=== PATIENT | male | born 1940 | race Caucasian/White ===

== ENCOUNTER → 2017-10-05 | Outpatient (CLI) | payer OTHER ==
[~2017-10-05] MED LIST: IOHEXOL 350 MG/ML 100 ML (OMNIPAQUE 350) VIAL IV ONE; NS 100 ML (IVPB) BAG IV ONE
[2017-10-05 09:42] LABS: ALANINE AMINOTRANSFERASE 13 U/L (0-55); ANION GAP 8 MMOL/L (5-14); ASPARTATE AMINO TRANSFERASE 18 U/L (5-34); BILIRUBIN,TOTAL 0.7 MG/DL (0.1-1.0); BLOOD UREA NITROGEN 20 MG/DL (7-18); BUN/CREATININE RATIO 19; CALCIUM 9.4 MG/DL (8.5-10.1); CARBON DIOXIDE 26 MMOL/L (21-32); CHLORIDE 106 MMOL/L (98-107); CREATININE SERUM 1.03 MG/DL (0.60-1.30); GFR ESTIMATED > 60; GLUCOSE 94 MG/DL (70-105); SODIUM 140 MMOL/L (135-145); TOTAL PROTEIN 6.9 GM/DL (6.4-8.2)
--- NOTE | 2017-10-05 11:02 | Diagnostic Imaging Report ---
PROCEDURE: CT abdomen and pelvis with contrast. TECHNIQUE: Multiple contiguous axial images were obtained through the abdomen and pelvis after administration of intravenous contrast. INDICATION: Abdominal pain. 100 mL of Omnipaque 350 is administered intravenously. FINDINGS: The lung bases are clear. The liver, the pancreas, the spleen, the adrenal glands, and the gallbladder appear unremarkable. The kidneys have symmetric contrast enhancement and excretion. There is no hydronephrosis. The prostate is 5.2 cm in transverse dimension. There is extensive diverticulosis in the sigmoid colon. No diverticulitis. No bowel obstruction. The appendix is normal. The osseous structures demonstrate degenerative changes in the lumbar spine and mild to moderate degenerative changes in the hip joints. IMPRESSION: 1. Diverticulosis. No evidence of diverticulitis. 2. Enlarged prostate. Dictated by: Dictated on workstation # [id number]
== END ==
LOC: RAD 09:04
PROVIDERS: ATTEND Family Medicine
DX: K57.30 Diverticulosis of large intestine without perforation or abscess without bleeding (principal); N40.0 Benign prostatic hyperplasia without lower urinary tract symptoms
CPT/HCPCS: 36415; 74177; 80053

== ENCOUNTER → 2019-08-24 | Outpatient (CLI) | payer OTHER ==
--- NOTE | 2019-08-24 12:08 | Diagnostic Imaging Report ---
Left shoulder at 10:46 a.m. INDICATION: Shoulder pain Three views were obtained. COMPARISON: There are no prior studies available for comparison. FINDINGS: There is no fracture, dislocation or acute bony abnormality evident. There is only mild degenerative disease involving the glenohumeral and acromioclavicular joints. Degenerative disease is less than expected given the patient's age. The soft tissues are unremarkable. IMPRESSION: 1. There is no evidence for an acute bony abnormality. 2. If there is clinical concern regarding an injury to the rotator cuff or labrum, then MRI would be recommended for further study. Dictated by: Dictated on workstation # [id number]
== END ==
LOC: RAD 10:24
PROVIDERS: ATTEND Family Medicine
DX: M19.012 Primary osteoarthritis, left shoulder (principal)
CPT/HCPCS: 73030

== ENCOUNTER → 2019-10-03 | Outpatient (CLI) | payer MEDICARE, OTHER ==
--- NOTE | 2019-10-03 10:43 | Diagnostic Imaging Report ---
PROCEDURE: MRI left upper extremity without contrast. TECHNIQUE: Multiplanar, multisequence non contrast-enhanced MRI of the left upper extremity was accomplished. INDICATION: Chronic left shoulder pain. Recent golf injury. COMPARISON: Radiographs from 08/24/2019. FINDINGS: No acute fracture is seen in the left shoulder. There are marked degenerative changes in the acromioclavicular joint. There is a small left shoulder joint effusion. There is moderate fluid in the subacromial subdeltoid bursa. The supraspinatus tendon demonstrates mild tendinosis, with small low-grade partial-thickness tears at the footplate. There is fraying and low-grade partial tearing at the bursal surface as well. The infraspinatus tendon also demonstrates mild tendinosis. The teres minor tendon is intact. The subscapularis tendon demonstrates a high-grade partial-thickness tear at the articular surface measuring 2 cm in width. No definite full-thickness component is seen although there is fluid in the subcoracoid bursa. The long head of the biceps tendon is normal in course with no tear seen. The glenoid labrum is diminutive and irregular posteriorly and inferiorly, which is likely degenerative. No paralabral cyst is seen. The acromion has a curved undersurface without hooking. The coracoclavicular and coracoacromial ligaments are intact. The soft tissues about the left shoulder are otherwise unremarkable. IMPRESSION: 1. Moderate-sized high-grade partial-thickness tear of the subscapularis tendon. Fluid in the subcoracoid bursa may indicate a small full-thickness component versus bursitis. 2. Tendinosis in the supraspinatus and infraspinatus tendons. Fraying and low-grade partial-thickness tearing at the bursal surface of the supraspinatus. 3. Marked degenerative changes of the acromioclavicular joint, causing mass effect on the underlying supraspinatus. Recommend correlation for signs of impingement. 4. Subacromial subdeltoid bursitis. Dictated by: Dictated on workstation # [id number]
== END ==
LOC: RAD 09:11
PROVIDERS: ATTEND Family Medicine
DX: S43.422A Sprain of left rotator cuff capsule, initial encounter (principal); M19.012 Primary osteoarthritis, left shoulder; M75.52 Bursitis of left shoulder
CPT/HCPCS: 73221

== ENCOUNTER → 2021-04-07 | Outpatient (CLI) | payer MEDICARE ==
--- NOTE | 2021-04-07 17:24 | Diagnostic Imaging Report ---
PROCEDURE: US carotid duplex, bilateral. TECHNIQUE: Multiple real-time grayscale images were obtained over the carotid arteries in various projections, bilaterally. Additional spectral analysis and color Doppler duplex images were also obtained. INDICATION: Subclavian steal. No relevant comparison is available. FINDINGS: By grayscale imaging there are no findings of significant atherosclerotic plaquing at the carotid bifurcations. The morphology of the waveforms within the common and internal carotid arteries appear appropriate without evidence of abnormal elevation of the peak systolic velocities. The ICA/CCA ratios appear normal. There is antegrade flow within both of the vertebral arteries with normal waveforms. No notching or pre-steal phenomenon evident. No velocity elevations evident within the visualized portion of the subclavian arteries. IMPRESSION: 1. No sonographic evidence of a hemodynamically significant carotid artery stenosis. 2. Antegrade flow within the vertebral arteries with unremarkable waveforms. No velocity elevations evident within the visualized portion of the subclavian arteries. Parameters based on the consensus panel Villafuerte-Scale and Doppler ultrasound criteria published September 2003, Radiology, Volume 229. DOPPLER (peak systolic velocity M/S Right Left CCA .77 .96 ICA Proximal .60 .55 ICA Mid .59 .77 ICA Distal .68 .33 RATIO .77 .79 ECA 1.05 .74 VERT .57 .38 Dictated by: Dictated on workstation # [id number]
--- NOTE | 2021-04-07 19:23 | Diagnostic Imaging Report ---
INDICATION: Dizziness, subclavian steal Duplex ultrasound of the upper extremities was done with grayscale, spectral wave form and color Doppler flow analysis. Arterial Doppler bilateral upper extremities. The arterial systems of both upper extremities have normal arterial velocities and waveforms. There is no occlusion or hemodynamically significant stenosis seen. IMPRESSION: Normal arterial Doppler of the upper extremities. Dictated by: Dictated on workstation # [id number]
== END ==
LOC: RAD 13:51
PROVIDERS: ATTEND Family Medicine
DX: R42 Dizziness and giddiness (principal); G45.8 Other transient cerebral ischemic attacks and related syndromes
CPT/HCPCS: 93880; 93930

== ENCOUNTER 2022-03-19 13:23 | Outpatient (RCR) | payer MEDICARE | END 2022-03-21 | disposition home or self-care (01) | PROVIDERS: ATTEND Family Medicine | DX: I69.332 Monoplegia of upper limb following cerebral infarction affecting left dominant side (principal); I69.342 Monoplegia of lower limb following cerebral infarction affecting left dominant side; I10 Essential (primary) hypertension ==

== ENCOUNTER → 2022-04-21 | Outpatient (RCR) | payer MEDICARE | END | disposition home or self-care (01) | PROVIDERS: ATTEND Family Medicine | DX: I69.332 Monoplegia of upper limb following cerebral infarction affecting left dominant side (principal); I69.342 Monoplegia of lower limb following cerebral infarction affecting left dominant side; I10 Essential (primary) hypertension ==

== ENCOUNTER 2022-05-20 12:56 | Outpatient (RCR) | payer MEDICARE | END 2022-05-21 | disposition home or self-care (01) | PROVIDERS: ATTEND Family Medicine | DX: I69.332 Monoplegia of upper limb following cerebral infarction affecting left dominant side (principal); I69.342 Monoplegia of lower limb following cerebral infarction affecting left dominant side; I10 Essential (primary) hypertension ==

== ENCOUNTER 2022-06-17 12:59 | Outpatient (RCR) | payer MEDICARE | END 2022-06-21 | disposition home or self-care (01) | PROVIDERS: ATTEND Family Medicine | DX: I69.332 Monoplegia of upper limb following cerebral infarction affecting left dominant side (principal); I69.342 Monoplegia of lower limb following cerebral infarction affecting left dominant side; I10 Essential (primary) hypertension ==

== ENCOUNTER → 2022-06-18 | Outpatient (CLI) | payer MEDICARE ==
--- NOTE | 2022-06-18 16:09 | Diagnostic Imaging Report ---
PROCEDURE: MR imaging of the brain without contrast. TECHNIQUE: Multiplanar, multisequence MR imaging of the brain was performed without contrast. INDICATION: Left-sided weakness and numbness. History of stroke. COMPARISON: None. FINDINGS: Advanced generalized parenchymal volume loss. Advanced nonspecific T2 hyperintensities in the supratentorial and pontine white matter compatible with chronic small vessel ischemic change. Chronic infarcts in the arlene and left thalamus. There is also encephalomalacia in the right basal ganglia with hemosiderin deposition consistent with a prior hemorrhage. No evidence of acute infarction or hemorrhage. Normal morphology including the major midline structures, sella, posterior fossa and cerebellar pontine angle. Normal intracranial flow voids. No hydrocephalus or extra-axial fluid collections. The orbits are unremarkable. Paranasal sinuses and mastoids are clear. Normal bone marrow signal. IMPRESSION: 1. No acute intracranial MRI findings. No evidence of acute infarction or hemorrhage. 2. Sequelae of a chronic hemorrhage in the right basal ganglia. There are also chronic infarcts in the left thalamus and arlene. 3. Advanced generalized parenchymal volume loss and chronic small vessel ischemic change. Dictated by: Dictated on workstation # [id number]
== END ==
LOC: RAD 14:05
PROVIDERS: ATTEND Family Medicine
DX: G31.9 Degenerative disease of nervous system, unspecified (principal); I69.354 Hemiplegia and hemiparesis following cerebral infarction affecting left non-dominant side; I67.82 Cerebral ischemia
CPT/HCPCS: 70551

== ENCOUNTER 2022-07-16 12:52 | Outpatient (RCR) | payer MEDICARE | END 2022-07-22 | disposition home or self-care (01) | PROVIDERS: ATTEND Family Medicine | DX: I69.332 Monoplegia of upper limb following cerebral infarction affecting left dominant side (principal); I69.342 Monoplegia of lower limb following cerebral infarction affecting left dominant side; I10 Essential (primary) hypertension ==

== ENCOUNTER 2022-08-13 13:01 | Outpatient (RCR) | payer MEDICARE | END 2022-08-19 16:00 | disposition home or self-care (01) | PROVIDERS: ATTEND Family Medicine | DX: I69.332 Monoplegia of upper limb following cerebral infarction affecting left dominant side (principal); I69.342 Monoplegia of lower limb following cerebral infarction affecting left dominant side; I10 Essential (primary) hypertension ==

== ENCOUNTER 2023-02-03 00:58 | Inpatient (IN) | payer MEDICARE ==
[~2023-02-03] VITALS: Ht 177.8 cm; Wt 65.1 kg
[2023-02-03] VITALS (26 sets, daily range): BP systolic 70–140; BP diastolic 35–88
[2023-02-03] MEDS ORDERED: fentaNYL INJ 100 MCG/2 ML AMP IVP STA ×2 (01:16→03:23)
[2023-02-03 01:27] LABS: BASOPHILS % (AUTO) 0 % (0-10); EOSINOPHILS % (AUTO) 0 % (0-10); HEMATOCRIT 44 % (40-54); HEMOGLOBIN 14.5 g/dL (13.3-17.7); LYMPHOCYTES # (AUTO) 1.4 10^3/uL (1.0-4.0); LYMPHOCYTES % (AUTO) 12 % (12-44); MEAN CORPUSCULAR HEMOGLOBIN 29 pg (25-34); MEAN CORPUSCULAR HGB CONC 33 g/dL (32-36); MEAN CORPUSCULAR VOLUME 86 fL (80-99); MEAN PLATELET VOLUME 10.1 fL (9.0-12.2); MONOCYTES % (AUTO) 9 % (0-12); NEUTROPHILS # (AUTO) 8.8 10^3/uL (1.8-7.8); NEUTROPHILS % (AUTO) 78 % (42-75); PLATELET COUNT 147 10^3/uL (130-400); WHITE BLOOD COUNT 11.2 10^3/uL (4.3-11.0)
[2023-02-03 01:37] LABS: ALBUMIN 4.1 GM/DL (3.2-4.5)
[2023-02-03 01:38] LABS: POTASSIUM 3.8 MMOL/L (3.6-5.0)
[2023-02-03 01:40] LABS: TOTAL PROTEIN 6.8 GM/DL (6.4-8.2)
[2023-02-03 01:42] LABS: BILIRUBIN,TOTAL 0.9 MG/DL (0.1-1.0)
[2023-02-03 01:43] LABS: CREATININE SERUM 0.94 MG/DL (0.60-1.30)
[2023-02-03 01:48] LABS: PROTHROMBIN TIME PATIENT 13.8 SEC (12.2-14.7)
[2023-02-03] MEDS ORDERED: LACTATED RINGERS 1,000 ML IV ONE ×2 (02:00→14:03)
[2023-02-03 02:14] LABS: BILIRUBIN,URINE NEGATIVE (NEGATIVE); CLARITY,URINE CLEAR; COLOR,URINE YELLOW; GLUCOSE, URINE (UA) NEGATIVE (NEGATIVE); KETONES,URINE 2+ (NEGATIVE); LEUKOCYTE ESTERASE ,URINE NEGATIVE (NEGATIVE); NITRITE,URINE NEGATIVE (NEGATIVE); PROTEIN,URINE TRACE (NEGATIVE)
[2023-02-03 02:26] LABS: AMORPHOUS SEDIMENT,UR MOD AMOR PHOSPHATE /LPF; BACTERIA,URINE NEGATIVE /HPF
--- NOTE | 2023-02-03 04:13 | ED Fall/Injury ---
General Chief Complaint: Hip/Pelvic Problems Stated Complaint: FALL Nursing Triage Note: PATIENT FELL ON LEFT SIDE AT 1900, 02/03/2023. STATES L HIP PAIN TOLERATED SOME MOVEMENT WITH ASSISTANCE BUT PAIN HAS GOTTEN WORSE. DENIES LOC Source: patient History of Present Illness Date Seen by Provider: Feb 03, 2023 Time Seen by Provider: 01:07 Initial Comments PT ARRIVES VIA EMS FROM HOME, WHERE HE LIVES WITH HIS PT STATES THAT AROUND 1900 THIS EVENING, HE STOOD UP FROM WHEELCHAIR, AND WAS TAKING OFF HIS JACKET AND LOST HIS BALANCE AND FELL BACK WARDS, HITTING HIS LEFT UPPER BACK ON THE DOOR FRAME AND THEN LANDED ON THE FLOOR ON HIS LEFT HIP. 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 PT STATES HE IS ABLE TO AMBULATE WITH A CANE, BUT HAS NOT BEEN ABLE TO BEAR WEIGHT OR MOVE LEG WITH OUT PAIN, AND PAIN IS GETTING WORSE HE DID TAKE A HYDROCODONE AT 2345--NO RELIEF. PT TAKES 81 MG ASPIRIN, BUT IS NOT ON BLOOD THINNERS HIS ONLY OTHER MEDICATIONS ARE ATORVASTATIN AND LEVOTHYROXINE PCP: DR. TYLER CHENG Allergies and Home Medications Allergies Coded Allergies: No Allergy Information Available (Unverified , 10/05/17) Patient Home Medication List Home Medication List Reviewed: Yes Review of Systems Review of Systems Constitutional: no symptoms reported Eyes: No Symptoms Reported Ears, Nose, Mouth, Throat: no symptoms reported Respiratory: no symptoms reported; No short of breath Cardiovascular: no symptoms reported; No chest pain Gastrointestinal: no symptoms reported; No abdominal pain, No nausea, No vomiting Genitourinary: no symptoms reported Musculoskeletal: see HPI Skin: no symptoms reported Psychiatric/Neurological: Pre-Existing Deficit Past Hgiekil-Dhfesb-Ulkbdb Hx Patient Social History Tobacco Use?: Yes Tobacco type used: Cigarettes Smoking Status: Former Smoker Use of E-Cig and/or Vaping dev: No Substance use?: No Alcohol Use?: No Immunizations Up To Date Influenza Vaccine Up-to-Date: Yes; Up-to-Date First/Initial COVID19 Vaccinat: 2020 Past Medical History Surgeries: Yes Abdominal, Orthopedic, Thyroidectomy, Tonsillectomy Respiratory: No Cardiac: Yes High Cholesterol Neurological: Yes (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) Paralysis, Stroke Genitourinary: No Gastrointestinal: Yes (HERNIA REPAIR X 4) Abdominal Hernia Musculoskeletal: Yes (LEFT KNEE SCOPE X 1) Arthritis Endocrine: Yes (S/P THYROIDECTOMY) Hypothyroidsim HEENT: Yes Hearing Impairment: Hard of Hearing Cancer: Yes Skin Did You Recieve Any Treatments: Yes What Type of Treatment Did You: Surgical Intervention SKIN CANCERS 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 oz. kg; 19.00 BMI Method: General Appearance: WD/WN, no apparent distress, cachetic, other (VERY PLEASANT, DOES NOT APPEAR TO BE IN ANY DISTRESS AT THIS TIME) HEENT: PERRL/EOMI Neck: non-tender, full range of motion, supple, normal inspection Cardiovascular: normal peripheral pulses, no edema, no JVD, no murmur, tachycardia (110'S) Respiratory: chest non-tender, normal breath sounds, no respiratory distress, no accessory muscle use Peripheral Pulses: 2+ Dorsalis Pedis (R), 2+ Left Dors-Pedis (L) Gastrointestinal: normal bowel sounds, non tender, soft Back: other (DIFFUSE TENDERNESS TO LEFT SIDE OF BACK, WITH MINOR ABRASION TO LEFT SCAPULA AREA. ) Extremities: no pedal edema, normal capillary refill, other (TENDERNESS TO LEFT HIP. NO DEFORMITY, NO SHORTENING OR ROTATION) Neurologic/Psychiatric: alert, normal mood/affect, oriented x 3, other (SLIGHTLY THICK-TONGUED, LEFT FACIAL DROOP, LEFT SIDE WEAKNESS/PARTIAL PARALYSIS--ALL ARE CHRONIC FROM PRIOR CVA. SENSATION IS INTACT, AND PT IS ABLE TO MOVE TOES AND FOOT A LITTLE. ) Skin: normal color, warm/dry Progress/Results/Core Measures Results/Orders Lab Results Laboratory Tests Test 02/03/23 01:20 02/03/23 02:05 Range/Units White Blood Count 11.2 H 4.3-11.0 10^3/uL Red Blood Count 5.08 4.30-5.52 10^6/uL Hemoglobin 14.5 13.3-17.7 g/dL Hematocrit 44 40-54 % Mean Corpuscular Volume 86 80-99 fL Mean Corpuscular Hemoglobin 29 25-34 pg Mean Corpuscular Hemoglobin Concent 33 32-36 g/dL Red Cell Distribution Width 14.7 H 10.0-14.5 % Platelet Count 147 130-400 10^3/uL Mean Platelet Volume 10.1 9.0-12.2 fL Immature Granulocyte % (Auto) 0 % Neutrophils (%) (Auto) 78 H 42-75 % Lymphocytes (%) (Auto) 12 12-44 % Monocytes (%) (Auto) 9 0-12 % Eosinophils (%) (Auto) 0 0-10 % Basophils (%) (Auto) 0 0-10 % Neutrophils # (Auto) 8.8 H 1.8-7.8 10^3/uL Lymphocytes # (Auto) 1.4 1.0-4.0 10^3/uL Monocytes # (Auto) 1.0 0.0-1.0 10^3/uL Eosinophils # (Auto) 0.0 0.0-0.3 10^3/uL Basophils # (Auto) 0.0 0.0-0.1 10^3/uL Immature Granulocyte # (Auto) 0.0 0.0-0.1 10^3/uL Prothrombin Time 13.8 12.2-14.7 SEC INR Comment 1.0 0.8-1.4 Activated Partial Thromboplast Time 32 24-35 SEC Sodium Level 140 135-145 MMOL/L Potassium Level 3.8 3.6-5.0 MMOL/L Chloride Level 100 98-107 MMOL/L Carbon Dioxide Level 27 21-32 MMOL/L Anion Gap 13 5-14 MMOL/L Blood Urea Nitrogen 27 H 7-18 MG/DL Creatinine 0.94 0.60-1.30 MG/DL Estimat Glomerular Filtration Rate 80 BUN/Creatinine Ratio 29 Glucose Level 115 H 70-105 MG/DL Calcium Level 10.0 8.5-10.1 MG/DL Corrected Calcium 9.9 8.5-10.1 MG/DL Total Bilirubin 0.9 0.1-1.0 MG/DL Aspartate Amino Transf (AST/SGOT) 30 5-34 U/L Alanine Aminotransferase (ALT/SGPT) 36 0-55 U/L Alkaline Phosphatase 107 40-136 U/L Total Protein 6.8 6.4-8.2 GM/DL Albumin 4.1 3.2-4.5 GM/DL Urine Color YELLOW Urine Clarity CLEAR Urine pH 8.0 5-9 Urine Specific [place]son 1.015 L 1.016-1.022 Urine Protein TRACE H NEGATIVE Urine Glucose (UA) NEGATIVE NEGATIVE Urine Ketones 2+ H NEGATIVE Urine Nitrite NEGATIVE NEGATIVE Urine Bilirubin NEGATIVE NEGATIVE Urine Urobilinogen 0.2 < = 1.0 MG/DL Urine Leukocyte Esterase NEGATIVE NEGATIVE Urine RBC (Auto) NEGATIVE NEGATIVE Urine RBC NONE /HPF Urine WBC NONE /HPF Urine Crystals PRESENT H /LPF Urine Amorphous Sediment MOD OZZIE PHOSPHATE H /LPF Urine Bacteria NEGATIVE /HPF Urine Casts NONE /LPF Urine Mucus NEGATIVE /LPF Urine Culture Indicated NO My Orders Orders - GERALD UMANZOR DO Cbc With Automated Diff (02/03/23 01:10) Comprehensive Metabolic Panel (02/03/23 01:10) Protime With Inr (02/03/23 01:10) Partial Thromboplastin Time (02/03/23 01:10) Ua Culture If Indicated (02/03/23 01:10) Chest 1 View, Ap/Pa Only (02/03/23 01:10) Femur, Left, 2 Views (02/03/23 01:10) Pelvis With Left Hip 2-3 Views (02/03/23 01:10) Fentanyl Inj (Sublimaze Injection) (02/03/23 01:16) Ct Head/Cervical Spine Wo (02/03/23 01:16) Ct Chest/Abdomen/Pelvis Wo (02/03/23 ) Ed Iv/Invasive Line Start (02/03/23 02:00) Lactated Ringers (Lr 1000 Ml Iv Solution (02/03/23 02:00) Fentanyl Inj (Sublimaze Injection) (02/03/23 03:23) Medications Given in ED Current Medications Medications Dose Ordered Sig/Awilda Route Start Time Stop Time Status Last Admin Dose Admin Lactated Ringer's 1,000 ml @ 0 mls/hr Q0M ONCE IV 02/03/23 02:00 02/03/23 02:01 DC 02/03/23 02:13 0 MLS/HR Vital Signs/I&O 02/03/23 01:05 Temp 36.2 Pulse 121 Resp 20 B/P (MAP) 155/100 (118) Pulse Ox 97 O2 Delivery Room Air Blood Pressure Mean: 118 Progress Progress Note : Progress Note GIVEN: -IV FLUIDS -FENTANYL HR AND BP DOWN AT TIME OF ADMIT NO DETERIORATION IN PT'S CONDITION DURING ER STAY NO PRIOR VISITS HERE REVIEWED ALL TEST RESULTS WITH PT AND , AND AGREE WITH PLAN OF CARE Diagnostic Imaging Comments CXR--NO ACUTE PROCESS, PENDING RADIOLOGIST REVIEW PELVIS / LEFT HIP--LEFT FEMORAL NECK FRACTURE, PENDING RADIOLOGIST REVIEW LEFT FEMUR--LEFT FEMORAL NECK FRACTURE, PENDING RADIOLOGIST REVIEW CT HEAD/CERVICAL SPINE--PER [facility] VIA FAX AT [id number] -NO ACUTE INFARCT, BLEED OR ACUTE INTRACRANIAL ABNORMALITY. 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 -NO FRACTURE OR ACUTE BONY ABNORMALITY -MODERATE DEGENERATIVE CHANGES OF CERVICAL SPINE CT CHEST/ABDOMEN/PELVIS, WITH THORACIC/LUMBAR SPINE--PER [facility] VIA FAX AT 4507 -NO PNEUMOTHORAX OR ACUTE INTRA-THORACIC ABNORMALITY -NON-DISPLACED LEFT FEMORAL NECK FRACTURE -NO PARENCHYMAL INJURY OR HEMOPERITONEUM. Reviewed: Reviewed by Hi Departure Communication (Admissions) [id number]--SPOKE WITH DR. BRANDON, ORTHOPEDIC SURGEON WHIP [facility]. ACCEPTS PT FOR ADMIT. PLAN ON TAKING TO SURGERY LATER TODAY. Impression Primary Impression: S/P FALL FROM STANDING Additional Impressions: Closed left hip fracture HX OF CVA WITH LEFT SIDE WEAKNESS Disposition: ADMITTED INPATIENT Condition: Stable Admissions Decision to Admit Reason: Admit from ER (Trauma) Decision to Admit/Date: Feb 03, 2023 Time/Decision to Admit Time: 03:55 Departure-Patient Inst. Referrals: TYLER CHENG MD (PCP/Family) Primary Care Physician GERALD UMANZOR DO Feb 03, 2023 04:13
[2023-02-03] MEDS ORDERED: fentaNYL INJ 100 MCG/2 ML AMP IV PRN (05:15)
[2023-02-03] MEDS ORDERED: D5 1/2 NS W/KCL 20 MEQ/L 1,000 ML IV SCH (05:15)
[2023-02-03] MEDS ORDERED: ONDANSETRON 4 MG/2 ML (SDV) Z0FRAN IV PRN (05:15)
[2023-02-03] MEDS ORDERED: ACETAMINOPHEN 325 MG TABLET PO PRN ×2 (05:30→07:30)
[2023-02-03] MEDS ORDERED: MELATONIN 3 MG TABLET PO PRN (05:30)
[2023-02-03] MEDS ORDERED: MILK OF MAGNESIA 400 MG/5 ML 30 ML UDC PO PRN (05:30)
[2023-02-03] MEDS ORDERED: LACTULOSE SYRUP 10GM/15ML (ENULOSE) 30ML UDC PO PRN (05:30)
[2023-02-03] MEDS ORDERED: polyethylene glycoL POWDER 17 GM (MIRALAX) PACK PO PRN (05:30)
[2023-02-03] MEDS ORDERED: ANTACID SUSP 30 ML UDC (MYLANTA) PO PRN (05:30)
[2023-02-03] MEDS ORDERED: diphenhydrAMINE 25 MG TAB (BENADRYL) PO PRN (05:30)
[2023-02-03] MEDS ORDERED: HYDROmorphone 2 MG/ML VIAL (DILAUDID) IV PRN (05:30)
[2023-02-03] MEDS ORDERED: CALCIUM CARBONATE 500 MG (TUMS) TAB.CHEW PO PRN (05:30)
[2023-02-03] MEDS ORDERED: BISACODYL 10 MG SUPP (DULCOLAX) PR PRN (05:30)
[2023-02-03] MEDS ORDERED: ONDANSETRON 4 MG (ZOFRAN) ORAL DISSOLVE TAB PO PRN (05:30)
[2023-02-03] MEDS ORDERED: diphenhydrAMINE 50 MG/ML INJ (BENADRYL) IVP PRN ×2 (05:30→07:30)
--- NOTE | 2023-02-03 06:16 | Diagnostic Imaging Report ---
EXAMINATION: Chest 1 view HISTORY: Fall. Chest pain. COMPARISON: None available. FINDINGS: The lung volumes are normal. No focal consolidation is seen. No large pleural effusion or pneumothorax is seen. The cardiomediastinal silhouette is normal in size and contour. No acute osseous abnormality is seen. IMPRESSION: 1. No acute pleuroparenchymal process. Dictated by: Dictated on workstation # [id number]
--- NOTE | 2023-02-03 06:19 | Diagnostic Imaging Report ---
CLINICAL HISTORY: Fall. Left hip pain. COMPARISON: CT performed the same date. TECHNIQUE: 3 views of the pelvis and left hip. FINDINGS: Nondisplaced fracture seen involving the neck of the left femur. No fracture seen in the pelvis. The right hip is unremarkable. No focal osseous lesions. IMPRESSION: 1. Nondisplaced fracture involving the neck of the left femur. Dictated by: Dictated on workstation # [id number]
--- NOTE | 2023-02-03 06:19 | Diagnostic Imaging Report ---
CLINICAL HISTORY: Fall. Left-sided hip pain. COMPARISON: CT performed the same date. TECHNIQUE: 4 views of the left femur. FINDINGS: A nondisplaced fracture seen involving the neck of the proximal left femur. This is not well characterized on this exam. No significant malalignment. No focal osseous lesions. No fracture seen in the distal left femur. IMPRESSION: 1. Nondisplaced fracture involving the neck of the left femur. Please see the CT abdomen and pelvis performed the same date for additional findings. Dictated by: Dictated on workstation # [id number]
[2023-02-03] MEDS: NS IV 1000 ML 1,000 ML IV SCH ×2 (06:21→21:42)
--- NOTE | 2023-02-03 06:24 | Diagnostic Imaging Report ---
PROCEDURE: CT head and CT cervical spine without contrast. TECHNIQUE: Multiple contiguous axial images were obtained through the brain and cervical spine without the use of intravenous contrast. Sagittal and coronal reformations through the cervical spine were then performed. Auto Exposure Controls were utilized during the CT exam to meet ALARA standards for radiation dose reduction. INDICATION: Fall. Head and neck pain. COMPARISON: 06/18/2022. FINDINGS: CT head: No large acute territorial ischemia, mass, or hemorrhage. No midline shift or mass effect. Old lacunar infarct is seen in the left thalamus. Decreased attenuation is seen in the periventricular and subcortical white matter. The ventricles and cortical sulci are prominent. The basilar cisterns are patent and unremarkable. The calvarium is intact. The visualized paranasal sinuses are clear. CT cervical spine: No acute fracture or dislocation is seen in the cervical spine. No focal osseous lesions. Vertebral body heights are well-maintained. The craniocervical junction is well-maintained. Mild degenerative changes are seen in the cervical spine with disc osteophyte complexes and uncovertebral arthropathy. Soft tissues of the neck are unremarkable. The included lung apices are clear. IMPRESSION: 1. No hemorrhage or focal intra-axial mass. No CT evidence of large acute territorial ischemia. 2. No acute fracture or dislocation in the cervical spine. Agree with overnight report. Dictated by: Dictated on workstation # [id number]
--- NOTE | 2023-02-03 06:28 | Diagnostic Imaging Report ---
PROCEDURE: CT chest, abdomen, and pelvis without contrast. TECHNIQUE: Multiple contiguous axial images were obtained through the chest, abdomen, and pelvis without the use of intravenous contrast. Auto Exposure Controls were utilized during the CT exam to meet ALARA standards for radiation dose reduction. INDICATION: Fall. Chest and hip pain. COMPARISON: 10/05/2017. CT chest: The heart size is within normal limits. No pericardial effusion is present. There is calcified aortic and coronary atherosclerotic plaque without aneurysm. There is no mediastinal, hilar, or axillary lymphadenopathy. The lungs demonstrate no pulmonary nodules or masses. There are no focal areas of consolidation. No pneumothoraces are present. No central endobronchial obstructing lesions are identified. There are no pleural effusions. No acute osseous abnormalities. CT abdomen and pelvis: The liver, spleen, pancreas, adrenal glands, and kidneys have a normal appearance. The gallbladder is mildly distended. There is no pathologically enlarged mesenteric or retroperitoneal adenopathy. The bowel loops are nondilated. The appendix is visualized in the right lower quadrant and has a normal appearance. Diverticuli are seen in the sigmoid colon without evidence of acute diverticulitis. There is no free fluid or free air. Nondisplaced fracture seen involving the neck of the left femur. No other fractures are seen in the lumbar spine or pelvis. There is grade 1 anterolisthesis of L5 on S1. Scattered calcified aortic and iliac atherosclerotic plaque is seen without aneurysm. Ureters and bladder are normal. There is no free air, loculated collection, or adenopathy in the pelvis. IMPRESSION: 1. Nondisplaced fracture involving the neck of the left femur. 2. No evidence of solid organ injury in the abdomen and pelvis. No free fluid. 3. No acute injury in the chest. Agree with overnight report. Dictated by: Dictated on workstation # [id number]
[2023-02-03] MEDS ORDERED: RT-ALBUTEROL SULF 2.5 MG/3 ML PRE-MIX VIAL INH PRN (06:45)
--- NOTE | 2023-02-03 07:15 | Progress Note-Pre Operative ---
Pre-Operative Progress Note Date of Available H&P: Feb 03, 2023 Date H&P Reviewed: Feb 03, 2023 Time H&P Reviewed: 07:15 Changes from last HP none Pre-Operative Diagnosis: left neck of femur fracture DANI BRANDON MD Feb 03, 2023 07:15
--- NOTE | 2023-02-03 07:16 | Progress Note-Post Operative ---
Post-Operative Progess Note Surgeon (s)/Parakeet Raiser (s) Surgeon DANI BRANDON MD Parakeet Raiser: Mart Castañeda Pre-Operative Diagnosis left neck of femur fracture Post-Operative Diagnosis left neck of femur fracture Procedure & Operative Findings Date of Procedure 02/03/23 Procedure Performed/Findings left hip bipolar replacement Anesthesia Type GETA Estimated Blood Loss Estimated blood loss (mL): 2ooml Specimens/Packing Specimens Removed femoral head Packing: none DANI BRANDON MD Feb 03, 2023 07:16
[2023-02-03] MEDS ORDERED: morphine INJ 10 MG/ML 1ML (SYR OR VIAL) IVP PRN (07:30)
[2023-02-03] MEDS ORDERED: ceFAZolin INJECTION 2,000 MG in NS (IVPB) 50 ML IV ONE (07:30)
[2023-02-03] MEDS ORDERED: ONDANSETRON 4 MG/2 ML (SDV) Z0FRAN IVP PRN (07:30)
[2023-02-03] MEDS ORDERED: TEMAZEPAM 15 MG (RESTORIL) CAP PO PRN (07:30)
--- NOTE | 2023-02-03 08:40 | CONSULTATION REPORT ---
DATE OF SERVICE: 02/03/2023 INPATIENT CONSULTATION REASON FOR CONSULTATION: Left femoral neck fracture. HISTORY OF PRESENT ILLNESS: The patient is an 82-year-old gentleman status post hemorrhagic stroke with left-sided weakness, who fell at home. He presented to the Emergency Department where he was found to have a left femoral neck fracture. On CT scan, there appears to be extension up into the femoral head, though it is impacted. There is some collapse of the femoral head. The patient denies antecedent pain. He reports no head pain. He reports no recent systemic illnesses. PHYSICAL EXAMINATION: His left lower extremity is painful with internal and external rotation. Pulses are symmetric. He has intact dorsiflexion and plantarflexion of the toes. Sensation is intact to light touch throughout. IMPRESSION: Left femoral neck fracture. PLAN: I discussed options with the patient and his . Due to his hemorrhagic stroke, left-sided weakness and extension of the femoral head, we have elected to proceed with left hip bipolar replacement. I discussed risks, benefits, options, ramifications and recovery. They understand and wished to proceed. Job ID: [id number] DocumentID: [id number] Dictated Date: 02/03/2023 07:14:28 Cad Manager Date: 02/03/2023 08:37:00 Dictated By: DANI BRANDON MD
[2023-02-03] MEDS ORDERED: SENNOSIDES 8.6 MG (SENOKOT) TAB PO SCH (09:00)
[2023-02-03] MEDS ORDERED: BUPIVACAINE 0.5% 30 ML (SENSORCAINE) VIAL ONE ×2 (09:47→10:29)
[2023-02-03] MEDS: LACTATED RINGERS 1,000 ML IV PRN ×2 (09:50→11:52)
[2023-02-03] MEDS ORDERED: fentaNYL INJ 100 MCG/2 ML AMP ONE (10:23)
[2023-02-03] MEDS ORDERED: PROPOFOL INJECTION 50 ML IV ONE (10:29)
[2023-02-03] MEDS ORDERED: MIDAZOLAM 2 MG/2 ML (VERSED) VIAL ONE (10:29)
--- NOTE | 2023-02-03 10:53 | History & Physical ---
ALIE WINN 02/03/23 1053: History of Present Illness History of Present Illness Reason for visit/HPI This is an 82 y/o male who presented to the ED yesterday after a fall from standing. He reported that he was sitting in his wheelchair and gaby to stand to take his jacket off when he lost his balance and fell backwards hitting his left back and left hip. In the ED XR revealed a left femoral neck fracture. CT of the head/neck/abdomen/pelvis were negative for other acute findings. He reports no loss of consciousness and did not hit his head when he fell. He denies CP, SOB, palpitations, dizziness, fever, or chills. He has a history significant for hemorrhagic stroke and has residual left sided weakness/paralysis, and mild dysarthria. After the stroke he stayed at inpatient rehab for 30 days to recover. He currently takes ASA, atorvastatin, and levothyroxine. He lives at home with his and has otherwise had no recent illnesses or injuries/falls. He is a former smoker and quit over 50 years ago and denies alcohol or drug use. At the time of this encounter the patient says his pain is well-controlled and left hip is largely just sore. He is currently on 2L [place] and satting at 100%. His reports that when he first came to the ER he was short of breath from the fall/pain and was lower. He did not eat last night as he is NPO for surgery. He reports a BM yesterday and reports he is urinating without issue at this ti me. He is scheduled to go to the OR for surgical fixation this morning. Date of Admission Feb 03, 2023 at 03:55 Date Seen by a Provider: Feb 03, 2023 Time Seen by a Provider: 08:30 I consulted on this patient on 02/03/23 10:46 Attending Physician Kennedy March MD Admitting Physician Admitting Physician: Sera Booth DO Attending Physician: Sera Booth DO Consult Allergies and Home Medications Allergies Coded Allergies: Influenza Virus Vaccines (Verified Allergy, Severe, 02/03/23) Penicillins (Verified Allergy, Severe, 02/03/23) Patient Home Medication List Home Medication List Reviewed: Yes Aspirin (Aspirin EC) 81 Mg Tablet.dr, 81 MG PO 1200, (Reported) Entered as Reported by: MANDO GOINS on 02/03/231547 Last Action: Reviewed Atorvastatin Calcium (Atorvastatin Calcium) 40 Mg Tablet, 40 MG PO HS, (Reported) Entered as Reported by: MANDO GOINS on 02/03/231547 Last Action: Reviewed Levothyroxine Sodium (Levothyroxine Sodium) 125 Mcg Tablet, 125 MCG PO DAILY, (Reported) Entered as Reported by: MANDO GOINS on 02/03/231547 Last Action: Reviewed Multivits-Minerals/FA/Lycopene (One Daily For Men Tablet) 0.4 Mg-600 Mcg Tablet, 1 EACH PO DAILY, (Reported) Entered as Reported by: MANDO GOINS on 02/03/231547 Last Action: Reviewed Past Jbdiwhf-Pfmdwe-Igzxjq Hx Patient Social History Tobacco Use?: No Tobacco type used: Cigarettes Smoking Status: Never a Smoker Use of E-Cig and/or Vaping dev: No Substance use?: Yes Alcohol Use?: No Immunizations Up To Date First/Initial COVID19 Vaccinat: 2020 Tetanus Booster (TDap): Unknown Current Status Communicates: Verbally Primary Language: Cymraes Preferred Spoken Language: Cymraes Is interpretation needed?: No Sensory deficits: Hearing impairment Past Medical History Surgeries: Abdominal, Orthopedic, Thyroidectomy, Tonsillectomy High Cholesterol Paralysis, Stroke Abdominal Hernia Arthritis Hypothyroidsim Hearing Impairment: Hard of Hearing Skin Did You Recieve Any Treatments: Yes What Type of Treatment Did You: Surgical Intervention SKIN CANCERS REMOVED FROM NOSE AND HAND Blood Disorders: No Family Medical History SOCIAL HISTORY: -SMOKED IN PAST--QUIT OVER 50 YEARS AGO -DENIES ETOH USE -DENIES DRUG USE PAST SURGICAL HISTORY: -LEFT KNEE SCOPE X 1 -TONSILLECTOMY -HERNIA REPAIR X 4 -SKIN CANCERS REMOVED FROM NOSE AND HAND -THROIDECTOMY Review of Systems Constitutional: no symptoms reported, see HPI EENTM: no symptoms reported Respiratory: no symptoms reported, see HPI Cardiovascular: no symptoms reported Gastrointestinal: no symptoms reported Genitourinary: no symptoms reported Musculoskeletal: no symptoms reported Skin: no symptoms reported Psychiatric/Neurological: Pre-Existing Deficit (Left sided paralysis/weakness from previous stroke.) Physical Exam Vital Signs Vital Signs - First Documented 02/03/23 02/03/23 01:05 06:04 Temp 36.2 Pulse 121 Resp 20 B/P (MAP) 155/100 (118) Pulse Ox 97 O2 Delivery Room Air O2 Flow Rate 2.00 FiO2 94 Capillary Refill : Less Than 3 Seconds Height, Weight, BMI Height: '" Weight: lbs. oz. kg; 19.45 BMI Method: General Appearance: No Apparent Distress Eyes: Bilateral Eye PERRL, Bilateral Eye EOMI HEENT: PERRL/EOMI Neck: Normal Inspection, Non Tender, Supple Respiratory: Chest Non Tender, Lungs Clear, Normal Breath Sounds Cardiovascular: Regular Rate, Rhythm, No Edema, No Murmur Gastrointestinal: Normal Bowel Sounds, Non Tender, Soft Extremity: No Pedal Edema, Other (Left hip is tender to palpation.) Neurologic/Psychiatric: Alert, Oriented x3, Facial Droop (Slight residual left facial droop. ), Motor Weakness (Strength for left side extremities is 3/5 c/w deficits from previous stroke.) Skin: Normal Color, Warm/Dry Laboratory Tests 02/03/23 01:20 Radiology: NAME: NOEL [facility]ON [facility] REC#: [id number] PT STATUS: ADM IN : 1940 PHYSICIAN: GERALD UMANZOR DO ADMIT DATE: 02/03/23/ICU Signed Date of Exam:02/03/23 FEMUR, LEFT, 2 VIEWS CLINICAL HISTORY: Fall. Left-sided hip pain. COMPARISON: CT performed the same date. TECHNIQUE: 4 views of the left femur. FINDINGS: A nondisplaced fracture seen involving the neck of the proximal left femur. This is not well characterized on this exam. No significant malalignment. No focal osseous lesions. No fracture seen in the distal left femur. IMPRESSION: 1. Nondisplaced fracture involving the neck of the left femur. Please see the CT abdomen and pelvis performed the same date for additional findings. Dictated by: Dictated on workstation # [id number] Dict: 02/03/23614 Trans: 02/03/23621 [id number] Interpreted by: MARY GILES DO Electronically signed by: MARY GILES DO 02/03/23621 NAME: NOEL [facility]EXTON [facility] REC#: [id number] PT STATUS: ADM IN : 1940 PHYSICIAN: GERALD UMANZOR DO ADMIT DATE: 02/03/23/ICU Signed Date of Exam:02/03/23 CT CHEST/ABDOMEN/PELVIS WO PROCEDURE: CT chest, abdomen, and pelvis without contrast. TECHNIQUE: Multiple contiguous axial images were obtained through the chest, abdomen, and pelvis without the use of intravenous contrast. Auto Exposure Controls were utilized during the CT exam to meet ALARA standards for radiation dose reduction. INDICATION: Fall. Chest and hip pain. COMPARISON: 10/05/2017. CT chest: The heart size is within normal limits. No pericardial effusion is present. There is calcified aortic and coronary atherosclerotic plaque without aneurysm. There is no mediastinal, hilar, or axillary lymphadenopathy. The lungs demonstrate no pulmonary nodules or masses. There are no focal areas of consolidation. No pneumothoraces are present. No central endobronchial obstructing lesions are identified. There are no pleural effusions. No acute osseous abnormalities. CT abdomen and pelvis: The liver, spleen, pancreas, adrenal glands, and kidneys have a normal appearance. The gallbladder is mildly distended. There is no pathologically enlarged mesenteric or retroperitoneal adenopathy. The bowel loops are nondilated. The appendix is visualized in the right lower quadrant and has a normal appearance. Diverticuli are seen in the sigmoid colon without evidence of acute diverticulitis. There is no free fluid or free air. Nondisplaced fracture seen involving the neck of the left femur. No other fractures are seen in the lumbar spine or pelvis. There is grade 1 anterolisthesis of L5 on S1. Scattered calcified aortic and iliac atherosclerotic plaque is seen without aneurysm. Ureters and bladder are normal. There is no free air, loculated collection, or adenopathy in the pelvis. IMPRESSION: 1. Nondisplaced fracture involving the neck of the left femur. 2. No evidence of solid organ injury in the abdomen and pelvis. No free fluid. 3. No acute injury in the chest. Agree with overnight report. Dictated by: Dictated on workstation # [id number] Dict: 02/03/23623 Trans: 02/03/23629 ELIEZER [id number] Interpreted by: MARY GILSE DO Electronically signed by: MARY GILES DO 02/03/23629 NAME: NOEL [facility]EXTON [facility] REC#: [id number] PT STATUS: ADM IN : 1940 PHYSICIAN: GERALD UMANZOR DO ADMIT DATE: 02/03/23/ICU Signed Date of Exam:02/03/23 CT HEAD/CERVICAL SPINE WO PROCEDURE: CT head and CT cervical spine without contrast. TECHNIQUE: Multiple contiguous axial images were obtained through the brain and cervical spine without the use of intravenous contrast. Sagittal and coronal reformations through the cervical spine were then performed. Auto Exposure Controls were utilized during the CT exam to meet ALARA standards for radiation dose reduction. INDICATION: Fall. Head and neck pain. COMPARISON: 06/18/2022. FINDINGS: CT head: No large acute territorial ischemia, mass, or hemorrhage. No midline shift or mass effect. Old lacunar infarct is seen in the left thalamus. Decreased attenuation is seen in the periventricular and subcortical white matter. The ventricles and cortical sulci are prominent. The basilar cisterns are patent and unremarkable. The calvarium is intact. The visualized paranasal sinuses are clear. CT cervical spine: No acute fracture or dislocation is seen in the cervical spine. No focal osseous lesions. Vertebral body heights are well-maintained. The craniocervical junction is well-maintained. Mild degenerative changes are seen in the cervical spine with disc osteophyte complexes and uncovertebral arthropathy. Soft tissues of the neck are unremarkable. The included lung apices are clear. IMPRESSION: 1. No hemorrhage or focal intra-axial mass. No CT evidence of large acute territorial ischemia. 2. No acute fracture or dislocation in the cervical spine. Agree with overnight report. Dictated by: Dictated on workstation # [id number] Dict: 02/03/23621 Trans: 02/03/2330 [facility] [phone] Interpreted by: MARY GILES DO Electronically signed by: MARY GILES DO 02/03/23 0630 Assessment/Plan Assessment and Plan Assessment This is an 82 y/o male who presented for a fall with a left femoral neck fracture now HD#1, PD#0. Left femoral neck fracture -Ortho is managing; to OR today -Ortho plans for post-op lovenox starting PD#1. -Hgb pre-op is 14.5; Falls/debility Post-stroke residual deficits -Patient is fairly independent at home with help from -Will likely be candidate for inpatient rehab post-operatively - reports no other falls since before patient's stroke in 08/2021 -PT/OT inpatient prior to IRU placement HLD -On ASA and atorvastatin at home - will continue post-operatively Hypothyroidism -Patient is on levothyroxine - continue post-operatively FEN/GI -Fluids per anesthesia/ortho today -Replace electrolytes as needed -NPO this AM, regular diet post-operatively - advance as tolerated -Bowel regimen (senna, docusate, doculax, miralax, lactulose) PRN, Zofran PRN for nausea/vomiting, PPI, antacids PRN for ulcer prophylaxis Dispo: To OR this AM. Will monitor for blood loss, pain management, and PT/OT post-operatively. Clinical Quality Measures AMI/AHF: ASA po Prior to arrival: No DVT/VTE Risk/Contraindication: Contraindications-Pharm: Other *list below* Other: or SERA BOOTH DO 02/04/23 0454: Allergies and Home Medications Allergies Coded Allergies: Influenza Virus Vaccines (Verified Allergy, Severe, 02/03/23) Penicillins (Verified Allergy, Severe, 02/03/23) Patient Home Medication List Aspirin (Aspirin EC) 81 Mg Tablet.dr, 81 MG PO 1200, (Reported) Entered as Reported by: MANDO GOINS on 02/03/231547 Last Action: Reviewed Atorvastatin Calcium (Atorvastatin Calcium) 40 Mg Tablet, 40 MG PO HS, (Reported) Entered as Reported by: MANDO GOINS on 02/03/231547 Last Action: Reviewed Levothyroxine Sodium (Levothyroxine Sodium) 125 Mcg Tablet, 125 MCG PO DAILY, (Reported) Entered as Reported by: MANDO GOINS on 02/03/231547 Last Action: Reviewed Multivits-Minerals/FA/Lycopene (One Daily For Men Tablet) 0.4 Mg-600 Mcg Tablet, 1 EACH PO DAILY, (Reported) Entered as Reported by: MANDO GOINS on 02/03/231547 Last Action: Reviewed Past Mrpywwk-Qqeeso-Pglpth Hx Patient Social History Marrital Status: Employed/Student: retired Smoking Status: Unknown if Ever Smoked Past Medical History Surgeries: Orthopedic High Cholesterol Stroke (2020) Review of Systems Constitutional: see HPI Physical Exam General Appearance: Chronically ill, Thin Respiratory: Lungs Clear, Normal Breath Sounds Cardiovascular: Regular Rate, Rhythm Assessment/Plan Assessment and Plan Patient seen and examined in the morning prior to surgery. Rapid response was called after he arrived in 405 due to AMS and unable to communicate ICU transfer was ordered and remains stable. I did update Dr Hammer and Problems: (1) Closed left hip fracture Status: Acute Admission Diagnosis Admission Status: Inpatient Order (span 2 midnights) Reason for Inpatient Admission: hip fx Supervisory-Addendum Brief Verification & Attestation Participated in pt care: history, MDM, physical Personally performed: exam, history, MDM, supervision of care Care discussed with: Medical Student Procedures: n/a Results interpretation: Verified all documentation Verification and Attestation of Medical Student E/M Service A medical student performed and documented this service in my presence. I reviewed and verified all information documented by the medical student and made modifications to such information, when appropriate. I personally performed the physical exam and medical decision making. Sera Booth, Feb 04, 2023,04:54 ALIE WINN Feb 03, 2023 10:53 SERA BOOTH DO Feb 04, 2023 04:54
[2023-02-03] MEDS ORDERED: PHENYLEPHRINE 100 MCG/ML 10 ML (ANESTHESIA) SYR ONE (11:10)
[2023-02-03] MEDS ORDERED: PHENYLEPHRINE INJ 10 MG/ML (FOR PYXIS KITS ONLY) ONE (11:13)
[2023-02-03] MEDS ORDERED: BUPIVACAINE 0.5% 30 ML (SENSORCAINE) VIAL INJ ONE (11:52)
--- NOTE | 2023-02-03 13:32 | Physical Therapy Progress Note ---
Therapy Progress Note Patient just returned from surgery to room 431. Upon entering the room Nurse reports patient isn't breathing and a code was called. Will hold PT eval this date and attempt again tomorrow if patient is appropriate for treatment. CHRISSIE RYAN PT Feb 03, 2023 13:32
[2023-02-03] MEDS: ONDANSETRON 4 MG/2 ML (SDV) Z0FRAN ONE ×2 (14:00→19:55)
[2023-02-03] MEDS: ONDANSETRON 4 MG/2 ML (SDV) Z0FRAN IV PRN ×2 (14:00→16:04)
--- NOTE | 2023-02-03 14:04 | Diagnostic Imaging Report ---
CLINICAL INDICATION: Patient with Rapid response post surgery. EXAM: Portable chest x-ray upright view. COMPARISON: Chest x-ray dated 02/03/2023 at 0300 hours. FINDINGS: Lungs/pleura: Lungs are clear. There is no pneumothorax. There is no pleural effusion. Mediastinum: Unremarkable. Pulmonary vasculature: Unremarkable. Heart: Unremarkable. Bones/extrathoracic soft tissue: There are degenerative spurs involving the thoracic spine. IMPRESSION: There is no radiographic evidence of acute cardiopulmonary process. Dictated by: Dictated on workstation # [id number]
[2023-02-03] MEDS ORDERED: D5 LR IV SOLUTION 1,000 ML IV SCH ×2 (14:15→17:15)
--- NOTE | 2023-02-03 14:17 | Tele-ICU Consult ---
History of Present Illness History of Present Illness Date Seen by Provider: Feb 03, 2023 Time Seen by Provider: 14:16 Date of Admission History of Present Illness (Tele-ICU Physician , consultation as per request of PCP Service provided via interactive audio and video telecommunications E-CARE system to a patient admitted to ICU bed in [facility]. Available chart/ vitals / labs / Images reviewed H&P is from ER notes Patient's information available about PMH, Shx, Fhx allergy reviewed inEMR. ROS as per chart and RN report Now in ICU, hemodynamically stable Video assessment done using teleICU camera, rest of exam as per RN Discussed with RN. Hospital course: (3.15) Admitted a 82 y/o s/p mechanical fall with left femoral neck fracture. --> to OR --> medical floor , in 10 min unresponsive / hypotensive --> back to ICU A/P Hypotension , post op - CBC to r/o hemorrhage , check trop - IVF - 2 l LR Left femoral neck fracture -Ortho is managing; to OR today -Ortho plans for post-op lovenox starting PD#1. EBL in ER 500 ml - on ASA POLE INSPECTOR - Hgb pre-op is 14.5; - to follow Change in mental status post op - most likley due to low BP and resudual meds effect - back to baseline now , no localized deficit s/p CVA 2020 , ( hemorrhagic ) - residual deficits left side weakness S/p fall on admission - CT head. cervical spine and chest / abd / pelvis done Hypothyroidism - levothyroxine Lines : periph , (Central Line Necessity Reviewed) Cel[place]: 02/03 OG: Nutrition: Analgesia: Anxiety/ delirium VTE Prophylaxis: scd today Stress Ulcer Prophylaxis: na Plans in collaboration with bedside consultants and IM MDs. Discussed with RN to reach out if any questions or concerns A total of 33 minutes of critical care time was devoted to this patient today, required to treat and/or prevent further deterioration of critical care condition ( as above ) . I am remotely monitoring this patient from another state. I am unable to do the bedside exam, and history/physical and pertinent information is taken from other notes in the computer and bedside staff. . Allergies and Home Medications Allergies Coded Allergies: Influenza Virus Vaccines (Verified Allergy, Severe, 02/03/23) Penicillins (Verified Allergy, Severe, 02/03/23) Past Medical/Social/Family Hx Patient Social History Tobacco Use?: No Tobacco type used: Cigarettes Smoking Status: Never a Smoker Use of E-Cig and/or Vaping dev: No Substance use?: Yes Alcohol Use?: No Immunizations Up To Date Influenza Vaccine Up-to-Date: No; Not Current First/Initial COVID19 Vaccinat: 2020 Tetanus Booster (TDap): Unknown Current Status Communicates: Verbally Primary Language: Pashto Preferred Spoken Language: Pashto Is interpretation needed?: No Sensory deficits: Hearing impairment Family Medical History Family Hx: SOCIAL HISTORY: -SMOKED IN PAST--QUIT OVER 50 YEARS AGO -DENIES ETOH USE -DENIES DRUG USE PAST SURGICAL HISTORY: -LEFT KNEE SCOPE X 1 -TONSILLECTOMY -HERNIA REPAIR X 4 -SKIN CANCERS REMOVED FROM NOSE AND HAND -THROIDECTOMY Review of Systems Constitutional: see HPI Focused Exam Possible Source: Other Height, Weight, BMI Height: '" Weight: lbs. oz. kg; 19.45 BMI Method: Exam Exam Patient acknowledged, consented, and participated in this virtual visit which was conducted using real time audio/video Vital Signs Date Time Temp Pulse Resp B/P (MAP) Pulse Ox O2 Delivery O2 Flow Rate FiO2 02/03/23 13:50 132 02/03/23 13:05 Room Air 02/03/23 13:00 37.0 16 94/65 (75) 99 Room Air 02/03/23 12:50 16 77/50 (59) 97 OxyMask 2.00 02/03/23 12:45 OxyMask 2.00 02/03/23 12:40 16 81/56 (64) 98 OxyMask 2.00 02/03/23 12:30 17 86/57 (67) 98 OxyMask 2.00 02/03/23 12:30 OxyMask 2.00 02/03/23 12:22 14 92/58 (69) 99 OxyMask 2.00 02/03/23 12:15 37.1 16 85/63 (70) 98 OxyMask 4.00 02/03/23 12:15 OxyMask 4.00 02/03/23 09:00 Nasal Cannula 2.00 94 02/03/23 08:58 124 02/03/23 08:03 36.9 92 115/72 (86) High Flow N/C 2.00 02/03/23 07:03 91 02/03/23 06:28 36.2 117 90 02/03/23 06:04 Nasal Cannula 2.00 94 02/03/23 05:06 111 02/03/23 05:05 117 21 115/85 (95) 90 Room Air 02/03/23 04:45 105 21 123/81 96 Room Air 02/03/23 01:05 36.2 121 20 155/100 (118) 97 Room Air I & O 02/03/23 07:00 Intake Total 1000 ml Balance 1000 ml Height & Weight Height: '" Weight: lbs. oz. kg; 19.45 BMI Method: General Appearance: No Apparent Distress, Other HEENT: PERRL/EOMI Neck: Normal Inspection, Non Tender, Supple Respiratory: Chest Non Tender, Lungs Clear, Normal Breath Sounds Cardiovascular: Regular Rate, Rhythm, No Edema, No Murmur Capillary Refill: Less Than 3 Seconds Peripheral Pulses: 2+ Dorsalis Pedis (R), 2+ Left Dors-Pedis (L) Gastrointestinal: normal bowel sounds, non tender, soft Extremity: No Pedal Edema, Other (Left hip is tender to palpation.) Neurologic/Psychiatric: Alert, Oriented x3, Facial Droop (Slight residual left facial droop. ), Motor Weakness (Strength for left side extremities is 3/5 c/w deficits from previous stroke.) Skin: Normal Color, Warm/Dry Results Lab Laboratory Tests 02/03/23 01:20 Assessment/Plan Assessment/Plan 1 GURU CULLEN MD Feb 03, 2023 14:17
[2023-02-03 14:55] LABS: HEMOGLOBIN 10.1 g/dL (13.3-17.7); MEAN PLATELET VOLUME 10.8 fL (9.0-12.2); WHITE BLOOD COUNT 16.5 10^3/uL (4.3-11.0)
[2023-02-03 15:11] LABS: BUN/CREATININE RATIO 26; CALCIUM 8.5 MG/DL (8.5-10.1); CARBON DIOXIDE 24 MMOL/L (21-32); CHLORIDE 105 MMOL/L (98-107); CREATININE SERUM 0.89 MG/DL (0.60-1.30); GFR ESTIMATED 85; GLUCOSE 173 MG/DL (70-105); MAGNESIUM 1.5 MG/DL (1.6-2.4); SODIUM 137 MMOL/L (135-145)
--- NOTE | 2023-02-03 15:31 | Diagnostic Imaging Report ---
EXAMINATION: Left hip, single view. COMPARISON: Left hip radiographs February 03, 2023 at 0251 hours. HISTORY: 82-year-old male, placement of a left hip prosthesis. FINDINGS: There has been interval placement of a left hip prosthesis. Soft tissue gas likely reflects recent postoperative state of the patient. There is no identified interval fracture. IMPRESSION: 1. Interval placement of a left hip prosthesis without identified complication. Dictated by: Dictated on workstation # [id number]
[2023-02-03] MEDS: SENNOSIDES 8.6 MG (SENOKOT) TAB PO SCH ×2 (15:46→20:19)
[2023-02-03] MEDS: DOCUSATE SODIUM 100 MG (COLACE) CAP PO SCH ×2 (15:46→20:19)
[2023-02-03] MEDS ORDERED: ATOR40TA70 PO (15:48)
[2023-02-03] MEDS ORDERED: LEVO125T6 PO (15:48)
[2023-02-03] MEDS ORDERED: MULT-851 PO (15:48)
[2023-02-03] MEDS ORDERED: ASPI-1238 PO (15:48)
[2023-02-03] MEDS ORDERED: LACTATED RINGERS 1,000 ML IV SCH (16:00)
[2023-02-03] MEDS: CEFUROXIME INJECTION 750 MG in NS (IVPB) 50 ML IV SCH ×2 (16:03→22:58)
--- NOTE | 2023-02-03 16:38 | OPERATIVE REPORT ---
DATE OF SERVICE: 02/03/2023 PREOPERATIVE DIAGNOSIS: Left femoral neck fracture. POSTOPERATIVE DIAGNOSIS: Left femoral neck fracture. PROCEDURE: Left hip bipolar replacement. SURGEON: Dr. Brandon. WHEELCHAIR VAN OPERATOR FIRST RESPONDER: Mart Castañeda, who assisted throughout the procedure and closed the incision. ANESTHESIA: General endotracheal by Darlene Deleon CRNA. ESTIMATED BLOOD LOSS: 200 mL DRAINS: None. COMPLICATIONS: None. MATERIALS: Press-fit size 5 stem with 52 mm liner, neutral neck. DePuy/Synthes. DRAINS: None. COMPLICATIONS: None. POSTOPERATIVE PLAN: Routine protocol. The patient was transferred to recovery room awake and in stable condition. STATEMENT OF MEDICAL NECESSITY: The patient is an 82-year-old gentleman who fell at home last evening. He presented to the Emergency Department where he was found to have a femoral neck fracture. The patient has left sided hemiparesis and the fracture appeared to extend up into his femoral head on CT scan. Because of his debility, age and location of his fracture, recommended the patient undergo operative fixation. The patient and his elected to proceed with a bipolar replacement. DESCRIPTION OF PROCEDURE: After risks and benefits of the procedure were discussed and questions were answered and informed consent was signed and placed on the chart, the operative site was confirmed in the preoperative holding area, initialed by surgeon. The patient was then transferred to the operating room and after adequate levels of general endotracheal anesthetic were obtained, timeout was called, confirming the operative site. The patient was carefully placed in the right lateral decubitus position, [ ] careful to place an axillary roll and pad all bony prominences. The left hip and lower extremity were prepped and draped in the usual sterile fashion. A standard lateral approach was utilized. Hemostasis was obtained with cautery. The iliotibial band was incised in line with the incision. The abductor was released off of the greater trochanter, leaving a 2 cm cuff for later reattachment. Hip capsulotomy was performed. The femoral head was removed without difficulty and sized to a size 52. The 52 trial was placed and had excellent coverage in acetabulum. The acetabulum was irrigated with no loose bodies noted. The femur was then prepared with a box chisel followed by the handle rounder operator followed by sequential broaches up to size 5, 5 provided excellent fill. This was then trialled with a neutral neck and 52 liner. The head was reduced and found to be stable in all planes with no impingement noted. The hip was redislocated. The trials were removed. The joint was irrigated with pulse lavage. The prosthesis was placed in the femoral canal in 15 degrees of anteversion with excellent purchase obtained. The proximal aspect was then irrigated and dried and the head liner construct was placed. The hip was then inspected again for any loose bodies after irrigating the acetabulum. The hip was then reduced and was stable in all planes with no impingement. Full range of motion noted and no instability noted. The joint was further irrigated with pulse lavage. The hip capsulotomy and abductors were reapproximated using #5 Tevdek in [id number] interrupted fashion. The wound was further irrigated. The iliotibial band was closed in a running fashion with #1 Vicryl. Subcutaneous tissues were irrigated. The 0 Vicryl was used to deep subcutaneous layer, 2-0 Vicryl for the superficial subcutaneous layer, juan used on the skin. Incision was infiltrated with plain Marcaine. A soft dressing was applied and the patient was transferred to the recovery room awake and in stable condition. Job ID: [id number] DocumentID: [id number] Dictated Date: 02/03/2023 12:04:29 Flight Controls Engineer Date: 02/03/2023 16:36:00 Dictated By: DANI BRANDON MD
[2023-02-03] MEDS ORDERED: PHENYLEPHRINE DRIP 250 ML IV ONE (17:12)
[2023-02-03 17:29] LABS: ABG BASE EXCESS -1.8 MMOL/L (-2.5-2.5); ABG OXYGEN SATURATION 97 % (94-100); ABG PCO2 37 MMHG (35-45); ABG PO2 76 MMHG (79-93); ABG TCO2 23.5 MMOL/L (21.0-31.0); ALLENS TEST POSITIVE
[2023-02-03] MEDS ORDERED: ALBUMIN IV ONE (17:29)
[2023-02-03 17:30] LABS: PATIENT TEMP 36.8
[2023-02-03] MEDS ORDERED: NS IV 500 ML 500 ML IV SCH (17:30)
[2023-02-03] MEDS: PHENYLEPHRINE DRIP 250 ML IV SCH (17:31)
--- NOTE | 2023-02-03 17:39 | Tele-ICU Progress Note ---
Progress Note patient with hypotension despite 2 L LR AAO , but getting unresponsive shortly with low BP - with fasr recovery when stimulated labs reviewed earlier - Mg replaced Now RN reports more soaked dressing on Sx site UO only 30 ml in 3 h will cont fluid resuscitation , order 1 U pRBC given shock state ( despite hb still 10, there is 4 g drop recheck BMP, follow UO Diagnosis: hypotension , shock A total of _ 15 _ minutes of critical care time was devoted to this patient, including reviewing this patient's available data, including medical history, events of note and test results. This was required to treat and/or prevent further deterioration of critical care conditions ( as above ). Service provided to a patient admitted to ICU bed via interactive E-CARE system with real-time audio and video telecommunications from [facility] tele- ICU hub located in [place], [place] Focused Exam Height, Weight, BMI Height: '" Weight: lbs. oz. kg; 19.45 BMI Method: GURU CULLEN MD Feb 03, 2023 17:39
[2023-02-03] MEDS ORDERED: D5 LR IV SOLUTION 1,000 ML IV ONE (17:45)
[2023-02-03] MEDS ORDERED: MAGNESIUM 1 GM/100 ML IVPB 200 ML IV ONE (17:45)
[2023-02-03] MEDS ORDERED: ALBUMIN 25% 25 GM/100 ML 100 ML IV NR (18:00)
--- NOTE | 2023-02-03 18:55 | Diagnostic Imaging Report ---
Chest 1 view, AP/PA only Indication: Left-sided central line insertion. Comparison: Earlier the same day at 1:48 PM. Findings: No focal airspace disease in the visualized lungs. There is a left-sided pneumothorax with approximately 3 cm of apical pleural separation. Normal cardiomediastinal silhouette. Left subclavian Port-A-Cath has tip terminating in the region of the upper SVC. Impression: 1. Small pneumothorax after left subclavian central venous line placement. No mediastinal shift to suggest tension pneumothorax. 2. Finding of pneumothorax was called to patient's nurse Rubia by Dr. Villegas at 6:45 PM on 02/03/2023. Dictated by: Dictated on workstation # [id number]
[2023-02-03] MEDS: MAGNESIUM 1 GM/100 ML IVPB 100 ML IV SCH ×2 (19:05→19:06)
[2023-02-03 19:09] LABS: HEMOGLOBIN 7.9 g/dL (13.3-17.7); MEAN PLATELET VOLUME 10.6 fL (9.0-12.2); WHITE BLOOD COUNT 17.4 10^3/uL (4.3-11.0)
[2023-02-03 19:19] LABS: POTASSIUM 4.1 MMOL/L (3.6-5.0)
[2023-02-03 19:21] LABS: CALCIUM 7.6 MG/DL (8.5-10.1)
--- NOTE | 2023-02-03 19:23 | CONSULTATION REPORT ---
DATE OF SERVICE: 02/03/2023 ATTENDING PRIMARY CARE PHYSICIAN: Dr. Kennedy March. ADMITTING PHYSICIAN: Dr. Hunt. HISTORY OF PRESENT ILLNESS: The patient is an 82-year-old male who presented to the Emergency Department with a same-level fall. He was in his wheelchair and stood up to take off his jacket, lost his balance and fell back hitting his left hip. He is brought to the Emergency Department where x-rays revealed femoral neck fracture. CT scan of the head, neck, abdomen and pelvis did not show any abnormalities. He does not report any loss of consciousness, headaches or any visual changes. This patient did have an issue with hypertension and developed hemorrhagic stroke in 2020. After the stroke, he was in impatient rehabilitation for approximately 1 month. He underwent left hip bipolar replacement today and he tolerated the procedure well. After recovery, he was sent to the ICU. Shortly after, he had developed tachycardia as well as hypotension. He also had loss of consciousness a few times. He was started on Tommy-Synephrine through a peripheral line and is currently awake and alert with stable vital signs. It appears as though he has some level of hypovolemic shock. His daughter is here with him and states that he has constantly dehydrated and does not drink adequate amounts of water. The patient will require vasopressors as well as other IV medications and will require a central venous catheter. PAST MEDICAL HISTORY: History of right-sided hemorrhagic stroke at approximately the parenchyma around the basal ganglia. He does have left-sided weakness and also developed dysarthria. Hypertension, hypercholesterolemia, thyroid nodule. PAST SURGICAL HISTORY: Left hip bipolar repair, total thyroidectomy, which was benign, tonsillectomy, bilateral inguinal hernia repair x2. ALLERGIES: PENICILLIN. MEDICATIONS: Aspirin 81 mg daily, atorvastatin 40 mg daily, levothyroxine 125 mcg daily. SOCIAL HISTORY: Previous smoke in his 30s, 10 pack years, negative alcohol. FAMILY HISTORY: Sister with breast cancer. Father, bladder cancer. VITAL SIGNS: Temperature 37.0, blood pressure 127/65, pulse 125, respirations 24, pulse ox 97% on room air. REVIEW OF SYSTEMS: This is a well-nourished, slightly thin-appearing male, currently in no acute distress. He is not experiencing any shortness of breath or difficulty in breathing. No chest pain, palpitations, diaphoresis. No nausea or vomiting. No diarrhea or constipation. No fever, chills, no recent inadvertent weight loss. All other review of systems negative. PHYSICAL EXAMINATION: CHEST: Few scattered rales bilaterally. HEART: Regular. No murmurs. EXTREMITIES: No lower extremity edema. Negative Homans sign. HEENT: No scleral icterus. No cervical lymphadenopathy. ABDOMEN: Soft, nontender, nondistended. SKIN: Warm, dry. LABORATORY DATA: WBC 16.5, hemoglobin 10.1, hematocrit 31, platelets 124. BUN 23, creatinine 0.89. Liver function enzymes normal. ASSESSMENT AND PLAN: An 82-year-old male with hypotension, most likely secondary to hypovolemic shock. He will require a central venous catheter for IV fluids as well as IV pressors. He will also need close monitoring and possibly CVP pressures to guide fluid administration. Job ID: [id number] DocumentID: [id number] Dictated Date: 02/03/2023 18:40:35 Digital Marketing Lead Date: 02/03/2023 19:20:00 Dictated By: SAMMI WELLS MD MTDD
[2023-02-03 19:25] LABS: CREATININE SERUM 1.07 MG/DL (0.60-1.30)
--- NOTE | 2023-02-03 20:13 | OPERATIVE REPORT ---
DATE OF SERVICE: 02/03/2023 ATTENDING PRIMARY CARE PHYSICIAN: Dr. Kennedy March. ADMITTING PHYSICIAN: Dr. Hunt. PREOPERATIVE DIAGNOSIS: Hypovolemic shock. POSTOPERATIVE DIAGNOSIS: Hypovolemic shock. PROCEDURE: Placement of left subclavian central venous catheter. SURGEON: Sammi Wells MD ANESTHESIA: Local. ESTIMATED BLOOD LOSS: Minimal. FINDINGS: Catheter tip at superior vena cava -right atrial junction. DISPOSITION: The patient tolerated the procedure well. INDICATIONS: The patient is an 82-year-old male with a same level fall to the left hip causing a femoral neck fracture. He underwent bipolar repair of the femoral neck today. There was not much blood loss; however, the patient appears to be somewhat dehydrated. His daughter states that he frequently is dehydrated and forgets to drink water most of the time. After surgery, he did develop significant hypotension requiring Tommy-Synephrine through a peripheral line. He will require central venous catheter for IV hydration as well as possibly monitoring central venous pressures to guide fluid administration as well as monitoring the urine output. DESCRIPTION OF PROCEDURE: The chest and neck were prepped and draped in standard surgical fashion. 1% lidocaine was used to anesthetize the left subclavian region. The left subclavian was then cannulated with drawing of venous blood. A guidewire was inserted without any resistance. Cannulating needle removed and a skin incision made using 11 blade. A tract was then created using a venous dilator and through this opening, a triple lumen central venous catheter was placed guidewire using a Seldinger technique. Guidewire was then removed and all 3 ports neftali venous blood and saline pushed in without any resistance. The catheter was then sutured to the skin using a 3-0 silk interrupted sutures. Catheter was then cleaned and covered with Op-Site. The patient tolerated the procedure well. We will get post-procedure chest x-ray. Job ID: [id number] DocumentID: [id number] Dictated Date: 02/03/2023 18:44:13 Marketing Trainee Date: 02/03/2023 20:10:00 Dictated By: SAMMI WELLS MD
[2023-02-04 00:30] LABS: HEMOGLOBIN 7.8 g/dL (13.3-17.7)
[2023-02-04 04:10] LABS: BASOPHILS % (AUTO) 0 % (0-10); EOSINOPHILS % (AUTO) 0 % (0-10); HEMATOCRIT 23 % (40-54); HEMOGLOBIN 7.7 g/dL (13.3-17.7); LYMPHOCYTES # (AUTO) 1.2 10^3/uL (1.0-4.0); LYMPHOCYTES % (AUTO) 12 % (12-44); MEAN CORPUSCULAR HEMOGLOBIN 29 pg (25-34); MEAN CORPUSCULAR HGB CONC 34 g/dL (32-36); MEAN CORPUSCULAR VOLUME 86 fL (80-99); MEAN PLATELET VOLUME 10.8 fL (9.0-12.2); MONOCYTES # (AUTO) 1.3 10^3/uL (0.0-1.0); MONOCYTES % (AUTO) 13 % (0-12); NEUTROPHILS # (AUTO) 7.7 10^3/uL (1.8-7.8); NEUTROPHILS % (AUTO) 75 % (42-75); PLATELET COUNT 89 10^3/uL (130-400); WHITE BLOOD COUNT 10.4 10^3/uL (4.3-11.0)
[2023-02-04 04:42] LABS: ALBUMIN 2.7 GM/DL (3.2-4.5); BILIRUBIN,TOTAL 0.8 MG/DL (0.1-1.0); CALCIUM 8.2 MG/DL (8.5-10.1); CREATININE SERUM 1.03 MG/DL (0.60-1.30); PHOSPHORUS 2.7 MG/DL (2.3-4.7); POTASSIUM 4.7 MMOL/L (3.6-5.0); TOTAL PROTEIN 4.2 GM/DL (6.4-8.2)
[2023-02-04] MEDS ORDERED: NORMAL SALINE 250 ML ONE (06:15)
[2023-02-04 06:18] VITALS: BP 134/70
--- NOTE | 2023-02-04 06:26 | Progress Note ---
Subjective Date Seen by a Provider: Feb 04, 2023 Time Seen by a Provider: 11:00 Subjective/Events-last exam Much improved status Received 1 unit of blood yesterday after the rapid response and I ordered another which has already been transfused at bedside Appears much better On sanjay currently but weaning off ARU submitted to insurance Review of Systems General: Fatigue, Malaise Musculoskeletal: leg pain Objective Exam Last Set of Vital Signs Vital Signs Date Time Temp Pulse Resp B/P (MAP) Pulse Ox O2 Delivery O2 Flow Rate FiO2 02/04/23 06:18 37.1 105 22 134/70 Nasal Cannula 2.00 02/04/23 06:00 100 02/03/23 09:00 94 Capillary Refill : Less Than 3 Seconds I&O Intake and Output 02/04/23 00:00 Intake Total 5310 ml Output Total 525 ml Balance 4785 ml Intake Oral 0 ml IV Total 5310 ml Output Urine Total 525 ml Daily Weight Change Unsure General: Alert, Oriented X3, Cooperative, No Acute Distress Lungs: Clear to Auscultation, Normal Air Movement Heart: Regular Rate, Normal S1, Normal S2, No Murmurs Psych/Mental Status: Mental Status NL, Mood NL Results Lab Laboratory Tests 02/03/23 13:34: Glucometer 174H 02/03/23 14:30: White Blood Count 16.5H, Red Blood Count 3.48L, Hemoglobin 10.1#L, Hematocrit 31L, Mean Corpuscular Volume 89, Mean Corpuscular Hemoglobin 29, Mean Corpuscular Hemoglobin Concent 33, Red Cell Distribution Width 15.0H, Platelet Count 124L, Mean Platelet Volume 10.8, Percent Immature Platelet Fraction 3.8, Sodium Level 137, Potassium Level 4.0, Chloride Level 105, Carbon Dioxide Level 24, Anion Gap 8, Blood Urea Nitrogen 23H, Creatinine 0.89, Estimat Glomerular Filtration Rate 85, BUN/Creatinine Ratio 26, Glucose Level 173H, Calcium Level 8.5, Magnesium Level 1.5L, Troponin I < 0.028 02/03/23 17:07: Blood Gas Puncture Site L RAD, Blood Gas Patient Temperature 36.8, Arterial Blood pH 7.40, Arterial Blood Partial Pressure CO2 37, Arterial Blood Partial Pressure O2 76L, Arterial Blood HCO3 22L, Arterial Blood Total CO2 23.5, Arterial Blood Oxygen Saturation 97, Arterial Blood Base Excess -1.8, Austen Test POSITIVE, Blood Gas Ventilator Setting , Blood Gas Inspired Oxygen 02/03/23 18:55: White Blood Count 17.4H, Red Blood Count 2.72L, Hemoglobin 7.9#L, Hematocrit 24L , Mean Corpuscular Volume 89, Mean Corpuscular Hemoglobin 29, Mean Corpuscular Hemoglobin Concent 33, Red Cell Distribution Width 15.1H, Platelet Count 123L, Mean Platelet Volume 10.6, Percent Immature Platelet Fraction 4.1, Sodium Level 136, Potassium Level 4.1, Chloride Level 107, Carbon Dioxide Level 21, Anion Gap 8, Blood Urea Nitrogen 24H, Creatinine 1.07, Estimat Glomerular Filtration Rate 68, BUN/Creatinine Ratio 22, Glucose Level 249H, Calcium Level 7.6L, Procalcitonin 0.80H 02/04/23 00:20: Hemoglobin 7.8L, Hematocrit 23L 02/04/23 04:05: Hemoglobin 7.7L, Hematocrit 23L, White Blood Count 10.4, Red Blood Count 2.64L, Mean Corpuscular Volume 86, Mean Corpuscular Hemoglobin 29, Mean Corpuscular Hemoglobin Concent 34, Red Cell Distribution Width 14.8H, Platelet Count 89L, Mean Platelet Volume 10.8, Immature Granulocyte % (Auto) 0, Neutrophils (%) (Auto) 75, Lymphocytes (%) (Auto) 12, Monocytes (%) (Auto) 13H, Eosinophils (%) (Auto) 0, Basophils (%) (Auto) 0, Neutrophils # (Auto) 7.7, Lymphocytes # (Auto) 1.2, Monocytes # (Auto) 1.3H, Eosinophils # (Auto) 0.0, Basophils # (Auto) 0.0, Immature Granulocyte # (Auto) 0.0, Sodium Level 138, Potassium Level 4.7, Chloride Level 108H, Carbon Dioxide Level 23, Anion Gap 7, Blood Urea Nitrogen 28H, Creatinine 1.03, Estimat Glomerular Filtration Rate 72, BUN/Creatinine Ratio 27, Glucose Level 132H, Calcium Level 8.2L, Corrected Calcium 9.2, Phosphorus Level 2.7, Magnesium Level 2.0, Total Bilirubin 0.8, Aspartate Amino Transf (AST/SGOT) 18, Alanine Aminotransferase (ALT/SGPT) 8, Alkaline Phos phatase 36L, Total Protein 4.2L, Albumin 2.7L 02/04/23 06:10: Assessment/Plan Assessment/Plan Assess & Plan/Chief Complaint This is an 82 y/o male who presented for a fall with a left femoral neck fracture now HD#1, PD#0. Left femoral neck fracture -Ortho is managing; to OR today -Ortho plans for post-op lovenox starting PD#1. -Hgb pre-op is 14.5; Falls/debility Post-stroke residual deficits -Patient is fairly independent at home with help from -Will likely be candidate for inpatient rehab post-operatively - reports no other falls since before patient's stroke in 08/2021 -PT/OT inpatient prior to IRU placement HLD -On ASA and atorvastatin at home - will continue post-operatively Hypothyroidism -Patient is on levothyroxine - continue post-operatively FEN/GI -Fluids per anesthesia/ortho today -Replace electrolytes as needed -NPO this AM, regular diet post-operatively - advance as tolerated -Bowel regimen (senna, docusate, doculax, miralax, lactulose) PRN, Zofran PRN for nausea/vomiting, PPI, antacids PRN for ulcer prophylaxis Acute decompensation requiring rapid response after arrival from recovery room due to acute blood loss Monitor hgb s/p 2 units of blood Diagnosis/Problems Diagnosis/Problems (1) Closed left hip fracture Status: Acute Clinical Quality Measures Admission Status Admission Dx Patient seen and examined in the morning prior to surgery. Rapid response was called after he arrived in 405 due to AMS and unable to c ommunicate ICU transfer was ordered and remains stable. I did update Dr Hammer and AMI/AHF: ASA po Prior to arrival: No DVT/VTE Risk/Contraindication: Contraindications-Pharm: Other *list below* Other: or VIKI BOOTH DO Feb 04, 2023 06:26
[2023-02-04 06:30] VITALS: BP 114/68
[2023-02-04 06:45] VITALS: BP 131/85
[2023-02-04] MEDS: PHENYLEPHRINE DRIP 250 ML IV SCH ×2 (06:49→19:53)
--- NOTE | 2023-02-04 07:42 | Progress Note ---
Standard Progress Note Progress Notes/Assess & Plan Date Seen by a Provider: Feb 04, 2023 Time Seen by a Provider: 07:29 Progress/Assessment & Plan alert and oriented Laboratory Tests Test 02/03/23 13:34 02/03/23 14:30 02/03/23 17:07 02/03/23 18:55 Range/Units Glucometer 174 H 70-110 MG/DL White Blood Count 16.5 H 17.4 H 4.3-11.0 10^3/uL Red Blood Count 3.48 L 2.72 L 4.30-5.52 10^6/uL Hemoglobin 10.1 #L 7.9 #L 13.3-17.7 g/dL Hematocrit 31 L 24 L 40-54 % Mean Corpuscular Volume 89 89 80-99 fL Mean Corpuscular Hemoglobin 29 29 25-34 pg Mean Corpuscular Hemoglobin Concent 33 33 32-36 g/dL Red Cell Distribution Width 15.0 H 15.1 H 10.0-14.5 % Platelet Count 124 L 123 L 130-400 10^3/uL Mean Platelet Volume 10.8 10.6 9.0-12.2 fL Percent Immature Platelet Fraction 3.8 4.1 0.0-7.6 % Sodium Level 137 136 135-145 MMOL/L Potassium Level 4.0 4.1 3.6-5.0 MMOL/L Chloride Level 105 107 98-107 MMOL/L Carbon Dioxide Level 24 21 21-32 MMOL/L Anion Gap 8 8 5-14 MMOL/L Blood Urea Nitrogen 23 H 24 H 7-18 MG/DL Creatinine 0.89 1.07 0.60-1.30 MG/DL Estimat Glomerular Filtration Rate 85 68 BUN/Creatinine Ratio 26 22 Glucose Level 173 H 249 H 70-105 MG/DL Calcium Level 8.5 7.6 L 8.5-10.1 MG/DL Magnesium Level 1.5 L 1.6-2.4 MG/DL Troponin I < 0.028 <0.028 NG/ML Blood Gas Puncture Site L RAD Blood Gas Patient Temperature 36.8 Arterial Blood pH 7.40 7.37-7.43 Arterial Blood Partial Pressure CO2 37 35-45 MMHG Arterial Blood Partial Pressure O2 76 L 79-93 MMHG Arterial Blood HCO3 22 L 23-27 MMOL/L Arterial Blood Total CO2 23.5 21.0-31.0 MMOL/L Arterial Blood Oxygen Saturation 97 94-100 % Arterial Blood Base Excess -1.8 -2.5-2.5 MMOL/L Austen Test POSITIVE Blood Gas Ventilator Setting Blood Gas Inspired Oxygen Procalcitonin 0.80 H <0.10 NG/ML Test 02/04/23 00:20 02/04/23 04:05 02/04/23 06:10 Range/Units Hemoglobin 7.8 L 7.7 L 13.3-17.7 g/dL Hematocrit 23 L 23 L 40-54 % White Blood Count 10.4 4.3-11.0 10^3/uL Red Blood Count 2.64 L 4.30-5.52 10^6/uL Mean Corpuscular Volume 86 80-99 fL Mean Corpuscular Hemoglobin 29 25-34 pg Mean Corpuscular Hemoglobin Concent 34 32-36 g/dL Red Cell Distribution Width 14.8 H 10.0-14.5 % Platelet Count 89 L 130-400 10^3/uL Mean Platelet Volume 10.8 9.0-12.2 fL Immature Granulocyte % (Auto) 0 % Neutrophils (%) (Auto) 75 42-75 % Lymphocytes (%) (Auto) 12 12-44 % Monocytes (%) (Auto) 13 H 0-12 % Eosinophils (%) (Auto) 0 0-10 % Basophils (%) (Auto) 0 0-10 % Neutrophils # (Auto) 7.7 1.8-7.8 10^3/uL Lymphocytes # (Auto) 1.2 1.0-4.0 10^3/uL Monocytes # (Auto) 1.3 H 0.0-1.0 10^3/uL Eosinophils # (Auto) 0.0 0.0-0.3 10^3/uL Basophils # (Auto) 0.0 0.0-0.1 10^3/uL Immature Granulocyte # (Auto) 0.0 0.0-0.1 10^3/uL Sodium Level 138 135-145 MMOL/L Potassium Level 4.7 3.6-5.0 MMOL/L Chloride Level 108 H 98-107 MMOL/L Carbon Dioxide Level 23 21-32 MMOL/L Anion Gap 7 5-14 MMOL/L Blood Urea Nitrogen 28 H 7-18 MG/DL Creatinine 1.03 0.60-1.30 MG/DL Estimat Glomerular Filtration Rate 72 BUN/Creatinine Ratio 27 Glucose Level 132 H 70-105 MG/DL Calcium Level 8.2 L 8.5-10.1 MG/DL Corrected Calcium 9.2 8.5-10.1 MG/DL Phosphorus Level 2.7 2.3-4.7 MG/DL Magnesium Level 2.0 1.6-2.4 MG/DL Total Bilirubin 0.8 0.1-1.0 MG/DL Aspartate Amino Transf (AST/SGOT) 18 5-34 U/L Alanine Aminotransferase (ALT/SGPT) 8 0-55 U/L Alkaline Phosphatase 36 L 40-136 U/L Total Protein 4.2 L 6.4-8.2 GM/DL Albumin 2.7 L 3.2-4.5 GM/DL Vital Signs Date Time Temp Pulse Resp B/P (MAP) Pulse Ox O2 Delivery O2 Flow Rate FiO2 02/04/23 06:45 37.3 95 18 131/85 100 02/04/23 06:30 37.3 111 18 114/68 100 Nasal Cannula 2.00 02/04/23 06:18 37.1 105 22 134/70 Nasal Cannula 2.00 02/04/23 06:00 99 24 134/65 (88) 100 Nasal Cannula 2.00 02/04/23 05:00 87 23 134/62 (86) 100 Nasal Cannula 2.00 02/04/23 04:08 37.2 02/04/23 04:00 100 Nasal Cannula 2.00 02/04/23 04:00 96 15 129/63 (85) 100 Nasal Cannula 2.00 02/04/23 03:00 96 25 132/67 (88) 100 Nasal Cannula 2.00 02/04/23 02:00 98 26 125/64 (84) 100 Nasal Cannula 2.00 02/04/23 01:00 105 27 132/68 (89) 100 Nasal Cannula 2.00 02/04/23 01:00 105 02/04/23 00:00 105 26 117/67 (84) 100 Nasal Cannula 2.00 02/03/23 23:59 100 Nasal Cannula 2.00 02/03/23 23:07 37.2 02/03/23 23:00 108 28 116/60 (78) 100 Nasal Cannula 2.00 02/03/23 22:15 37.2 111 18 110/54 100 02/03/23 22:00 37.1 105 24 121/59 100 02/03/23 22:00 37.2 105 24 121/59 100 02/03/23 22:00 105 24 121/59 (79) 100 Nasal Cannula 2.00 02/03/23 21:45 37.4 105 26 127/61 100 02/03/23 21:30 37.4 101 25 140/64 100 02/03/23 21:15 37.2 102 25 131/62 100 02/03/23 21:00 37.4 101 25 128/62 100 02/03/23 21:00 101 26 128/62 (84) 100 Nasal Cannula 2.00 02/03/23 20:45 37.3 104 22 114/60 100 02/03/23 20:30 37.3 105 20 118/62 Nasal Cannula 2.00 02/03/23 20:16 Nasal Cannula 2.00 02/03/23 20:15 37.2 108 22 111/88 98 Nasal Cannula 2.00 02/03/23 20:00 37.0 111 115/59 Room Air 02/03/23 20:00 112 27 115/59 (77) 91 Nasal Cannula 1.00 02/03/23 20:00 100 Nasal Cannula 2.00 02/03/23 20:00 37.0 02/03/23 19:46 36.8 112 22 107/58 Room Air 02/03/23 19:45 36.8 112 22 107/58 Room Air 02/03/23 19:00 Nasal Cannula 1.00 02/03/23 19:00 120 02/03/23 19:00 118 26 109/60 (76) 98 Nasal Cannula 1.00 02/03/23 18:00 125 24 127/65 (85) 97 Room Air 02/03/23 17:31 123 94/51 02/03/23 17:15 123 19 94/51 (65) 98 Room Air 02/03/23 17:00 138 23 99/59 (72) 100 Room Air 02/03/23 16:45 118 19 80/50 (60) 98 Room Air 02/03/23 16:39 37.0 02/03/23 16:30 120 20 91/46 (61) 99 Room Air 02/03/23 16:15 121 27 84/65 (71) 100 Room Air 02/03/23 16:00 117 10 89/53 (65) 99 Room Air 02/03/23 16:00 98 Room Air 02/03/23 15:45 112 27 97/54 (68) 100 Room Air 02/03/23 15:30 110 24 108/59 (75) 98 Room Air 02/03/23 15:15 109 22 100/60 (73) 99 Room Air 02/03/23 15:00 105 19 94/58 (70) 98 Room Air 02/03/23 14:45 105 16 94/57 (69) 99 Room Air 02/03/23 14:30 121 10 81/52 (62) 100 OxyMask 5.00 02/03/23 14:15 109 18 95/59 (71) 100 OxyMask 5.00 02/03/23 14:03 36.4 110 6 96 02/03/23 14:00 115 14 100/57 (71) 100 OxyMask 10.00 02/03/23 13:50 132 02/03/23 13:45 118 14 77/47 (57) 100 OxyMask 10.00 02/03/23 13:35 122 28 77/51 (60) 99 OxyMask 10.00 02/03/23 13:32 117 80/51 (61) 100 OxyMask 10.00 02/03/23 13:29 119 73/40 (51) 96 OxyMask 10.00 02/03/23 13:10 36.2 110 18 70/35 (47) 97 Room Air 02/03/23 13:05 Room Air 02/03/23 13:00 37.0 16 94/65 (75) 99 Room Air 02/03/23 12:50 16 77/50 (59) 97 OxyMask 2.00 02/03/23 12:45 OxyMask 2.00 02/03/23 12:40 16 81/56 (64) 98 OxyMask 2.00 02/03/23 12:30 17 86/57 (67) 98 OxyMask 2.00 02/03/23 12:30 OxyMask 2.00 02/03/23 12:22 14 92/58 (69) 99 OxyMask 2.00 02/03/23 12:15 37.1 16 85/63 (70) 98 OxyMask 4.00 02/03/23 12:15 OxyMask 4.00 02/03/23 09:00 Nasal Cannula 2.00 94 02/03/23 08:58 124 02/03/23 08:03 36.9 92 115/72 (86) High Flow N/C 2.00 I & O 02/04/23 07:00 Intake Total 4310 ml Output Total 750 ml Balance 3560 ml radiograph--Left hip HW well positioned without fracture LLE--dressing has been reinforced but dry intact sensation to light touch distally equal pulses s/p L hip bipolar mobilize as able DANI BRANDON MD Feb 04, 2023 07:42
--- NOTE | 2023-02-04 08:37 | Tele-ICU Progress Note ---
Subjective Date Seen by a Provider: Feb 04, 2023 Time Seen by a Provider: 08:34 Subjective/Events-last exam (Tele-ICU Physician , Progress Note ) Service provided via interactive audio and video telecommunications E-CARE system to a patient admitted to ICU bed in [facility]. Patient is seen today due to persistent need of ICU care Available chart/ vitals / labs / Images reviewed Video assessment done using teleICU camera, rest of exam as per RN Discussed with RN Events overnight : Afebrile hemodynamically stable Respiratory - 2l o2 I/O = + 5 L Drips: ns 70 Pressors- no Hospital course: (3.15) Admitted a 82 y/o s/p mechanical fall with left femoral neck fracture. 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 cervical spine and chest / abd / pelvis done Hypothyroidism - levothyroxine Lines : L scl (Central Line Necessity Reviewed) Celaya: 02/03 OG: Nutrition: Analgesia: Anxiety/ delirium VTE Prophylaxis: scd today , resume lovenox if Plt and HB stable Stress Ulcer Prophylaxis: na Plans in collaboration with bedside consultants and IM MDs. Discussed with RN to reach out if any questions or concerns A total of 33 minutes of critical care time was devoted to this patient today, required to treat and/or prevent further deterioration of critical care condition ( as above ) . I am remotely monitoring this patient from another state. I am unable to do the bedside exam, and history/physical and pertinent information is taken from other notes in the computer and bedside staff. Sepsis Event Evaluation Height, Weight, BMI Height: '" Weight: lbs. oz. kg; 19.45 BMI Method: Exam Exam Patient acknowledged, consented, and participated in this virtual visit which was conducted using real time audio/video Vital Signs Date Time Temp Pulse Resp B/P (MAP) Pulse Ox O2 Delivery O2 Flow Rate FiO2 02/04/23 06:45 37.3 95 18 131/85 100 02/04/23 06:30 37.3 111 18 114/68 100 Nasal Cannula 2.00 02/04/23 06:18 37.1 105 22 134/70 Nasal Cannula 2.00 02/04/23 06:00 99 24 134/65 (88) 100 Nasal Cannula 2.00 02/04/23 05:00 87 23 134/62 (86) 100 Nasal Cannula 2.00 02/04/23 04:08 37.2 02/04/23 04:00 100 Nasal Cannula 2.00 02/04/23 04:00 96 15 129/63 (85) 100 Nasal Cannula 2.00 02/04/23 03:00 96 25 132/67 (88) 100 Nasal Cannula 2.00 02/04/23 02:00 98 26 125/64 (84) 100 Nasal Cannula 2.00 02/04/23 01:00 105 27 132/68 (89) 100 Nasal Cannula 2.00 02/04/23 01:00 105 02/04/23 00:00 105 26 117/67 (84) 100 Nasal Cannula 2.00 02/03/23 23:59 100 Nasal Cannula 2.00 02/03/23 23:07 37.2 02/03/23 23:00 108 28 116/60 (78) 100 Nasal Cannula 2.00 02/03/23 22:15 37.2 111 18 110/54 100 02/03/23 22:00 37.1 105 24 121/59 100 02/03/23 22:00 37.2 105 24 121/59 100 02/03/23 22:00 105 24 121/59 (79) 100 Nasal Cannula 2.00 02/03/23 21:45 37.4 105 26 127/61 100 02/03/23 21:30 37.4 101 25 140/64 100 02/03/23 21:15 37.2 102 25 131/62 100 02/03/23 21:00 37.4 101 25 128/62 100 02/03/23 21:00 101 26 128/62 (84) 100 Nasal Cannula 2.00 02/03/23 20:45 37.3 104 22 114/60 100 02/03/23 20:30 37.3 105 20 118/62 Nasal Cannula 2.00 02/03/23 20:16 Nasal Cannula 2.00 02/03/23 20:15 37.2 108 22 111/88 98 Nasal Cannula 2.00 02/03/23 20:00 37.0 111 115/59 Room Air 02/03/23 20:00 112 27 115/59 (77) 91 Nasal Cannula 1.00 02/03/23 20:00 100 Nasal Cannula 2.00 02/03/23 20:00 37.0 02/03/23 19:46 36.8 112 22 107/58 Room Air 02/03/23 19:45 36.8 112 22 107/58 Room Air 02/03/23 19:00 Nasal Cannula 1.00 02/03/23 19:00 120 02/03/23 19:00 118 26 109/60 (76) 98 Nasal Cannula 1.00 02/03/23 18:00 125 24 127/65 (85) 97 Room Air 02/03/23 17:31 123 94/51 02/03/23 17:15 123 19 94/51 (65) 98 Room Air 02/03/23 17:00 138 23 99/59 (72) 100 Room Air 02/03/23 16:45 118 19 80/50 (60) 98 Room Air 02/03/23 16:39 37.0 02/03/23 16:30 120 20 91/46 (61) 99 Room Air 02/03/23 16:15 121 27 84/65 (71) 100 Room Air 02/03/23 16:00 117 10 89/53 (65) 99 Room Air 02/03/23 16:00 98 Room Air 02/03/23 15:45 112 27 97/54 (68) 100 Room Air 02/03/23 15:30 110 24 108/59 (75) 98 Room Air 02/03/23 15:15 109 22 100/60 (73) 99 Room Air 02/03/23 15:00 105 19 94/58 (70) 98 Room Air 02/03/23 14:45 105 16 94/57 (69) 99 Room Air 02/03/23 14:30 121 10 81/52 (62) 100 OxyMask 5.00 02/03/23 14:15 109 18 95/59 (71) 100 OxyMask 5.00 02/03/23 14:03 36.4 110 6 96 02/03/23 14:00 115 14 100/57 (71) 100 OxyMask 10.00 02/03/23 13:50 132 02/03/23 13:45 118 14 77/47 (57) 100 OxyMask 10.00 02/03/23 13:35 122 28 77/51 (60) 99 OxyMask 10.00 02/03/23 13:32 117 80/51 (61) 100 OxyMask 10.00 02/03/23 13:29 119 73/40 (51) 96 OxyMask 10.00 02/03/23 13:10 36.2 110 18 70/35 (47) 97 Room Air 02/03/23 13:05 Room Air 02/03/23 13:00 37.0 16 94/65 (75) 99 Room Air 02/03/23 12:50 16 77/50 (59) 97 OxyMask 2.00 02/03/23 12:45 OxyMask 2.00 02/03/23 12:40 16 81/56 (64) 98 OxyMask 2.00 02/03/23 12:30 17 86/57 (67) 98 OxyMask 2.00 02/03/23 12:30 OxyMask 2.00 02/03/23 12:22 14 92/58 (69) 99 OxyMask 2.00 02/03/23 12:15 37.1 16 85/63 (70) 98 OxyMask 4.00 02/03/23 12:15 OxyMask 4.00 02/03/23 09:00 Nasal Cannula 2.00 94 02/03/23 08:58 124 I & O 02/04/23 07:00 Intake Total 4310 ml Output Total 750 ml Balance 3560 ml Height & Weight Height: '" Weight: lbs. oz. kg; 19.45 BMI Method: General Appearance: Chronically ill, Thin HEENT: PERRL/EOMI Neck: Normal Inspection, Non Tender, Supple Respiratory: Lungs Clear, Normal Breath Sounds Cardiovascular: Regular Rate, Rhythm Capillary Refill: Less Than 3 Seconds Peripheral Pulses: 2+ Dorsalis Pedis (R), 2+ Left Dors-Pedis (L) Gastrointestinal: normal bowel sounds, non tender, soft Extremity: No Pedal Edema, Other (Left hip is tender to palpation.) Neurologic/Psychiatric: Alert, Oriented x3, Facial Droop (Slight residual left facial droop. ), Motor Weakness (Strength for left side extremities is 3/5 c/w deficits from previous stroke.) Skin: Normal Color, Warm/Dry Results Lab Laboratory Tests 02/03/23 01:20 02/03/23 14:30 02/03/23 18:55 02/04/23 00:20 02/04/23 04:05 Assessment/Plan Assessment/Plan 1 GURU CULLEN MD Feb 04, 2023 08:37
[2023-02-04] MEDS: SENNOSIDES 8.6 MG (SENOKOT) TAB PO SCH ×2 (09:00→20:47)
[2023-02-04] MEDS: DOCUSATE SODIUM 100 MG (COLACE) CAP PO SCH ×2 (09:00→20:47)
--- NOTE | 2023-02-04 09:34 | Occupational Therapy Eval ---
OT Evaluation-General/PLF Medical Diagnosis Admission Date Feb 03, 2023 at 03:55 Medical Diagnosis: s/p L hip bipolar Onset Date: Feb 03, 2023 Therapy Diagnosis Therapy Diagnosis: weakness Precautions Precautions/Isolations: Fall Prevention, Standard Precautions Weight Bear Status Weight Bearing Restriction: Partial Weight Bearing Location Restriction: L LE (OT posiitoned LLE with pillow on reclienr leg rest to decrease IR and foot drop, wear AFO but not at hospital) Referral Referral Reason: Activity Tolerance, Self Care, Evaluation/Treatment, Strengthening/ROM Medical History Pertinent Medical History: CVA (Left affect) Current History S/P fall at home, resulting in femur fx. At hospital following s/p L hip bipolar patient became hypertensive and rapid response was initiated 02/03/23 patient returned to ICU and therapy is now initiated Social History Home: Multilevel (lives in walk out basement of home, garage entry, has full flight of 13 steps to navigate remainder of home w/ platform FWW) Current Living Status: Spouse Entry Into Home: Level Entry (at garage) Steps Inside Home: 13 use 4 point cane in home of basement, uses platform left walker ADL-Prior Level of Function SCALE: Activities may be completed with or without assistive devices. 8-Sqzbpknsog-ydmezot completes the activity by him/herself with no assistance from a helper. 5-Set-up or Clean-up Assistance-helper sets up or cleans up; patient completes activity. [place] assists only prior to or following the activity. 4-Supervision or Touching Assistance-helper provides verbal cues and/or touching/steadying and/or contact guard assistance as patient completes activity. Assistance may be provided throughout the activity or intermittently. 3-Partial/Moderate Assistance-helper does LESS THAN HALF the effort. [place] lifts, holds or supports trunk or limbs, but provides less than half the effort. 2-Substantial/Maximal Assistance-helper does MORE THAN HALF the effort. [place] lifts or holds trunk or limbs and provides more than half the effort. 4-Raxfvvzki-chxium does ALL the effort. Patient does none of the effort to compl ete the activity. Or, the assistance of 2 or more helpers is required for the patient to complete the activity. If activity was not attempted, code reason: 7-Patient Refused. 9-Not Applicable-not attempted and the patient did not perform the activity before the current illness, exacerbation or injury. 10-Not Attempted due to Environmental Limitations-(lack of equipment, weather restraints, etc.). 88-Not Attempted due to Medical Conditions or Safety Concerns. Self Care: Needed Some Help (spouse does 50% donning assistance) Functional Cognition: Independent DME/Equipment: Bath Chair (slide and swivel chair), Grab Bars, Shower, Shower Hose Mds Coordinator Drive Self: No OT Current Status Subjective Patient up in chair agreeable to OT, spouse is present, 02 levels during communication 86%-94% RN adjusts 02, spouse reports that patient requires the airflow over vocal cords to project voice since CV2020. 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 Patient and report LUE was a point of impact with fall. Approximately 30 degrees ROM in L elbow for flex/ext. No active supination/pronation or wrist/hand ROM Patient and spouse report relaxed tone at night and occasionally wear RHS Upper Extremity Strength RUE WFLs and age appropriate. OT assesses LUE and positions elbow on recliner arm rest to measure MMT in range. Patient reports pain through LUE and into shoulder with WB/pressure of elbow on arm rest. OT repositions EREN for subluxation support w/ pillows. Patient previously able to WB through LUE on platform walker and today is not able to comfortably WB in recliner. Patient and spouse report prior to fall patient was able to lift a 10# dowel su and 4 # hand weight within ROM range at home. Patient works out his HEP in afternoons w/ spouse. Patient is in good spirits and reports he is ready to work his butt off to get better, however his butt is not very big so he will work harder than His own butt. ADL-Treatment Eating (QC): 5 Oral Hygiene (QC): 4 Shower/Bathe Self (QC): 88 Upper Body Dressing (QC): 2 Lower Body Dressing (QC): 1 (LLE AFO at home, PWB, unable to WB through LUE to stand) On/Off Footwear (QC): 3 (RLE indepentently in recliner) Toileting Hygiene (QC): 1 Other Treatments LUE positioning, LLE positioning Education OT Patient Education: Correct positioning, Exercise program, Instructions to caregiver, Modified ADL techniques, Progress toward Goal/Update tx plan, Purpose of tx/functional activities, Reviewed precautions, Rehab process, Safety issues, Transfer techniques, Use of adapted equipment Teaching Recipient: Patient, Family Teaching Methods: Demonstration, Discussion Response to Teaching: Verbalize Understanding, Reinforcement Needed OT Kayaking Instructor Goals Kayaking Instructor Goals Eating (QC): 6 Oral Hygiene (QC): 5 Toileting Hygiene (QC): 2 Shower/Bathe Self (QC): 2 Upper Body Dressing (QC): 3 Lower Body Dressing (QC): 2 On/Off Footwear (QC): 4 1=Demonstrate adherence to instructed precautions during ADL tasks. 2=Patient will verbalize/demonstrate understanding of assistive devices/modifications for ADL. 3=Patient will improve strength/tolerance for activity to enable patient to perform ADL's. OT Education/Plan Problem List/Assessment Assessment: Decreased Activ Tolerance, Decreased UE Strength, Impaired Coordination, Impaired Funct Balance, Impaired Self-Care Skills, Restricted Func t UE ROM Discharge Recommendations Plan/Recommendations: Continue POC Therapy Discharge Recommendati: Post Acute OT Treatment Plan/Plan of Care Treatment,Training & Education: Yes Patient would benefit from OT for education, treatment and training to promote independence in ADL's, mobility, safety and/or upper extremity function for ADL's. Plan of Care: ADL Retraining, Caregiver Training, Concurrent Therapy, Functional Mobility, Group Exercise/Act as Ind, UE Funct Exercise/Act, UE Neuromus Re-Ed/Coord Treatment Duration: Feb 13, 2023 Frequency: 3 times per week (3-5 times per week) Estimated Hrs Per Day: .25 hour per day Agreement: Yes Rehab Potential: Guarded Time Start Time: 08:40 Stop Time: 09:28 DATE: Feb 04, 2023 Total Time Billed (hr/min): 48 Billed Treatment Time EV EX 2 ANA MARIA GREEN OT Feb 04, 2023 09:34
--- NOTE | 2023-02-04 09:39 | Physical Therapy Evaluation ---
PT Evaluation-General Medical Diagnosis Admission Date Feb 03, 2023 at 03:55 Medical Diagnosis: left hip fracutre Onset Date: Feb 03, 2023 Therapy Diagnosis Therapy Diagnosis: impaired mobility/weakness Precautions Precautions/Isolations: Fall Prevention, Standard Precautions Weight Bear Status Right Lower Extremity: Right Full Weight Bearing Left Lower Extremity: Left Partial Weight Bearing Referral Physician: Marilee Reason for Referral: Evaluation/Treatment Medical History Pertinent Medical History: CVA (left hemiparesis), Hypothroidism Current History EMS from home secondary to fall from stand Reviewed History: Yes Social History Home: Multilevel Current Living Status: Spouse Entry Into Home: Level Entry (from garage/walk in basement) PT Steps Inside Home: 13 Prior Prior Level of Function SCALE: Activities may be completed with or without assistive devices. 6-Dnwwrykmfk-kktzzsc completes the activity by him/herself with no assistance from a helper. 5-Set-up or Clean-up Assistance-helper sets up or cleans up; patient completes activity. [place] assists only prior to or following the activity. 4-Supervision or Touching Assistance-helper provides verbal cues and/or touching/steadying and/or contact guard assistance as patient completes activity. Assistance may be provided throughout the activity or intermittently. 3-Partial/Moderate Assistance-helper does LESS THAN HALF the effort. [place] lifts, holds or supports trunk or limbs, but provides less than half the effort. 2-Substantial/Maximal Assistance-helper does MORE THAN HALF the effort. [place] lifts or holds trunk or limbs and provides more than half the effort. 4-Esoyjlkdh-stypgu does ALL the effort. Patient does none of the effort to complete the activity. Or, the assistance of 2 or more helpers is required for the patient to complete the activity. If activity was not attempted, code reason: 7-Patient Refused. 9-Not Applicable-not attempted and the patient did not perform the activity before the current illness, exacerbation or injury. 10-Not Attempted due to Environmental Limitations-(lack of equipment, weather restraints, etc.). 88-Not Attempted due to Medical Conditions or Safety Concerns. Bed Mobility: 6 Transfers (B,C,W/C): 6 Gait: 5 Indoor Mobility (Ambulation): Independent Prior Devices Use: Walker (left platform FWW) PT Evaluation-Current Subjective Patient agrees to PT. Pain Numeric Pain Scale: 5-Moderate Pain Location: Left Location Body Site: Hip Pain Description: Acute Objective Patient Orientation: Normal For Age Attachments: Central Line, Oxygen, Celaya Catheter ROM/Strength ROM Lower Extremities left LE limited due to pain but functional/right LE WFL Strength Lower Extremities left LE 2-/5 grossly/right LE 3+/5 grossly Integumentary/Posture Integumentary refer to nursing notes Bladder Incontinence: Celaya Cath Posture slightly kyphotic Neuromuscular (Tone, Coordination, Reflexes) diminished coordination left LE due to CVA Sensory Vision: Functional Hearing: Impaired Transfers Lying to Sitting/Side of Bed(Q: 1 Sit to Stand (QC): 1 Chair/Bju-ui-Hvtfa Xfer(QC): 1 (difficulty with PWB left LE) Gait Does the Patient Walk?: No and Walking Goal IS indicated Walk 10 feet (QC): 88 Walk 50 ft with 2 Turns(QC): 88 Walk 150 ft (QC): 88 Gait Assistive Device: Walker Platform Comments/Gait Description Per OT, patient unable to safely weight bear left UE with platform FWW due to pain and weakness Balance Sitting Static: Fair Sitting Dynamic: Fair Standing Static: Poor Standing Dynamic: Poor Assessment/Needs Patient will benefit from skilled PT to improve current LOF. Patient is PWB left LE with left hemiparesis from old CVA. Patient currently as difficulty with maintaining PWB left LE due to weakness and impaired mobility. Rehab Potential: Guarded PT Short Term Goals Short Term Goals Time Frame: Feb 19, 2023 Roll Left & Right: 3 Sit to lyin Lying to sitting on side of be: 3 Sit to stand: 3 Chair/vqv-tj-naann transfer: 3 Toilet transfer: 3 PT Quality Process Engineer Goals Chcf Goals PT Chcf Goals Time Frame: Mar 06, 2023 Roll Left & Right (QC): 4 Sit to Lying (QC): 4 Lying-Sitting on Side/Bed(QC): 4 Sit to Stand (QC): 4 Chair/Hin-tt-Btaxx Xfer(QC): 4 Toilet Transfer (QC): 4 Walk 10 feet (QC): 4 Walk 50ft with 2 Turns (QC): 4 PT Plan Problem List Problem List: Activity Tolerance, Functional Strength, Safety, Balance, Gait, Transfer, Bed Mobility Treatment/Plan Treatment Plan: Continue Plan of Care Treatment Plan: Bed Mobility, Education, Functional Activity Josep, Functional Strength, Gait, Safety, Therapeutic Exercise, Transfers Treatment Duration: Mar 06, 2023 Frequency: 11 times per week Estimated Hrs Per Day: .5 hour per day Patient and/or Family Agrees t: Yes Time Time In: 755 Time Out: 814 DATE: Feb 04, 2023 Total Billed Treatment Time: 19 Total Billed Treatment 1 visit [facility] 19 min SHAHZAD HOLLOWAY PT Feb 04, 2023 09:39
[2023-02-04 09:40] LABS: HEMOGLOBIN 8.7 g/dL (13.3-17.7)
[2023-02-04 09:42] LABS: WHITE BLOOD COUNT 11.2 10^3/uL (4.3-11.0)
[2023-02-04] MEDS: ENOXAPARIN 40 MG/0.4 ML (LOVENOX) SYR SC SCH (10:56)
[2023-02-04] MEDS: NS IV 1000 ML 1,000 ML IV SCH (11:00)
--- NOTE | 2023-02-04 12:24 | Anesthesia-Regional Post-Op ---
Regional Patient Condition Mental Status: Alert, Oriented x3 Circulation: Same as Pre-Op Headache: Absent Sensation: Full Recovery Motor Block: Absent Post Op Complications Complications None Follow Up Care/Instructions Patient Instructions None needed. Anesthesia/Patient Condition Patient is doing well, no complaints, stable vital signs, no apparent adverse anesthesia problems. No complications reported per nursing. RIVER NEVES CRNA Feb 04, 2023 12:24
--- NOTE | 2023-02-04 14:32 | Physical Therapy Daily Note ---
PT Daily Note-Current Subjective Patient sitting in chair upon PT arrival, agreeable to treatment. Patient rates pain at 0/10 currently. Pain Section J - Health Conditions 1. Rarely or not at all 2. Occasionally 3. Frequently 4. Almost constantly 8. Unable to answer Pain Effect on Sleep: 1 Pain Interference with Therapy: 2 Pain Interference w/Day-to-Day: 2 Mental Status Patient Orientation: Person Attachments: Oxygen, Ventilator, IV Transfers SCALE: Activities may be completed with or without assistive devices. 2-Kxrbemjjvi-wvasvkp completes the activity by him/herself with no assistance from a helper. 5-Set-up or Clean-up Assistance-helper sets up or cleans up; patient completes activity. [place] assists only prior to or following the activity. 4-Supervision or Touching Assistance-helper provides verbal cues and/or touching/steadying and/or contact guard assistance as patient completes activity. Assistance may be provided throughout the activity or intermittently. 3-Partial/Moderate Assistance-helper does LESS THAN HALF the effort. [place] lifts, holds or supports trunk or limbs, but provides less than half the effort. 2-Substantial/Maximal Assistance-helper does MORE THAN HALF the effort. [place] lifts or holds trunk or limbs and provides more than half the effort. 7-Iolruraxg-fksurl does ALL the effort. Patient does none of the effort to complete the activity. Or, the assistance of 2 or more helpers is required for the patient to complete the activity. If activity was not attempted, code reason: 7-Patient Refused. 9-Not Applicable-not attempted and the patient did not perform the activity before the current illness, exacerbation or injury. 10-Not Attempted due to Environmental Limitations-(lack of equipment, weather restraints, etc.). 88-Not Attempted due to Medical Conditions or Safety Concerns. Roll Left & Right (QC): 1 Sit to Lying (QC): 1 Lying to Sitting/Side of Bed(Q: 1 Sit to Stand (QC): 2 Chair/Mqp-gj-Ebmlx Xfer(QC): 1 Weight Bearing Right Lower Extremity: Right Full Weight Bearing Left Lower Extremity: Left Partial Weight Bearing Gait Training Does the Patient Walk?: No and Walking Goal IS indicated Assessment Current Status: Fair Progress Patient tolerated treatment fair. He requires Max/total assistance for all observed bed mobility and transfers. Patient requires total A for SPT to the bed. Patient able to maintain PWB left LE, however is unable to do much else in assisting with the transfers. Patient in bed post treatment with all needs met, nursing notified, call light in hand, daughter in the room. PT Short Term Goals Short Term Goals Time Frame: Feb 19, 2023 Roll Left & Right: 3 Sit to lyin Lying to sitting on side of be: 3 Sit to stand: 3 Chair/nbo-vd-wpwtu transfer: 3 Toilet transfer: 3 PT Crew Director Goals Crew Director Goals PT Alf Goals Time Frame: Mar 06, 2023 Roll Left & Right (QC): 4 Sit to Lying (QC): 4 Lying-Sitting on Side/Bed(QC): 4 Sit to Stand (QC): 4 Chair/Sfp-fi-Cjfng Xfer(QC): 4 Toilet Transfer (QC): 4 Walk 10 feet (QC): 4 Walk 50ft with 2 Turns (QC): 4 PT Plan Treatment/Plan Treatment Plan: Continue Plan of Care Treatment Plan: Bed Mobility, Education, Functional Activity Josep, Functional Strength, Gait, Safety, Therapeutic Exercise, Transfers Treatment Duration: Mar 06, 2023 Frequency: 11 times per week Estimated Hrs Per Day: .5 hour per day Patient and/or Family Agrees t: Yes Safety Risks/Education Patient Education: Transfer Techniques Teaching Recipient: Patient, Family Teaching Methods: Demonstration, Discussion Response to Teaching: Reinforcement Needed Time Time In: 1352 Time Out: 1418 DATE: Feb 04, 2023 Total Billed Treatment Time: 26 Total Billed Treatment Visit, FA (2) CHRISSIE RYAN PT Feb 04, 2023 14:31
[2023-02-04] MEDS ORDERED: LIDOCAINE 1% INJ 20 ML VIAL ONE (16:14)
--- NOTE | 2023-02-04 16:47 | Diagnostic Imaging Report ---
EXAMINATION: Chest 1 view HISTORY: Pneumothorax COMPARISON: 02/03/2023 FINDINGS: The left pneumothorax has increased in size and now occupies the majority of the left hemithorax. No midline shift is seen. Right lung is clear. Heart size is normal. Left subclavian catheter is in the superior vena cava. IMPRESSION: 1. Large left pneumothorax increased from prior exam and now encompassing the majority of the left hemithorax. No midline shift to indicate tension. Called to [place] at 4:47 p.m. by cvb. Dictated by: Dictated on workstation # [id number]
--- NOTE | 2023-02-04 17:02 | Progress Note ---
Subjective Date Seen by a Provider: Feb 04, 2023 Time Seen by a Provider: 16:30 Subjective/Events-last exam more awake/alert. does not report any SOB however worse ptx on f/u cxr. Objective Exam Vital Signs Date Time Temp Pulse Resp B/P (MAP) Pulse Ox O2 Delivery O2 Flow Rate FiO2 02/04/23 15:00 111 26 139/75 (96) 93 Nasal Cannula 3.00 02/04/23 14:00 138 22 123/71 (88) 90 Nasal Cannula 3.00 02/04/23 13:00 115 16 124/79 (94) 88 Nasal Cannula 3.00 02/04/23 13:00 125 02/04/23 12:00 100 Nasal Cannula 2.00 02/04/23 12:00 112 26 120/68 (85) 90 Nasal Cannula 3.00 02/04/23 11:00 117 17 129/66 (87) 90 Nasal Cannula 3.00 02/04/23 10:00 115 13 127/61 (83) 92 Nasal Cannula 3.00 02/04/23 09:00 112 114/60 (78) 93 Nasal Cannula 3.00 02/04/23 08:35 37.6 109 24 117/73 (88) 100 Nasal Cannula 3.00 02/04/23 08:00 107 16 117/73 (88) 100 Nasal Cannula 2.00 02/04/23 08:00 100 Nasal Cannula 2.00 02/04/23 07:00 100 02/04/23 07:00 104 12 145/68 (93) 98 Nasal Cannula 2.00 02/04/23 06:45 37.3 95 18 131/85 100 02/04/23 06:30 37.3 111 18 114/68 100 Nasal Cannula 2.00 02/04/23 06:18 37.1 105 22 134/70 Nasal Cannula 2.00 02/04/23 06:00 99 24 134/65 (88) 100 Nasal Cannula 2.00 02/04/23 05:00 87 23 134/62 (86) 100 Nasal Cannula 2.00 02/04/23 04:08 37.2 02/04/23 04:00 100 Nasal Cannula 2.00 02/04/23 04:00 96 15 129/63 (85) 100 Nasal Cannula 2.00 02/04/23 03:00 96 25 132/67 (88) 100 Nasal Cannula 2.00 02/04/23 02:00 98 26 125/64 (84) 100 Nasal Cannula 2.00 02/04/23 01:00 105 27 132/68 (89) 100 Nasal Cannula 2.00 02/04/23 01:00 105 02/04/23 00:00 105 26 117/67 (84) 100 Nasal Cannula 2.00 02/03/23 23:59 100 Nasal Cannula 2.00 02/03/23 23:07 37.2 02/03/23 23:00 108 28 116/60 (78) 100 Nasal Cannula 2.00 02/03/23 22:15 37.2 111 18 110/54 100 02/03/23 22:00 37.1 105 24 121/59 100 02/03/23 22:00 37.2 105 24 121/59 100 02/03/23 22:00 105 24 121/59 (79) 100 Nasal Cannula 2.00 02/03/23 21:45 37.4 105 26 127/61 100 02/03/23 21:30 37.4 101 25 140/64 100 02/03/23 21:15 37.2 102 25 131/62 100 02/03/23 21:00 37.4 101 25 128/62 100 02/03/23 21:00 101 26 128/62 (84) 100 Nasal Cannula 2.00 02/03/23 20:45 37.3 104 22 114/60 100 02/03/23 20:30 37.3 105 20 118/62 Nasal Cannula 2.00 02/03/23 20:16 Nasal Cannula 2.00 02/03/23 20:15 37.2 108 22 111/88 98 Nasal Cannula 2.00 02/03/23 20:00 37.0 111 115/59 Room Air 02/03/23 20:00 112 27 115/59 (77) 91 Nasal Cannula 1.00 02/03/23 20:00 100 Nasal Cannula 2.00 02/03/23 20:00 37.0 02/03/23 19:46 36.8 112 22 107/58 Room Air 02/03/23 19:45 36.8 112 22 107/58 Room Air 02/03/23 19:00 Nasal Cannula 1.00 02/03/23 19:00 120 02/03/23 19:00 118 26 109/60 (76) 98 Nasal Cannula 1.00 02/03/23 18:00 125 24 127/65 (85) 97 Room Air 02/03/23 17:31 123 94/51 02/03/23 17:15 123 19 94/51 (65) 98 Room Air 02/03/23 17:00 138 23 99/59 (72) 100 Room Air I & O 02/04/23 07:00 Intake Total 4310 ml Output Total 750 ml Balance 3560 ml Capillary Refill : Less Than 3 Seconds General Appearance: No Apparent Distress HEENT: PERRL/EOMI Neck: Full Range of Motion Respiratory: Chest Non Tender Cardiovascular: Regular Rate, Rhythm Gastrointestinal: normal bowel sounds, non tender, soft Extremity: Normal Capillary Refill Neurologic/Psychiatric: Alert, Oriented x3 Skin: Normal Color Lymphatic: No Adenopathy Results Lab Laboratory Tests 02/03/23 17:07: Blood Gas Puncture Site L RAD, Blood Gas Patient Temperature 36.8, Arterial Blood pH 7.40, Arterial Blood Partial Pressure CO2 37, Arterial Blood Partial Pressure O2 76L, Arterial Blood HCO3 22L, Arterial Blood Total CO2 23.5, Arterial Blood Oxygen Saturation 97, Arterial Blood Base Excess -1.8, [place]en Test POSITIVE, Blood Gas Ventilator Setting , Blood Gas Inspired Oxygen 02/03/23 18:55: White Blood Count 17.4H, Red Blood Count 2.72L, Hemoglobin 7.9#L, Hematocrit 24L , Mean Corpuscular Volume 89, Mean Corpuscular Hemoglobin 29, Mean Corpuscular Hemoglobin Concent 33, Red Cell Distribution Width 15.1H, Platelet Count 123L, Mean Platelet Volume 10.6, Percent Immature Platelet Fraction 4.1, Sodium Level 136, Potassium Level 4.1, Chloride Level 107, Carbon Dioxide Level 21, Anion Gap 8, Blood Urea Nitrogen 24H, Creatinine 1.07, Estimat Glomerular Filtration Rate 68, BUN/Creatinine Ratio 22, Glucose Level 249H, Calcium Level 7.6L, Procalcitonin 0.80H 02/04/23 00:20: Hemoglobin 7.8L, Hematocrit 23L 02/04/23 04:05: White Blood Count 10.4, Red Blood Count 2.64L, Hemoglobin 7.7L, Hematocrit 23L, Mean Corpuscular Volume 86, Mean Corpuscular Hemoglobin 29, Mean Corpuscular Hemoglobin Concent 34, Red Cell Distribution Width 14.8H, Platelet Count 89L, Mean Platelet Volume 10.8, Sodium Level 138, Potassium Level 4.7, Chloride Level 108H, Carbon Dioxide Level 23, Anion Gap 7, Blood Urea Nitrogen 28H, Creatinine 1.03, Estimat Glomerular Filtration Rate 72, BUN/Creatinine Ratio 27, Glucose Level 132H, Calcium Level 8.2L, Immature Granulocyte % (Auto) 0, Neutrophils (%) (Auto) 75, Lymphocytes (%) (Auto) 12, Monocytes (%) (Auto) 13H, Eosinophils (%) (Auto) 0, Basophils (%) (Auto) 0, Neutrophils # (Auto) 7.7, Lymphocytes # (Auto) 1.2, Monocytes # (Auto) 1.3H, Eosinophils # (Auto) 0.0, Basophils # (Auto) 0.0, Immature Granulocyte # (Auto) 0.0, Corrected Calcium 9.2, Phosphorus Level 2.7, Magnesium Level 2.0, Total Bilirubin 0.8, Aspartate Amino Transf (AST/SGOT) 18, Alanine Aminotransferase (ALT/SGPT) 8, Alkaline Phosphatase 36L, Total Protein 4.2L, Albumin 2.7L 02/04/23 06:10: Iron Level 12L, Vitamin B12 Level 347 02/04/23 09:21: White Blood Count 11.2H, Red Blood Count 2.96L, Hemoglobin 8.7L, Hematocrit 26L, Mean Corpuscular Volume 87, Mean Corpuscular Hemoglobin 29, Mean Corpuscular Hemoglobin Concent 34, Red Cell Distribution Width 14.8H, Platelet Count 91L, Mean Platelet Volume 11.0, Percent Immature Platelet Fraction 4.0 02/04/23 12:16: Lab Scanned Report Transfusion Reaction Form Assessment/Plan Assessment/Plan Assess & Plan/Chief Complaint hypovolemic shock with fall and left femoral neck fx s/p bipolar repair requiring central venous cath and pressors. developed worsening left ptx, thorovent placed. will keep on suction tonight and then one way seal if tomorrow if lung fully inflated. cont PO/OT. diet as tolerated. Clinical Quality Measures AMI/AHF: ASA po Prior to arrival: No DVT/VTE Risk/Contraindication: Contraindications-Pharm: Other *list below* Other: or SAMMI WELLS MD Feb 04, 2023 17:02
--- NOTE | 2023-02-04 17:02 | Diagnostic Imaging Report ---
EXAM: CHEST 1 VIEW, AP/PA ONLY INDICATION: Post chest tube. COMPARISON: Chest radiograph 02/04/2023. FINDINGS: Normal heart size and central pulmonary vascularity. New left chest tube. Near-complete resolution of the left pneumothorax. There appears to be a residual 0.5 cm apical pneumothorax. Left subclavian CVC tip mid SVC. No pleural effusion. IMPRESSION: Interval placement of a left chest tube with near-complete resolution of the left pneumothorax. Dictated by: Dictated on workstation # [id number]
[2023-02-04] MEDS ORDERED: LIDOCAINE 1% INJ 10 ML VIAL INJ ONE (17:30)
--- NOTE | 2023-02-04 17:55 | OPERATIVE REPORT ---
DATE OF SERVICE: 02/04/2023 ATTENDING PRIMARY CARE PHYSICIAN: Dr. Kennedy March. ADMITTING PHYSICIAN: Dr. Hunt. PREOPERATIVE DIAGNOSIS: Left pneumothorax. POSTOPERATIVE DIAGNOSES: Left pneumothorax. PROCEDURE: Placement left Thora-Vent chest tube. SURGEON: Dipesh Wells MD ANESTHESIA: Local. ESTIMATED BLOOD LOSS: Minimal. DISPOSITION: The patient tolerated the procedure well. INDICATIONS: The patient is an 82-year-old male with a same level fall to the left hip causing a femoral neck fracture. He underwent a bipolar repair of the femoral neck on 02/03/2023. The patient developed hypotension and was admitted to the ICU. He seemed somewhat malnourished as well as dehydrated and his states that he is consistently dehydrated and forgets to drink water a lot of times. He was requiring Tommy-Synephrine through a peripheral line yesterday to maintain blood pressure. Thus left subclavian central venous catheter was placed for vasopressors. After the central line placement, there was a small pneumothorax and on followup chest x-ray today, the pneumothorax had increased in size. Due to this finding, we will proceed with placement of a Thora-Vent to evacuate the air within the pleural space. DESCRIPTION OF PROCEDURE: The left anterior chest were prepped and draped in standard surgical fashion. A 1% lidocaine was then used to anesthetize the anterolateral left chest at approximately the fifth intercostal space. The skin, subcutaneous tissue and muscle layers and pleural lining was then anesthetized with 1% lidocaine. A vertical skin incision was then made using a #11 blade. The Thora-Vent with trocar was then placed without any resistance and the trocar removed. The Thora-Vent was then placed to suction where the patient did have an immediate cough, likely representing reexpansion of the lung. The Thora-Vent was affixed to the skin with the attached tape. The patient tolerated the procedure well. We will get a post-procedure chest x-ray. Job ID: [id number] DocumentID: [id number] Dictated Date: 02/04/2023 17:11:41 Loss Control Manager Date: 02/04/2023 17:52:00 Dictated By: DIPESH WELLS MD
[2023-02-05] MEDS: NS IV 1000 ML 1,000 ML IV SCH ×2 (00:08→16:22)
[2023-02-05] MEDS ORDERED: NS IV 500 ML 500 ML IV PRN (00:15)
[2023-02-05 03:36] LABS: BASOPHILS % (AUTO) 0 % (0-10); LYMPHOCYTES # (AUTO) 1.4 10^3/uL (1.0-4.0)
[2023-02-05 03:37] LABS: EOSINOPHILS # (AUTO) 0.1 10^3/uL (0.0-0.3); EOSINOPHILS % (AUTO) 1 % (0-10); LYMPHOCYTES % (AUTO) 16 % (12-44); MEAN CORPUSCULAR HEMOGLOBIN 29 pg (25-34); MEAN CORPUSCULAR HGB CONC 34 g/dL (32-36); MEAN CORPUSCULAR VOLUME 87 fL (80-99); MEAN PLATELET VOLUME 11.1 fL (9.0-12.2); MONOCYTES # (AUTO) 1.2 10^3/uL (0.0-1.0); MONOCYTES % (AUTO) 14 % (0-12); NEUTROPHILS # (AUTO) 5.7 10^3/uL (1.8-7.8); NEUTROPHILS % (AUTO) 68 % (42-75); PLATELET COUNT 72 10^3/uL (130-400); WHITE BLOOD COUNT 8.3 10^3/uL (4.3-11.0)
[2023-02-05 03:54] LABS: HEMATOCRIT 19 % (40-54); HEMOGLOBIN 6.5 g/dL (13.3-17.7)
[2023-02-05 03:59] LABS: ALBUMIN 2.5 GM/DL (3.2-4.5); POTASSIUM 4.3 MMOL/L (3.6-5.0)
[2023-02-05 04:00] LABS: CALCIUM 7.9 MG/DL (8.5-10.1)
[2023-02-05] MEDS ORDERED: NS IV 500 ML 500 ML IV SCH (04:00)
[2023-02-05 04:01] LABS: TOTAL PROTEIN 4.1 GM/DL (6.4-8.2)
[2023-02-05 04:03] LABS: BILIRUBIN,TOTAL 0.6 MG/DL (0.1-1.0)
[2023-02-05 04:05] LABS: CREATININE SERUM 0.87 MG/DL (0.60-1.30)
[2023-02-05 04:08] LABS: MAGNESIUM 1.8 MG/DL (1.6-2.4)
[2023-02-05] MEDS ORDERED: MAGNESIUM 1 GM/100 ML IVPB 100 ML IV ONE (04:16)
[2023-02-05] MEDS: MAGNESIUM 1 GM/100 ML IVPB 100 ML IV SCH ×2 (04:20→05:08)
[2023-02-05 04:44] VITALS: BP 120/64
[2023-02-05 05:03] VITALS: BP 137/70
--- NOTE | 2023-02-05 05:51 | Progress Note ---
Subjective Date Seen by a Provider: Feb 05, 2023 Time Seen by a Provider: 10:00 Subjective/Events-last exam Improved status Received 3rd unit of blood and now hgb stable Awaiting rehab approval at bedside Iron and B12 given in supplements No pain reported Cath still in place No BM Minimal diet intake Review of Systems General: Fatigue, Malaise Musculoskeletal: leg pain Objective Exam Last Set of Vital Signs Vital Signs Date Time Temp Pulse Resp B/P (MAP) Pulse Ox O2 Delivery O2 Flow Rate FiO2 02/05/23 05:03 37.5 94 22 137/70 97 Nasal Cannula 2.00 02/03/23 09:00 94 Capillary Refill : Less Than 3 Seconds I&O Intake and Output 02/05/23 00:00 Intake Total 1070 ml Output Total 650 ml Balance 420 ml Intake Oral 800 ml Other 270 ml Output Urine Total 650 ml General: Alert, Oriented X3, Cooperative, No Acute Distress, Other (frail, pale) Lungs: Clear to Auscultation, Normal Air Movement Heart: Regular Rate, Normal S1, Normal S2, No Murmurs Psych/Mental Status: Mental Status NL, Mood NL Results Lab Laboratory Tests 02/04/23 06:10: Iron Level 12L, Vitamin B12 Level 347 02/04/23 09:21: White Blood Count 11.2H, Red Blood Count 2.96L, Hemoglobin 8.7L, Hematocrit 26L, Mean Corpuscular Volume 87, Mean Corpuscular Hemoglobin 29, Mean Corpuscular Hemoglobin Concent 34, Red Cell Distribution Width 14.8H, Platelet Count 91L, Mean Platelet Volume 11.0, Percent Immature Platelet Fraction 4.0 02/04/23 12:16: Lab Scanned Report Transfusion Reaction Form 02/05/23 03:27: White Blood Count 8.3, Red Blood Count 2.23L, Hemoglobin 6.5#*L, Hematocrit 19*L , Mean Corpuscular Volume 87, Mean Corpuscular Hemoglobin 29, Mean Corpuscular Hemoglobin Concent 34, Red Cell Distribution Width 14.7H, Platelet Count 72L, Mean Platelet Volume 11.1, Percent Immature Platelet Fraction 3.4, Immature Granulocyte % (Auto) 0, Neutrophils (%) (Auto) 68, Lymphocytes (%) (Auto) 16, Monocytes (%) (Auto) 14H, Eosinophils (%) (Auto) 1, Basophils (%) (Auto) 0, Neutrophils # (Auto) 5.7, Lymphocytes # (Auto) 1.4, Monocytes # (Auto) 1.2H, Eosinophils # (Auto) 0.1, Basophils # (Auto) 0.0, Immature Granulocyte # (Auto) 0.0, Sodium Level 137, Potassium Level 4.3, Chloride Level 108H, Carbon Dioxide Level 23, Anion Gap 6, Blood Urea Nitrogen 29H, Creatinine 0.87, Estimat Glomerular Filtration Rate 85, BUN/Creatinine Ratio 33, Glucose Level 109H, Calcium Level 7.9L, Corrected Calcium 9.1, Phosphorus Level 2.0L, Magnesium Level 1.8, Total Bilirubin 0.6, Aspartate Amino Transf (AST/SGOT) 19, Alanine Aminotransferase (ALT/SGPT) 14, Alkaline Phosphatase 41, Total Protein 4.1L, Albumin 2.5L Assessment/Plan Assessment/Plan Assess & Plan/Chief Complaint This is an 82 y/o male who presented for a fall with a left femoral neck fracture Left femoral neck fracture -Ortho is managing; to OR today -Ortho plans for post-op lovenox -Hgb pre-op is 14.5; s/p 3 units of blood hgb 8.0 Falls/debility Post-stroke residual deficits -Patient is fairly independent at home with help from -Will likely be candidate for inpatient rehab post-operatively - reports no other falls since before patient's stroke in 08/2021 -PT/OT inpatient prior to IRU placement HLD -On ASA and atorvastatin at home - will continue post-operatively Hypothyroidism -Patient is on levothyroxine - continue post-operatively FEN/GI -Fluids per anesthesia/ortho today -Replace electrolytes as needed -NPO this AM, regular diet post-operatively - advance as tolerated -Bowel regimen (senna, docusate, doculax, miralax, lactulose) PRN, Zofran PRN for nausea/vomiting, PPI, antacids PRN for ulcer prophylaxis Acute decompensation requiring rapid response after arrival from recovery room due to acute blood loss Monitor hgb s/p 3 units of blood Diagnosis/Problems Diagnosis/Problems (1) Closed left hip fracture Status: Acute Clinical Quality Measures Admission Status Admission Dx Patient seen and examined in the morning prior to surgery. Rapid response was called after he arrived in 405 due to AMS and unable to communicate ICU transfer was ordered and remains stable. I did update Dr Hammer and AMI/AHF: ASA po Prior to arrival: No DVT/VTE Risk/Contraindication: Contraindications-Pharm: Other *list below* Other: or VIKI BOOTH DO Feb 05, 2023 05:51
[2023-02-05] MEDS ORDERED: KCL 20 MEQ TAB (K-DUR) PO SCH (06:00)
[2023-02-05] MEDS ORDERED: MAGNESIUM 1 GM/100 ML IVPB 100 ML IV SCH (06:00)
[2023-02-05] MEDS ORDERED: POTASSIUM CL 10MEQ/50ML IVPB 50 ML IV SCH (06:00)
--- NOTE | 2023-02-05 06:57 | Progress Note ---
Standard Progress Note Progress Notes/Assess & Plan Date Seen by a Provider: Feb 05, 2023 Time Seen by a Provider: 06:55 Progress/Assessment & Plan alert and oriented Laboratory Tests Test 02/03/23 13:34 02/03/23 14:30 02/03/23 17:07 02/03/23 18:55 Range/Units Glucometer 174 H 70-110 MG/DL White Blood Count 16.5 H 17.4 H 4.3-11.0 10^3/uL Red Blood Count 3.48 L 2.72 L 4.30-5.52 10^6/uL Hemoglobin 10.1 #L 7.9 #L 13.3-17.7 g/dL Hematocrit 31 L 24 L 40-54 % Mean Corpuscular Volume 89 89 80-99 fL Mean Corpuscular Hemoglobin 29 29 25-34 pg Mean Corpuscular Hemoglobin Concent 33 33 32-36 g/dL Red Cell Distribution Width 15.0 H 15.1 H 10.0-14.5 % Platelet Count 124 L 123 L 130-400 10^3/uL Mean Platelet Volume 10.8 10.6 9.0-12.2 fL Percent Immature Platelet Fraction 3.8 4.1 0.0-7.6 % Sodium Level 137 136 135-145 MMOL/L Potassium Level 4.0 4.1 3.6-5.0 MMOL/L Chloride Level 105 107 98-107 MMOL/L Carbon Dioxide Level 24 21 21-32 MMOL/L Anion Gap 8 8 5-14 MMOL/L Blood Urea Nitrogen 23 H 24 H 7-18 MG/DL Creatinine 0.89 1.07 0.60-1.30 MG/DL Estimat Glomerular Filtration Rate 85 68 BUN/Creatinine Ratio 26 22 Glucose Level 173 H 249 H 70-105 MG/DL Calcium Level 8.5 7.6 L 8.5-10.1 MG/DL Magnesium Level 1.5 L 1.6-2.4 MG/DL Troponin I < 0.028 <0.028 NG/ML Blood Gas Puncture Site L RAD Blood Gas Patient Temperature 36.8 Arterial Blood pH 7.40 7.37-7.43 Arterial Blood Partial Pressure CO2 37 35-45 MMHG Arterial Blood Partial Pressure O2 76 L 79-93 MMHG Arterial Blood HCO3 22 L 23-27 MMOL/L Arterial Blood Total CO2 23.5 21.0-31.0 MMOL/L Arterial Blood Oxygen Saturation 97 94-100 % Arterial Blood Base Excess -1.8 -2.5-2.5 MMOL/L Austen Test POSITIVE Blood Gas Ventilator Setting Blood Gas Inspired Oxygen Procalcitonin 0.80 H <0.10 NG/ML Test 02/04/23 00:20 02/04/23 04:05 02/04/23 06:10 Range/Units Hemoglobin 7.8 L 7.7 L 13.3-17.7 g/dL Hematocrit 23 L 23 L 40-54 % White Blood Count 10.4 4.3-11.0 10^3/uL Red Blood Count 2.64 L 4.30-5.52 10^6/uL Mean Corpuscular Volume 86 80-99 fL Mean Corpuscular Hemoglobin 29 25-34 pg Mean Corpuscular Hemoglobin Concent 34 32-36 g/dL Red Cell Distribution Width 14.8 H 10.0-14.5 % Platelet Count 89 L 130-400 10^3/uL Mean Platelet Volume 10.8 9.0-12.2 fL Immature Granulocyte % (Auto) 0 % Neutrophils (%) (Auto) 75 42-75 % Lymphocytes (%) (Auto) 12 12-44 % Monocytes (%) (Auto) 13 H 0-12 % Eosinophils (%) (Auto) 0 0-10 % Basophils (%) (Auto) 0 0-10 % Neutrophils # (Auto) 7.7 1.8-7.8 10^3/uL Lymphocytes # (Auto) 1.2 1.0-4.0 10^3/uL Monocytes # (Auto) 1.3 H 0.0-1.0 10^3/uL Eosinophils # (Auto) 0.0 0.0-0.3 10^3/uL Basophils # (Auto) 0.0 0.0-0.1 10^3/uL Immature Granulocyte # (Auto) 0.0 0.0-0.1 10^3/uL Sodium Level 138 135-145 MMOL/L Potassium Level 4.7 3.6-5.0 MMOL/L Chloride Level 108 H 98-107 MMOL/L Carbon Dioxide Level 23 21-32 MMOL/L Anion Gap 7 5-14 MMOL/L Blood Urea Nitrogen 28 H 7-18 MG/DL Creatinine 1.03 0.60-1.30 MG/DL Estimat Glomerular Filtration Rate 72 BUN/Creatinine Ratio 27 Glucose Level 132 H 70-105 MG/DL Calcium Level 8.2 L 8.5-10.1 MG/DL Corrected Calcium 9.2 8.5-10.1 MG/DL Phosphorus Level 2.7 2.3-4.7 MG/DL Magnesium Level 2.0 1.6-2.4 MG/DL Total Bilirubin 0.8 0.1-1.0 MG/DL Aspartate Amino Transf (AST/SGOT) 18 5-34 U/L Alanine Aminotransferase (ALT/SGPT) 8 0-55 U/L Alkaline Phosphatase 36 L 40-136 U/L Total Protein 4.2 L 6.4-8.2 GM/DL Albumin 2.7 L 3.2-4.5 GM/DL Vital Signs Date Time Temp Pulse Resp B/P (MAP) Pulse Ox O2 Delivery O2 Flow Rate FiO2 02/04/23 06:45 37.3 95 18 131/85 100 02/04/23 06:30 37.3 111 18 114/68 100 Nasal Cannula 2.00 02/04/23 06:18 37.1 105 22 134/70 Nasal Cannula 2.00 02/04/23 06:00 99 24 134/65 (88) 100 Nasal Cannula 2.00 02/04/23 05:00 87 23 134/62 (86) 100 Nasal Cannula 2.00 02/04/23 04:08 37.2 02/04/23 04:00 100 Nasal Cannula 2.00 02/04/23 04:00 96 15 129/63 (85) 100 Nasal Cannula 2.00 02/04/23 03:00 96 25 132/67 (88) 100 Nasal Cannula 2.00 02/04/23 02:00 98 26 125/64 (84) 100 Nasal Cannula 2.00 02/04/23 01:00 105 27 132/68 (89) 100 Nasal Cannula 2.00 02/04/23 01:00 105 02/04/23 00:00 105 26 117/67 (84) 100 Nasal Cannula 2.00 02/03/23 23:59 100 Nasal Cannula 2.00 02/03/23 23:07 37.2 02/03/23 23:00 108 28 116/60 (78) 100 Nasal Cannula 2.00 02/03/23 22:15 37.2 111 18 110/54 100 02/03/23 22:00 37.1 105 24 121/59 100 02/03/23 22:00 37.2 105 24 121/59 100 02/03/23 22:00 105 24 121/59 (79) 100 Nasal Cannula 2.00 02/03/23 21:45 37.4 105 26 127/61 100 02/03/23 21:30 37.4 101 25 140/64 100 02/03/23 21:15 37.2 102 25 131/62 100 02/03/23 21:00 37.4 101 25 128/62 100 02/03/23 21:00 101 26 128/62 (84) 100 Nasal Cannula 2.00 02/03/23 20:45 37.3 104 22 114/60 100 02/03/23 20:30 37.3 105 20 118/62 Nasal Cannula 2.00 02/03/23 20:16 Nasal Cannula 2.00 02/03/23 20:15 37.2 108 22 111/88 98 Nasal Cannula 2.00 02/03/23 20:00 37.0 111 115/59 Room Air 02/03/23 20:00 112 27 115/59 (77) 91 Nasal Cannula 1.00 02/03/23 20:00 100 Nasal Cannula 2.00 02/03/23 20:00 37.0 02/03/23 19:46 36.8 112 22 107/58 Room Air 02/03/23 19:45 36.8 112 22 107/58 Room Air 02/03/23 19:00 Nasal Cannula 1.00 02/03/23 19:00 120 02/03/23 19:00 118 26 109/60 (76) 98 Nasal Cannula 1.00 02/03/23 18:00 125 24 127/65 (85) 97 Room Air 02/03/23 17:31 123 94/51 02/03/23 17:15 123 19 94/51 (65) 98 Room Air 02/03/23 17:00 138 23 99/59 (72) 100 Room Air 02/03/23 16:45 118 19 80/50 (60) 98 Room Air 02/03/23 16:39 37.0 02/03/23 16:30 120 20 91/46 (61) 99 Room Air 02/03/23 16:15 121 27 84/65 (71) 100 Room Air 02/03/23 16:00 117 10 89/53 (65) 99 Room Air 02/03/23 16:00 98 Room Air 02/03/23 15:45 112 27 97/54 (68) 100 Room Air 02/03/23 15:30 110 24 108/59 (75) 98 Room Air 02/03/23 15:15 109 22 100/60 (73) 99 Room Air 02/03/23 15:00 105 19 94/58 (70) 98 Room Air 02/03/23 14:45 105 16 94/57 (69) 99 Room Air 02/03/23 14:30 121 10 81/52 (62) 100 OxyMask 5.00 02/03/23 14:15 109 18 95/59 (71) 100 OxyMask 5.00 02/03/23 14:03 36.4 110 6 96 02/03/23 14:00 115 14 100/57 (71) 100 OxyMask 10.00 02/03/23 13:50 132 02/03/23 13:45 118 14 77/47 (57) 100 OxyMask 10.00 02/03/23 13:35 122 28 77/51 (60) 99 OxyMask 10.00 02/03/23 13:32 117 80/51 (61) 100 OxyMask 10.00 02/03/23 13:29 119 73/40 (51) 96 OxyMask 10.00 02/03/23 13:10 36.2 110 18 70/35 (47) 97 Room Air 02/03/23 13:05 Room Air 02/03/23 13:00 37.0 16 94/65 (75) 99 Room Air 02/03/23 12:50 16 77/50 (59) 97 OxyMask 2.00 02/03/23 12:45 OxyMask 2.00 02/03/23 12:40 16 81/56 (64) 98 OxyMask 2.00 02/03/23 12:30 17 86/57 (67) 98 OxyMask 2.00 02/03/23 12:30 OxyMask 2.00 02/03/23 12:22 14 92/58 (69) 99 OxyMask 2.00 02/03/23 12:15 37.1 16 85/63 (70) 98 OxyMask 4.00 02/03/23 12:15 OxyMask 4.00 02/03/23 09:00 Nasal Cannula 2.00 94 02/03/23 08:58 124 02/03/23 08:03 36.9 92 115/72 (86) High Flow N/C 2.00 I & O 02/04/23 07:00 Intake Total 4310 ml Output Total 750 ml Balance 3560 ml radiograph--Left hip HW well positioned without fracture LLE--dressing has been reinforced but dry intact sensation to light touch distally equal pulses s/p L hip bipolar mobilize as able Final Diagnosis no complaints Laboratory Tests Test 02/04/23 09:21 02/04/23 12:16 02/05/23 03:27 Range/Units White Blood Count 11.2 H 8.3 4.3-11.0 10^3/uL Red Blood Count 2.96 L 2.23 L 4.30-5.52 10^6/uL Hemoglobin 8.7 L 6.5 #*L 13.3-17.7 g/dL Hematocrit 26 L 19 *L 40-54 % Mean Corpuscular Volume 87 87 80-99 fL Mean Corpuscular Hemoglobin 29 29 25-34 pg Mean Corpuscular Hemoglobin Concent 34 34 32-36 g/dL Red Cell Distribution Width 14.8 H 14.7 H 10.0-14.5 % Platelet Count 91 L 72 L 130-400 10^3/uL Mean Platelet Volume 11.0 11.1 9.0-12.2 fL Percent Immature Platelet Fraction 4.0 3.4 0.0-7.6 % Lab Scanned Report Transfusion Reaction Form [id number] Immature Granulocyte % (Auto) 0 % Neutrophils (%) (Auto) 68 42-75 % Lymphocytes (%) (Auto) 16 12-44 % Monocytes (%) (Auto) 14 H 0-12 % Eosinophils (%) (Auto) 1 0-10 % Basophils (%) (Auto) 0 0-10 % Neutrophils # (Auto) 5.7 1.8-7.8 10^3/uL Lymphocytes # (Auto) 1.4 1.0-4.0 10^3/uL Monocytes # (Auto) 1.2 H 0.0-1.0 10^3/uL Eosinophils # (Auto) 0.1 0.0-0.3 10^3/uL Basophils # (Auto) 0.0 0.0-0.1 10^3/uL Immature Granulocyte # (Auto) 0.0 0.0-0.1 10^3/uL Sodium Level 137 135-145 MMOL/L Potassium Level 4.3 3.6-5.0 MMOL/L Chloride Level 108 H 98-107 MMOL/L Carbon Dioxide Level 23 21-32 MMOL/L Anion Gap 6 5-14 MMOL/L Blood Urea Nitrogen 29 H 7-18 MG/DL Creatinine 0.87 0.60-1.30 MG/DL Estimat Glomerular Filtration Rate 85 BUN/Creatinine Ratio 33 Glucose Level 109 H 70-105 MG/DL Calcium Level 7.9 L 8.5-10.1 MG/DL Corrected Calcium 9.1 8.5-10.1 MG/DL Phosphorus Level 2.0 L 2.3-4.7 MG/DL Magnesium Level 1.8 1.6-2.4 MG/DL Total Bilirubin 0.6 0.1-1.0 MG/DL Aspartate Amino Transf (AST/SGOT) 19 5-34 U/L Alanine Aminotransferase (ALT/SGPT) 14 0-55 U/L Alkaline Phosphatase 41 40-136 U/L Total Protein 4.1 L 6.4-8.2 GM/DL Albumin 2.5 L 3.2-4.5 GM/DL Vital Signs Date Time Temp Pulse Resp B/P (MAP) Pulse Ox O2 Delivery O2 Flow Rate FiO2 02/05/23 06:00 90 16 136/61 (86) 97 Nasal Cannula 2.00 02/05/23 05:03 37.5 94 22 137/70 97 Nasal Cannula 2.00 02/05/23 05:00 93 28 137/70 (92) 97 Nasal Cannula 2.00 02/05/23 04:44 37.5 96 20 120/64 96 Nasal Cannula 2.00 02/05/23 04:00 90 19 120/64 (82) 96 Nasal Cannula 2.00 02/05/23 03:27 37.5 Nasal Cannula 2.00 02/05/23 03:25 96 Nasal Cannula 2.00 02/05/23 03:00 96 27 128/59 (82) 96 Nasal Cannula 2.00 02/05/23 02:00 97 28 137/65 (89) 96 Nasal Cannula 2.00 02/05/23 01:00 109 02/05/23 01:00 101 22 125/54 (77) 95 Nasal Cannula 2.00 02/05/23 00:00 107 27 121/56 (77) 96 Nasal Cannula 2.00 02/04/23 23:31 Nasal Cannula 2.00 02/04/23 23:30 37.2 101 14 129/65 (86) 96 Nasal Cannula 3.00 02/04/23 23:30 96 Nasal Cannula 3.00 02/04/23 23:00 96 20 129/65 (86) 96 Nasal Cannula 3.00 02/04/23 22:00 101 26 128/59 (82) 96 Nasal Cannula 3.00 02/04/23 21:00 104 25 135/61 (85) 96 Nasal Cannula 3.00 02/04/23 20:00 109 27 151/75 (100) 94 Nasal Cannula 3.00 02/04/23 19:45 94 Nasal Cannula 3.00 02/04/23 19:30 37.5 125 138/62 (87) Nasal Cannula 3.00 02/04/23 19:00 111 02/04/23 18:00 115 16 124/79 (94) 88 Nasal Cannula 3.00 02/04/23 17:00 124 32 128/85 (99) 94 Nasal Cannula 3.00 02/04/23 16:00 100 Nasal Cannula 2.00 02/04/23 16:00 121 20 143/79 (100) 92 Nasal Cannula 3.00 02/04/23 15:00 111 26 139/75 (96) 93 Nasal Cannula 3.00 02/04/23 14:00 138 22 123/71 (88) 90 Nasal Cannula 3.00 02/04/23 13:00 115 16 124/79 (94) 88 Nasal Cannula 3.00 02/04/23 13:00 125 02/04/23 12:00 100 Nasal Cannula 2.00 02/04/23 12:00 112 26 120/68 (85) 90 Nasal Cannula 3.00 02/04/23 11:00 117 17 129/66 (87) 90 Nasal Cannula 3.00 02/04/23 10:00 115 13 127/61 (83) 92 Nasal Cannula 3.00 02/04/23 09:00 112 114/60 (78) 93 Nasal Cannula 3.00 02/04/23 08:35 37.6 109 24 117/73 (88) 100 Nasal Cannula 3.00 02/04/23 08:00 107 16 117/73 (88) 100 Nasal Cannula 2.00 02/04/23 08:00 100 Nasal Cannula 2.00 02/04/23 07:00 100 02/04/23 07:00 104 12 145/68 (93) 98 Nasal Cannula 2.00 I & O 02/05/23 07:00 Intake Total 2295 ml Output Total 895 ml Balance 1400 ml L hip incision clean and dry thigh soft no active bleeding no calf tenderness s/p L hip bipolar anemia likely secondary to surgical blood loss and volume correction no evidence of continued blood loss mobilize as able DANI BRANDON MD Feb 05, 2023 06:57
--- NOTE | 2023-02-05 08:20 | Physical Therapy Daily Note ---
PT Daily Note-Current Subjective Patient agrees to PT. Pain Section J - Health Conditions 1. Rarely or not at all 2. Occasionally 3. Frequently 4. Almost constantly 8. Unable to answer Pain Effect on Sleep: 1 Pain Interference with Therapy: 2 Pain Interference w/Day-to-Day: 2 Mental Status Patient Orientation: Normal For Age Attachments: Celaya Catheter, IV chest tube Transfers SCALE: Activities may be completed with or without assistive devices. 0-Vnjevfpqwm-msgclsd completes the activity by him/herself with no assistance from a helper. 5-Set-up or Clean-up Assistance-helper sets up or cleans up; patient completes activity. [place] assists only prior to or following the activity. 4-Supervision or Touching Assistance-helper provides verbal cues and/or touching/steadying and/or contact guard assistance as patient completes activity. Assistance may be provided throughout the activity or intermittently. 3-Partial/Moderate Assistance-helper does LESS THAN HALF the effort. [place] lifts, holds or supports trunk or limbs, but provides less than half the effort. 2-Substantial/Maximal Assistance-helper does MORE THAN HALF the effort. [place] lifts or holds trunk or limbs and provides more than half the effort. 4-Dkjfysuwn-fyxuih does ALL the effort. Patient does none of the effort to complete the activity. Or, the assistance of 2 or more helpers is required for the patient to complete the activity. If activity was not attempted, code reason: 7-Patient Refused. 9-Not Applicable-not attempted and the patient did not perform the activity before the current illness, exacerbation or injury. 10-Not Attempted due to Environmental Limitations-(lack of equipment, weather restraints, etc.). 88-Not Attempted due to Medical Conditions or Safety Concerns. Lying to Sitting/Side of Bed(Q: 1 Sit to Stand (QC): 1 Chair/Nax-co-Uookj Xfer(QC): 1 (SPT to right) Weight Bearing Right Lower Extremity: Right Full Weight Bearing Left Lower Extremity: Left Partial Weight Bearing Exercises Supine Ex: Ankle pumps, Quad Set, Heel Slides, Straight leg raise Supine Reps: 15 (AAROM left LE/AROM right LE) Seated Therapy Exercises: Ankle pumps, Long arc quads Seated Reps: 15 (AAROM left LE/AROM right LE) Assessment Patient is up in recliner with needs met. Patient does have a KAFO and family will bring it in when patient is able to participate with ambulation/gait training. Left platform FWW will also be utilized when left shoulder pain resolves. PT Short Term Goals Short Term Goals Time Frame: Feb 19, 2023 Roll Left & Right: 3 Sit to lyin Lying to sitting on side of be: 3 Sit to stand: 3 Chair/aqn-kc-clmyl transfer: 3 Toilet transfer: 3 PT Detention Goals Hand Bootmaker Goals PT Hand Bootmaker Goals Time Frame: Mar 06, 2023 Roll Left & Right (QC): 4 Sit to Lying (QC): 4 Lying-Sitting on Side/Bed(QC): 4 Sit to Stand (QC): 4 Chair/Poh-xy-Argho Xfer(QC): 4 Toilet Transfer (QC): 4 Walk 10 feet (QC): 4 Walk 50ft with 2 Turns (QC): 4 PT Plan Treatment/Plan Treatment Plan: Continue Plan of Care Treatment Plan: Bed Mobility, Education, Functional Activity Josep, Functional Strength, Gait, Safety, Therapeutic Exercise, Transfers Treatment Duration: Mar 06, 2023 Frequency: 11 times per week Estimated Hrs Per Day: .5 hour per day Patient and/or Family Agrees t: Yes Time Time In: 745 Time Out: 808 DATE: Feb 05, 2023 Total Billed Treatment Time: 23 Total Billed Treatment 1 visit EX 14 min FA 9 min SHAHZAD HOLLOWAY PT Feb 05, 2023 08:20
--- NOTE | 2023-02-05 08:40 | Tele-ICU Progress Note ---
Subjective Date Seen by a Provider: Feb 05, 2023 Time Seen by a Provider: 08:39 Subjective/Events-last exam (Tele-ICU Physician , Progress Note ) Service provided via interactive audio and video telecommunications E-[facility] system to a patient admitted to ICU bed in [facility]. Patient is seen today due to persistent need of ICU care Available chart/ vitals / labs / Images reviewed Video assessment done using teleICU camera, rest of exam as per RN Discussed with RN Events overnight : Afebrile hemodynamically stable Respiratory - I/O = pos Fell with femoral Fx on 02/03, had left hip prosthesis placed, became hypotensive, given IVF and one unit of PRBC Today Hb dropped to 6.5 from 8.7 Pt is s/p CVA in 2020, Hx of hypothyroidism Sepsis Event Evaluation Height, Weight, BMI Height: '" Weight: lbs. oz. kg; 22.33 BMI Method: Exam Exam Patient acknowledged, consented, and participated in this virtual visit which was conducted using real time audio/video Vital Signs Date Time Temp Pulse Resp B/P (MAP) Pulse Ox O2 Delivery O2 Flow Rate FiO2 02/05/23 08:00 104 26 135/67 (75) 98 Nasal Cannula 2.00 02/05/23 08:00 37.3 02/05/23 08:00 96 Nasal Cannula 2.00 02/05/23 07:19 37.6 89 16 139/71 (93) 98 Nasal Cannula 2.00 02/05/23 07:00 87 02/05/23 06:00 90 16 136/61 (86) 97 Nasal Cannula 2.00 02/05/23 05:03 37.5 94 22 137/70 97 Nasal Cannula 2.00 02/05/23 05:00 93 28 137/70 (92) 97 Nasal Cannula 2.00 02/05/23 04:44 37.5 96 20 120/64 96 Nasal Cannula 2.00 02/05/23 04:00 90 19 120/64 (82) 96 Nasal Cannula 2.00 02/05/23 03:27 37.5 Nasal Cannula 2.00 02/05/23 03:25 96 Nasal Cannula 2.00 02/05/23 03:00 96 27 128/59 (82) 96 Nasal Cannula 2.00 02/05/23 02:00 97 28 137/65 (89) 96 Nasal Cannula 2.00 02/05/23 01:00 109 02/05/23 01:00 101 22 125/54 (77) 95 Nasal Cannula 2.00 02/05/23 00:00 107 27 121/56 (77) 96 Nasal Cannula 2.00 02/04/23 23:31 Nasal Cannula 2.00 02/04/23 23:30 37.2 101 14 129/65 (86) 96 Nasal Cannula 3.00 02/04/23 23:30 96 Nasal Cannula 3.00 02/04/23 23:00 96 20 129/65 (86) 96 Nasal Cannula 3.00 02/04/23 22:00 101 26 128/59 (82) 96 Nasal Cannula 3.00 02/04/23 21:00 104 25 135/61 (85) 96 Nasal Cannula 3.00 02/04/23 20:00 109 27 151/75 (100) 94 Nasal Cannula 3.00 02/04/23 19:45 94 Nasal Cannula 3.00 02/04/23 19:30 37.5 125 138/62 (87) Nasal Cannula 3.00 02/04/23 19:00 111 02/04/23 18:00 115 16 124/79 (94) 88 Nasal Cannula 3.00 02/04/23 17:00 124 32 128/85 (99) 94 Nasal Cannula 3.00 02/04/23 16:00 100 Nasal Cannula 2.00 02/04/23 16:00 121 20 143/79 (100) 92 Nasal Cannula 3.00 02/04/23 15:00 111 26 139/75 (96) 93 Nasal Cannula 3.00 02/04/23 14:00 138 22 123/71 (88) 90 Nasal Cannula 3.00 02/04/23 13:00 115 16 124/79 (94) 88 Nasal Cannula 3.00 02/04/23 13:00 125 02/04/23 12:00 100 Nasal Cannula 2.00 02/04/23 12:00 112 26 120/68 (85) 90 Nasal Cannula 3.00 02/04/23 11:00 117 17 129/66 (87) 90 Nasal Cannula 3.00 02/04/23 10:00 115 13 127/61 (83) 92 Nasal Cannula 3.00 02/04/23 09:00 112 114/60 (78) 93 Nasal Cannula 3.00 I & O 02/05/23 07:00 Intake Total 2295 ml Output Total 895 ml Balance 1400 ml Height & Weight Height: '" Weight: lbs. oz. kg; 22.33 BMI Method: General Appearance: No Apparent Distress HEENT: PERRL/EOMI Neck: Full Range of Motion Respiratory: Chest Non Tender Cardiovascular: Regular Rate, Rhythm Capillary Refill: Less Than 3 Seconds Peripheral Pulses: 2+ Dorsalis Pedis (R), 2+ Left Dors-Pedis (L) Gastrointestinal: normal bowel sounds, non tender, soft Extremity: Normal Capillary Refill Neurologic/Psychiatric: Alert, Oriented x3 Skin: Normal Color Lymphatic: No Adenopathy Results Lab Laboratory Tests 02/03/23 14:30 02/03/23 18:55 02/04/23 00:20 02/04/23 04:05 02/04/23 09:21 02/05/23 03:27 Assessment/Plan Assessment/Plan Dropping Hb will need additional PRBC BP is ok Critical Care: Critically Ill Patient Time spent with patient (mins): 25 ERIBERTO BRASWELL MD Feb 05, 2023 08:40
[2023-02-05 09:03] LABS: HEMATOCRIT 24 % (40-54); NEUTROPHILS % (AUTO) 73 % (42-75); PLATELET COUNT 80 10^3/uL (130-400)
[2023-02-05 09:05] LABS: BASOPHILS % (AUTO) 0 % (0-10); EOSINOPHILS # (AUTO) 0.3 10^3/uL (0.0-0.3); EOSINOPHILS % (AUTO) 3 % (0-10); LYMPHOCYTES # (AUTO) 1.2 10^3/uL (1.0-4.0); LYMPHOCYTES % (AUTO) 13 % (12-44); MEAN CORPUSCULAR HEMOGLOBIN 30 pg (25-34); MEAN CORPUSCULAR HGB CONC 34 g/dL (32-36); MEAN CORPUSCULAR VOLUME 87 fL (80-99); MEAN PLATELET VOLUME 11.3 fL (9.0-12.2); MONOCYTES # (AUTO) 1.1 10^3/uL (0.0-1.0); MONOCYTES % (AUTO) 11 % (0-12); NEUTROPHILS # (AUTO) 6.8 10^3/uL (1.8-7.8); WHITE BLOOD COUNT 9.4 10^3/uL (4.3-11.0)
[2023-02-05] MEDS: SENNOSIDES 8.6 MG (SENOKOT) TAB PO SCH ×2 (09:18→20:39)
[2023-02-05] MEDS: DOCUSATE SODIUM 100 MG (COLACE) CAP PO SCH ×2 (09:18→20:39)
[2023-02-05 09:30] LABS: EOSINOPHILS % (MANUAL) 2 %; LYMPHOCYTES % (MANUAL) 7 %; MONOCYTES % (MANUAL) 7 %; NEUTROPHILS % (MANUAL) 84 %
[2023-02-05 09:31] LABS: ACANTHOCYTES SLIGHT
[2023-02-05] MEDS ORDERED: CYANOCOBALAMIN INJ 1000 MCG/ML IM ONE (10:15)
[2023-02-05] MEDS: ENOXAPARIN 40 MG/0.4 ML (LOVENOX) SYR SC SCH (10:22)
[2023-02-05] MEDS: IRON SUCROSE 200 MG/10 ML (VENOFER) VIAL IV SCH (10:39)
[2023-02-05] MEDS ORDERED: LEVOTHYROXINE 125 MCG (LEVOTHROID) TABLET PO ONE (11:00)
--- NOTE | 2023-02-05 11:43 | Diagnostic Imaging Report ---
INDICATION: Left-sided pneumothorax. FINDINGS: A left chest drain is present. A left chest tube is present. No detectable pneumothorax. Left subclavian at the upper SVC. Right lung is clear. IMPRESSION: No detectable pneumothorax on the left at follow-up. No adverse change. Dictated by: Dictated on workstation # [id number]
--- NOTE | 2023-02-05 12:27 | Progress Note ---
Subjective Date Seen by a Provider: Feb 05, 2023 Time Seen by a Provider: 11:00 Subjective/Events-last exam doing better. more awake/alert. no SOB. no ptx on cxr. Objective Exam Vital Signs Date Time Temp Pulse Resp B/P (MAP) Pulse Ox O2 Delivery O2 Flow Rate FiO2 02/05/23 12:00 89 20 131/64 (94) 99 Nasal Cannula 2.00 02/05/23 09:00 88 21 130/71 (80) 96 Nasal Cannula 2.00 02/05/23 08:00 104 26 135/67 (75) 98 Nasal Cannula 2.00 02/05/23 08:00 37.3 02/05/23 08:00 96 Nasal Cannula 2.00 02/05/23 07:19 37.6 89 16 139/71 (93) 98 Nasal Cannula 2.00 02/05/23 07:00 87 02/05/23 06:00 90 16 136/61 (86) 97 Nasal Cannula 2.00 02/05/23 05:03 37.5 94 22 137/70 97 Nasal Cannula 2.00 02/05/23 05:00 93 28 137/70 (92) 97 Nasal Cannula 2.00 02/05/23 04:44 37.5 96 20 120/64 96 Nasal Cannula 2.00 02/05/23 04:00 90 19 120/64 (82) 96 Nasal Cannula 2.00 02/05/23 03:27 37.5 Nasal Cannula 2.00 02/05/23 03:25 96 Nasal Cannula 2.00 02/05/23 03:00 96 27 128/59 (82) 96 Nasal Cannula 2.00 02/05/23 02:00 97 28 137/65 (89) 96 Nasal Cannula 2.00 02/05/23 01:00 109 02/05/23 01:00 101 22 125/54 (77) 95 Nasal Cannula 2.00 02/05/23 00:00 107 27 121/56 (77) 96 Nasal Cannula 2.00 02/04/23 23:31 Nasal Cannula 2.00 02/04/23 23:30 37.2 101 14 129/65 (86) 96 Nasal Cannula 3.00 02/04/23 23:30 96 Nasal Cannula 3.00 02/04/23 23:00 96 20 129/65 (86) 96 Nasal Cannula 3.00 02/04/23 22:00 101 26 128/59 (82) 96 Nasal Cannula 3.00 02/04/23 21:00 104 25 135/61 (85) 96 Nasal Cannula 3.00 02/04/23 20:00 109 27 151/75 (100) 94 Nasal Cannula 3.00 02/04/23 19:45 94 Nasal Cannula 3.00 02/04/23 19:30 37.5 125 138/62 (87) Nasal Cannula 3.00 02/04/23 19:00 111 02/04/23 18:00 115 16 124/79 (94) 88 Nasal Cannula 3.00 02/04/23 17:00 124 32 128/85 (99) 94 Nasal Cannula 3.00 02/04/23 16:00 100 Nasal Cannula 2.00 02/04/23 16:00 121 20 143/79 (100) 92 Nasal Cannula 3.00 02/04/23 15:00 111 26 139/75 (96) 93 Nasal Cannula 3.00 02/04/23 14:00 138 22 123/71 (88) 90 Nasal Cannula 3.00 02/04/23 13:00 115 16 124/79 (94) 88 Nasal Cannula 3.00 02/04/23 13:00 125 I & O 02/05/23 07:00 Intake Total 2295 ml Output Total 895 ml Balance 1400 ml Capillary Refill : Less Than 3 Seconds General Appearance: No Apparent Distress HEENT: PERRL/EOMI Neck: Full Range of Motion Respiratory: Chest Non Tender, Lungs Clear, Normal Breath Sounds Cardiovascular: Regular Rate, Rhythm Gastrointestinal: normal bowel sounds, non tender, soft Extremity: Normal Capillary Refill Neurologic/Psychiatric: Alert, Oriented x3 Skin: Normal Color Lymphatic: No Adenopathy Results Lab Laboratory Tests 02/05/23 03:27: White Blood Count 8.3, Red Blood Count 2.23L, Hemoglobin 6.5#*L, Hematocrit 19*L , Mean Corpuscular Volume 87, Mean Corpuscular Hemoglobin 29, Mean Corpuscular Hemoglobin Concent 34, Red Cell Distribution Width 14.7H, Platelet Count 72L, Mean Platelet Volume 11.1, Immature Granulocyte % (Auto) 0, Neutrophils (%) (Auto) 68, Lymphocytes (%) (Auto) 16, Monocytes (%) (Auto) 14H, Eosinophils (%) (Auto) 1, Basophils (%) (Auto) 0, Neutrophils # (Auto) 5.7, Lymphocytes # (Auto) 1.4, Monocytes # (Auto) 1.2H, Eosinophils # (Auto) 0.1, Basophils # (Auto) 0.0, Immature Granulocyte # (Auto) 0.0, Percent Immature Platelet Fraction 3.4, Sodium Level 137, Potassium Level 4.3, Chloride Level 108H, Carbon Dioxide Level 23, Anion Gap 6, Blood Urea Nitrogen 29H, Creatinine 0.87, Estimat Glomerular Filtration Rate 85, BUN/Creatinine Ratio 33, Glucose Level 109H, Calcium Level 7.9L, Corrected Calcium 9.1, Phosphorus Level 2.0L, Magnesium Level 1.8, Total Bilirubin 0.6, Aspartate Amino Transf (AST/SGOT) 19, Alanine Aminotransferase (ALT/SGPT) 14, Alkaline Phosphatase 41, Total Protein 4.1L, Albumin 2.5L 02/05/23 08:59: White Blood Count 9.4, Red Blood Count 2.71L, Hemoglobin 8.0#L, Hematocrit 24L, Mean Corpuscular Volume 87, Mean Corpuscular Hemoglobin 30, Mean Corpuscular Hemoglobin Concent 34, Red Cell Distribution Width 14.6H, Platelet Count 80L, Mean Platelet Volume 11.3, Immature Granulocyte % (Auto) 1, Neutrophils (%) (Auto) 73, Lymphocytes (%) (Auto) 13, Monocytes (%) (Auto) 11, Eosinophils (%) (Auto) 3, Basophils (%) (Auto) 0, Neutrophils # (Auto) 6.8, Lymphocytes # (Auto) 1.2, Monocytes # (Auto) 1.1H, Eosinophils # (Auto) 0.3, Basophils # (Auto) 0.0, Immature Granulocyte # (Auto) 0.1, Percent Immature Platelet Fraction 3.7, Neutrophils % (Manual) 84, Lymphocytes % (Manual) 7, Monocytes % (Manual) 7, Eosinophils % (Manual) 2, Acanthocytes SLIGHT Assessment/Plan Assessment/Plan Assess & Plan/Chief Complaint hypovolemic shock with fall and left femoral neck fx s/p bipolar repair requiring central venous cath and pressors. developed worsening left ptx s/p thorovent placement. no ptx on todays cxr. will place to water seal. if no ptx tomorrow will remove. cont PO/OT. diet as tolerated. Clinical Quality Measures AMI/AHF: ASA po Prior to arrival: No DVT/VTE Risk/Contraindication: Contraindications-Pharm: Other *list below* Other: or SAMMI WELLS MD Feb 05, 2023 12:27
--- NOTE | 2023-02-05 14:48 | Physical Therapy Daily Note ---
PT Daily Note-Current Subjective Patient agrees to PT. Pain Section J - Health Conditions 1. Rarely or not at all 2. Occasionally 3. Frequently 4. Almost constantly 8. Unable to answer Pain Effect on Sleep: 1 Pain Interference with Therapy: 2 Pain Interference w/Day-to-Day: 2 Mental Status Patient Orientation: Normal For Age Attachments: Chest Tube, Oxygen, Celaya Catheter, IV Transfers SCALE: Activities may be completed with or without assistive devices. 1-Scuxkegxba-dvxablk completes the activity by him/herself with no assistance from a helper. 5-Set-up or Clean-up Assistance-helper sets up or cleans up; patient completes activity. [place] assists only prior to or following the activity. 4-Supervision or Touching Assistance-helper provides verbal cues and/or touching/steadying and/or contact guard assistance as patient completes activity. Assistance may be provided throughout the activity or intermittently. 3-Partial/Moderate Assistance-helper does LESS THAN HALF the effort. [place] lifts, holds or supports trunk or limbs, but provides less than half the effort. 2-Substantial/Maximal Assistance-helper does MORE THAN HALF the effort. [place] lifts or holds trunk or limbs and provides more than half the effort. 7-Dgzjpluzo-yujfdh does ALL the effort. Patient does none of the effort to complete the activity. Or, the assistance of 2 or more helpers is required for the patient to complete the activity. If activity was not attempted, code reason: 7-Patient Refused. 9-Not Applicable-not attempted and the patient did not perform the activity befo re the current illness, exacerbation or injury. 10-Not Attempted due to Environmental Limitations-(lack of equipment, weather re straints, etc.). 88-Not Attempted due to Medical Conditions or Safety Concerns. Sit to Stand (QC): 1 (x 2 with leaning to right with use of 2 therapist with patient standing to left platform FWW) Chair/Tqq-se-Nxwzh Xfer(QC): 1 (SPT) Patient stood to walker while RN changed left hip dressing Weight Bearing Right Lower Extremity: Right Full Weight Bearing Left Lower Extremity: Left Partial Weight Bearing Gait Training Does the Patient Walk?: No and Walking Goal IS indicated Exercises Seated Therapy Exercises: Long arc quads Seated Reps: 15 (AAROM) Assessment Family to bring left KAFO and platform FWW for use in hospital. 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 PT Short Term Goals Short Term Goals Time Frame: Feb 19, 2023 Roll Left & Right: 3 Sit to lyin Lying to sitting on side of be: 3 Sit to stand: 3 Chair/vpt-hx-anxdy transfer: 3 Toilet transfer: 3 PT Halfway Goals Halfway Goals PT Copper Tapper Goals Time Frame: Mar 06, 2023 Roll Left & Right (QC): 4 Sit to Lying (QC): 4 Lying-Sitting on Side/Bed(QC): 4 Sit to Stand (QC): 4 Chair/Fou-br-Hoiek Xfer(QC): 4 Toilet Transfer (QC): 4 Walk 10 feet (QC): 4 Walk 50ft with 2 Turns (QC): 4 PT Plan Treatment/Plan Treatment Plan: Continue Plan of Care Treatment Plan: Bed Mobility, Education, Functional Activity Josep, Functional Strength, Gait, Safety, Therapeutic Exercise, Transfers Treatment Duration: Mar 06, 2023 Frequency: 11 times per week Estimated Hrs Per Day: .5 hour per day Patient and/or Family Agrees t: Yes Time Time In: 1417 Time Out: 1440 DATE: Feb 05, 2023 Total Billed Treatment Time: 23 Total Billed Treatment 1 visit FA x 2 23 min SHAHZAD HOLLOWAY PT Feb 05, 2023 14:48
--- NOTE | 2023-02-05 15:50 | Occupational Ther Daily Note ---
OT Current Status-Daily Note Subjective Continues to be in good spirits, makes jokes and laughs w/ therapy Mental Status/Objective Patient Orientation: Situation Attachments: Celaya Catheter, IV, Telemetry ADL-Treatment Therapy Code Descriptions/Definitions Functional [place] Measure: 0=Not Assessed/NA 4=Minimal Assistance 1=Total Assistance 5=Supervision or Setup 2=Maximal Assistance 6=Modified [place] 3=Moderate Assistance 7=Complete IndependenceSCALE: Activities may be completed with or without assistive devices. 9-Bsjcyvnitd-sebdzbq completes the activity by him/herself with no assistance from a helper. 5-Set-up or Clean-up Assistance-helper sets up or cleans up; patient completes activity. [place] assists only prior to or following the activity. 4-Supervision or Touching Assistance-helper provides verbal cues and/or touching/steadying and/or contact guard assistance as patient completes activity. Assistance may be provided throughout the activity or intermittently. 3-Partial/Moderate Assistance-helper does LESS THAN HALF the effort. [place] lifts, holds or supports trunk or limbs, but provides less than half the effort. 2-Substantial/Maximal Assistance-helper does MORE THAN HALF the effort. [place] lifts or holds trunk or limbs and provides more than half the effort. 5-Zirstpeux-hugabu does ALL the effort. Patient does none of the effort to complete the activity. Or, the assistance of 2 or more helpers is required for the patient to complete the activity. If activity was not attempted, code reason: 7-Patient Refused. 9-Not Applicable-not attempted and the patient did not perform the activity before the current illness, exacerbation or injury. 10-Not Attempted due to Environmental Limitations-(lack of equipment, weather restraints, etc.). 88-Not Attempted due to Medical Conditions or Safety Concerns. Lower Body Dressing (QC): 1 On/Off Footwear: 3 (completes RLE OT performs LLEs) Toileting Hygiene (QC): 1 Toilet Transfer (QC): 1 Patiern used LUE platform walker and 2 person assist for transfers, stands ~ 3 minutes. Pt reports KAMRAN hernandez w/ WB of LUE and weight distribution. Education for PWB prior to transfer an din standing. Patient understands. Isotoner glove on L hand, requires max assistance to place LUE on platform and min assistance to remove Other Treatment ADLs not focus this date, standing duration and UE WB tolerance for offloading LLE primary focus Education OT Patient Education: Correct positioning, Instructions to caregiver, Reviewed precautions, Safety issues, Transfer techniques, Use of adapted equipment Teaching Recipient: Patient, Family Teaching Methods: Demonstration, Discussion Response to Teaching: Verbalize Understanding, Reinforcement Needed OT Slab Inspector Goals Slab Inspector Goals Eating (QC): 6 Oral Hygiene (QC): 5 Toileting Hygiene (QC): 2 Shower/Bathe Self (QC): 2 Upper Body Dressing (QC): 3 Lower Body Dressing (QC): 2 On/Off Footwear (QC): 4 1=Demonstrate adherence to instructed precautions during ADL tasks. 2=Patient will verbalize/demonstrate understanding of assistive devices/modifications for ADL. 3=Patient will improve strength/tolerance for activity to enable patient to perform ADL's. OT Education/Plan Discharge Recommendations Plan/Recommendations: Continue POC Treatment Plan/Plan of Care Patient would benefit from OT for education, treatment and training to promote independence in ADL's, mobility, safety and/or upper extremity function for ADL's. Plan of Care: ADL Retraining, Caregiver Training, Concurrent Therapy, Functio nal Mobility, Group Exercise/Act as Ind, UE Funct Exercise/Act, UE Neuromus Re- Ed/Coord Treatment Duration: Feb 13, 2023 Frequency: 3 times per week (3-5 times per week) Estimated Hrs Per Day: .25 hour per day Agreement: Yes Rehab Potential: Guarded to bring ortho braces in w/ platform FWW, patient to transfer to floor 4 Time Start Time: 14:17 Stop Time: 14:40 DATE: Feb 05, 2023 Total Time Billed (hr/min): 23 Billed Treatment Time FA 2 23 MIN ANA MARIA GREEN OT Feb 05, 2023 15:50
[2023-02-05 19:40] VITALS: BP 116/61
[2023-02-05 23:48] VITALS: BP 134/70
[2023-02-06] VITALS (9 sets, daily range): BP systolic 116–156; BP diastolic 65–83
[2023-02-06 04:57] LABS: BASOPHILS % (AUTO) 0 % (0-10); EOSINOPHILS # (AUTO) 0.3 10^3/uL (0.0-0.3); EOSINOPHILS % (AUTO) 4 % (0-10); LYMPHOCYTES # (AUTO) 1.4 10^3/uL (1.0-4.0); LYMPHOCYTES % (AUTO) 19 % (12-44); MEAN CORPUSCULAR HEMOGLOBIN 29 pg (25-34); MEAN CORPUSCULAR HGB CONC 34 g/dL (32-36); MEAN CORPUSCULAR VOLUME 87 fL (80-99); MEAN PLATELET VOLUME 11.1 fL (9.0-12.2); MONOCYTES % (AUTO) 14 % (0-12); NEUTROPHILS # (AUTO) 4.6 10^3/uL (1.8-7.8); NEUTROPHILS % (AUTO) 63 % (42-75); PLATELET COUNT 89 10^3/uL (130-400); WHITE BLOOD COUNT 7.4 10^3/uL (4.3-11.0)
[2023-02-06 05:02] LABS: ALBUMIN 2.4 GM/DL (3.2-4.5)
[2023-02-06 05:03] LABS: CALCIUM 7.9 MG/DL (8.5-10.1)
[2023-02-06] MEDS: NS IV 1000 ML 1,000 ML IV SCH (05:03)
[2023-02-06 05:04] LABS: TOTAL PROTEIN 4.3 GM/DL (6.4-8.2)
[2023-02-06 05:06] LABS: BILIRUBIN,TOTAL 0.9 MG/DL (0.1-1.0)
[2023-02-06 05:08] LABS: CREATININE SERUM 0.84 MG/DL (0.60-1.30)
[2023-02-06 05:25] LABS: HEMATOCRIT 20 % (40-54); HEMOGLOBIN 6.8 g/dL (13.3-17.7)
[2023-02-06] MEDS ORDERED: NS IV 500 ML 500 ML IV SCH (05:30)
[2023-02-06] MEDS: MULTIVIT W/MINERALS TAB (THERAGRAN M) PO SCH (06:54)
[2023-02-06] MEDS: CYANOCOBALAMIN 1,000 MCG (VITAMIN B-12) TABLET PO SCH (06:55)
[2023-02-06] MEDS: LEVOTHYROXINE 125 MCG (LEVOTHROID) TABLET PO SCH (06:55)
--- NOTE | 2023-02-06 10:07 | Physical Therapy Daily Note ---
PT Daily Note-Current Subjective Patient agrees to PT. Family present. Pain Section J - Health Conditions 1. Rarely or not at all 2. Occasionally 3. Frequently 4. Almost constantly 8. Unable to answer Pain Effect on Sleep: 1 Pain Interference with Therapy: 1 Pain Interference w/Day-to-Day: 1 Mental Status Patient Orientation: Normal For Age Attachments: Oxygen, Celaya Catheter Transfers SCALE: Activities may be completed with or without assistive devices. 4-Rjfhkziluy-bsxahbe completes the activity by him/herself with no assistance from a helper. 5-Set-up or Clean-up Assistance-helper sets up or cleans up; patient completes activity. [place] assists only prior to or following the activity. 4-Supervision or Touching Assistance-helper provides verbal cues and/or touching/steadying and/or contact guard assistance as patient completes activity. Assistance may be provided throughout the activity or intermittently. 3-Partial/Moderate Assistance-helper does LESS THAN HALF the effort. [place] lifts, holds or supports trunk or limbs, but provides less than half the effort. 2-Substantial/Maximal Assistance-helper does MORE THAN HALF the effort. [place] lifts or holds trunk or limbs and provides more than half the effort. 4-Ifhaznijw-gbygxo does ALL the effort. Patient does none of the effort to complete the activity. Or, the assistance of 2 or more helpers is required for the patient to complete the activity. If activity was not attempted, code reason: 7-Patient Refused. 9-Not Applicable-not attempted and the patient did not perform the activity bef ore the current illness, exacerbation or injury. 10-Not Attempted due to Environmental Limitations-(lack of equipment, weather r estraints, etc.). 88-Not Attempted due to Medical Conditions or Safety Concerns. Lying to Sitting/Side of Bed(Q: 2 Sit to Stand (QC): 2 Chair/Maz-sl-Gbumh Xfer(QC): 2 improved mobility on this date with demonstrating the ability to perform sit to stand with use of right LE and maintaining PWB left LE Weight Bearing Right Lower Extremity: Right Full Weight Bearing Left Lower Extremity: Left Partial Weight Bearing Exercises Supine Ex: Ankle pumps, Quad Set, Heel Slides, Straight leg raise Supine Reps: 15 (AAROM left LE) Seated Therapy Exercises: Ankle pumps (stretching), Long arc quads Seated Reps: 15 Assessment Patient progressing with treatment plan with improved mobility on this date. PT to continue to increase activity as tolerated by patient. PT Short Term Goals Short Term Goals Time Frame: Feb 19, 2023 Roll Left & Right: 3 Sit to lyin Lying to sitting on side of be: 3 Sit to stand: 3 Chair/ocg-mp-fwlgv transfer: 3 Toilet transfer: 3 PT Fdc Goals Fdc Goals PT Icing Coater Goals Time Frame: Mar 06, 2023 Roll Left & Right (QC): 4 Sit to Lying (QC): 4 Lying-Sitting on Side/Bed(QC): 4 Sit to Stand (QC): 4 Chair/Yjt-kn-Cmxqm Xfer(QC): 4 Toilet Transfer (QC): 4 Walk 10 feet (QC): 4 Walk 50ft with 2 Turns (QC): 4 PT Plan Treatment/Plan Treatment Plan: Continue Plan of Care Treatment Plan: Bed Mobility, Education, Functional Activity Josep, Functional Strength, Gait, Safety, Therapeutic Exercise, Transfers Treatment Duration: Mar 06, 2023 Frequency: 11 times per week Estimated Hrs Per Day: .5 hour per day Patient and/or Family Agrees t: Yes Time Time In: 910 Time Out: 940 DATE: Feb 06, 2023 Total Billed Treatment Time: 30 Total Billed Treatment 1 visit EX 20 min FA 10 min SHAHZAD HOLLOWAY PT Feb 06, 2023 10:07
[2023-02-06] MEDS: SENNOSIDES 8.6 MG (SENOKOT) TAB PO SCH ×2 (10:49→22:05)
[2023-02-06] MEDS: DOCUSATE SODIUM 100 MG (COLACE) CAP PO SCH ×2 (10:49→22:06)
[2023-02-06] MEDS: ENOXAPARIN 40 MG/0.4 ML (LOVENOX) SYR SC SCH (10:50)
--- NOTE | 2023-02-06 12:55 | Progress Note ---
Subjective Date Seen by a Provider: Feb 06, 2023 Time Seen by a Provider: 11:50 Subjective/Events-last exam Patient seen with Dr. Bonds. Patient reports doing ok. Denies any issues. Tolerating diet. Chest x-ray this morning showed resolved left PTX. Objective Exam Vital Signs Date Time Temp Pulse Resp B/P (MAP) Pulse Ox O2 Delivery O2 Flow Rate FiO2 02/06/23 12:13 37.1 85 18 122/72 (89) 98 Room Air 02/06/23 11:12 36.9 97 18 145/68 92 Room Air 02/06/23 10:59 37.0 96 18 116/67 94 Room Air 02/06/23 08:07 36.8 90 18 142/74 (96) 96 Nasal Cannula 1.00 02/06/23 08:00 Nasal Cannula 2.00 02/06/23 03:41 37.4 92 16 131/65 (87) 96 Nasal Cannula 1.00 02/05/23 23:48 37.6 89 16 134/70 (91) 96 Nasal Cannula 2.00 02/05/23 22:40 94 Nasal Cannula 1.20 02/05/23 20:00 Nasal Cannula 2.00 02/05/23 19:40 37.7 102 18 116/61 (79) 94 Nasal Cannula 1.50 02/05/23 16:32 Nasal Cannula 2.00 02/05/23 16:00 36.7 87 18 133/75 (94) 100 Nasal Cannula 1.00 02/05/23 15:30 36.7 87 18 133/75 (94) 100 Nasal Cannula 1.00 I & O 02/06/23 07:00 Intake Total 1646 ml Output Total 1935 ml Balance -289 ml Capillary Refill : Less Than 3 Seconds General Appearance: No Apparent Distress, WD/WN Neck: Normal Inspection, Supple Respiratory: No Accessory Muscle Use, No Respiratory Distress Gastrointestinal: normal bowel sounds, non tender, soft Neurologic/Psychiatric: Alert, Oriented x3 Skin: Normal Color, Warm/Dry Results Lab Laboratory Tests 02/06/23 04:12: White Blood Count 7.4, Red Blood Count 2.33L, Hemoglobin 6.8*L, Hematocrit 20*L, Mean Corpuscular Volume 87, Mean Corpuscular Hemoglobin 29, Mean Corpuscular Hemoglobin Concent 34, Red Cell Distribution Width 14.6H, Platelet Count 89L, Mean Platelet Volume 11.1, Immature Granulocyte % (Auto) 1, Neutrophils (%) (Auto) 63, Lymphocytes (%) (Auto) 19, Monocytes (%) (Auto) 14H, Eosinophils (%) (Auto) 4, Basophils (%) (Auto) 0, Neutrophils # (Auto) 4.6, Lymphocytes # (Auto) 1.4, Monocytes # (Auto) 1.0, Eosinophils # (Auto) 0.3, Basophils # (Auto) 0.0, Immature Granulocyte # (Auto) 0.1, Sodium Level 137, Potassium Level 4.0, Chloride Level 107, Carbon Dioxide Level 24, Anion Gap 6, Blood Urea Nitrogen 19H, Creatinine 0.84, Estimat Glomerular Filtration Rate 86, BUN/Creatinine Ratio 23, Glucose Level 90, Calcium Level 7.9L, Corrected Calcium 9.2, Magnesium Level 2.0, Total Bilirubin 0.9, Aspartate Amino Transf (AST/SGOT) 24, Alanine A minotransferase (ALT/SGPT) 20, Alkaline Phosphatase 49, Total Protein 4.3L, Albumin 2.4L Assessment/Plan Assessment/Plan Assess & Plan/Chief Complaint An 82 year old male with hypovolemic shock with fall and left femoral neck fx s/p bipolar repair requiring central venous cath and pressors. developed worsening left ptx s/p thorovent placement. no ptx on todays cxr, will remove thoravent and get post removal chest x-ray cont PO/OT. diet as tolerated. Clinical Quality Measures AMI/AHF: ASA po Prior to arrival: No DVT/VTE Risk/Contraindication: Contraindications-Pharm: Other *list below* Other: or SCOTT RODRIGEZ APRN Feb 06, 2023 12:55
--- NOTE | 2023-02-06 13:24 | Diagnostic Imaging Report ---
INDICATION: Pneumothorax. COMPARISON is made with prior exam of 02/05/2023. FINDINGS: The heart size is normal. There has been interval development of subcutaneous emphysema about the left chest wall. There is no pleural effusion or pneumothorax. The mediastinum is unremarkable. IMPRESSION: Interval development of left subcutaneous emphysema about the left chest wall, otherwise no other interval adverse change. Dictated by: Dictated on workstation # [id number]
--- NOTE | 2023-02-06 17:18 | Progress Note - Hospitalist ---
Subjective HPI/CC On Admission Date Seen by Provider: Feb 06, 2023 Time Seen by Provider: 11:20 Subjective/Events-last exam He is sitting in his chair. He has no complaints. He has not noticed any bleeding. He had some very slight pink tinged nasal drainage due to his nose being dry from the oxygen. He has not had any bloody stools. Objective Exam Vital Signs Vital Signs Date Time Temp Pulse Resp B/P (MAP) Pulse Ox O2 Delivery O2 Flow Rate FiO2 02/06/23 16:04 37.5 108 20 131/75 (93) 96 Room Air 02/06/23 12:59 2.00 02/03/23 09:00 94 Capillary Refill : Less Than 3 Seconds General Appearance: No Apparent Distress, WD/WN Respiratory: Lungs Clear, No Respiratory Distress Cardiovascular: Regular Rate, Rhythm, No Murmur Gastrointestinal: Normal Bowel Sounds, Soft Extremity: Normal Inspection, Non Tender, No Pedal Edema; No Inflammation, No Swelling Neurologic/Psychiatric: Alert, Motor Weakness (chronic left sided deficits) Skin: Normal Color, Warm/Dry Results/Procedures Lab Laboratory Tests 02/06/23 04:12 Patient resulted labs reviewed. 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 s/p 3 units PRBC Hgb 6.8 this morning Tranfuse 1 unit PRBC No evidence of ongoing blood loss PT/OT IRU evaluation, accepted, pending insurance approval Continue home meds as able Diagnosis/Problems Diagnosis/Problems (1) Closed left hip fracture Status: Acute Qualifiers: Encounter type: initial encounter Qualified Codes: S72.002A - Fracture of unspecified part of neck of left femur, initial encounter for closed fracture (2) Postoperative anemia due to acute blood loss Status: Acute (3) Fall Status: Acute Qualifiers: Encounter type: initial encounter Qualified Codes: W19.XXXA - Unspecified fall, initial encounter (4) History of cerebrovascular accident (CVA) with residual deficit Status: Chronic (5) Debility Status: Acute Clinical Quality Measures AMI/AHF: ASA po Prior to arrival: No DVT/VTE Risk/Contraindication: Contraindications-Pharm: Other *list below* Other: or AASHISH SOUSA MD Feb 06, 2023 17:18
[2023-02-07] VITALS (8 sets, daily range): BP systolic 118–147; BP diastolic 54–90
[2023-02-07 04:08] LABS: BASOPHILS % (AUTO) 0 % (0-10); HEMOGLOBIN 8.1 g/dL (13.3-17.7)
[2023-02-07 04:10] LABS: EOSINOPHILS # (AUTO) 0.1 10^3/uL (0.0-0.3); EOSINOPHILS % (AUTO) 2 % (0-10); HEMATOCRIT 24 % (40-54); LYMPHOCYTES # (AUTO) 1.5 10^3/uL (1.0-4.0); LYMPHOCYTES % (AUTO) 21 % (12-44); MEAN CORPUSCULAR HEMOGLOBIN 30 pg (25-34); MEAN CORPUSCULAR HGB CONC 34 g/dL (32-36); MEAN CORPUSCULAR VOLUME 89 fL (80-99); MEAN PLATELET VOLUME 10.1 fL (9.0-12.2); MONOCYTES % (AUTO) 13 % (0-12); NEUTROPHILS # (AUTO) 4.7 10^3/uL (1.8-7.8); NEUTROPHILS % (AUTO) 64 % (42-75); PLATELET COUNT 127 10^3/uL (130-400); WHITE BLOOD COUNT 7.5 10^3/uL (4.3-11.0)
[2023-02-07 04:23] LABS: ALBUMIN 2.4 GM/DL (3.2-4.5); POTASSIUM 4.2 MMOL/L (3.6-5.0)
[2023-02-07 04:24] LABS: CALCIUM 8.1 MG/DL (8.5-10.1)
[2023-02-07 04:25] LABS: TOTAL PROTEIN 4.6 GM/DL (6.4-8.2)
[2023-02-07 04:27] LABS: BILIRUBIN,TOTAL 1.4 MG/DL (0.1-1.0)
[2023-02-07 04:29] LABS: CREATININE SERUM 0.84 MG/DL (0.60-1.30)
[2023-02-07 04:31] LABS: MAGNESIUM 1.9 MG/DL (1.6-2.4)
[2023-02-07] MEDS: LEVOTHYROXINE 125 MCG (LEVOTHROID) TABLET PO SCH (05:25)
[2023-02-07] MEDS: MULTIVIT W/MINERALS TAB (THERAGRAN M) PO SCH (05:25)
[2023-02-07] MEDS: CYANOCOBALAMIN 1,000 MCG (VITAMIN B-12) TABLET PO SCH (05:25)
--- NOTE | 2023-02-07 07:15 | Progress Note ---
Standard Progress Note Progress Notes/Assess & Plan Date Seen by a Provider: Feb 06, 2023 Time Seen by a Provider: 15:00 Progress/Assessment & Plan Patient has no cmoplaints. Postop day 3. VSS LEFT HIP dressing clean and dry with no surrounding warmth or erythema. Calves soft and nontender. Laboratory Tests 02/05/23 08:59: White Blood Count 9.4, Red Blood Count 2.71L, Hemoglobin 8.0#L, Hematocrit 24L, Mean Corpuscular Volume 87, Mean Corpuscular Hemoglobin 30, Mean Corpuscular Hemoglobin Concent 34, Red Cell Distribution Width 14.6H, Platelet Count 80L, Mean Platelet Volume 11.3, Immature Granulocyte % (Auto) 1, Neutrophils (%) (Auto) 73, Lymphocytes (%) (Auto) 13, Monocytes (%) (Auto) 11, Eosinophils (%) (Auto) 3, Basophils (%) (Auto) 0, Neutrophils # (Auto) 6.8, Lymphocytes # (Auto) 1.2, Monocytes # (Auto) 1.1H, Eosinophils # (Auto) 0.3, Basophils # (Auto) 0.0, Immature Granulocyte # (Auto) 0.1, Neutrophils % (Manual) 84, Lymphocytes % (Manual) 7, Monocytes % (Manual) 7, Eosinophils % (Manual) 2, Percent Immature Platelet Fraction 3.7, Acanthocytes SLIGHT 02/06/23 04:12: White Blood Count 7.4, Red Blood Count 2.33L, Hemoglobin 6.8*L, Hematocrit 20*L, Mean Corpuscular Volume 87, Mean Corpuscular Hemoglobin 29, Mean Corpuscular Hemoglobin Concent 34, Red Cell Distribution Width 14.6H, Platelet Count 89L, Mean Platelet Volume 11.1, Immature Granulocyte % (Auto) 1, Neutrophils (%) (Auto) 63, Lymphocytes (%) (Auto) 19, Monocytes (%) (Auto) 14H, Eosinophils (%) (Auto) 4, Basophils (%) (Auto) 0, Neutrophils # (Auto) 4.6, Lymphocytes # (Auto) 1.4, Monocytes # (Auto) 1.0, Eosinophils # (Auto) 0.3, Basophils # (Auto) 0.0, Immature Granulocyte # (Auto) 0.1, Sodium Level 137, Potassium Level 4.0, Chloride Level 107, Carbon Dioxide Level 24, Anion Gap 6, Blood Urea Nitrogen 19H, Creatinine 0.84, Estimat Glomerular Filtration Rate 86, BUN/Creatinine Ratio 23, Glucose Level 90, Calcium Level 7.9L, Corrected Calcium 9.2, Magnesium Level 2.0, Total Bilirubin 0.9, Aspartate Amino Transf (AST/SGOT) 24, Alanine Aminotransferase (ALT/SGPT) 20, Alkaline Phosphatase 49, Total Protein 4.3L, Albumin 2.4L 02/07/23 03:56: White Blood Count 7.5, Red Blood Count 2.69L, Hemoglobin 8.1L, Hematocrit 24L, Mean Corpuscular Volume 89, Mean Corpuscular Hemoglobin 30, Mean Corpuscular Hemoglobin Concent 34, Red Cell Distribution Width 14.3, Platelet Count 127L, Mean Platelet Volume 10.1, Immature Granulocyte % (Auto) 1, Neutrophils (%) (Auto) 64, Lymphocytes (%) (Auto) 21, Monocytes (%) (Auto) 13H, Eosinophils (%) (Auto) 2, Basophils (%) (Auto) 0, Neutrophils # (Auto) 4.7, Lymphocytes # (Auto) 1.5, Monocytes # (Auto) 1.0, Eosinophils # (Auto) 0.1, Basophils # (Auto) 0.0, Immature Granulocyte # (Auto) 0.1, Percent Immature Platelet Fraction 2.3, Sodium Level 139, Potassium Level 4.2, Chloride Level 106, Carbon Dioxide Level 24, Anion Gap 9, Blood Urea Nitrogen 21H, Creatinine 0.84, Estimat Glomerular Filtration Rate 86, BUN/Creatinine Ratio 25, Glucose Level 95, Calcium Level 8.1L, Corrected Calcium 9.4, Magnesium Level 1.9, Total Bilirubin 1.4H, Asparta te Amino Transf (AST/SGOT) 29, Alanine Aminotransferase (ALT/SGPT) 26, Alkaline Phosphatase 56, Total Protein 4.6L, Albumin 2.4L Doing well S/P left hip hemiarthroplasty Plan: PT/OT DVT priphylaxis To JESIKA MCCALL Feb 07, 2023 07:15
[2023-02-07] MEDS: IRON SUCROSE 200 MG/10 ML (VENOFER) VIAL IV SCH (08:02)
[2023-02-07] MEDS: ENOXAPARIN 40 MG/0.4 ML (LOVENOX) SYR SC SCH (08:03)
[2023-02-07] MEDS: DOCUSATE SODIUM 100 MG (COLACE) CAP PO SCH ×2 (08:03→20:37)
[2023-02-07] MEDS: SENNOSIDES 8.6 MG (SENOKOT) TAB PO SCH ×2 (08:03→20:37)
--- NOTE | 2023-02-07 09:28 | Physical Therapy Daily Note ---
PT Daily Note-Current Subjective Patient agrees to PT. Family present. Pain Section J - Health Conditions 1. Rarely or not at all 2. Occasionally 3. Frequently 4. Almost constantly 8. Unable to answer Pain Effect on Sleep: 1 Pain Interference with Therapy: 1 Pain Interference w/Day-to-Day: 1 Mental Status Patient Orientation: Normal For Age Attachments: Celaya Catheter Transfers SCALE: Activities may be completed with or without assistive devices. 3-Hdytdlrdkc-kooxios completes the activity by him/herself with no assistance from a helper. 5-Set-up or Clean-up Assistance-helper sets up or cleans up; patient completes activity. [place] assists only prior to or following the activity. 4-Supervision or Touching Assistance-helper provides verbal cues and/or touching/steadying and/or contact guard assistance as patient completes activity. Assistance may be provided throughout the activity or intermittently. 3-Partial/Moderate Assistance-helper does LESS THAN HALF the effort. [place] lifts, holds or supports trunk or limbs, but provides less than half the effort. 2-Substantial/Maximal Assistance-helper does MORE THAN HALF the effort. [place] lifts or holds trunk or limbs and provides more than half the effort. 6-Siipopklg-rsdozp does ALL the effort. Patient does none of the effort to complete the activity. Or, the assistance of 2 or more helpers is required for the patient to complete the activity. If activity was not attempted, code reason: 7-Patient Refused. 9-Not Applicable-not attempted and the patient did not perform the activity before the current illness, exacerbation or injury. 10-Not Attempted due to Environmental Limitations-(lack of equipment, weather restraints, etc.). 88-Not Attempted due to Medical Conditions or Safety Concerns. Lying to Sitting/Side of Bed(Q: 3 Sit to Stand (QC): 3 Chair/Sqo-bw-Mdbrw Xfer(QC): 3 Mod assist/Patient able to assist more on this date with sit to stand and bed mobility Weight Bearing Right Lower Extremity: Right Full Weight Bearing Left Lower Extremity: Left Partial Weight Bearing Exercises Supine Ex: Ankle pumps, Quad Set, Heel Slides, Straight leg raise Supine Reps: 15 (AAROM left LE) Seated Therapy Exercises: Ankle pumps, Long arc quads Seated Reps: 15 Assessment Patient progressing with treatment plan. PT to increase activity and place left KAFO (from previous CVA) and begin gait training with left LE PWB with bilateral platform FWW. PT Short Term Goals Short Term Goals Time Frame: Feb 19, 2023 Roll Left & Right: 3 Sit to lyin Lying to sitting on side of be: 3 Sit to stand: 3 Chair/mwv-rt-kbhnk transfer: 3 Toilet transfer: 3 PT Concrete Grinder Operator Goals Concrete Grinder Operator Goals PT Concrete Grinder Operator Goals Time Frame: Mar 06, 2023 Roll Left & Right (QC): 4 Sit to Lying (QC): 4 Lying-Sitting on Side/Bed(QC): 4 Sit to Stand (QC): 4 Chair/Qol-vv-Dwltu Xfer(QC): 4 Toilet Transfer (QC): 4 Walk 10 feet (QC): 4 Walk 50ft with 2 Turns (QC): 4 PT Plan Treatment/Plan Treatment Plan: Continue Plan of Care Treatment Plan: Bed Mobility, Education, Functional Activity Josep, Functional Strength, Gait, Safety, Therapeutic Exercise, Transfers Treatment Duration: Mar 06, 2023 Frequency: 11 times per week Estimated Hrs Per Day: .5 hour per day Patient and/or Family Agrees t: Yes Time Time In: 846 Time Out: 915 DATE: Feb 07, 2023 Total Billed Treatment Time: 29 Total Billed Treatment 1 visit FA 10 mi EX 19 min SHAHZAD HOLLOWAY PT Feb 07, 2023 09:28
--- NOTE | 2023-02-07 12:21 | Progress Note ---
Subjective Date Seen by a Provider: Feb 07, 2023 Time Seen by a Provider: 12:17 Subjective/Events-last exam POD4 Patient reports no c/o. States he is feeling better and reports better bowel function. Minimal hip pain. VSS, H and H 8.1 and 24 Left hip dressing clean and dry with no palpable surrounding warmth or induration or flunctuance. Calves soft and nontender. doing well S/P Left hip bipolar hemiarthroplasty Plan: OT/PT mobilize DVT proph. To IRU when qualified Objective Exam Vital Signs Date Time Temp Pulse Resp B/P (MAP) Pulse Ox O2 Delivery O2 Flow Rate FiO2 02/07/23 12:00 37.2 90 18 119/72 (88) 93 Room Air 02/07/23 07:37 37.0 91 18 132/72 (92) 90 Room Air 02/07/23 03:16 37.2 99 16 118/54 (75) 92 Room Air 02/07/23 02:44 91 Room Air 02/07/23 00:33 37.7 02/06/23 23:44 38.4 02/06/23 23:29 38.4 99 16 156/83 (107) 95 Room Air 02/06/23 20:00 Nasal Cannula 2.00 02/06/23 19:31 37.6 105 20 144/71 (95) 93 Room Air 02/06/23 16:04 37.5 108 20 131/75 (93) 96 Room Air 02/06/23 12:59 37.1 86 18 132/71 99 Nasal Cannula 2.00 I & O 02/07/23 07:00 Intake Total 1210 ml Output Total 1850 ml Balance -640 ml Capillary Refill : Less Than 3 Seconds Respiratory: No Rales Results Lab Laboratory Tests 02/07/23 03:56: White Blood Count 7.5, Red Blood Count 2.69L, Hemoglobin 8.1L, Hematocrit 24L, Mean Corpuscular Volume 89, Mean Corpuscular Hemoglobin 30, Mean Corpuscular Hemoglobin Concent 34, Red Cell Distribution Width 14.3, Platelet Count 127L, Mean Platelet Volume 10.1, Immature Granulocyte % (Auto) 1, Neutrophils (%) (Auto) 64, Lymphocytes (%) (Auto) 21, Monocytes (%) (Auto) 13H, Eosinophils (%) (Auto) 2, Basophils (%) (Auto) 0, Neutrophils # (Auto) 4.7, Lymphocytes # (Auto) 1.5, Monocytes # (Auto) 1.0, Eosinophils # (Auto) 0.1, Basophils # (Auto) 0.0, Immature Granulocyte # (Auto) 0.1, Percent Immature Platelet Fraction 2.3, Sodium Level 139, Potassium Level 4.2, Chloride Level 106, Carbon Dioxide Level 24, Anion Gap 9, Blood Urea Nitrogen 21H, Creatinine 0.84, Estimat Glomerular Filtration Rate 86, BUN/Creatinine Ratio 25, Glucose Level 95, Calcium Level 8.1L, Corrected Calcium 9.4, Magnesium Level 1.9, Total Bilirubin 1.4H, Aspartate Amino Transf (AST/SGOT) 29, Alanine Aminotransferase (ALT/SGPT) 26, Alkaline Phosphatase 56, Total Protein 4.6L, Albumin 2.4L Assessment/Plan Assessment/Plan Assess & Plan/Chief Complaint Doing well left hip hemiarhtroplasty Plan: OT/PT To IRU Final Diagnosis Left hip hemiarthroplasty Clinical Quality Measures AMI/AHF: ASA po Prior to arrival: No DVT/VTE Risk/Contraindication: Contraindications-Pharm: Other *list below* Other: or JESIKA BANSAL Feb 07, 2023 12:21
--- NOTE | 2023-02-07 16:38 | Progress Note - Hospitalist ---
Subjective HPI/CC On Admission Date Seen by Provider: Feb 07, 2023 Time Seen by Provider: 09:45 Subjective/Events-last exam He is sitting in his chair. He had a cough overnight. He denies shortness of breath. He denies subjective fevers, though he did have one overnight. He denies sore throat and nasal congestion. He has no other complaints. Objective Exam Vital Signs Vital Signs Date Time Temp Pulse Resp B/P (MAP) Pulse Ox O2 Delivery O2 Flow Rate FiO2 02/07/23 16:06 37.9 99 18 129/56 (80) 91 Room Air 02/06/23 20:00 2.00 02/03/23 09:00 94 Capillary Refill : Less Than 3 Seconds General Appearance: No Apparent Distress, WD/WN Respiratory: Lungs Clear, No Respiratory Distress Cardiovascular: Regular Rate, Rhythm, No Murmur Gastrointestinal: Normal Bowel Sounds, Soft Extremity: Normal Inspection, No Pedal Edema Neurologic/Psychiatric: Alert, Normal Mood/Affect Skin: Normal Color, Warm/Dry Results/Procedures Lab Laboratory Tests 02/07/23 03:56 Patient resulted labs reviewed. 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 s/p 4 units PRBC Hgb 8.1 this morning No evidence of ongoing blood loss PT/OT IRU evaluation, accepted, pending insurance approval Continue home meds as able Fever Cough No leukocytosis or left shift Not septic Repeat chest xray Diagnosis/Problems Diagnosis/Problems (1) Closed left hip fracture Status: Acute Qualifiers: Encounter type: initial encounter Qualified Codes: S72.002A - Fracture of unspecified part of neck of left femur, initial encounter for closed fracture (2) Postoperative anemia due to acute blood loss Status: Acute (3) Fall Status: Acute Qualifiers: Encounter type: initial encounter Qualified Codes: W19.XXXA - Unspecified fall, initial encounter (4) History of cerebrovascular accident (CVA) with residual deficit Status: Chronic (5) Debility Status: Acute Clinical Quality Measures AMI/AHF: ASA po Prior to arrival: No DVT/VTE Risk/Contraindication: Contraindications-Pharm: Other *list below* Other: or AASHISH SOUSA MD Feb 07, 2023 16:38
--- NOTE | 2023-02-07 17:32 | Diagnostic Imaging Report ---
INDICATION: Fever and cough. COMPARISON: Study of 02/06. FINDINGS: Subcutaneous emphysema about the neck and left chest wall and axilla has increased. Now there is apparent left-sided moderate pneumothorax at the upper chest. There is about 2.5 cm pleural separation. Pneumothorax extends through the base. At the lower chest there is about 2 cm pleural separation. This is at least a 30-40% without evidence for its tension. A left subclavian catheter at the SVC present. The right lung and right pleural space negative. IMPRESSION: Increasing subcutaneous emphysema with moderate left pneumothorax now apparent without evidence for its tension. Report was called to patient's nurse, [facility] 5:27 p.m., by eddie. Dictated by: Dictated on workstation # [id number]
[2023-02-08 03:45] VITALS: BP 142/67
[2023-02-08] MEDS: MULTIVIT W/MINERALS TAB (THERAGRAN M) PO SCH (05:26)
[2023-02-08] MEDS: LEVOTHYROXINE 125 MCG (LEVOTHROID) TABLET PO SCH (05:26)
[2023-02-08] MEDS: CYANOCOBALAMIN 1,000 MCG (VITAMIN B-12) TABLET PO SCH (05:26)
[2023-02-08 06:17] LABS: BASOPHILS % (AUTO) 0 % (0-10); EOSINOPHILS # (AUTO) 0.2 10^3/uL (0.0-0.3); EOSINOPHILS % (AUTO) 2 % (0-10); HEMATOCRIT 27 % (40-54); LYMPHOCYTES # (AUTO) 1.6 10^3/uL (1.0-4.0); LYMPHOCYTES % (AUTO) 16 % (12-44); MEAN CORPUSCULAR HEMOGLOBIN 30 pg (25-34); MEAN CORPUSCULAR HGB CONC 33 g/dL (32-36); MEAN CORPUSCULAR VOLUME 89 fL (80-99); MEAN PLATELET VOLUME 9.7 fL (9.0-12.2); MONOCYTES # (AUTO) 1.5 10^3/uL (0.0-1.0); MONOCYTES % (AUTO) 15 % (0-12); NEUTROPHILS # (AUTO) 6.5 10^3/uL (1.8-7.8); NEUTROPHILS % (AUTO) 65 % (42-75); PLATELET COUNT 158 10^3/uL (130-400); WHITE BLOOD COUNT 9.9 10^3/uL (4.3-11.0)
[2023-02-08 06:49] LABS: ALBUMIN 2.5 GM/DL (3.2-4.5); BILIRUBIN,TOTAL 1.4 MG/DL (0.1-1.0); CALCIUM 8.5 MG/DL (8.5-10.1); CREATININE SERUM 0.8 MG/DL (0.60-1.30); MAGNESIUM 1.8 MG/DL (1.6-2.4); POTASSIUM 4.1 MMOL/L (3.6-5.0); TOTAL PROTEIN 5.1 GM/DL (6.4-8.2)
[2023-02-08 08:01] VITALS: BP 130/64
[2023-02-08] MEDS: SENNOSIDES 8.6 MG (SENOKOT) TAB PO SCH ×2 (08:18→19:57)
[2023-02-08] MEDS: DOCUSATE SODIUM 100 MG (COLACE) CAP PO SCH ×2 (08:18→19:57)
[2023-02-08] MEDS: ENOXAPARIN 40 MG/0.4 ML (LOVENOX) SYR SC SCH (08:18)
--- NOTE | 2023-02-08 08:50 | Diagnostic Imaging Report ---
CHEST 1 VIEW, AP/PA ONLY Indication: Pneumothorax Comparison: Prior day at 5:09 PM Findings: Left-sided pneumothorax continues to increase in size now with 6.5 cm apical pleural separation (previously 4.2 cm). However, there remains no mediastinal shift. Worsening subcutaneous gas throughout the left chest wall. Right lung remains clear. Normal heart size. Impression: 1. Increased size of now moderate to large pneumothorax on left. There remains no midline shift or features of tension. 2. Left chest wall subcutaneous gas continues to worsen. Dictated by: Dictated on workstation # [id number]
--- NOTE | 2023-02-08 11:27 | Occ Therapy Progress Note ---
Therapy Progress Note Patient on hold for activity clearance d/t possible CT insertion today and transfer to ICU, Post has been removed and only clear for bed to chair transfer w/ assist. Unable to WB on RUE for transfer, OT will monitor ANA MARIA GREEN OT Feb 08, 2023 11:27
--- NOTE | 2023-02-08 14:33 | Physical Therapy Daily Note ---
PT Daily Note-Current Subjective Patient agrees to PT/OT Pain Section J - Health Conditions 1. Rarely or not at all 2. Occasionally 3. Frequently 4. Almost constantly 8. Unable to answer Pain Effect on Sleep: 1 Pain Interference with Therapy: 1 Pain Interference w/Day-to-Day: 1 Mental Status Patient Orientation: Normal For Age Transfers SCALE: Activities may be completed with or without assistive devices. 6-Ltvdfpobjf-bbtmyyv completes the activity by him/herself with no assistance from a helper. 5-Set-up or Clean-up Assistance-helper sets up or cleans up; patient completes activity. [place] assists only prior to or following the activity. 4-Supervision or Touching Assistance-helper provides verbal cues and/or touching/steadying and/or contact guard assistance as patient completes activity. Assistance may be provided throughout the activity or intermittently. 3-Partial/Moderate Assistance-helper does LESS THAN HALF the effort. [place] lif ts, holds or supports trunk or limbs, but provides less than half the effort. 2-Substantial/Maximal Assistance-helper does MORE THAN HALF the effort. [place] lifts or holds trunk or limbs and provides more than half the effort. 4-Dlieiunlo-djtohi does ALL the effort. Patient does none of the effort to complete the activity. Or, the assistance of 2 or more helpers is required for the patient to complete the activity. If activity was not attempted, code reason: 7-Patient Refused. 9-Not Applicable-not attempted and the patient did not perform the activity before the current illness, exacerbation or injury. 10-Not Attempted due to Environmental Limitations-(lack of equipment, weather restraints, etc.). 88-Not Attempted due to Medical Conditions or Safety Concerns. Weight Bearing Right Lower Extremity: Right Full Weight Bearing Left Lower Extremity: Left Partial Weight Bearing Exercises Supine Ex: Ankle pumps, Quad Set, Heel Slides, Straight leg raise Supine Reps: 15 (x 2 sets AAROM left LE) Seated Therapy Exercises: Long arc quads Seated Reps: 15 (AAROM left LE) Treatments PT changed bilateral ZINA hose while performing exercises. Assessment Patient currently unable to utilize left UE with weight bearing due to, per RN, pneumothorax. Therapy awaiting release from Dr. Bonds to advance weight bearing through left UE to perform gait training with bilateral platform FWW. PT Short Term Goals Short Term Goals Time Frame: Feb 19, 2023 Roll Left & Right: 3 Sit to lyin Lying to sitting on side of be: 3 Sit to stand: 3 Chair/fqp-cs-jrhav transfer: 3 Toilet transfer: 3 PT Halfway Goals Skip Load Driver Goals PT Skip Load Driver Goals Time Frame: Mar 06, 2023 Roll Left & Right (QC): 4 Sit to Lying (QC): 4 Lying-Sitting on Side/Bed(QC): 4 Sit to Stand (QC): 4 Chair/Lqc-we-Fvtko Xfer(QC): 4 Toilet Transfer (QC): 4 Walk 10 feet (QC): 4 Walk 50ft with 2 Turns (QC): 4 PT Plan Treatment/Plan Treatment Plan: Continue Plan of Care Treatment Plan: Bed Mobility, Education, Functional Activity Josep, Functional Strength, Gait, Safety, Therapeutic Exercise, Transfers Treatment Duration: Mar 06, 2023 Frequency: 11 times per week Estimated Hrs Per Day: .5 hour per day Patient and/or Family Agrees t: Yes Time Time In: 1325 Time Out: 1354 DATE: Feb 08, 2023 Total Billed Treatment Time: 29 Total Billed Treatment 1 visit EX x 2 29 min SHAHZAD HOLLOWAY PT Feb 08, 2023 14:33
--- NOTE | 2023-02-08 15:05 | Physical Therapy Progress Note ---
Therapy Progress Note Patient seen x 1 session on this date per patient's request due to voiced frustration with communication on current medical situation. RN is aware. Treatment rendered in p.m. (see note) SHAHZAD HOLLOWAY PT Feb 08, 2023 15:04
--- NOTE | 2023-02-08 15:28 | Progress Note ---
MISSY JENNINGS 02/08/23 1528: Subjective Date Seen by a Provider: Feb 08, 2023 Time Seen by a Provider: 10:30 Subjective/Events-last exam Mr. Sosa endorses that he did not have a good night last night. He had issues sleeping and was requiring 2L NC for comfort. He continues to endorse cough, but denies subjective fevers/chills. CXR shows redevelopment of L pneumothorax. Review of Systems General: No Chills; Malaise Pulmonary: Cough Cardiovascular: No: Palpitations Gastrointestinal: No: Nausea, Vomiting Musculoskeletal: leg pain Objective Exam Last Set of Vital Signs Vital Signs Date Time Temp Pulse Resp B/P (MAP) Pulse Ox O2 Delivery O2 Flow Rate FiO2 02/08/23 08:01 37.0 93 18 130/64 (86) 92 Room Air 02/08/23 08:00 2.00 02/07/23 18:52 21 Capillary Refill : Less Than 3 Seconds I&O Intake and Output 02/08/23 00:00 Intake Total 1160 ml Output Total 1750 ml Balance -590 ml Intake Oral 1160 ml Output Urine Total 1750 ml # Bowel Movements 1 General: Alert, Oriented X3, Cooperative, No Acute Distress Heart: Regular Rate, Normal S1, Normal S2 Abdomen: Soft, No Tenderness Extremities: No Clubbing, No Cyanosis Neuro: Normal Speech, Other Psych/Mental Status: Mental Status NL Results Lab Laboratory Tests 02/08/23 06:05: White Blood Count 9.9, Red Blood Count 3.05L, Hemoglobin 9.0L, Hematocrit 27L, Mean Corpuscular Volume 89, Mean Corpuscular Hemoglobin 30, Mean Corpuscular Hemoglobin Concent 33, Red Cell Distribution Width 14.4, Platelet Count 158, Mean Platelet Volume 9.7, Immature Granulocyte % (Auto) 2, Neutrophils (%) (Auto) 65, Lymphocytes (%) (Auto) 16, Monocytes (%) (Auto) 15H, Eosinophils (%) (Auto) 2, Basophils (%) (Auto) 0, Neutrophils # (Auto) 6.5, Lymphocytes # (Auto) 1.6, Monocytes # (Auto) 1.5H, Eosinophils # (Auto) 0.2, Basophils # (Auto) 0.0, Immature Granulocyte # (Auto) 0.2H, Sodium Level 136, Potassium Level 4.1, Chloride Level 105, Carbon Dioxide Level 23, Anion Gap 8, Blood Urea Nitrogen 21H, Creatinine 0.80, Estimat Glomerular Filtration Rate 87, BUN/Creatinine Ra edith 26, Glucose Level 97, Calcium Level 8.5, Corrected Calcium 9.7, Magnesium Level 1.8, Total Bilirubin 1.4H, Aspartate Amino Transf (AST/SGOT) 35H, Alanine Aminotransferase (ALT/SGPT) 29, Alkaline Phosphatase 65, Total Protein 5.1L, Albumin 2.5L Assessment/Plan Assessment/Plan Assess & Plan/Chief Complaint Left femoral neck fracture POD#5 -Ortho is managing pain -on lovenox per ortho Acute blood loss anemia -Hgb pre-op is 14.5 -received 4 units so far, last on 02/06 -Hgb on 02/07 8.1, 02/08 9.0, trending up -monitor Pneumothorax, left sided -thoravent placed on 02/04 after worsening ptx on cxr -removed after resolution -CXR over 02/07, 02/08 with worsening left sided ptx -not in respiratory distress, monitoring -to consider repeat chest tube placement Falls/debility Post-stroke residual deficits -Patient is fairly independent at home with help from -Will likely be candidate for inpatient rehab post-operatively - reports no other falls since before patient's stroke in 08/2021 -PT/OT inpatient prior to IRU placement HLD -On ASA and atorvastatin at home - will continue post-operatively Hypothyroidism -Patient is on levothyroxine - continue post-operatively FEN/GI -Fluids per anesthesia/ortho today -Replace electrolytes as needed -Bowel regimen (senna, docusate, doculax, miralax, lactulose) PRN, Zofran PRN for nausea/vomiting, PPI, antacids PRN for ulcer prophylaxis Dispo: redeveloping left sided ptx, awaiting rehab placement following resolution. Clinical Quality Measures AMI/AHF: ASA po Prior to arrival: No DVT/VTE Risk/Contraindication: Contraindications-Pharm: Other *list below* Other: or SERA BOOTH DO 02/09/23 6721: Supervisory-Addendum Brief Verification & Attestation Participated in pt care: history, MDM, physical Personally performed: exam, history, MDM, supervision of care Care discussed with: Medical Student Procedures: n/a Results interpretation: Verified all documentation Verification and Attestation of Medical Student E/M Service A medical student performed and documented this service in my presence. I reviewed and verified all information documented by the medical student and made modifications to such information, when appropriate. I personally performed the physical exam and medical decision making. Sera Booth, Feb 09, 2023,04:54 MISSY JENNINGS Feb 08, 2023 15:28 SERA BOOTH DO Feb 09, 2023 04:55
[2023-02-08 15:37] VITALS: BP 185/91
--- NOTE | 2023-02-08 16:27 | Occupational Ther Daily Note ---
OT Current Status-Daily Note Subjective Agreeable to OT Mental Status/Objective Patient Orientation: Situation ADL-Treatment Therapy Code Descriptions/Definitions Functional [place] Measure: 0=Not Assessed/NA 4=Minimal Assistance 1=Total Assistance 5=Supervision or Setup 2=Maximal Assistance 6=Modified [place] 3=Moderate Assistance 7=Complete IndependenceSCALE: Activities may be completed with or without assistive devices. 9-Qqhhkksfer-yjdwvzp completes the activity by him/herself with no assistance from a helper. 5-Set-up or Clean-up Assistance-helper sets up or cleans up; patient completes activity. [place] assists only prior to or following the activity. 4-Supervision or Touching Assistance-helper provides verbal cues and/or touching/steadying and/or contact guard assistance as patient completes activity. Assistance may be provided throughout the activity or intermittently. 3-Partial/Moderate Assistance-helper does LESS THAN HALF the effort. [place] lifts, holds or supports trunk or limbs, but provides less than half the effort. 2-Substantial/Maximal Assistance-helper does MORE THAN HALF the effort. [place] lifts or holds trunk or limbs and provides more than half the effort. 2-Fobwdkvwn-nmjzjq does ALL the effort. Patient does none of the effort to complete the activity. Or, the assistance of 2 or more helpers is required for the patient to complete the activity. If activity was not attempted, code reason: 7-Patient Refused. 9-Not Applicable-not attempted and the patient did not perform the activity before the current illness, exacerbation or injury. 10-Not Attempted due to Environmental Limitations-(lack of equipment, weather restraints, etc.). 88-Not Attempted due to Medical Conditions or Safety Concerns. Bathing Location: L Arm, R Arm, Chest, Abdomen, Buttocks, Perineal Area Shower/Bathe Self (QC): 3 (sponge) Upper Body Dressing (QC): 3 Lower Body Dressing (QC): 7 On/Off Footwear: 2 (ZINA and yellow socks) Toileting Hygiene (QC): 3 Toilet Transfer (QC): 1 Education OT Patient Education: Correct positioning, Modified ADL techniques, Progress toward Goal/Update tx plan, Purpose of tx/functional activities, Reviewed precautions, Rehab process, Safety issues Teaching Recipient: Patient, Family Teaching Methods: Demonstration Response to Teaching: Verbalize Understanding OT [facility] Goals [facility] Goals Eating (QC): 6 Oral Hygiene (QC): 5 Toileting Hygiene (QC): 2 Shower/Bathe Self (QC): 2 Upper Body Dressing (QC): 3 Lower Body Dressing (QC): 2 On/Off Footwear (QC): 4 1=Demonstrate adherence to instructed precautions during ADL tasks. 2=Patient will verbalize/demonstrate understanding of assistive devices/modifications for ADL. 3=Patient will improve strength/tolerance for activity to enable patient to perform ADL's. OT Education/Plan Discharge Recommendations Plan/Recommendations: Continue POC Treatment Plan/Plan of Care Patient would benefit from OT for education, treatment and training to promote independence in ADL's, mobility, safety and/or upper extremity function for ADL's. Plan of Care: ADL Retraining, Caregiver Training, Concurrent Therapy, Func tional Mobility, Group Exercise/Act as Ind, UE Funct Exercise/Act, UE Neuromus Re-Ed/Coord Treatment Duration: Feb 13, 2023 Frequency: 3 times per week (3-5 times per week) Estimated Hrs Per Day: .25 hour per day Agreement: Yes Rehab Potential: Guarded Time Start Time: 13:25 Stop Time: 13:55 DATE: Feb 08, 2023 Total Time Billed (hr/min): 30 Billed Treatment Time ADL 2 30min ANA MARIA GREEN OT Feb 08, 2023 16:27
--- NOTE | 2023-02-08 19:26 | Progress Note ---
Subjective Date Seen by a Provider: Feb 08, 2023 Time Seen by a Provider: 19:00 Subjective/Events-last exam doing ok. no SOB. large recurrent PTX on CXR. left SC central line removed. Objective Exam Vital Signs Date Time Temp Pulse Resp B/P (MAP) Pulse Ox O2 Delivery O2 Flow Rate FiO2 02/08/23 15:37 37.8 99 18 185/91 (122) 98 Room Air 02/08/23 08:01 37.0 93 18 130/64 (86) 92 Room Air 02/08/23 08:00 Nasal Cannula 2.00 02/08/23 03:45 37.6 96 16 142/67 (92) 95 Room Air 02/07/23 23:08 37.7 97 16 139/69 (92) 94 Room Air 02/07/23 20:00 Nasal Cannula 2.00 02/07/23 19:32 37.2 103 20 144/72 (96) 94 Room Air I & O 02/08/23 07:00 Intake Total 1010 ml Output Total 1200 ml Balance -190 ml Capillary Refill : Less Than 3 Seconds General Appearance: No Apparent Distress HEENT: PERRL/EOMI Respiratory: Chest Non Tender, Decreased Breath Sounds (left side) Cardiovascular: Regular Rate, Rhythm Gastrointestinal: normal bowel sounds, non tender, soft Extremity: Normal Capillary Refill Neurologic/Psychiatric: Alert, Oriented x3 Skin: Normal Color Lymphatic: No Adenopathy Results Lab Laboratory Tests 02/08/23 06:05: White Blood Count 9.9, Red Blood Count 3.05L, Hemoglobin 9.0L, Hematocrit 27L, Mean Corpuscular Volume 89, Mean Corpuscular Hemoglobin 30, Mean Corpuscular Hemoglobin Concent 33, Red Cell Distribution Width 14.4, Platelet Count 158, Mean Platelet Volume 9.7, Immature Granulocyte % (Auto) 2, Neutrophils (%) (Auto) 65, Lymphocytes (%) (Auto) 16, Monocytes (%) (Auto) 15H, Eosinophils (%) (Auto) 2, Basophils (%) (Auto) 0, Neutrophils # (Auto) 6.5, Lymphocytes # (Auto) 1.6, Monocytes # (Auto) 1.5H, Eosinophils # (Auto) 0.2, Basophils # (Auto) 0.0, Immature Granulocyte # (Auto) 0.2H, Sodium Level 136, Potassium Level 4.1, Chloride Level 105, Carbon Dioxide Level 23, Anion Gap 8, Blood Urea Nitrogen 21H, Creatinine 0.80, Estimat Glomerular Filtration Rate 87, BUN/Creatinine Ratio 26, Glucose Level 97, Calcium Level 8.5, Corrected Calcium 9.7, Magnesium Level 1.8, Total Bilirubin 1.4H, Aspartate Amino Transf (AST/SGOT) 35H, Alanine Aminotransferase (ALT/SGPT) 29, Alkaline Phosphatase 65, Total Protein 5.1L, Albumin 2.5L Assessment/Plan Assessment/Plan Assess & Plan/Chief Complaint hypovolemic shock with fall and left femoral neck fx s/p bipolar repair requiring central venous cath and pressors. developed worsening left ptx s/p thorovent placement. removed on 02/07 however has had recurrent ptx. small CT placed with atrium water seal to detect leak placed. cont PO/OT. diet as tolerated. OK for ARU anytime. Clinical Quality Measures AMI/AHF: ASA po Prior to arrival: No DVT/VTE Risk/Contraindication: Contraindications-Pharm: Other *list below* Other: or SAMMI WELLS MD Feb 08, 2023 19:26
--- NOTE | 2023-02-08 19:36 | Diagnostic Imaging Report ---
INDICATION: Pneumothorax status post Thora-Vent placement. COMPARISONS: 02/08/2023 at 3:45 a.m., this film was obtained at 7:14 PM FINDINGS: Single chest shows reexpansion of a large left pneumothorax post placement of a small [place] left chest tube. The tip of the tube is directed medially. Right lung appears well-aerated. There is extensive left chest wall subcutaneous emphysema. IMPRESSION: 1. Near complete reexpansion of the left lung post placement of a small [place] left chest tube. 2. Extensive left chest wall subcutaneous emphysema. Dictated by: Dictated on workstation # [id number]
[2023-02-08 20:04] VITALS: BP 131/75
--- NOTE | 2023-02-08 21:47 | Progress Note ---
Standard Progress Note Progress Notes/Assess & Plan Date Seen by a Provider: Feb 08, 2023 Time Seen by a Provider: 15:00 Progress/Assessment & Plan Patient has no cmoplaints. Postop day 5 VSS LEFT HIP dressing clean and dry with no surrounding warmth or erythema. Calves soft and nontender. Laboratory Tests 02/05/23 08:59: White Blood Count 9.4, Red Blood Count 2.71L, Hemoglobin 8.0#L, Hematocrit 24L, Mean Corpuscular Volume 87, Mean Corpuscular Hemoglobin 30, Mean Corpuscular Hemoglobin Concent 34, Red Cell Distribution Width 14.6H, Platelet Count 80L, Mean Platelet Volume 11.3, Immature Granulocyte % (Auto) 1, Neutrophils (%) (Auto) 73, Lymphocytes (%) (Auto) 13, Monocytes (%) (Auto) 11, Eosinophils (%) (Auto) 3, Basophils (%) (Auto) 0, Neutrophils # (Auto) 6.8, Lymphocytes # (Auto) 1.2, Monocytes # (Auto) 1.1H, Eosinophils # (Auto) 0.3, Basophils # (Auto) 0.0, Immature Granulocyte # (Auto) 0.1, Neutrophils % (Manual) 84, Lymphocytes % (Manual) 7, Monocytes % (Manual) 7, Eosinophils % (Manual) 2, Percent Immature Platelet Fraction 3.7, Acanthocytes SLIGHT 02/06/23 04:12: White Blood Count 7.4, Red Blood Count 2.33L, Hemoglobin 6.8*L, Hematocrit 20*L, Mean Corpuscular Volume 87, Mean Corpuscular Hemoglobin 29, Mean Corpuscular Hemoglobin Concent 34, Red Cell Distribution Width 14.6H, Platelet Count 89L, Mean Platelet Volume 11.1, Immature Granulocyte % (Auto) 1, Neutrophils (%) (Auto) 63, Lymphocytes (%) (Auto) 19, Monocytes (%) (Auto) 14H, Eosinophils (%) (Auto) 4, Basophils (%) (Auto) 0, Neutrophils # (Auto) 4.6, Lymphocytes # (Auto) 1.4, Monocytes # (Auto) 1.0, Eosinophils # (Auto) 0.3, Basophils # (Auto) 0.0, Immature Granulocyte # (Auto) 0.1, Sodium Level 137, Potassium Level 4.0, Chloride Level 107, Carbon Dioxide Level 24, Anion Gap 6, Blood Urea Nitrogen 19H, Creatinine 0.84, Estimat Glomerular Filtration Rate 86, BUN/Creatinine Ratio 23, Glucose Level 90, Calcium Level 7.9L, Corrected Calcium 9.2, Magnesium Level 2.0, Total Bilirubin 0.9, Aspartate Amino Transf (AST/SGOT) 24, Alanine Aminotransferase (ALT/SGPT) 20, Alkaline Phosphatase 49, Total Protein 4.3L, Albumin 2.4L 02/07/23 03:56: White Blood Count 7.5, Red Blood Count 2.69L, Hemoglobin 8.1L, Hematocrit 24L, Mean Corpuscular Volume 89, Mean Corpuscular Hemoglobin 30, Mean Corpuscular Hemoglobin Concent 34, Red Cell Distribution Width 14.3, Platelet Count 127L, Mean Platelet Volume 10.1, Immature Granulocyte % (Auto) 1, Neutrophils (%) (Auto) 64, Lymphocytes (%) (Auto) 21, Monocytes (%) (Auto) 13H, Eosinophils (%) (Auto) 2, Basophils (%) (Auto) 0, Neutrophils # (Auto) 4.7, Lymphocytes # (Auto) 1.5, Monocytes # (Auto) 1.0, Eosinophils # (Auto) 0.1, Basophils # (Auto) 0.0, Immature Granulocyte # (Auto) 0.1, Percent Immature Platelet Fraction 2.3, Sodium Level 139, Potassium Level 4.2, Chloride Level 106, Carbon Dioxide Level 24, Anion Gap 9, Blood Urea Nitrogen 21H, Creatinine 0.84, Estimat Glomerular Filtration Rate 86, BUN/Creatinine Ratio 25, Glucose Level 95, Calcium Level 8.1L, Corrected Calcium 9.4, Magnesium Level 1.9, Total Bilirubin 1.4H, Aspartat e Amino Transf (AST/SGOT) 29, Alanine Aminotransferase (ALT/SGPT) 26, Alkaline Phosphatase 56, Total Protein 4.6L, Albumin 2.4L Doing well S/P left hip hemiarthroplasty Plan: PT/OT DVT priphylaxis To IRU Final Diagnosis Doong well S/P Left hip hemiarthroplasty JESIKA BANSAL Feb 08, 2023 21:47
[2023-02-08 23:11] VITALS: BP 133/72
--- NOTE | 2023-02-09 01:21 | OPERATIVE REPORT ---
DATE OF SERVICE: 02/08/2023 ATTENDING PRIMARY CARE PHYSICIAN: Dr. Kennedy March. ADMITTING PHYSICIAN: Dr. Hunt. PREOPERATIVE DIAGNOSIS: Recurrent left pneumothorax. POSTOPERATIVE DIAGNOSIS: Recurrent left pneumothorax. PROCEDURE: Placement of left chest tube with vacuum container device. SURGEON: Sammi Wells MD ANESTHESIA: Local. ESTIMATED BLOOD LOSS: Minimal. FINDINGS: No air leak. DISPOSITION: The patient tolerated the procedure well. INDICATIONS: The patient is an 82-year-old male who suffered a stroke approximately 6 months ago and was rehabilitating at home. He states that he stood up from his wheelchair and lost balance and fell on his left side. He was evaluated in the Emergency Department and was found to have fracture at the neck of the femur. He then underwent a bipolar repair of the neck of the femur. After the surgery, the patient was sent to the ICU. He had issues with hypotension as well as fevers and required vasopressors and a left subclavian central venous catheter was placed. A small pneumothorax after the procedure was identified and this was monitored and the following day, this had grown larger in size. A Thora-Vent was placed in the pneumothorax had resolved and this was left in place for 2 days. Subsequent followup chest x-rays showed a completely inflated lung and the Thora-Vent was removed and post-removal chest x-ray showed again a small pneumothorax and again this was monitored. The chest x-ray following day did show worsening of the pneumothorax again. We will proceed with placement of a chest tube with a vacuum container device was water sealed to detect if there is any leakage from the pleural cavity. DESCRIPTION OF PROCEDURE: The patient was laid supine in his bed. The anterolateral chest was then prepped and draped in standard surgical fashion. 1% lidocaine was then used to anesthetize the skin, subcutaneous tissue and muscle layers as well as approximately the sixth intercostal space anterolaterally. A small skin incision was made using 11 blade and the catheter and sheath were then introduced suctioning air and the catheter was advanced trocar without any resistance. The catheter was then to tubing and vacutainer device with water seal that was placed on suction and initially there was air leak as the air was evacuated. However, after full expansion of the lung, there was no air leak identified. Good hemostasis was also observed. The chest tube was then sutured to the skin using interrupted 3-0 Vicryl suture. Catheter was then cleaned and covered with gauze followed by Op-Site. The patient tolerated the procedure well. We will get a post-procedure chest x-ray. Job ID: [id number] DocumentID: [id number] Dictated Date: 02/08/2023 19:32:14 Edge Grinder Date: 02/09/2023 01:18:00 Dictated By: SAMMI WELLS MD
[2023-02-09 04:24] VITALS: BP 121/71
--- NOTE | 2023-02-09 05:09 | Discharge Summary ---
Diagnosis/Chief Complaint Date of Admission Feb 03, 2023 at 03:55 Date of Discharge Discharge Date: Feb 09, 2023 Discharge Diagnosis Assess & Plan/Chief Complaint Left femoral neck fracture -Ortho is managing pain -on lovenox per ortho Acute blood loss anemia causing hypovolumic shock -Hgb pre-op is 14.5 -received 4 units so far, last on 02/06 -Hgb on 02/07 8.1, 02/08 9.0, trending up -monitor Pneumothorax, left sided -thoravent placed on 02/04 after worsening ptx on cxr -removed after resolution -CXR over 02/07, 02/08 with worsening left sided ptx -not in respiratory distress, monitoring -to consider repeat chest tube placement Falls/debility Post-stroke residual deficits -Patient is fairly independent at home with help from -Will likely be candidate for inpatient rehab post-operatively - reports no other falls since before patient's stroke in 08/2021 -PT/OT inpatient prior to IRU placement HLD -On ASA and atorvastatin at home - will continue post-operatively Hypothyroidism -Patient is on levothyroxine - continue post-operatively FEN/GI -Fluids per anesthesia/ortho today -Replace electrolytes as needed -Bowel regimen (senna, docusate, doculax, miralax, lactulose) PRN, Zofran PRN for nausea/vomiting, PPI, antacids PRN for ulcer prophylaxis Dispo: redeveloping left sided ptx, awaiting rehab placement following resolution. Reason Hospital Visit Discharge Summary Discharge Physical Examination Allergies: Coded Allergies: Influenza Virus Vaccines (Verified Allergy, Severe, 02/03/23) Penicillins (Verified Allergy, Severe, 02/03/23) Vitals & I&Os Vital Signs Date Time Temp Pulse Resp B/P (MAP) Pulse Ox O2 Delivery O2 Flow Rate FiO2 02/09/23 10:34 37.3 89 18 137/77 95 Room Air 2.00 02/07/23 18:52 21 General Appearance: Alert, Oriented X3, Cooperative Respiratory: Clear to Auscultation Cardiovascular: Regular Rate Hospital Course Was the Problem List Reviewed?: Yes Lengthy course after he was admitted for hip fracture and underwent unco mplicated repair but experienced hypovolumic shock requiring rapid response and transfer to ICU for IVF and blood transfusions with pressor therapy. He required ICU for several days until BP returned to normal. Central line initiated but resulted in small PTX but that worsened so required chest tube by Dr Bonds. Overall he had no other events and he was DC to [facility] after insurance overturned denial. Labs (last 24 hrs) Laboratory Tests 02/03/23 01:20: White Blood Count 11.2H, Red Blood Count 5.08, Hemoglobin 14.5, Hematocrit 44, Mean Corpuscular Volume 86, Mean Corpuscular Hemoglobin 29, Mean Corpuscular Hemoglobin Concent 33, Red Cell Distribution Width 14.7H, Platelet Count 147, Mean Platelet Volume 10.1, Immature Granulocyte % (Auto) 0, Neutrophils (%) (Auto) 78H, Lymphocytes (%) (Auto) 12, Monocytes (%) (Auto) 9, Eosinophils (%) (Auto) 0, Basophils (%) (Auto) 0, Neutrophils # (Auto) 8.8H, Lymphocytes # (Auto) 1.4, Monocytes # (Auto) 1.0, Eosinophils # (Auto) 0.0, Basophils # (Auto) 0.0, Immature Granulocyte # (Auto) 0.0, Prothrombin Time 13.8, INR Comment 1.0, Activated Partial Thromboplast Time 32, Sodium Level 140, Potassium Level 3.8, Chloride Level 100, Carbon Dioxide Level 27, Anion Gap 13, Blood Urea Nitrogen 27H, Creatinine 0.94, Estimat Glomerular Filtration Rate 80, BUN/Creatinine Ratio 29, Glucose Level 115H, Calcium Level 10.0, Corrected Calcium 9.9, Total Bilirubin 0.9, Aspartate Amino Transf (AST/SGOT) 30, Alanine Aminotransferase (ALT/SGPT) 36, Alkaline Phosphatase 107, Total Protein 6.8, Albumin 4.1 02/03/23 02:05: Urine Color YELLOW, Urine Clarity CLEAR, Urine pH 8.0, Urine Specific [place] 1.015L, Urine Protein TRACEH, Urine Glucose (UA) NEGATIVE, Urine Ketones 2+H, Urine Nitrite NEGATIVE, Urine Bilirubin NEGATIVE, Urine Urobilinogen 0.2, Urine Leukocyte Esterase NEGATIVE, Urine RBC (Auto) NEGATIVE, Urine RBC NONE, Urine WBC NONE, Urine Crystals PRESENTH, Urine Amorphous Sediment MOD OZZIE PHOSPHATEH, Urine Bacteria NEGATIVE, Urine Casts NONE, Urine Mucus NEGATIVE, Urine Culture Indicated NO 02/03/23 13:34: Glucometer 174H 02/03/23 14:30: White Blood Count 16.5H, Red Blood Count 3.48L, Hemoglobin 10.1#L, Hematocrit 31L, Mean Corpuscular Volume 89, Mean Corpuscular Hemoglobin 29, Mean Corpuscular Hemoglobin Concent 33, Red Cell Distribution Width 15.0H, Platelet Count 124L, Mean Platelet Volume 10.8, Sodium Level 137, Potassium Level 4.0, Chloride Level 105, Carbon Dioxide Level 24, Anion Gap 8, Blood Urea Nitrogen 23H, Creatinine 0.89, Estimat Glomerular Filtration Rate 85, BUN/Creatinine Ratio 26, Glucose Level 173H, Calcium Level 8.5, Percent Immature Platelet Fraction 3.8, Magnesium Level 1.5L, Troponin I < 0.028 02/03/23 17:07: Blood Gas Puncture Site L RAD, Blood Gas Patient Temperature 36.8, Arterial Blood pH 7.40, Arterial Blood Partial Pressure CO2 37, Arterial Blood Partial Pressure O2 76L, Arterial Blood HCO3 22L, Arterial Blood Total CO2 23.5, Arterial Blood Oxygen Saturation 97, Arterial Blood Base Excess -1.8, [place] Test POSITIVE, Blood Gas Ventilator Setting , Blood Gas Inspired Oxygen 02/03/23 18:55: White Blood Count 17.4H, Red Blood Count 2.72L, Hemoglobin 7.9#L, Hematocrit 24L , Mean Corpuscular Volume 89, Mean Corpuscular Hemoglobin 29, Mean Corpuscular Hemoglobin Concent 33, Red Cell Distribution Width 15.1H, Platelet Count 123L, Mean Platelet Volume 10.6, Percent Immature Platelet Fraction 4.1, Sodium Level 136, Potassium Level 4.1, Chloride Level 107, Carbon Dioxide Level 21, Anion Gap 8, Blood Urea Nitrogen 24H, Creatinine 1.07, Estimat Glomerular Filtration Rate 68, BUN/Creatinine Ratio 22, Glucose Level 249H, Calcium Level 7.6L, Procalcitonin 0.80H 02/04/23 00:20: Hemoglobin 7.8L, Hematocrit 23L 02/04/23 04:05: White Blood Count 10.4, Red Blood Count 2.64L, Hemoglobin 7.7L, Hematocrit 23L, Mean Corpuscular Volume 86, Mean Corpuscular Hemoglobin 29, Mean Corpuscular Hemoglobin Concent 34, Red Cell Distribution Width 14.8H, Platelet Count 89L, Mean Platelet Volume 10.8, Sodium Level 138, Potassium Level 4.7, Chloride Level 108H, Carbon Dioxide Level 23, Anion Gap 7, Blood Urea Nitrogen 28H, Creatinine 1.03, Estimat Glomerular Filtration Rate 72, BUN/Creatinine Ratio 27, Glucose Level 132H, Calcium Level 8.2L, Immature Granulocyte % (Auto) 0, Neutrophils (%) (Auto) 75, Lymphocytes (%) (Auto) 12, Monocytes (%) (Auto) 13H, Eosinophils (%) (Auto) 0, Basophils (%) (Auto) 0, Neutrophils # (Auto) 7.7, Lymphocytes # (Auto) 1.2, Monocytes # (Auto) 1.3H, Eosinophils # (Auto) 0.0, Basophils # (Auto) 0.0, Immature Granulocyte # (Auto) 0.0, Corrected Calcium 9.2, Phosphorus Level 2.7, Magnesium Level 2.0, Total Bilirubin 0.8, Aspartate Amino Transf (AST/SGOT) 18, Alanine Aminotransferase (ALT/SGPT) 8, Alkaline Phosphatase 36L, Total Protein 4.2L, Albumin 2.7L 02/04/23 06:10: Iron Level 12L, Vitamin B12 Level 347 02/04/23 09:21: White Blood Count 11.2H, Red Blood Count 2.96L, Hemoglobin 8.7L, Hematocrit 26L, Mean Corpuscular Volume 87, Mean Corpuscular Hemoglobin 29, Mean Corpuscular Hemoglobin Concent 34, Red Cell Distribution Width 14.8H, Platelet Count 91L, Mean Platelet Volume 11.0, Percent Immature Platelet Fraction 4.0 02/04/23 12:16: Lab Scanned Report Transfusion Reaction Form 02/05/23 03:27: White Blood Count 8.3, Red Blood Count 2.23L, Hemoglobin 6.5#*L, Hematocrit 19*L , Mean Corpuscular Volume 87, Mean Corpuscular Hemoglobin 29, Mean Corpuscular Hemoglobin Concent 34, Red Cell Distribution Width 14.7H, Platelet Count 72L, Mean Platelet Volume 11.1, Percent Immature Platelet Fraction 3.4, Immature Granulocyte % (Auto) 0, Neutrophils (%) (Auto) 68, Lymphocytes (%) (Auto) 16, Monocytes (%) (Auto) 14H, Eosinophils (%) (Auto) 1, Basophils (%) (Auto) 0, Neutrophils # (Auto) 5.7, Lymphocytes # (Auto) 1.4, Monocytes # (Auto) 1.2H, Eosinophils # (Auto) 0.1, Basophils # (Auto) 0.0, Immature Granulocyte # (Auto) 0.0, Sodium Level 137, Potassium Level 4.3, Chloride Level 108H, Carbon Dioxide Level 23, Anion Gap 6, Blood Urea Nitrogen 29H, Creatinine 0.87, Estimat Glomerular Filtration Rate 85, BUN/Creatinine Ratio 33, Glucose Level 109H, Calcium Level 7.9L, Corrected Calcium 9.1, Phosphorus Level 2.0L, Magnesium Level 1.8, Total Bilirubin 0.6, Aspartate Amino Transf (AST/SGOT) 19, Alanine Aminotransferase (ALT/SGPT) 14, Alkaline Phosphatase 41, Total Protein 4.1L, Albumin 2.5L 02/05/23 08:59: White Blood Count 9.4, Red Blood Count 2.71L, Hemoglobin 8.0#L, Hematocrit 24L, Mean Corpuscular Volume 87, Mean Corpuscular Hemoglobin 30, Mean Corpuscular Hemoglobin Concent 34, Red Cell Distribution Width 14.6H, Platelet Count 80L, Mean Platelet Volume 11.3, Immature Granulocyte % (Auto) 1, Neutrophils (%) (Auto) 73, Lymphocytes (%) (Auto) 13, Monocytes (%) (Auto) 11, Eosinophils (%) (Auto) 3, Basophils (%) (Auto) 0, Neutrophils # (Auto) 6.8, Lymphocytes # (Auto) 1.2, Monocytes # (Auto) 1.1H, Eosinophils # (Auto) 0.3, Basophils # (Auto) 0.0, Immature Granulocyte # (Auto) 0.1, Neutrophils % (Manual) 84, Lymphocytes % (Manual) 7, Monocytes % (Manual) 7, Eosinophils % (Manual) 2, Percent Immature Platelet Fraction 3.7, Acanthocytes SLIGHT 02/06/23 04:12: White Blood Count 7.4, Red Blood Count 2.33L, Hemoglobin 6.8*L, Hematocrit 20*L, Mean Corpuscular Volume 87, Mean Corpuscular Hemoglobin 29, Mean Corpuscular He moglobin Concent 34, Red Cell Distribution Width 14.6H, Platelet Count 89L, Mean Platelet Volume 11.1, Immature Granulocyte % (Auto) 1, Neutrophils (%) (Auto) 63, Lymphocytes (%) (Auto) 19, Monocytes (%) (Auto) 14H, Eosinophils (%) (Auto) 4, Basophils (%) (Auto) 0, Neutrophils # (Auto) 4.6, Lymphocytes # (Auto) 1.4, Monocytes # (Auto) 1.0, Eosinophils # (Auto) 0.3, Basophils # (Auto) 0.0, Immature Granulocyte # (Auto) 0.1, Sodium Level 137, Potassium Level 4.0, Chloride Level 107, Carbon Dioxide Level 24, Anion Gap 6, Blood Urea Nitrogen 19H, Creatinine 0.84, Estimat Glomerular Filtration Rate 86, BUN/Creatinine Ratio 23, Glucose Level 90, Calcium Level 7.9L, Corrected Calcium 9.2, Magnesium Level 2.0, Total Bilirubin 0.9, Aspartate Amino Transf (AST/SGOT) 24, Alanine Aminotransferase (ALT/SGPT) 20, Alkaline Phosphatase 49, Total Protein 4.3L, Albumin 2.4L 02/07/23 03:56: White Blood Count 7.5, Red Blood Count 2.69L, Hemoglobin 8.1L, Hematocrit 24L, Mean Corpuscular Volume 89, Mean Corpuscular Hemoglobin 30, Mean Corpuscular Hemoglobin Concent 34, Red Cell Distribution Width 14.3, Platelet Count 127L, Mean Platelet Volume 10.1, Immature Granulocyte % (Auto) 1, Neutrophils (%) (Auto) 64, Lymphocytes (%) (Auto) 21, Monocytes (%) (Auto) 13H, Eosinophils (%) (Auto) 2, Basophils (%) (Auto) 0, Neutrophils # (Auto) 4.7, Lymphocytes # (Auto) 1.5, Monocytes # (Auto) 1.0, Eosinophils # (Auto) 0.1, Basophils # (Auto) 0.0, Immature Granulocyte # (Auto) 0.1, Percent Immature Platelet Fraction 2.3, Sodium Level 139, Potassium Level 4.2, Chloride Level 106, Carbon Dioxide Level 24, Anion Gap 9, Blood Urea Nitrogen 21H, Creatinine 0.84, Estimat Glomerular Filtration Rate 86, BUN/Creatinine Ratio 25, Glucose Level 95, Calcium Level 8.1L, Corrected Calcium 9.4, Magnesium Level 1.9, Total Bilirubin 1.4H, Aspartate Amino Transf (AST/SGOT) 29, Alanine Aminotransferase (ALT/SGPT) 26, Alkaline Phosphatase 56, Total Protein 4.6L, Albumin 2.4L 02/08/23 06:05: White Blood Count 9.9, Red Blood Count 3.05L, Hemoglobin 9.0L, Hematocrit 27L, Mean Corpuscular Volume 89, Mean Corpuscular Hemoglobin 30, Mean Corpuscular Hemoglobin Concent 33, Red Cell Distribution Width 14.4, Platelet Count 158, Mean Platelet Volume 9.7, Immature Granulocyte % (Auto) 2, Neutrophils (%) (Auto) 65, Lymphocytes (%) (Auto) 16, Monocytes (%) (Auto) 15H, Eosinophils (%) (Auto) 2, Basophils (%) (Auto) 0, Neutrophils # (Auto) 6.5, Lymphocytes # (Auto) 1.6, Monocytes # (Auto) 1.5H, Eosinophils # (Auto) 0.2, Basophils # (Auto) 0.0, Immature Granulocyte # (Auto) 0.2H, Sodium Level 136, Potassium Level 4.1, Chloride Level 105, Carbon Dioxide Level 23, Anion Gap 8, Blood Urea Nitrogen 21H, Creatinine 0.80, Estimat Glomerular Filtration Rate 87, BUN/Creatinine Ratio 26, Glucose Level 97, Calcium Level 8.5, Corrected Calcium 9.7, Magnesium Level 1.8, Total Bilirubin 1.4H, Aspartate Amino Transf (AST/SGOT) 35H, Alanine Aminotransferase (ALT/SGPT) 29, Alkaline Phosphatase 65, Total Protein 5.1L, Albumin 2.5L 02/09/23 05:42: White Blood Count 10.2, Red Blood Count 2.88L, Hemoglobin 8.6L, Hematocrit 26L, Mean Corpuscular Volume 91, Mean Corpuscular Hemoglobin 30, Mean Corpuscular Hemoglobin Concent 33, Red Cell Distribution Width 14.8H, Platelet Count 186, Mean Platelet Volume 9.8, Immature Granulocyte % (Auto) 2, Neutrophils (%) (Auto) 66, Lymphocytes (%) (Auto) 15, Monocytes (%) (Auto) 15H, Eosinophils (%) (Auto) 2, Basophils (%) (Auto) 0, Neutrophils # (Auto) 6.7, Lymphocytes # (Auto) 1.5, Monocytes # (Auto) 1.5H, Eosinophils # (Auto) 0.3, Basophils # (Auto) 0.0, Immature Granulocyte # (Auto) 0.2H, Sodium Level 137, Potassium Level 4.1, Chloride Level 106, Carbon Dioxide Level 23, Anion Gap 8, Blood Urea Nitrogen 23H, Creatinine 0.80, Estimat Glomerular Filtration Rate 87, BUN/Creatinine Ratio 29, Glucose Level 88, Calcium Level 8.2L, Corrected Calcium 9.6, Magnesium Level 1.8, Total Bilirubin 1.3H, Aspartate Amino Transf (AST/SGOT) 38H, Alanine Aminotransferase (ALT/SGPT) 33, Alkaline Phosphatase 60, Total Protein 4.6L, Albumin 2.3L Pending Labs Laboratory Tests 02/03/23 01:20: White Blood Count 11.2, Red Blood Count 5.08, Hemoglobin 14.5, Hematocrit 44, Mean Corpuscular Volume 86, Mean Corpuscular Hemoglobin 29, Mean Corpuscular Hemoglobin Concent 33, Red Cell Distribution Width 14.7, Platelet Count 147, Mean Platelet Volume 10.1, Immature Granulocyte % (Auto) 0, Neutrophils (%) (Auto) 78, Lymphocytes (%) (Auto) 12, Monocytes (%) (Auto) 9, Eosinophils (%) (Auto) 0, Basophils (%) (Auto) 0, Neutrophils # (Auto) 8.8, Lymphocytes # (Auto) 1.4, Monocytes # (Auto) 1.0, Eosinophils # (Auto) 0.0, Basophils # (Auto) 0.0, Immature Granulocyte # (Auto) 0.0, Prothrombin Time 13.8, INR Comment 1.0, Activated Partial Thromboplast Time 32, Sodium Level 140, Potassium Level 3.8, Chloride Level 100, Carbon Dioxide Level 27, Anion Gap 13, Blood Urea Nitrogen 27, Creatinine 0.94, Estimat Glomerular Filtration Rate 80, BUN/Creatinine Ratio 29, Glucose Level 115, Calcium Level 10.0, Corrected Calcium 9.9, Total Bilirubin 0.9, Aspartate Amino Transf (AST/SGOT) 30, Alanine Aminotransferase (ALT/SGPT) 36, Alkaline Phosphatase 107, Total Protein 6.8, Albumin 4.1 02/03/23 02:05: Urine Color YELLOW, Urine Clarity CLEAR, Urine pH 8.0, Urine Specific [place] 1.015, Urine Protein TRACE, Urine Glucose (UA) NEGATIVE, Urine Ketones 2+, Urine Nitrite NEGATIVE, Urine Bilirubin NEGATIVE, Urine Urobilinogen 0.2, Urine Leukocyte Esterase NEGATIVE, Urine RBC (Auto) NEGATIVE, Urine RBC NONE, Urine WBC NONE, Urine Crystals PRESENT, Urine Amorphous Sediment MOD [place]ZZIE PHOSPHATE, Urine Bacteria NEGATIVE, Urine Casts NONE, Urine Mucus NEGATIVE, Urine Culture Indicated NO 02/03/23 13:34: Glucometer 174 02/03/23 14:30: White Blood Count 16.5, Red Blood Count 3.48, Hemoglobin 10.1, Hematocrit 31, Mean Corpuscular Volume 89, Mean Corpuscular Hemoglobin 29, Mean Corpuscular Hemoglobin Concent 33, Red Cell Distribution Width 15.0, Platelet Count 124, Mean Platelet Volume 10.8, Sodium Level 137, Potassium Level 4.0, Chloride Level 105, Carbon Dioxide Level 24, Anion Gap 8, Blood Urea Nitrogen 23, Creatinine 0.89, Estimat Glomerular Filtration Rate 85, BUN/Creatinine Ratio 26, Glucose Level 173, Calcium Level 8.5, Percent Immature Platelet Fraction 3.8, Magnesium Level 1.5, Troponin I < 0.028 02/03/23 17:07: Blood Gas Puncture Site L RAD, Blood Gas Patient Temperature 36.8, Arterial Blood pH 7.40, Arterial Blood Partial Pressure CO2 37, Arterial Blood Partial Pressure O2 76, Arterial Blood HCO3 22, Arterial Blood Total CO2 23.5, Arterial Blood Oxygen Saturation 97, Arterial Blood Base Excess -1.8, [place] Test POSITIVE, Blood Gas Ventilator Setting , Blood Gas Inspired Oxygen 02/03/23 18:55: White Blood Count 17.4, Red Blood Count 2.72, Hemoglobin 7.9, Hematocrit 24, Mean Corpuscular Volume 89, Mean Corpuscular Hemoglobin 29, Mean Corpuscular Hemoglobin Concent 33, Red Cell Distribution Width 15.1, Platelet Count 123, Mean Platelet Volume 10.6, Percent Immature Platelet Fraction 4.1, Sodium Level 136, Potassium Level 4.1, Chloride Level 107, Carbon Dioxide Level 21, Anion Gap 8, Blood Urea Nitrogen 24, Creatinine 1.07, Estimat Glomerular Filtration Rate 68, BUN/Creatinine Ratio 22, Glucose Level 249, Calcium Level 7.6, Procalcitonin 0.80 02/04/23 00:20: Hemoglobin 7.8, Hematocrit 23 02/04/23 04:05: White Blood Count 10.4, Red Blood Count 2.64, Hemoglobin 7.7, Hematocrit 23, Mean Corpuscular Volume 86, Mean Corpuscular Hemoglobin 29, Mean Corpuscular Hemoglobin Concent 34, Red Cell Distribution Width 14.8, Platelet Count 89, Mean Platelet Volume 10.8, Sodium Level 138, Potassium Level 4.7, Chloride Level 108, Carbon Dioxide Level 23, Anion Gap 7, Blood Urea Nitrogen 28, Creatinine 1.03, Estimat Glomerular Filtration Rate 72, BUN/Creatinine Ratio 27, Glucose Level 132, Calcium Level 8.2, Immature Granulocyte % (Auto) 0, Neutrophils (%) (Auto) 75, Lymphocytes (%) (Auto) 12, Monocytes (%) (Auto) 13, Eosinophils (%) (Auto) 0, Basophils (%) (Auto) 0, Neutrophils # (Auto) 7.7, Lymphocytes # (Auto) 1.2, Monocytes # (Auto) 1.3, Eosinophils # (Auto) 0.0, Basophils # (Auto) 0.0, Immature Granulocyte # (Auto) 0.0, Corrected Calcium 9.2, Phosphorus Level 2.7, Magnesium Level 2.0, Total Bilirubin 0.8, Aspartate Amino Transf (AST/SGOT) 18, Alanine Aminotransferase (ALT/SGPT) 8, Alkaline Phosphatase 36, Total Protein 4.2, Albumin 2.7 02/04/23 06:10: Iron Level 12, Vitamin B12 Level 347 02/04/23 09:21: White Blood Count 11.2, Red Blood Count 2.96, Hemoglobin 8.7, Hematocrit 26, M caity Corpuscular Volume 87, Mean Corpuscular Hemoglobin 29, Mean Corpuscular Hemoglobin Concent 34, Red Cell Distribution Width 14.8, Platelet Count 91, Mean Platelet Volume 11.0, Percent Immature Platelet Fraction 4.0 02/04/23 12:16: Lab Scanned Report Transfusion Reaction Form 02/05/23 03:27: White Blood Count 8.3, Red Blood Count 2.23, Hemoglobin 6.5, Hematocrit 19, Mean Corpuscular Volume 87, Mean Corpuscular Hemoglobin 29, Mean Corpuscular Hemoglobin Concent 34, Red Cell Distribution Width 14.7, Platelet Count 72, Mean Platelet Volume 11.1, Percent Immature Platelet Fraction 3.4, Immature Granulocyte % (Auto) 0, Neutrophils (%) (Auto) 68, Lymphocytes (%) (Auto) 16, Monocytes (%) (Auto) 14, Eosinophils (%) (Auto) 1, Basophils (%) (Auto) 0, Neutrophils # (Auto) 5.7, Lymphocytes # (Auto) 1.4, Monocytes # (Auto) 1.2, Eosinophils # (Auto) 0.1, Basophils # (Auto) 0.0, Immature Granulocyte # (Auto) 0.0, Sodium Level 137, Potassium Level 4.3, Chloride Level 108, Carbon Dioxide Level 23, Anion Gap 6, Blood Urea Nitrogen 29, Creatinine 0.87, Estimat Glomerular Filtration Rate 85, BUN/Creatinine Ratio 33, Glucose Level 109, Calcium Level 7.9, Corrected Calcium 9.1, Phosphorus Level 2.0, Magnesium Level 1.8, Total Bilirubin 0.6, Aspartate Amino Transf (AST/SGOT) 19, Alanine Aminotransferase (ALT/SGPT) 14, Alkaline Phosphatase 41, Total Protein 4.1, [place] min 2.5 02/05/23 08:59: White Blood Count 9.4, Red Blood Count 2.71, Hemoglobin 8.0, Hematocrit 24, Mean Corpuscular Volume 87, Mean Corpuscular Hemoglobin 30, Mean Corpuscular Hemoglobin Concent 34, Red Cell Distribution Width 14.6, Platelet Count 80, Mean Platelet Volume 11.3, Immature Granulocyte % (Auto) 1, Neutrophils (%) (Auto) 73, Lymphocytes (%) (Auto) 13, Monocytes (%) (Auto) 11, Eosinophils (%) (Auto) 3, Basophils (%) (Auto) 0, Neutrophils # (Auto) 6.8, Lymphocytes # (Auto) 1.2, Monocytes # (Auto) 1.1, Eosinophils # (Auto) 0.3, Basophils # (Auto) 0.0, Immature Granulocyte # (Auto) 0.1, Neutrophils % (Manual) 84, Lymphocytes % (Manual) 7, Monocytes % (Manual) 7, Eosinophils % (Manual) 2, Percent Immature Platelet Fraction 3.7, Acanthocytes SLIGHT 02/06/23 04:12: White Blood Count 7.4, Red Blood Count 2.33, Hemoglobin 6.8, Hematocrit 20, Mean Corpuscular Volume 87, Mean Corpuscular Hemoglobin 29, Mean Corpuscular Hemoglobin Concent 34, Red Cell Distribution Width 14.6, Platelet Count 89, Mean Platelet Volume 11.1, Immature Granulocyte % (Auto) 1, Neutrophils (%) (Auto) 63, Lymphocytes (%) (Auto) 19, Monocytes (%) (Auto) 14, Eosinophils (%) (Auto) 4, Basophils (%) (Auto) 0, Neutrophils # (Auto) 4.6, Lymphocytes # (Auto) 1.4, Monocytes # (Auto) 1.0, Eosinophils # (Auto) 0.3, Basophils # (Auto) 0.0, Immature Granulocyte # (Auto) 0.1, Sodium Level 137, Potassium Level 4.0, Chloride Level 107, Carbon Dioxide Level 24, Anion Gap 6, Blood Urea Nitrogen 19, Creatinine 0.84, Estimat Glomerular Filtration Rate 86, BUN/Creatinine Ratio 23, Glucose Level 90, Calcium Level 7.9, Corrected Calcium 9.2, Magnesium Level 2.0, Total Bilirubin 0.9, Aspartate Amino Transf (AST/SGOT) 24, Alanine Aminotransferase (ALT/SGPT) 20, Alkaline Phosphatase 49, Total Protein 4.3, Albumin 2.4 02/07/23 03:56: White Blood Count 7.5, Red Blood Count 2.69, Hemoglobin 8.1, Hematocrit 24, Mean Corpuscular Volume 89, Mean Corpuscular Hemoglobin 30, Mean Corpuscular Hemoglobin Concent 34, Red Cell Distribution Width 14.3, Platelet Count 127, Mean Platelet Volume 10.1, Immature Granulocyte % (Auto) 1, Neutrophils (%) (Auto) 64, Lymphocytes (%) (Auto) 21, Monocytes (%) (Auto) 13, Eosinophils (%) (Auto) 2, Basophils (%) (Auto) 0, Neutrophils # (Auto) 4.7, Lymphocytes # (Auto) 1.5, Monocytes # (Auto) 1.0, Eosinophils # (Auto) 0.1, Basophils # (Auto) 0.0, Immature Granulocyte # (Auto) 0.1, Percent Immature Platelet Fraction 2.3, Sodium Level 139, Potassium Level 4.2, Chloride Level 106, Carbon Dioxide Level 24, Anion Gap 9, Blood Urea Nitrogen 21, Creatinine 0.84, Estimat Glomerular Filtration Rate 86, BUN/Creatinine Ratio 25, Glucose Level 95, Calcium Level 8.1, Corrected Calcium 9.4, Magnesium Level 1.9, Total Bilirubin 1.4, Aspartate Amino Transf (AST/SGOT) 29, Alanine Aminotransferase (ALT/SGPT) 26, Alkaline Phosphatase 56, Total Protein 4.6, Albumin 2.4 02/08/23 06:05: White Blood Count 9.9, Red Blood Count 3.05, Hemoglobin 9.0, Hematocrit 27, Mean Corpuscular Volume 89, Mean Corpuscular Hemoglobin 30, Mean Corpuscular Hemoglobin Concent 33, Red Cell Distribution Width 14.4, Platelet Count 158, Mean Platelet Volume 9.7, Immature Granulocyte % (Auto) 2, Neutrophils (%) (Auto) 65, Lymphocytes (%) (Auto) 16, Monocytes (%) (Auto) 15, Eosinophils (%) (Auto) 2, Basophils (%) (Auto) 0, Neutrophils # (Auto) 6.5, Lymphocytes # (Auto) 1.6, Monocytes # (Auto) 1.5, Eosinophils # (Auto) 0.2, Basophils # (Auto) 0.0, Immature Granulocyte # (Auto) 0.2, Sodium Level 136, Potassium Level 4.1, Chloride Level 105, Carbon Dioxide Level 23, Anion Gap 8, Blood Urea Nitrogen 21, Creatinine 0.80, Estimat Glomerular Filtration Rate 87, BUN/Creatinine Ratio 26, Glucose Level 97, Calcium Level 8.5, Corrected Calcium 9.7, Magnesium Level 1.8, Total Bilirubin 1.4, Aspartate Amino Transf (AST/SGOT) 35, Alanine Aminotransferase (ALT/SGPT) 29, Alkaline Phosphatase 65, Total Protein 5.1, Albumin 2.5 02/09/23 05:42: White Blood Count 10.2, Red Blood Count 2.88, Hemoglobin 8.6, Hematocrit 26, Mean Corpuscular Volume 91, Mean Corpuscular Hemoglobin 30, Mean Corpuscular Hemoglobin Concent 33, Red Cell Distribution Width 14.8, Platelet Count 186, Mean Platelet Volume 9.8, Immature Granulocyte % (Auto) 2, Neutrophils (%) (Auto) 66, Lymphocytes (%) (Auto) 15, Monocytes (%) (Auto) 15, Eosinophils (%) (Auto) 2, Basophils (%) (Auto) 0, Neutrophils # (Auto) 6.7, Lymphocytes # (Auto) 1.5, Monocytes # (Auto) 1.5, Eosinophils # (Auto) 0.3, Basophils # (Auto) 0.0, Immature Granulocyte # (Auto) 0.2, Sodium Level 137, Potassium Level 4.1, Chloride Level 106, Carbon Dioxide Level 23, Anion Gap 8, Blood Urea Nitrogen 23, Creatinine 0.80, Estimat Glomerular Filtration Rate 87, BUN/Creatinine Ratio 29, Glucose Level 88, Calcium Level 8.2, Corrected Calcium 9.6, Magnesium Level 1.8, Total Bilirubin 1.3, Aspartate Amino Transf (AST/SGOT) 38, Alanine Aminotransferase (ALT/SGPT) 33, Alkaline Phosphatase 60, Total Protein 4.6, Albumin 2.3 Discharge Home Medications: Active Scripts Active Reported Levothyroxine Sodium 125 Mcg Tablet 125 Mcg PO DAILY Atorvastatin Calcium 40 Mg Tablet 40 Mg PO HS One Daily For Men Tablet (Multivits-Minerals/FA/Lycopene) 0.4 Mg-600 Mcg Tablet 1 Each PO DAILY Aspirin EC (Aspirin) 81 Mg Tablet.dr 81 Mg PO 1200 Instructions to patient/family Please see electronic discharge instructions given to patient. Diagnosis/Problems Diagnosis/Problems (1) Closed left hip fracture Status: Acute Qualifiers: Qualified Codes: S72.002A - Fracture of unspecified part of neck of left femur, initial encounter for closed fracture Clinical Quality Measures AMI/AHF: ASA po Prior to arrival: No DVT/VTE Risk/Contraindication: Contraindications-Pharm: Other *list below* Other: or VIKI BOOTH DO Feb 09, 2023 05:09
[2023-02-09 06:09] LABS: BASOPHILS % (AUTO) 0 % (0-10); EOSINOPHILS # (AUTO) 0.3 10^3/uL (0.0-0.3); EOSINOPHILS % (AUTO) 2 % (0-10); HEMATOCRIT 26 % (40-54); HEMOGLOBIN 8.6 g/dL (13.3-17.7); LYMPHOCYTES # (AUTO) 1.5 10^3/uL (1.0-4.0); LYMPHOCYTES % (AUTO) 15 % (12-44); MEAN CORPUSCULAR HEMOGLOBIN 30 pg (25-34); MEAN CORPUSCULAR HGB CONC 33 g/dL (32-36); MEAN CORPUSCULAR VOLUME 91 fL (80-99); MEAN PLATELET VOLUME 9.8 fL (9.0-12.2); MONOCYTES # (AUTO) 1.5 10^3/uL (0.0-1.0); MONOCYTES % (AUTO) 15 % (0-12); NEUTROPHILS # (AUTO) 6.7 10^3/uL (1.8-7.8); NEUTROPHILS % (AUTO) 66 % (42-75); PLATELET COUNT 186 10^3/uL (130-400); WHITE BLOOD COUNT 10.2 10^3/uL (4.3-11.0)
[2023-02-09] MEDS: CYANOCOBALAMIN 1,000 MCG (VITAMIN B-12) TABLET PO SCH (06:15)
[2023-02-09] MEDS: LEVOTHYROXINE 125 MCG (LEVOTHROID) TABLET PO SCH (06:15)
[2023-02-09] MEDS: MULTIVIT W/MINERALS TAB (THERAGRAN M) PO SCH (06:15)
[2023-02-09 06:36] LABS: ALBUMIN 2.3 GM/DL (3.2-4.5); BILIRUBIN,TOTAL 1.3 MG/DL (0.1-1.0); CALCIUM 8.2 MG/DL (8.5-10.1); CREATININE SERUM 0.8 MG/DL (0.60-1.30); MAGNESIUM 1.8 MG/DL (1.6-2.4); POTASSIUM 4.1 MMOL/L (3.6-5.0); TOTAL PROTEIN 4.6 GM/DL (6.4-8.2)
[2023-02-09 07:29] VITALS: BP 137/77
[2023-02-09] MEDS: ENOXAPARIN 40 MG/0.4 ML (LOVENOX) SYR SC SCH (08:50)
[2023-02-09] MEDS: IRON SUCROSE 200 MG/10 ML (VENOFER) VIAL IV SCH (08:50)
[2023-02-09] MEDS: DOCUSATE SODIUM 100 MG (COLACE) CAP PO SCH (08:50)
[2023-02-09] MEDS: SENNOSIDES 8.6 MG (SENOKOT) TAB PO SCH (08:51)
[2023-02-09 10:34] VITALS: BP 137/77
== END 2023-02-09 10:36 | DRG 521 ==
LOC: EDUNIT# 00:58 → ER 00:59 → ICU 03:55 → 4TH 13:03 → ICU 13:48 → 4TH 02-05 15:08
PROVIDERS: ADMIT Internal Medicine; ATTEND Internal Medicine
PROC: 02HV33Z Insertion of Infusion Device into Superior Vena Cava, Percutaneous Approach (ICD-10-PCS; 2023-02-03)
PROC: 0SRS01A Replacement of Left Hip Joint, Femoral Surface with Metal Synthetic Substitute, Uncemented, Open Approach (ICD-10-PCS; principal; 2023-02-03 10:35)
PROC: 0W9B30Z Drainage of Left Pleural Cavity with Drainage Device, Percutaneous Approach (ICD-10-PCS; 2023-02-04)
DX: S72.002A Fracture of unspecified part of neck of left femur, initial encounter for closed fracture (principal); R57.1 Hypovolemic shock; J95.811 Postprocedural pneumothorax; R57.8 Other shock; D62 Acute posthemorrhagic anemia; E46 Unspecified protein-calorie malnutrition; I69.354 Hemiplegia and hemiparesis following cerebral infarction affecting left non-dominant side; Z68.20 Body mass index [BMI] 20.0-20.9, adult; I69.322 Dysarthria following cerebral infarction; E78.00 Pure hypercholesterolemia, unspecified; M19.91 Primary osteoarthritis, unspecified site; E89.0 Postprocedural hypothyroidism; D69.6 Thrombocytopenia, unspecified; H91.90 Unspecified hearing loss, unspecified ear; Z87.891 Personal history of nicotine dependence; Z85.828 Personal history of other malignant neoplasm of skin; Z88.0 Allergy status to penicillin; Z88.7 Allergy status to serum and vaccine; Z79.82 Long term (current) use of aspirin; Z79.899 Other long term (current) drug therapy; W19.XXXA Unspecified fall, initial encounter
CPT/HCPCS: 36415; 70450; 71045; 71250; 72125; 73501; 73552; 74176; 80048; 80053; 81000; 82607; 82805; 82947; 83540; 83735; 84100; 84145; 84484; 85007; 85014; 85018; 85025; 85027; 85610; 85730; 86850; 86900; 86901; 86920; 93005

== ENCOUNTER 2023-02-09 09:34 | Inpatient (IN) | payer MEDICARE ==
[~2023-02-09] VITALS: Ht 175.2 cm; Wt 65.8 kg
[~2023-02-09 09:34] MED LIST changes: +ASPI-1238 PO; +ATOR40TA70 PO; -IOHEXOL 350 MG/ML 100 ML (OMNIPAQUE 350) VIAL IV ONE; +LEVO125T6 PO; +MULT-851 PO; -NS 100 ML (IVPB) BAG IV ONE
--- NOTE | 2023-02-09 10:12 | PM&R Post Admission Assessment ---
PM&R HP Date of Visit: Feb 09, 2023 Time of Visit: 12:00 History of Present Illness CC: Left femoral neck fracture s/p repair with hypovolumic shock complication due to acute blood loss requiring ICU with pressors and blood transfusions and left PTX due to central line placement HPI: This is an 82yoWM clinic patient of Dr March who has a h/o CVA with left sided weakness who presented to ARU following a complicated hospital course following a fall with left hip fracture s/p repair but complicated with hypovolumic shock due to acute blood loss anemia requiring extended ICU stay with pressors and transfusions. Central line was placed and small PTX occurred and it worsened requiring chest tube placement. Overall his pain is improved and we will aggressive treat his debility with PT OT with use of AD. Past Kzbieji-Nvuqxd-Yzdadg Hx Past Med/Social Hx: Reviewed Nursing Past Med/Soc Hx, Reviewed and Corrections made Patient Social History Marrital Status: Employed/Student: retired Alcohol Use: Denies Use Smoking Status: Never a Smoker Past Medical History Surgeries: Orthopedic Currently Using CPAP: No Currently Using BIPAP: No Cardiac: High Cholesterol Neurological: Stroke Gastrointestinal: Abdominal Hernia Musculoskeletal: Arthritis Endocrine: Hypothyroidsim Hearing Impairment: Hard of Hearing Cancer: Skin Did You Recieve Any Treatments: Yes What Type of Treatment Did You: Surgical Intervention History of Blood Disorders: No Family History SOCIAL HISTORY: -SMOKED IN PAST--QUIT OVER 50 YEARS AGO -DENIES ETOH USE -DENIES DRUG USE PAST SURGICAL HISTORY: -LEFT KNEE SCOPE X 1 -TONSILLECTOMY -HERNIA REPAIR X 4 -SKIN CANCERS REMOVED FROM NOSE AND HAND -THROIDECTOMY PM&R Allergy/Meds/Data Review Allergies Coded Allergies: Influenza Virus Vaccines (Verified Allergy, Severe, 02/03/23) Penicillins (Verified Allergy, Severe, 02/03/23) Home Medications Scheduled Aspirin (Aspirin EC), 81 MG PO 1200, (Reported) Atorvastatin Calcium (Atorvastatin Calcium), 40 MG PO HS, (Reported) Levothyroxine Sodium (Levothyroxine Sodium), 125 MCG PO DAILY, (Reported) Multivits-Minerals/FA/Lycopene (One Daily For Men Tablet), 1 EACH PO DAILY, (Reported) Current Medications Current Medications Reviewed Review of Systems Constitutional: see HPI, malaise, weakness EENTM: no symptoms reported Respiratory: dyspnea on exertion Cardiovascular: no symptoms reported Gastrointestinal: no symptoms reported Genitourinary: no symptoms reported Musculoskeletal: back pain, joint pain Psychiatric/Neurological: Anxiety, Depressed, Numbness, Paresthesia, Weakness All Other Systems Reviewed Negative Unless Noted: Yes Physical Exam Physical Exam Vital Signs Capillary Refill : Height, Weight, BMI Height: '" Weight: lbs. oz. kg; 20.59 BMI Method: General Appearance: No Apparent Distress, WD/WN, Chronically ill, Thin, Other (frail) Eyes: Bilateral Eye Normal Inspection, Bilateral Eye PERRL HEENT: PERRL/EOMI, Normal ENT Inspection, Pharynx Normal Neck: Full Range of Motion, Normal Inspection, Non Tender, Supple, Carotid Bruit Respiratory: Chest Non Tender, Lungs Clear, Normal Breath Sounds, No Accessory Muscle Use, No Respiratory Distress Cardiovascular: Regular Rate, Rhythm, No Edema, No Gallop, No JVD, No Murmur, Normal Peripheral Pulses Gastrointestinal: Normal Bowel Sounds, No Organomegaly, No Pulsatile Mass, Non Tender, Soft Back: Normal Inspection, No CVA Tenderness, No Vertebral Tenderness Extremity: Normal Capillary Refill, Normal Inspection, Normal Range of Motion (excet left side), Non Tender, No Calf Tenderness, No Pedal Edema Neurologic/Psychiatric: Alert, Oriented x3, Normal Mood/Affect, caterer helper II-XII Norm as Tested, Abnormal Gait, Motor Weakness (left sided) Skin: Normal Color, Warm/Dry Lymphatic: No Adenopathy PM&R Medical Assessment & Plan REHAB/MEDICAL ASSESSMENT AND PLAN: REHAB IMPAIRMENT GROUP: Left hip fracture ETIOLOGIC DIAGNOSIS: Left hip fracture The comorbidities that impact the patients function and/or functional outcome by: remote CVA with catastrophic left sided weakness, recent hypovolumic shock requiring ICU and pressors with transfusions, PTX with CT REHAB PLAN: The patient is being admitted to our comprehensive inpatient rehabilitation facility and can tolerate the intensity of service consisting of at least: 180 minutes of therapy a day, 5 out of 7 days a week Rehab treatment will consist of: PT OT will focus on regaining function with wheelchair mobility and increased use of AD in addition will increase stamina an d increase ADL's The patient/family has a good understanding of our discharge process and will benefit from an interdisciplinary inpatient rehabilitation program. The patient has potential to make improvement and is in need of at least two of the followin g multidisciplinary therapies including but not limited to physical, occupational, speech, and prosthetics and orthotics. Additionally the patient will need services from respiratory, nutritional services, wound care, psychology, etc. (Customize this to each patient). Given the patients complex condition and risk of further medical complications, rehabilitation services cannot be safely or effectively provided at a lower level of care such as a senior care facility. BARRIERS TO DISCHARGE: CVA left sided weakness ESTIMATED LOS: 10 days DISPOSITION: Home RELEVANT CHANGES SINCE PREADMISSION SCREENING: I have compared the patients medical and functional status at the time of the preadmission screening and there are: no changes PROGNOSIS: Fair REHABILITATION GOALS: 1. PT OT will focus on regaining function with wheelchair mobility and increased use of AD in addition will increase stamina and increase ADL's All the above goals were reviewed with the patient and he/she is in agreement. By signing this document, I acknowledge that I have personally performed a full physical examination on this patient within 24 hours of admission to this inpatient rehabilitation facility and have determined the patient to be able to tolerate the above course of treatment at an intensive level for a reasonable period of time. I will be completing a detailed individualized Plan of Care for this patient by day #4 of the patients stay based upon the Preadmission Screen, the Post-Admission Evaluation, and the therapy evaluations. Admission Dx/Comorbidities: (1) Closed left hip fracture Status: Acute ICD Codes: S72.002A - Fracture of unspecified part of neck of left femur, initial encounter for closed fracture (2) Postoperative anemia due to acute blood loss Status: Acute ICD Codes: D62 - Acute posthemorrhagic anemia (3) Debility Status: Acute ICD Codes: R53.81 - Other malaise (4) History of cerebrovascular accident (CVA) with residual deficit Status: Chronic ICD Codes: I69.30 - Unspecified sequelae of cerebral infarction (5) Pneumothorax on left Status: Acute ICD Codes: J93.9 - Pneumothorax, unspecified (6) Central line complication Status: Acute ICD Codes: T82.9XXA - Unspecified complication of cardiac and vascular prosthetic device, implant and graft, initial encounter (7) Recurrent pneumothorax after chest tube removed Status: Acute ICD Codes: J95.811 - Postprocedural pneumothorax Assessment/Plan Assessment and Plan Assess & Plan/Chief Complaint Assess & Plan/Chief Complaint Left femoral neck fracture Acute blood loss anemia causing hypovolumic shock Pneumothorax, left sided requiring chest tube placement Falls/debility 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 HLD Hypothyroidism Iron deficiency Plan: PT OT Pain control Chest tube management Monitor closely VIKI BOOTH DO Feb 09, 2023 10:12
[2023-02-09] MEDS ORDERED: ACETAMINOPHEN 325 MG TABLET PO PRN ×2 (10:15→11:15)
[2023-02-09] MEDS ORDERED: CALCIUM CARBONATE 500 MG (TUMS) TAB.CHEW PO PRN ×2 (10:15→11:15)
[2023-02-09] MEDS ORDERED: ALPRAZolam 0.25 MG (XANAX) TAB PO PRN (10:15)
[2023-02-09] MEDS ORDERED: DOCUSATE SODIUM 100 MG (COLACE) CAP PO PRN (10:15)
[2023-02-09] MEDS ORDERED: ONDANSETRON 4 MG (ZOFRAN) ORAL DISSOLVE TAB PO PRN ×2 (10:15→11:15)
[2023-02-09] MEDS ORDERED: guaiFENesin/CODEINE (ROBITUSSIN AC) 10ML UDC PO PRN (10:15)
[2023-02-09] MEDS ORDERED: FLEET ENEMA ADULT 1 EA BTL PR PRN (10:15)
[2023-02-09] MEDS ORDERED: BISACODYL 10 MG SUPP (DULCOLAX) PR PRN ×2 (10:15→11:15)
[2023-02-09] MEDS ORDERED: LOPERAMIDE 2 MG (IMODIUM) TABLET PO PRN (10:15)
[2023-02-09] MEDS ORDERED: LACTULOSE SYRUP 10GM/15ML (ENULOSE) 30ML UDC PO PRN ×2 (10:15→11:15)
[2023-02-09] MEDS ORDERED: diphenhydrAMINE 25 MG TAB (BENADRYL) PO PRN ×2 (10:15→11:15)
[2023-02-09 11:15] VITALS: BP 129/74
[2023-02-09] MEDS ORDERED: ANTACID SUSP 30 ML UDC (MYLANTA) PO PRN (11:15)
[2023-02-09] MEDS ORDERED: diphenhydrAMINE 50 MG/ML INJ (BENADRYL) IVP PRN (11:15)
[2023-02-09] MEDS ORDERED: MILK OF MAGNESIA 400 MG/5 ML 30 ML UDC PO PRN (11:15)
[2023-02-09] MEDS ORDERED: HYDROmorphone 2 MG/ML VIAL (DILAUDID) IV PRN (11:15)
[2023-02-09] MEDS ORDERED: polyethylene glycoL POWDER 17 GM (MIRALAX) PACK PO PRN (11:15)
[2023-02-09] MEDS ORDERED: RT-ALBUTEROL SULF 2.5 MG/3 ML PRE-MIX VIAL INH PRN (11:15)
[2023-02-09] MEDS ORDERED: TEMAZEPAM 15 MG (RESTORIL) CAP PO PRN (11:15)
[2023-02-09] MEDS ORDERED: ONDANSETRON 4 MG/2 ML (SDV) Z0FRAN IV PRN (11:15)
[2023-02-09] MEDS ORDERED: MELATONIN 3 MG TABLET PO PRN (11:15)
--- NOTE | 2023-02-09 12:01 | Occupational Therapy Eval ---
OT Evaluation-General/PLF Medical Diagnosis Admission Date Feb 09, 2023 at 11:00 Medical Diagnosis: s/p L hip bipolar Onset Date: Feb 03, 2023 Therapy Diagnosis Therapy Diagnosis: decreased ADL status Precautions Comments L hip precautions, PWB LLE Weight Bear Status Weight Bearing Restriction: Partial Weight Bearing Location Restriction: L LE Referral Physician: Marilee Santana Reason: Evaluation/Treatment Medical History Pertinent Medical History: CVA Additional Medical History CVA (residual L side weakness/paralysis), HTN, hypercholesterolemia, thyroid nodule Current History 02/02/23 fall from standing, 02/03 s/p L hip bipolar replacement, 02/04 L thora- vent chest tube placed due to pneumothorax, removed 02/07. 02/08 L chest tube placed with vacuum container device due to worsening pneumothorax. Pt t [facility] 02/09. Social History Home: Multilevel Current Living Status: Spouse Entry Into Home: Level Entry (to basement) Steps Inside Home: 13 Pt able to reside in walk in basement (level entry). ADL-Prior Level of Function SCALE: Activities may be completed with or without assistive devices. 1-Bcphjfnjjt-qahhabg completes the activity by him/herself with no assistance from a helper. 5-Set-up or Clean-up Assistance-helper sets up or cleans up; patient completes activity. [place] assists only prior to or following the activity. 4-Supervision or Touching Assistance-helper provides verbal cues and/or touching/steadying and/or contact guard assistance as patient completes activity. Assistance may be provided throughout the activity or intermittently. 3-Partial/Moderate Assistance-helper does LESS THAN HALF the effort. [place] lifts, holds or supports trunk or limbs, but provides less than half the effort. 2-Substantial/Maximal Assistance-helper does MORE THAN HALF the effort. [place] lifts or holds trunk or limbs and provides more than half the effort. 4-Jdxhflbhz-xkaqrw does ALL the effort. Patient does none of the effort to complete the activity. Or, the assistance of 2 or more helpers is required for the patient to complete the activity. If activity was not attempted, code reason: 7-Patient Refused. 9-Not Applicable-not attempted and the patient did not perform the activity before the current illness, exacerbation or injury. 10-Not Attempted due to Environmental Limitations-(lack of equipment, weather restraints, etc.). 88-Not Attempted due to Medical Conditions or Safety Concerns. ADL PLOF Comments Pt required assistance with ADLs and functional mobility at PLOF using L platform walker. Shower: pt's washed/dried RUE and back, UBD: Assist to thread LUE, pt able to doff, LBD: assist threading BLEs, pt able to doff, toileting: max-total assist, footwear: Mod A, assist with socks, pt able to don L AFO and shoes, feeding: set up, oral care: set up-IND. Pt has a tub/shower with a sliding/swivel seat and GBs. Self Care: Needed Some Help Functional Cognition: Independent DME/Equipment: Bath Bench, Grab Bars, Tub/Shower OT Current Status Subjective Pt agreeable to OT tx. Mental Status/Objective Patient Orientation: Normal For Age Attachments: Chest Tube, Celaya Catheter Current Hand Dominance: Left (L impaired from CVA 1.5 years ago) Upper Extremity ROM RUE WFL (torn bicep muscle at PLOF) LUE decreased, some shoulder and elbow function noted, but not functional for pt. Pt had decreased ROM LUE at PLOF. Upper Extremity Coordination Decreased Upper Extremity Strength Increased tone noted in LUE (pt's brought splint for night time). Pt had decreased ROM/decreased strength/increased tone LUE at PLOF. RUE grossly 3/5 ADL-Treatment Eating (QC): 5 (Per pt/spouse report) Oral Hygiene (QC): 5 Shower/Bathe Self (QC): 3 (Mod A. Pt requires assistance with BLES lower legs/feet, RUE, buttocks. Pt able to wash LUE, chest/abdomen, periarea and thighs) Upper Body Dressing (QC): 3 Lower Body Dressing (QC): 1 On/Off Footwear (QC): 1 (total assist due to hip precautions) Toileting Hygiene (QC): 1 (total assist.) Other Treatments OT evaluation complete. OT/PT cotreat due to skill of 2 clinicians required which a vocational rehab consultant could not perform in order to coordinate UE/LEs, decrease fall risk, and due to pt's limitations in strength, activity tolerance, mobility, transfers, PWB LLE. OT focused on ADLs, UE placement, cues for sequencing and safety. PT focused on LE placement, gross overall movement, transfers and mobility. Pt performed functional mobility/transfers (rolling with min assist, supine <-> sit mod assist, sit <-> stand and transfers min assist). Cues required for hand placement and safety during transfer. Pt transferred to BSC for BM, min A transfer to BSC, then min A transfer to recliner. Pt completed toileting and dressing on BSC. Post tx, pt in recliner, call light in reach and all needs met. Education OT Patient Education: Correct positioning, Energy conservation, Modified ADL techniques, Progress toward Goal/Update tx plan, Purpose of tx/functional activities, Rehab process Teaching Recipient: Patient Teaching Methods: Discussion Response to Teaching: Verbalize Understanding BIMS CAM BIMS Expression of Ideas and Wants: Without Difficulty Understanding Verbal Content: Understands Brief Interview/Mental Status: Yes IRF GEN BIMS: IRF GEN BIMS Response (Comments) Value Repitition of Three Words Three 3 Recalls Socks Yes, No Cue Required 2 Recalls Blue Yes, No Cue Required 2 Recalls Bed Yes, No Cue Required 2 Year Correct 3 Month Accurate Within 5 Days 2 Day Correct 1 Total 15 [address] Mental [address] No CAM Mental Status Change/Baseline: 0 Inattention: 0 Disorganized thinkin Altered level of consciousness: 0 OT Short Term Goals Short Term Goals Lower body dressin Putting on/taking off footwear: 2 OT Fur Sorter Goals Fur Sorter Goals Time Frame: Mar 05, 2023 Eating (QC): 5 Oral Hygiene (QC): 5 Toileting Hygiene (QC): 3 Shower/Bathe Self (QC): 3 Upper Body Dressing (QC): 3 Lower Body Dressing (QC): 3 On/Off Footwear (QC): 3 Additional Goals: 1-Demonstrate ADL Tasks, 2-Verbalize Understanding, 3- ImproveStrength/Josep 1=Demonstrate adherence to instructed precautions during ADL tasks. 2=Patient will verbalize/demonstrate understanding of assistive devices/modifications for ADL. 3=Patient will improve strength/tolerance for activity to enable patient to perform ADL's. OT Education/Plan Problem List/Assessment Assessment: Decreased Activ Tolerance, Decreased UE Strength, Impaired Coordination, Impaired Funct Balance, Impaired I ADL's, Impaired Self-Care Skills, Restricted Funct UE ROM Discharge Recommendations Plan/Recommendations: Continue POC Treatment Plan/Plan of Care Patient would benefit from OT for education, treatment and training to promote independence in ADL's, mobility, safety and/or upper extremity function for ADL's. Plan of Care: ADL Retraining, Functional Mobility, Group Exercise/Act as Ind, UE Funct Exercise/Act, UE Neuromus Re-Ed/Coord Treatment Duration: Mar 05, 2023 Frequency: At least 5 of 7 days/Wk (IRF) Estimated Hrs Per Day: 1.5 hours per day Agreement: Yes Rehab Potential: Fair Time Start Time: 10:45 Stop Time: 12:00 DATE: Feb 09, 2023 Total Time Billed (hr/min): 65 Billed Treatment Time 8844-6720 OT evaluation (15'), [id number] PT eval, [id number] OT/PT cotreat (50') 1, EVM (15'), ADL 2 (30'), FA (20') KEANU PANDYA OT Feb 09, 2023 12:01
--- NOTE | 2023-02-09 12:46 | Physical Therapy Evaluation ---
PT Evaluation-General Medical Diagnosis Admission Date Feb 09, 2023 at 11:00 Medical Diagnosis: s/p L hip bipolar Onset Date: Feb 03, 2023 Therapy Diagnosis Therapy Diagnosis: impaired mobility Precautions Precautions/Isolations: Fall Prevention, Standard Precautions, Pressure Ulcer Weight Bear Status Left Lower Extremity: Left Partial Weight Bearing Referral Physician: Sera Hunt DO Medical History Pertinent Medical History: CVA Additional Medical History Past Medical History Surgeries: Orthopedic Currently Using CPAP: No Currently Using BIPAP: No Cardiac: High Cholesterol Neurological: Stroke Gastrointestinal: Abdominal Hernia Musculoskeletal: Arthritis Endocrine: Hypothyroidsim Hearing Impairment: Hard of Hearing Cancer: Skin Did You Recieve Any Treatments: Yes What Type of Treatment Did You: Surgical Intervention History of Blood Disorders: No Current History 02/02/23 fall from standing, 02/03 s/p L hip bipolar replacement, 02/04 L thora- vent chest tube placed due to pneumothorax, removed 02/07. 02/08 L chest tube placed with vacuum container device due to worsening pneumothorax. Pt transferred to ARU 02/09. Reviewed History: Yes Social History Home: [facility] Current Living Status: Spouse Entry Into Home: Level Entry (to basement) PT Steps Inside Home: 13 Prior Prior Level of Function SCALE: Activities may be completed with or without assistive devices. 6-Ywexzdvnnp-hogotoh completes the activity by him/herself with no assistance from a helper. 5-Set-up or Clean-up Assistance-helper sets up or cleans up; patient completes activity. [place] assists only prior to or following the activity. 4-Supervision or Touching Assistance-helper provides verbal cues and/or touching/steadying and/or contact guard assistance as patient completes activity. Assistance may be provided throughout the activity or intermittently. 3-Partial/Moderate Assistance-helper does LESS THAN HALF the effort. [place] lif ts, holds or supports trunk or limbs, but provides less than half the effort. 2-Substantial/Maximal Assistance-helper does MORE THAN HALF the effort. [place] lifts or holds trunk or limbs and provides more than half the effort. 6-Fcruhhujh-eqffat does ALL the effort. Patient does none of the effort to complete the activity. Or, the assistance of 2 or more helpers is required for the patient to complete the activity. If activity was not attempted, code reason: 7-Patient Refused. 9-Not Applicable-not attempted and the patient did not perform the activity before the current illness, exacerbation or injury. 10-Not Attempted due to Environmental Limitations-(lack of equipment, weather restraints, etc.). 88-Not Attempted due to Medical Conditions or Safety Concerns. Bed Mobility: 3 Transfers (B,C,W/C): 3 Gait: 3 Indoor Mobility (Ambulation): Needed Some Help Prior Devices Use: Walker PT Evaluation-Current Subjective Patient in bed pre tx, agrees to PT, has no pain at rest. Will be co-treating with OT for part of tx due to poor patient mobility, strength, endurance, severe debility, coordinate UE and LE during activity, safety and reduce risk of falls. Pain Section J - Health Conditions 1. Rarely or not at all 2. Occasionally 3. Frequently 4. Almost constantly 8. Unable to answer Pain Effect on Sleep: 2 Pain Interference with Therapy: 2 Pain Interference w/Day-to-Day: 2 Pt/Family Goals to be independent at home Objective Patient Orientation: Person, Place, Situation Attachments: Celaya Catheter chest tube ROM/Strength ROM Lower Extremities WNL RLE, LLE not tested Strength Lower Extremities RLE (hip flexion 3/5, knee flexion 4/5, knee extension 4+/5, dorsiflexion 4+/5), LLE not tested Sensory Vision: Wears Glasses Sensation Right Lower Extremit: Intact Sensation Left Lower Extremity: Intact Transfers Roll Left & Right (QC): 3 Sit to Lying (QC): 3 Lying to Sitting/Side of Bed(Q: 3 Sit to Stand (QC): 3 Chair/Hcz-nk-Xgdeg Xfer(QC): 3 Toilet Transfer (QC): 3 Car Transfer (QC): 88 Patient performs rolling with min assist, supine <-> sit mod assist, sit <-> stand and transfers min assist, patient cannot perform a car transfer at this time without violating his hip flexion precautions. Patient needs cues for hand placement and safety during transfers. During tx patient states he needs to have a BM, transfers with min assist to the commode, needs assist from OT to wipe when done and get brief on and min assist transfer to recliner. Gait Does the Patient Walk?: Yes Mode of Locomotion: Walk Anticipated Mode of Locomotion: Walk Walk 10 feet (QC): 3 Walk 50 ft with 2 Turns(QC): 88 Walk 150 ft (QC): 88 Walking 10ft/uneven surface-QC: 88 Distance: 15' Gait Assistive Device: Walker Platform Comments/Gait Description Patient can ambulate 15' with a bilateral platform walker with min assist and he also uses a left side knee cage and AFO. Patient ambulates very slowly, needs assist to help guide walker, poor foot clearance on the left side, left leg adducts when stepping. Wheelchair Training Does the Pt Use a Wheelchair?: Yes Distance: 150' Wheel 50 ft with 2 turns (QC): 3 Wheel 150 ft (QC): 3 Type of Wheelchair: Manual Patient can propel a manual WC 150' with min assist, patient uses his right UE and LE to propel and steer. Stairs 1 Step (curb) (QC): 88 4 Steps (QC): 88 12 Steps (QC): 88 Balance Sitting Static: Normal Sitting Dynamic: Normal Standing Static: Poor Standing Dynamic: Poor Picking up an Object (QC): 88 Treatment PT performed bed mobility and transfers, ambulation, WC mobility, toileting, OT performed toileting, cleaning, UE positioning and safety during activity. Assessment/Needs Patient in recliner post tx with nurse call, phone, tray, all needs met. Patient has impaired mobility, strength, endurance. He needs min assist for transfers and bed mobility, ambulates using an AFO and knee cage on the left side as well as a bilateral platform walker. Rehab Potential: Fair PT [employer] Teacher Goals [employer] Teacher Goals PT [employer] Teacher Goals Time Frame: Feb 23, 2023 Roll Left to Right (QC): 4 (SBA) Sit to Lying (QC): 4 (SBA) Lying-Sitting on Side/Bed(QC): 4 (SBA) Sit to Stand (QC): 4 (CGA) Chair/Cvg-ih-Jiuml Xfer(QC): 4 (CGA) Toilet/Commode Transfer (QC): 4 (CGA) Car Transfer (QC): 4 (CGA) Does the Patient Walk: Yes Walk 10 feet (QC): 4 (CGA) Walk 10ft-Uneven Surface(QC): 4 (CGA) Walk 50ft with 2 Turns (QC): 4 (CGA) Walk 150 ft (QC): 88 Wheel 50 feet with 2 turns (QC: 4 (SBA) Wheel 150 feet: 4 (SBA) 1 Step (curb) (QC): 4 (CGA) 4 Steps (QC): 88 12 Steps (QC): 88 Picking up an Object (QC): 4 (CGA using a fire chief's aide) PT Plan Problem List Problem List: Activity Tolerance, Functional Strength, Safety, Balance, Gait, Transfer, Bed Mobility, ROM Treatment/Plan Treatment Plan: Continue Plan of Care Treatment Plan: Bed Mobility, Education, Functional Activity Josep, Functional Strength, Group Therapy, Gait, Safety, Therapeutic Exercise, Transfers Treatment Duration: Feb 23, 2023 Frequency: At least 5 of 7 days/Wk (IRF) Estimated Hrs Per Day: 1.5 hours per day Patient and/or Family Agrees t: Yes Safety Risks/Education Patient Education: Gait Training, Transfer Techniques, Reviewed Precautions, Correct Positioning, W/C Management, Safety Issues Teaching Recipient: Patient Teaching Methods: Demonstration, Discussion Response to Teaching: Reinforcement Needed Discharge Recommendations Plan Patient will perform bed mobility and transfer training, balance and endurance training, functional strengthening, stair training, gait training, and education, to improve functional mobility and independence at home. Therapy Discharge Recommendati: Scheduled Assistance, Home & Family, Post Acute PT Time Time In: 1100 Time Out: 1200 DATE: Feb 09, 2023 Total Billed Treatment Time: 60 Total Billed Treatment 1 visit EVM 10' FA 50' PT eval from [id number], co-treat from [id number] JOSÉ LUNSFORD PT Feb 09, 2023 12:46
--- NOTE | 2023-02-09 13:54 | Progress Note ---
Subjective Date Seen by a Provider: Feb 09, 2023 Time Seen by a Provider: 13:30 Subjective/Events-last exam doing well. no complaints. no SOB/cough. no airleak per CT. Objective Exam Vital Signs Date Time Temp Pulse Resp B/P (MAP) Pulse Ox O2 Delivery O2 Flow Rate FiO2 02/09/23 11:15 36.8 122 14 129/74 (92) 94 Room Air Capillary Refill : General Appearance: No Apparent Distress HEENT: PERRL/EOMI Neck: Full Range of Motion Respiratory: Chest Non Tender, Normal Breath Sounds Cardiovascular: Regular Rate, Rhythm Gastrointestinal: normal bowel sounds, non tender, soft Extremity: Normal Capillary Refill Neurologic/Psychiatric: Alert, Oriented x3 Skin: Normal Color Lymphatic: No Adenopathy Assessment/Plan Assessment/Plan Assess & Plan/Chief Complaint s/p 2nd CT for recurrent left ptx. no airleak on water seal. will get serial cxr's. once completely inflated and no air leak on water seal then will remove tube. SAMMI WELLS MD Feb 09, 2023 13:54
--- NOTE | 2023-02-09 14:29 | Therapy Group Daily Note ---
Therapy Daily Group Note Patient Education Topic Home Safety Session Ratio (pt:therapist): 3:1 Goal of Session: Home Safety Strategies, Use of Adaptive Equipment Goal Met for this Session: Yes Pt Benefit of Group: Contributions to Others, F/U Use of Strategies @Home, Increased Functional Safety, Increased Functional Strength, Improved Cognition, Recognition of Peers, Socialization Other/Notes Pt transported using w/c to OT/PT group. Group consisted of introductions (name, place living, favorite food), socialization and education on kitchen mobility/adaptive equipment. Pt introduced self appropriately and actively listened to peers. Pt was able to discuss own strategies and stories of kitchen ideas or strategy for safe mobility. Pt acknowledged understanding of strategies therapy staff was educating on. After session, pt sitting in recliner with call light/phone in reach. Radiology in room. Start Time: 13:00 Stop Time: 14:15 Total Billed Treatment Time: 75 Total Billed Treatment 1-GRP RUEL MATTHEWS Feb 09, 2023 14:29
--- NOTE | 2023-02-09 15:29 | Diagnostic Imaging Report ---
INDICATION: Pneumothorax. COMPARISON: Exam compared with radiograph of one day prior. FINDINGS: Extensive left chest wall and cervical soft tissue gas is redemonstrated, unchanged in magnitude. There is likely a sliver of left apical pleural air and a tiny residual pneumothorax without its tension. The right lung and pleural space are negative. There has been no adverse development. Some left basilar atelectasis and likely trace fluid at the costophrenic angle has improved. IMPRESSION: 1. Resolving left basilar pleural-parenchymal opacity, unchanged subcutaneous emphysema, and stable minute left apical pneumothorax without tension. 2. No adverse development. Negative right chest. Dictated by: Dictated on workstation # [id number]
[2023-02-09 19:44] VITALS: BP 130/70
[2023-02-09] MEDS ORDERED: DOCUSATE SODIUM 100 MG (COLACE) CAP PO SCH (21:00)
[2023-02-09] MEDS: polyethylene glycoL POWDER 17 GM (MIRALAX) PACK PO SCH (21:30)
[2023-02-09] MEDS: SENNA W/DOCUSATE (SENOKOT S) TABLET PO SCH (21:30)
[2023-02-09] MEDS: DOCUSATE SODIUM 100 MG (COLACE) CAP PO SCH (21:30)
[2023-02-09] MEDS: SENNOSIDES 8.6 MG (SENOKOT) TAB PO SCH (21:30)
[2023-02-09] MEDS: MELATONIN 3 MG TABLET PO PRN (22:44)
[2023-02-10 06:14] LABS: MEAN CORPUSCULAR HEMOGLOBIN 30 pg (25-34)
[2023-02-10 06:16] LABS: BASOPHILS % (AUTO) 0 % (0-10); EOSINOPHILS # (AUTO) 0.3 10^3/uL (0.0-0.3); EOSINOPHILS % (AUTO) 3 % (0-10); HEMATOCRIT 25 % (40-54); HEMOGLOBIN 8.4 g/dL (13.3-17.7); LYMPHOCYTES # (AUTO) 1.9 10^3/uL (1.0-4.0); LYMPHOCYTES % (AUTO) 18 % (12-44); MEAN CORPUSCULAR HGB CONC 33 g/dL (32-36); MEAN CORPUSCULAR VOLUME 91 fL (80-99); MEAN PLATELET VOLUME 10.3 fL (9.0-12.2); MONOCYTES # (AUTO) 1.5 10^3/uL (0.0-1.0); MONOCYTES % (AUTO) 14 % (0-12); NEUTROPHILS # (AUTO) 6.4 10^3/uL (1.8-7.8); NEUTROPHILS % (AUTO) 61 % (42-75); PLATELET COUNT 230 10^3/uL (130-400); WHITE BLOOD COUNT 10.5 10^3/uL (4.3-11.0)
[2023-02-10 06:29] LABS: ALBUMIN 2.3 GM/DL (3.2-4.5); BILIRUBIN,TOTAL 1.3 MG/DL (0.1-1.0); CALCIUM 8.2 MG/DL (8.5-10.1); CREATININE SERUM 0.82 MG/DL (0.60-1.30); POTASSIUM 3.8 MMOL/L (3.6-5.0); TOTAL PROTEIN 4.6 GM/DL (6.4-8.2)
[2023-02-10] MEDS: CYANOCOBALAMIN 1,000 MCG (VITAMIN B-12) TABLET PO SCH (06:35)
[2023-02-10] MEDS: LEVOTHYROXINE 125 MCG (LEVOTHROID) TABLET PO SCH (06:35)
[2023-02-10] MEDS: MULTIVIT W/MINERALS TAB (THERAGRAN M) PO SCH (06:35)
[2023-02-10 07:17] VITALS: BP 130/70
--- NOTE | 2023-02-10 07:23 | PM&R Progress Note ---
Subjective HPI/CC On Admission Date Seen by Provider: Feb 10, 2023 Time Seen by Provider: 09:00 Subjective/Events-last exam 02/10/2023: Much improved status Chest tube to water seal No pain reported DC catheter today No falls Venofer 2 more doses needed BM+ Review of Systems General: Fatigue, Malaise Musculoskeletal: leg pain Neurological: Weakness, Incoordination Objective Exam Vital Signs Vital Signs Date Time Temp Pulse Resp B/P (MAP) Pulse Ox O2 Delivery O2 Flow Rate FiO2 02/10/23 20:30 97 Room Air 02/10/23 20:28 37.6 94 18 133/64 (87) 02/10/23 07:17 21 Capillary Refill : General Appearance: No Apparent Distress, WD/WN, Chronically ill, Thin, Other (frail) HEENT: PERRL/EOMI, Normal ENT Inspection, Pharynx Normal Neck: Full Range of Motion, Normal Inspection, Non Tender, Supple, Carotid Bruit Respiratory: Chest Non Tender, Lungs Clear, Normal Breath Sounds, No Accessory Muscle Use, No Respiratory Distress Cardiovascular: Regular Rate, Rhythm, No Edema, No Gallop, No JVD, No Murmur, Normal Peripheral Pulses Gastrointestinal: Normal Bowel Sounds, No Organomegaly, No Pulsatile Mass, Non Tender, Soft Back: Normal Inspection, No CVA Tenderness, No Vertebral Tenderness Extremity: Normal Capillary Refill, Normal Inspection, Normal Range of Motion ([place] left side), Non Tender, No Calf Tenderness, No Pedal Edema Neurologic/Psychiatric: Alert, Oriented x3, Normal Mood/Affect, fiberglass bonding machine tender II-XII Norm as Tested, Abnormal Gait, Motor Weakness (left sided) Skin: Normal Color, Warm/Dry Lymphatic: No Adenopathy Results/Procedures Lab Laboratory Tests 02/10/23 05:19 Patient resulted labs reviewed. FIM Transfers Therapy Code Descriptions/Definitions Functional [place] Measure: 0=Not Assessed/NA 4=Minimal Assistance 1=Total Assistance 5=Supervision or Setup 2=Maximal Assistance 6=Modified [place] 3=Moderate Assistance 7=Complete IndependenceSCALE: Activities may be completed with or without assistive devices. 4-Kzoqrhejox-uyzqydi completes the activity by him/herself with no assistance from a helper. 5-Set-up or Clean-up Assistance-helper sets up or cleans up; patient completes activity. [place] assists only prior to or following the activity. 4-Supervision or Touching Assistance-helper provides verbal cues and/or touching/steadying and/or contact guard assistance as patient completes activity. Assistance may be provided throughout the activity or intermittently. 3-Partial/Moderate Assistance-helper does LESS THAN HALF the effort. [place] lifts, holds or supports trunk or limbs, but provides less than half the effort. 2-Substantial/Maximal Assistance-helper does MORE THAN HALF the effort. [place] lifts or holds trunk or limbs and provides more than half the effort. 4-Wxlqyymku-pgvkdy does ALL the effort. Patient does none of the effort to complete the activity. Or, the assistance of 2 or more helpers is required for the patient to complete the activity. If activity was not attempted, code reason: 7-Patient Refused. 9-Not Applicable-not attempted and the patient did not perform the activity before the current illness, exacerbation or injury. 10-Not Attempted due to Environmental Limitations-(lack of equipment, weather restraints, etc.). 88-Not Attempted due to Medical Conditions or Safety Concerns. Roll Left to Right (QC): 3 Sit to Lying (QC): 3 Sit to Stand (QC): 3 Chair/Odi-cd-Wxqnq Xfer(QC): 3 Car Transfer (QC): 88 Gait Training Does the Patient Walk?: Yes Walk 10 feet (QC): 3 Walk 50 ft with 2 Turns(QC): 88 Walk 150 ft (QC): 88 Walking 10ft/uneven surface-QC: 88 Gait Assistive Device: Walker Platform Wheelchair Training Does the Pt Use a Wheelchair?: Yes Distance: 150' Wheel 50 ft with 2 turns (QC): 3 Wheel 150 ft (QC): 3 Type of Wheelchair: Manual Stair Training 1 Step (curb) (QC): 88 4 Steps (QC): 88 12 Steps (QC): 88 Balance Picking up an Object (QC): 88 ADL-Treatment Eating (QC): 5 (Per pt/spouse report) Oral Hygiene (QC): 5 Shower/Bathe Self (QC): 3 (Mod A. Pt requires assistance with BLES lower legs/feet, RUE, buttocks. 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
--- NOTE | 2023-02-10 07:24 | Individualized Plan of Care ---
Individualized Plan of Care Rehab Nursing IPOC Order Admission Date Feb 09, 2023 at 11:00 Current Orders Orders Admission Order(Inpt,Obs,Sdc) (02/09/23 10:09) Vital Signs: Per Unit Policy ( ,16 (02/09/23 10:09) Kip Almonte (02/09/23 10:09) Sequential Compression Device (02/09/23 10:09) Margin Analyst-Inpt Rehab Con (02/09/23 10:09) Rehab Nursing Orders-Ipoc (02/09/23 10:09) Physical Therapy Rehab Orders (02/09/23 10:09) Occupational Therapy Rehab Ord (02/09/23 10:09) Speech Therapy Rehab Orders (02/09/23 10:09) Cbc With Automated Diff (02/10/23 06:00) Comprehensive Metabolic Panel (02/10/23 06:00) Precautions (Aru) (02/09/23 10:09) Weekly Weight WEEK (02/09/23 10:09) Rehab-Intensity Of Therapy (02/09/23 10:09) Initiate Admission Nursing Pro .admission (02/09/23 10:09) Alprazolam Tablet (Xanax Tablet) (02/09/23 10:15) Calcium Carbonate Chew Tablet (Antacid C (02/09/23 10:15) Diphenhydramine Tablet (Benadryl Tablet) (02/09/23 10:15) Docusate Sodium Capsule (Colace Capsule) (02/09/23 21:00) Docusate Sodium Capsule (Colace Capsule) (02/09/23 10:15) Bisacodyl Suppository (Dulcolax Supposit (02/09/23 10:15) Lactulose Oral Solution (Enulose Oral So (02/09/23 10:15) Na Phos/Na Biphos Enema (Fleet Enema Nahun (02/09/23 10:15) Guaifenesin/Codeine Syrup (Robitussin Ac (02/09/23 10:15) Loperamide Tablet (Imodium Tablet) (02/09/23 10:15) Melatonin Tablet (Melatonin Tablet) (02/09/23 10:15) Polyethylene Glycol Powder Pkt (Miralax (3/21/23 21:00) Ondansetron Oral Dissolve Tab (Zofran (02/09/23 10:15) Senna S Tablet (Senokot S Tablet) (02/09/23 21:00) Acetaminophen Tablet/Caplet (Tylenol T (02/09/23 10:15) Code/Resuscitation (02/09/23 10:09) Initiate Admission Nursing Pro .admission (02/09/23 10:09) Admission Arrival Bed Request (02/09/23 10:58) Code/Resuscitation (02/09/23 11:04) Catheter(Urinary) Discontinue (02/09/23 11:04) Dressing Order (Intervention) DAILY (02/09/23 11:04) Ice: Apply To Affected Area (02/09/23 11:04) Incentive Spirometry (Nursing) Q2H (02/09/23 11:04) Oxygen-Administer 07,19 (02/09/23 11:04) Kip Hose , (02/09/23 11:04) Vital Signs: Special (Order) (02/09/23 11:04) General/Regular (02/09/23 Lunch) Albuterol Pre-Mix Nebs (Rt) (Proventil (02/09/23 11:15) Atorvastatin Tablet (Lipitor Tablet) (02/09/23 21:00) Diphenhydramine Tablet (Benadryl Tablet) (02/09/23 11:15) Docusate Sodium Capsule (Colace Capsule) (02/09/23 21:00) Cyanocobalamin Tablet (Vitamin B-12 Tabl (02/10/23 07:00) Bisacodyl Suppository (Dulcolax Supposit (02/09/23 11:15) Lactulose Oral Solution (Enulose Oral So (02/09/23 11:15) Hydromorphone Injection (Dilaudid Inject (02/09/23 11:15) Iron Sucrose Injection (Venofer Injectio (02/11/23 09:00) Levothyroxine Tablet (Synthroid Tablet) (02/10/23 06:30) Melatonin Tablet (Melatonin Tablet) (02/09/23 11:15) Magnesium Hydroxide Oral Susp (Mom Oral (02/09/23 11:15) Polyethylene Glycol Powder Pkt (Miralax (02/09/23 11:15) Antacid Suspension (Mylanta Suspension (02/09/23 11:15) Temazepam Capsule (Restoril Capsule) (02/09/23 11:15) Sennosides Tablet (Senokot Tablet) (02/09/23 21:00) Therapeutic Multivitamin Tab (Vitamins, (02/10/23 07:00) Calcium Carbonate Chew Tablet (Antacid C (02/09/23 11:15) Acetaminophen Tablet/Caplet (Tylenol T (02/09/23 11:15) Ondansetron Injection (Zofran Injectio (02/09/23 11:15) Ondansetron Oral Dissolve Tab (Zofran (02/09/23 11:15) Diphenhydramine Injection (Benadryl Inje (02/09/23 11:15) Oxycodone Immediate Rel Tablet (Oxyir Ta (02/09/23 11:15) Consult General Surgery (02/09/23 11:04) Consult Orthopedic Surgery (02/09/23 11:04) Svn Small Volume Nebulizer (02/09/23 11:04) Enoxaparin Injection (Lovenox Injection) (02/10/23 09:00) Chest 1 View, Ap/Pa Only (02/09/23 13:50) Chest 1 View, Ap/Pa Only (02/10/23 08:00) Ensure Plus Vanilla (02/09/23 15:05) Patient Visit (02/09/23 ) Pt Eval Moderate Complexity (02/09/23 ) Functional Activities, Ea 15 (02/09/23 ) Patient Visit (02/09/23 ) Mat Initiate Protocol (02/10/23 10:11) Catheter(Urinary) Discontinue (02/10/23 12:02) Iron Sucrose Injection (Venofer Injectio (02/12/23 09:00) Sodium Chloride Flush (Catheter Flush Sy (02/10/23 14:15) Sodium Chloride Flush (Catheter Flush Sy (02/10/23 22:00) Chest 1 View, Ap/Pa Only (02/11/23 08:00) Rehab Nursing Orders: Ongoing Assess. of Cognitive Status, Ongoing Assess. of Function Status, Bladder Management, Bladder Scan, Bladder Training, Bowel Management, Bowel Training, Disease Management & Educaiton, DVT Prophylaxis, Fall Prevention, Fluid/Electrolyte/Nutrition Mgmt, Infection Prevention, Medication Management & Education, Management of Risks & Complications, Management of Skin Intergrity, Nutrition Management, Pain Management, Patient/Family Support, Safety Management Intensity of Therapy to be met Patient to be seen: Min.3h per day/5 of 7d PT IPOC Problem List: Activity Tolerance, Functional Strength, Safety, Balance, Gait, Transfer, Bed Mobility, ROM Treatment Plan: Continue Plan of Care Bed Mobility, Education, Functional Activity Josep, Functional Strength, Group Therapy, Gait, Safety, Therapeutic Exercise, Transfers Treatment Duration: Feb 23, 2023 Frequency: At least 5 of 7 days/Wk (IRF) Estimated Hrs Per Day: 1.5 hours per day OT IPOC Problems: Decreased Activ Tolerance, Decreased UE Strength, Impaired Coordination, Impaired Funct Balance, Impaired I ADL's, Impaired Self-Care Skills, Restricted Funct UE ROM OT Treatment, Training and Edu: Yes Plan of Care: ADL Retraining, Functional Mobility, Group Exercise/Act as Ind, UE Funct Exercise/Act, UE Neuromus Re-Ed/Coord Treatment Duration: Mar 05, 2023 Frequency: At least 5 of 7 days/Wk (IRF) Estimated Hrs Per Day: 1.[address] IPOC Speech Therapy Treatment Plan: Continue Plan of Care Treatment Duration: Feb 10, 2023 Frequency: Modified Program (IRF) Estimated Hrs Per Day: Other Margin Analyst/Case Mgmt Margin Analyst/Case Managemen: Discharge Planning Dietitian/Bad Cloth Checker Dietitian/Bad Cloth Checker to monitor nutritional status and make changes and/or recommendations as needed and work with speech pathology on dietary upgrades as the occur. Physician IPOC Medical Issues being managed closely and that require the 24 hour availability of a physician: Recent hypovolumic shock requiring ICU following hip fracture repair requiring 4 units of blood then central line complication of left sided PTX requiring chest tube along with remote left sided weakness from CVA will require close monitoring for any decompensation Medical Issues: Bowel/Bladder Function, DVT Prophylaxis, Falls Precautions, Fluid/Electrolyte/Nutrition Balance, Infection Protection, Pain Management Brief Synthesis of Preadmission Screen, Post-Admission Evaluation, and Therapy Evaluations: PT OT will focus on regaining function in order to resume prior to admit independence while monitoring for complications with increased mobility Medical Prognosis: Fair Anticipated Length of Stay: 10 days VIKI BOOTH DO Feb 10, 2023 07:24
[2023-02-10 07:35] VITALS: BP 132/65
[2023-02-10] MEDS: SENNOSIDES 8.6 MG (SENOKOT) TAB PO SCH ×2 (08:36→20:09)
[2023-02-10] MEDS: SENNA W/DOCUSATE (SENOKOT S) TABLET PO SCH ×2 (08:36→20:09)
[2023-02-10] MEDS: polyethylene glycoL POWDER 17 GM (MIRALAX) PACK PO SCH ×2 (08:36→20:09)
[2023-02-10] MEDS: ENOXAPARIN 40 MG/0.4 ML (LOVENOX) SYR SC SCH (08:36)
[2023-02-10] MEDS: DOCUSATE SODIUM 100 MG (COLACE) CAP PO SCH ×2 (08:37→20:09)
--- NOTE | 2023-02-10 08:42 | Diagnostic Imaging Report ---
INDICATION: Left pneumothorax COMPARISON: 02/09/2023 FINDINGS: Left chest catheter in stable alignment. Subcutaneous emphysema persists at this study. I cannot identify any pleural air or pneumothorax. Right lung and pleural space stable and negative. IMPRESSION: Similar soft tissue gas. No detectable pneumothorax. No adverse development. Dictated by: Dictated on workstation # [id number]
--- NOTE | 2023-02-10 08:59 | Physical Therapy Daily Note ---
PT Daily Note-Current Subjective Pt. has no pain c/o, but states he has no appetite and does not sleep here at all. Explains his home functional situation, joins therapy session at end, very supportive and willing to handle and manage patient utilizing their well established routines Pain Location: No Pain Reported Section J - Health Conditions 1. Rarely or not at all 2. Occasionally 3. Frequently 4. Almost constantly 8. Unable to answer Pain Effect on Sleep: 1 Pain Interference with Therapy: 1 Pain Interference w/Day-to-Day: 1 Mental Status Patient Orientation: Normal For Age Attachments: Chest Tube, [place] Catheter, Other-See Comments (AFO, knee cage all left) Transfers SCALE: Activities may be completed with or without assistive devices. 3-Oiusxxtibb-klhmrjy completes the activity by him/herself with no assistance from a helper. 5-Set-up or Clean-up Assistance-helper sets up or cleans up; patient completes activity. [place] assists only prior to or following the activity. 4-Supervision or Touching Assistance-helper provides verbal cues and/or touching/steadying and/or contact guard assistance as patient completes activity. Assistance may be provided throughout the activity or intermittently. 3-Partial/Moderate Assistance-helper does LESS THAN HALF the effort. [place] lifts, holds or supports trunk or limbs, but provides less than half the effort. 2-Substantial/Maximal Assistance-helper does MORE THAN HALF the effort. [place] lifts or holds trunk or limbs and provides more than half the effort. 6-Scltdmokl-rsxipm does ALL the effort. Patient does none of the effort to complete the activity. Or, the assistance of 2 or more helpers is required for the patient to complete the activity. If activity was not attempted, code reason: 7-Patient Refused. 9-Not Applicable-not attempted and the patient did not perform the activity before the current illness, exacerbation or injury. 10-Not Attempted due to Environmental Limitations-(lack of equipment, weather restraints, etc.). 88-Not Attempted due to Medical Conditions or Safety Concerns. Roll Left & Right (QC): 3 Lying to Sitting/Side of Bed(Q: 3 Sit to Stand (QC): 3 Chair/Xvl-tz-Yzjgu Xfer(QC): 3 Pt. requires assist to maintain safe BOSW and needs assist 50m % of time to advance LLE appropriately for TRF and to wt bear heavily on UEs to reduce wt bearing LLE to PWB consistently. needed mos assist to scoot efficiently to EOB etc. sitting balance maintained well after seated EOB Weight Bearing Left Lower Extremity: Left Partial Weight Bearing Gait Training Does the Patient Walk?: Yes Walk 10 feet (QC): 2 Gait Persons Needed: 1 (and requires w/c follow up) Gait Assistive Device: Walker Platform gait with platform walker 8 ft ,10 ft, mod assist requires assist toadvance FWW properly and to advance LLE at times and adjust safe ROBERTH , followed by w/c for seating when fatigued etc Wheelchair Training Does the Pt Use a Wheelchair?: Yes Wheel 50 ft with 2 turns (QC): 3 (needs assist to brake and to steer at times) Exercises Supine Ex: Ankle pumps (HC stretch L 4 x 20 s), Quad Set, Glut sets, Heel Slides, Short Arc Quads, Hip abd/add Supine Reps: 15 Seated Therapy Exercises: Sit to stand, Long arc quads Seated Reps: 10 Treatments therex, max assist to [place] AFO, knee cage and shoes, TRF training, gait , w/c mob, Assessment Current Status: Good Progress gives full effort, motivated, great support, dependent for all mob PT Cartographic Aide Goals Detention Goals PT Detention Goals Time Frame: Feb 23, 2023 Roll Left & Right (QC): 4 (SBA) Sit to Lying (QC): 4 (SBA) Lying-Sitting on Side/Bed(QC): 4 (SBA) Sit to Stand (QC): 4 (CGA) Chair/Rpk-nm-Qzoub Xfer(QC): 4 (CGA) Toilet Transfer (QC): 4 (CGA) Car Transfer (QC): 4 (CGA) Does the Patient Walk: Yes Walk 10 feet (QC): 4 (CGA) Walk 50ft with 2 Turns (QC): 4 (CGA) Walk 150 ft (QC): 88 Walking 10ft on Uneven Surface: 4 (CGA) 1 Step (curb) (QC): 4 (CGA) 4 Steps (QC): 88 12 Steps (QC): 88 Picking up an Object (QC): 4 (CGA using a manager sales and marketing) Wheel 50 feet with 2 turns (QC: 4 (SBA) Wheel 150 feet: 4 (SBA) PT Plan Treatment/Plan Treatment Plan: Continue Plan of Care Treatment Plan: Bed Mobility, Education, Functional Activity Josep, Functional Strength, Group Therapy, Gait, Safety, Therapeutic Exercise, Transfers Treatment Duration: Feb 23, 2023 Frequency: At least 5 of 7 days/Wk (IRF) Estimated Hrs Per Day: 1.5 hours per day Patient and/or Family Agrees t: Yes Safety Risks/Education Patient Education: Gait Training, Transfer Techniques, Reviewed Precautions, Correct Positioning, Instructions to Caregiver, Disease Process, Safety Issues Teaching Recipient: Patient Teaching Methods: Demonstration, Discussion Response to Teaching: Verbalize Understanding, Return Demonstration, Reinforcement Needed Time Time In: 800 Time Out: 900 DATE: Feb 10, 2023 Total Billed Treatment Time: 60 Total Billed Treatment 1,GT20m,EX15m,w/c 10m,FA15m LLOYD TRUONG PTA Feb 10, 2023 08:59
--- NOTE | 2023-02-10 10:35 | Progress Note ---
Standard Progress Note Progress Notes/Assess & Plan Date Seen by a Provider: Feb 10, 2023 Time Seen by a Provider: 10:32 Progress/Assessment & Plan Postop day sevenLeft hip surgery. patient voice is no complaints. VSS LEFT LOWER EXTREMITY SOFT AND SUPPLE. LEFT CALF, SOFT AND NONTENDER. Incision well approximated with no warmth, erythema or drainage. Assessment: doing well status post left hip bipolar, hemiarthroplasty plan: Continue OT/PT mobilize Staple removal in one week JESIKA BANSAL Feb 10, 2023 10:35
--- NOTE | 2023-02-10 10:41 | Occupational Ther Daily Note ---
OT Current Status-Daily Note Subjective Pt alert, sitting in recliner. Pt agrees to therapy. Pt's daughter, nrsg and PA in room at beginning of treatment. Pt does not c/o pain at this time. Mental Status/Objective Patient Orientation: Person, Place, Time, Situation ADL-Treatment Pt agrees to sponge bath and shaving today. Will assist with shower tomorrow. Mod A for SPT from surface to surface. Independent with shaving sitting at sink. Set up for sponge bath and assist to complete lower legs, buttocks/chelita area. Mod A for UBD due to tubing. Assist x2 for LBD for safety. After session, pt left in care of nrsg. All needs met. Therapy Code Descriptions/Definitions Functional [place] Measure: 0=Not Assessed/NA 4=Minimal Assistance 1=Total Assistance 5=Supervision or Setup 2=Maximal Assistance 6=Modified [place] 3=Moderate Assistance 7=Complete IndependenceSCALE: Activities may be completed with or without assistive devices. 4-Hhcosmmtui-ovycpcb completes the activity by him/herself with no assistance from a helper. 5-Set-up or Clean-up Assistance-helper sets up or cleans up; patient completes activity. [place] assists only prior to or following the activity. 4-Supervision or Touching Assistance-helper provides verbal cues and/or touching/steadying and/or contact guard assistance as patient completes activ ity. Assistance may be provided throughout the activity or intermittently. 3-Partial/Moderate Assistance-helper does LESS THAN HALF the effort. [place] lifts, holds or supports trunk or limbs, but provides less than half the effort. 2-Substantial/Maximal Assistance-helper does MORE THAN HALF the effort. [place] lifts or holds trunk or limbs and provides more than half the effort. 2-Ztcwaglon-jclwfk does ALL the effort. Patient does none of the effort to complete the activity. Or, the assistance of 2 or more helpers is required for the patient to complete the activity. If activity was not attempted, code reason: 7-Patient Refused. 9-Not Applicable-not attempted and the patient did not perform the activity before the current illness, exacerbation or injury. 10-Not Attempted due to Environmental Limitations-(lack of equipment, weather restraints, etc.). 88-Not Attempted due to Medical Conditions or Safety Concerns. Shower/Bathe Self (QC): 2 Upper Body Dressing (QC): 3 Lower Body Dressing (QC): 2 On/Off Footwear: 2 OT Short Term Goals Short Term Goals Lower body dressin Putting on/taking off footwear: 2 OT Skilled Nursing Goals Operations Analyst Goals Time Frame: Mar 05, 2023 Acute change in mental status: 0 Inattention: 0 Disorganized thinkin Altered level of consciousness: 0 Eating (QC): 5 Oral Hygiene (QC): 5 Toileting Hygiene (QC): 3 Shower/Bathe Self (QC): 3 Upper Body Dressing (QC): 3 Lower Body Dressing (QC): 3 On/Off Footwear (QC): 3 Additional Goals: 1-Demonstrate ADL Tasks, 2-Verbalize Understanding, 3- ImproveStrength/Josep 1=Demonstrate adherence to instructed precautions during ADL tasks. 2=Patient will verbalize/demonstrate understanding of assistive devices/modifications for ADL. 3=Patient will improve strength/tolerance for activity to enable patient to perform ADL's. OT Education/Plan Problem List/Assessment Assessment: Decreased UE Strength, Impaired Bed Mobility, Impaired Coordination, Impaired Funct Balance, Impaired Self-Care Skills, Restricted Funct UE ROM Discharge Recommendations Plan/Recommendations: Continue POC Treatment Plan/Plan of Care Patient would benefit from OT for education, treatment and training to promote independence in ADL's, mobility, safety and/or upper extremity function for ADL's. Plan of Care: ADL Retraining, Functional Mobility, Group Exercise/Act as Ind, UE Funct Exercise/Act, UE Neuromus Re-Ed/Coord Treatment Duration: Mar 05, 2023 Frequency: At least 5 of 7 days/Wk (IRF) Estimated Hrs Per Day: 1.5 hours per day Agreement: Yes Rehab Potential: Fair Time Start Time: 10:00 Stop Time: 11:00 DATE: Feb 10, 2023 Total Time Billed (hr/min): 60 Billed Treatment Time 1 visit-ADL 4 (60 min) RUEL MATTHEWS Feb 10, 2023 10:41
[2023-02-10] MEDS ORDERED: CATHETER FLUSH 10 ML SYR IVP PRN (14:15)
--- NOTE | 2023-02-10 14:18 | Therapy Group Daily Note ---
Therapy Daily Group Note Patient Education Topic Home Safety Exercises LE Seated Exercise, UE Exercise Session Ratio (pt:therapist): 4:1 Goal of Session: Education on VTU Expectations, Home Safety Strategies, Use of Adaptive Equipment Goal Met for this Session: Yes Pt Benefit of Group: Contributions to Others, F/U Use of Strategies @Home, Increased Functional Safety, Increased Functional Strength, Improved Cognition, Recognition of Peers, Socialization Other/Notes Pt transported via w/c to [facility] for OT/PT group. Group consisted of introductions (name, place living, life hack/trick), socialization, education on tips/tricks to make IADLs/ADLs easier and B UE/LE seated exercises. Pt introduced self appropriately and actively listened to peers. Pt acknowledged understanding of educational topic by giving own strategies and ideas. Pt able to complete modified UE/LE seated exercises due to limited AROM of L side. After session, pt sitting in w/c with call light/phone in reach. All needs met in room. Start Time: 13:00 Stop Time: 14:00 Total Billed Treatment Time: 60 Total Billed Treatment 1-GRP RUEL MATTHEWS Feb 10, 2023 14:18
--- NOTE | 2023-02-10 14:21 | Speech Therapy Progress Note ---
Therapy Progress Note Speech pathology receiving cognitive linguistic consultation order and the chart was reviewed. At this time, speech pathology needs have not been displayed. Please re-consult speech pathology if evaluation is warranted. NEAL MARTEL Feb 10, 2023 14:21
--- NOTE | 2023-02-10 16:16 | Progress Note ---
Subjective Date Seen by a Provider: Feb 10, 2023 Time Seen by a Provider: 15:00 Subjective/Events-last exam doing well. no SOB. still has left sided weakness which is expected. tolerating PT well. Objective Exam Vital Signs Date Time Temp Pulse Resp B/P (MAP) Pulse Ox O2 Delivery O2 Flow Rate FiO2 02/10/23 09:00 Room Air 02/10/23 07:35 37.3 81 16 132/65 (87) 96 Room Air 02/10/23 07:17 Room Air 02/10/23 07:17 37.1 109 96 21 02/09/23 21:30 96 Room Air 02/09/23 19:44 37.1 109 16 130/70 (90) 96 Room Air I & O 02/10/23 07:00 Intake Total 1550 ml Output Total 800 ml Balance 750 ml Capillary Refill : General Appearance: No Apparent Distress HEENT: PERRL/EOMI Neck: Full Range of Motion Respiratory: Chest Non Tender, Normal Breath Sounds Cardiovascular: Regular Rate, Rhythm Gastrointestinal: normal bowel sounds, non tender, soft Extremity: Normal Capillary Refill Neurologic/Psychiatric: Alert, Oriented x3 Skin: Normal Color Lymphatic: No Adenopathy Results Lab Laboratory Tests 02/10/23 05:19: White Blood Count 10.5, Red Blood Count 2.79L, Hemoglobin 8.4L, Hematocrit 25L, Mean Corpuscular Volume 91, Mean Corpuscular Hemoglobin 30, Mean Corpuscular Hemoglobin Concent 33, Red Cell Distribution Width 15.3H, Platelet Count 230, Mean Platelet Volume 10.3, Immature Granulocyte % (Auto) 5, Neutrophils (%) (Auto) 61, Lymphocytes (%) (Auto) 18, Monocytes (%) (Auto) 14H, Eosinophils (%) (Auto) 3, Basophils (%) (Auto) 0, Neutrophils # (Auto) 6.4, Lymphocytes # (Auto) 1.9, Monocytes # (Auto) 1.5H, Eosinophils # (Auto) 0.3, Basophils # (Auto) 0.0, Immature Granulocyte # (Auto) 0.5H, Percent Immature Platelet Fraction 2.3, Sodium Level 137, Potassium Level 3.8, Chloride Level 105, Carbon Dioxide Level 24, Anion Gap 8, Blood Urea Nitrogen 25H, Creatinine 0.82, Estimat Glomerular F iltration Rate 87, BUN/Creatinine Ratio 30, Glucose Level 92, Calcium Level 8.2L , Corrected Calcium 9.6, Total Bilirubin 1.3H, Aspartate Amino Transf (AST/SGOT) 44H, Alanine Aminotransferase (ALT/SGPT) 42, Alkaline Phosphatase 71, Total Protein 4.6L, Albumin 2.3L Assessment/Plan Assessment/Plan Assess & Plan/Chief Complaint s/p 2nd CT for recurrent left ptx. no airleak on water seal. will get serial cxr's. once completely inflated and no air leak on water seal then will remove tube. if no ptx on , will remove CT. SAMMI WELLS MD Feb 10, 2023 16:16
[2023-02-10 20:28] VITALS: BP 133/64
[2023-02-10] MEDS: MELATONIN 3 MG TABLET PO PRN (20:46)
[2023-02-10] MEDS: CATHETER FLUSH 10 ML SYR IVP SCH (20:46)
--- NOTE | 2023-02-11 05:25 | PM&R Progress Note ---
Subjective HPI/CC On Admission Date Seen by Provider: Feb 11, 2023 Time Seen by Provider: 12:30 Subjective/Events-last exam 02/11/2023: No major issues Working with therapy Pain controlled Voiding well Increasing PO fluids successfully 02/10/2023: Much improved status Chest tube to water seal No pain reported DC catheter today No falls Venofer 2 more doses needed BM+ Review of Systems General: Fatigue, Malaise Musculoskeletal: leg pain Objective Exam Vital Signs Vital Signs Date Time Temp Pulse Resp B/P (MAP) Pulse Ox O2 Delivery O2 Flow Rate FiO2 02/11/23 21:44 Room Air 02/11/23 20:45 96 02/11/23 20:45 36.8 86 18 122/61 (81) 02/10/23 07:17 21 Capillary Refill : General Appearance: No Apparent Distress, WD/WN, Chronically ill, Thin, Other (frail) HEENT: PERRL/EOMI, Normal ENT Inspection, Pharynx Normal Neck: Full Range of Motion, Normal Inspection, Non Tender, Supple, Carotid Bruit Respiratory: Chest Non Tender, Lungs Clear, Normal Breath Sounds, No Accessory Muscle Use, No Respiratory Distress Cardiovascular: Regular Rate, Rhythm, No Edema, No Gallop, No JVD, No Murmur, Normal Peripheral Pulses Gastrointestinal: Normal Bowel Sounds, No Organomegaly, No Pulsatile Mass, Non Tender, Soft Back: Normal Inspection, No CVA Tenderness, No Vertebral Tenderness Extremity: Normal Capillary Refill, Normal Inspection, Normal Range of Motion ([place] left side), Non Tender, No Calf Tenderness, No Pedal Edema Neurologic/Psychiatric: Alert, Oriented x3, Normal 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 FIM Transfers Therapy Code Descriptions/Definitions Functional [place] Measure: 0=Not Assessed/NA 4=Minimal Assistance 1=Total Assistance 5=Supervision or Setup 2=Maximal Assistance 6=Modified [place] 3=Moderate Assistance 7=Complete IndependenceSCALE: Activities may be completed with or without assistive devices. 0-Mkcwkcskno-lfwuuwf completes the activity by him/herself with no assistance from a helper. 5-Set-up or Clean-up Assistance-helper sets up or cleans up; patient completes activity. [place] assists only prior to or following the activity. 4-Supervision or Touching Assistance-helper provides verbal cues and/or touc dary/steadying and/or contact guard assistance as patient completes activity. Assistance may be provided throughout the activity or intermittently. 3-Partial/Moderate Assistance-helper does LESS THAN HALF the effort. [place] lifts, holds or supports trunk or limbs, but provides less than half the effort. 2-Substantial/Maximal Assistance-helper does MORE THAN HALF the effort. [place] lifts or holds trunk or limbs and provides more than half the effort. 2-Hmgoopcga-hyoefl does ALL the effort. Patient does none of the effort to complete the activity. Or, the assistance of 2 or more helpers is required for the patient to complete the activity. If activity was not attempted, code reason: 7-Patient Refused. 9-Not Applicable-not attempted and the patient did not perform the activity before the current illness, exacerbation or injury. 10-Not Attempted due to Environmental Limitations-(lack of equipment, weather restraints, etc.). 88-Not Attempted due to Medical Conditions or Safety Concerns. Roll Left to Right (QC): 3 Sit to Lying (QC): 3 Sit to Stand (QC): 3 Chair/Vtr-vz-Kmqro Xfer(QC): 3 Car Transfer (QC): 88 Gait Training Does the Patient Walk?: Yes Walk 10 feet (QC): 2 Walk 50 ft with 2 Turns(QC): 88 Walk 150 ft (QC): 88 Walking 10ft/uneven surface-QC: 88 Gait Persons Needed: 1 (and requires w/c follow up) Gait Assistive Device: Walker Platform Wheelchair Training Does the Pt Use a Wheelchair?: Yes Distance: 150' Wheel 50 ft with 2 turns (QC): 3 (needs assist to brake and to steer at times) Wheel 150 ft (QC): 3 Type of Wheelchair: Manual Stair Training 1 Step (curb) (QC): 88 4 Steps (QC): 88 12 Steps (QC): 88 Balance Picking up an Object (QC): 88 ADL-Treatment Eating (QC): 5 (Per pt/spouse report) Oral Hygiene (QC): 5 Shower/Bathe Self (QC): 2 Upper Body Dressing (QC): 3 Lower Body Dressing (QC): 2 On/Off Footwear (QC): 2 Toileting Hygiene (QC): 1 (total assist.) Assessment/Plan Assessment and Plan Assess & Plan/Chief Complaint Assess & Plan/Chief Complaint Left femoral neck fracture Acute blood loss anemia causing hypovolumic shock Pneumothorax, left sided requiring chest tube placement Falls/debility 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 HLD Hypothyroidism Iron deficiency Plan: PT OT Pain control Chest tube management Monitor closely 02/10/2023: Improved overall No pain reported Restart and finish Venofer 02/11/2023: Monitor closely Aggressive rehab (1) Closed left hip fracture Status: Acute (2) Postoperative anemia due to acute blood loss Status: Acute (3) Debility Status: Acute (4) History of cerebrovascular accident (CVA) with residual deficit Status: Chronic (5) Pneumothorax on left Status: Acute (6) Central line complication Status: Acute (7) Recurrent pneumothorax after chest tube removed Status: Acute VIKI BOOTH DO Feb 11, 2023 05:25
[2023-02-11] MEDS: CYANOCOBALAMIN 1,000 MCG (VITAMIN B-12) TABLET PO SCH (06:28)
[2023-02-11] MEDS: MULTIVIT W/MINERALS TAB (THERAGRAN M) PO SCH (06:28)
[2023-02-11] MEDS: CATHETER FLUSH 10 ML SYR IVP SCH ×3 (06:28→20:59)
[2023-02-11] MEDS: LEVOTHYROXINE 125 MCG (LEVOTHROID) TABLET PO SCH (06:28)
--- NOTE | 2023-02-11 07:05 | Diagnostic Imaging Report ---
EXAMINATION: Chest 1 view HISTORY: Recurrent pneumothorax COMPARISON: 02/08/2023 FINDINGS: Heart size and pulmonary vasculature are normal. The lungs are clear without consolidation, pleural effusion, or pneumothorax. Left-sided pleural drainage catheter is present. Degenerative changes of the thoracic spine. Osseous structures are otherwise intact. There is extensive left neck and chest wall subcutaneous emphysema. IMPRESSION: 1. No visualized left pneumothorax. Stable extensive subcutaneous emphysema. Dictated by: Dictated on workstation # [id number]
[2023-02-11 07:48] VITALS: BP 127/73
[2023-02-11] MEDS: DOCUSATE SODIUM 100 MG (COLACE) CAP PO SCH ×2 (08:34→20:58)
[2023-02-11] MEDS: ENOXAPARIN 40 MG/0.4 ML (LOVENOX) SYR SC SCH (08:34)
[2023-02-11] MEDS: SENNA W/DOCUSATE (SENOKOT S) TABLET PO SCH ×2 (08:35→20:59)
[2023-02-11] MEDS: SENNOSIDES 8.6 MG (SENOKOT) TAB PO SCH ×2 (08:35→20:59)
[2023-02-11] MEDS: polyethylene glycoL POWDER 17 GM (MIRALAX) PACK PO SCH ×2 (08:35→20:59)
[2023-02-11] MEDS: IRON SUCROSE 200 MG/10 ML (VENOFER) VIAL IV SCH (08:37)
--- NOTE | 2023-02-11 12:52 | Occupational Ther Daily Note ---
OT Current Status-Daily Note Subjective Pt alert, lying in bed. Pt agrees to therapy. No c/o pain. PT/OT cotreat ([id number]), skills of 2 clinicians required to decrease fall risk and improve mobility safely while completing transfers. Mental Status/Objective Patient Orientation: Person, Place, Time, Situation Attachments: IV ADL-Treatment Max A x1 with SPT from EOB to BSC to shower to recliner. Pt able to complete shower with mod A sitting on BSC 100% of the time. Min A for UBD. Max A for LBD, pt able to pull to stand and maintain balance with grabbar while assist to hike pants. Max A for footwear. After session, pt sitting in recliner with call light/phone in reach. All needs met in room. Therapy Code Descriptions/Definitions Functional [place] Measure: 0=Not Assessed/NA 4=Minimal Assistance 1=Total Assistance 5=Supervision or Setup 2=Maximal Assistance 6=Modified [place] 3=Moderate Assistance 7=Complete IndependenceSCALE: Activities may be completed with or without assistive devices. 6-Zrhnzkdgnj-tobyqid completes the activity by him/herself with no assistance from a helper. 5-Set-up or Clean-up Assistance-helper sets up or cleans up; patient completes activity. [place] assists only prior to or following the activity. 4-Supervision or Touching Assistance-helper provides verbal cues and/or touching/steadying and/or contact guard assistance as patient completes activity. Assistance may be provided throughout the activity or intermittently. 3-Partial/Moderate Assistance-helper does LESS THAN HALF the effort. [place] lifts, holds or supports trunk or limbs, but provides less than half the effort. 2-Substantial/Maximal Assistance-helper does MORE THAN HALF the effort. [place] lifts or holds trunk or limbs and provides more than half the effort. 0-Poayxeikg-sxibgg does ALL the effort. Patient does none of the effort to complete the activity. Or, the assistance of 2 or more helpers is required for the patient to complete the activity. If activity was not attempted, code reason: 7-Patient Refused. 9-Not Applicable-not attempted and the patient did not perform the activity before the current illness, exacerbation or injury. 10-Not Attempted due to Environmental Limitations-(lack of equipment, weather restraints, etc.). 88-Not Attempted due to Medical Conditions or Safety Concerns. Shower/Bathe Self (QC): 3 Upper Body Dressing (QC): 3 Lower Body Dressing (QC): 2 On/Off Footwear: 2 Toileting Hygiene (QC): 1 Toilet Transfer (QC): 2 OT Short Term Goals Short Term Goals Lower body dressin Putting on/taking off footwear: 2 OT Domestic Helper Goals [facility] Goals Time Frame: Mar 05, 2023 Acute change in mental status: 0 Inattention: 0 Disorganized thinkin Altered level of consciousness: 0 Eating (QC): 5 Oral Hygiene (QC): 5 Toileting Hygiene (QC): 3 Shower/Bathe Self (QC): 3 Upper Body Dressing (QC): 3 Lower Body Dressing (QC): 3 On/Off Footwear (QC): 3 Additional Goals: 1-Demonstrate ADL Tasks, 2-Verbalize Understanding, 3- ImproveStrength/Josep 1=Demonstrate adherence to instructed precautions during ADL tasks. 2=Patient will verbalize/demonstrate understanding of assistive devices/modifications for ADL. 3=Patient will improve strength/tolerance for activity to enable patient to perform ADL's. OT Education/Plan Problem List/Assessment Assessment: Decreased Activ Tolerance, Decreased UE Strength, Impaired Self- Care Skills, Restricted Funct UE ROM Discharge Recommendations Plan/Recommendations: Continue POC Treatment Plan/Plan of Care Patient would benefit from OT for education, treatment and training to promote independence in ADL's, mobility, safety and/or upper extremity function for ADL's. Plan of Care: ADL Retraining, Functional Mobility, Group Exercise/Act as Ind, UE Funct Exercise/Act, UE Neuromus Re-Ed/Coord Treatment Duration: Mar 05, 2023 Frequency: At least 5 of 7 days/Wk (IRF) Estimated Hrs Per Day: 1.5 hours per day Agreement: Yes Rehab Potential: Fair Time Start Time: 09:00 Stop Time: 10:00 DATE: Feb 11, 2023 Total Time Billed (hr/min): 60 Billed Treatment Time 1 visit-ADL 4 (60 min) co-treat with PT [id number], individual [id number] RUEL MATTHEWS Feb 11, 2023 12:52
--- NOTE | 2023-02-11 15:04 | Occupational Ther Daily Note ---
OT Current Status-Daily Note Subjective Pt alert, sitting in recliner. Pt agrees to therapy. No c/o pain. Mental Status/Objective Patient Orientation: Person, Place, Time, Situation Attachments: Drains, IV ADL-Treatment Therapy Code Descriptions/Definitions Functional [place] Measure: 0=Not Assessed/NA 4=Minimal Assistance 1=Total Assistance 5=Supervision or Setup 2=Maximal Assistance 6=Modified [place] 3=Moderate Assistance 7=Complete IndependenceSCALE: Activities may be completed with or without assistive devices. 2-Hdxeudylnb-rujgumv completes the activity by him/herself with no assistance from a helper. 5-Set-up or Clean-up Assistance-helper sets up or cleans up; patient completes activity. [place] assists only prior to or following the activity. 4-Supervision or Touching Assistance-helper provides verbal cues and/or touching/steadying and/or contact guard assistance as patient completes activity. Assistance may be provided throughout the activity or intermittently. 3-Partial/Moderate Assistance-helper does LESS THAN HALF the effort. [place] lifts, holds or supports trunk or limbs, but provides less than half the effort. 2-Substantial/Maximal Assistance-helper does MORE THAN HALF the effort. [place] lifts or holds trunk or limbs and provides more than half the effort. 4-Mhhwtxxyi-hbmbui does ALL the effort. Patient does none of the effort to complete the activity. Or, the assistance of 2 or more helpers is required for the patient to complete the activity. If activity was not attempted, code reason: 7-Patient Refused. 9-Not Applicable-not attempted and the patient did not perform the activity before the current illness, exacerbation or injury. 10-Not Attempted due to Environmental Limitations-(lack of equipment, weather restraints, etc.). 88-Not Attempted due to Medical Conditions or Safety Concerns. Other Treatment Pt educated on using AE for lower body dressing. Pt demonstrated understanding of equipment by using with footwear. Pt will need time to practice to become proficient with one handed technique. After therapy, pt sitting in recliner with call light/phone in reach. All needs met in room. OT Short Term Goals Short Term Goals Lower body dressin Putting on/taking off footwear: 2 OT Retirement Goals Retirement Goals Time Frame: Mar 05, 2023 Acute change in mental status: 0 Inattention: 0 Disorganized thinkin Altered level of consciousness: 0 Eating (QC): 5 Oral Hygiene (QC): 5 Toileting Hygiene (QC): 3 Shower/Bathe Self (QC): 3 Upper Body Dressing (QC): 3 Lower Body Dressing (QC): 3 On/Off Footwear (QC): 3 Additional Goals: 1-Demonstrate ADL Tasks, 2-Verbalize Understanding, 3- ImproveStrength/Josep 1=Demonstrate adherence to instructed precautions during ADL tasks. 2=Patient will verbalize/demonstrate understanding of assistive devices/modifications for ADL. 3=Patient will improve strength/tolerance for activity to enable patient to perform ADL's. OT Education/Plan Problem List/Assessment Assessment: Decreased Activ Tolerance, Impaired Self-Care Skills Discharge Recommendations Plan/Recommendations: Continue POC Treatment Plan/Plan of Care Patient would benefit from OT for education, treatment and training to promote independence in ADL's, mobility, safety and/or upper extremity function for ADL's. Plan of Care: ADL Retraining, Functional Mobility, Group Exercise/Act as Ind, UE Funct Exercise/Act, UE Neuromus Re-Ed/Coord Treatment Duration: Mar 05, 2023 Frequency: At least 5 of 7 days/Wk (IRF) Estimated Hrs Per Day: 1.5 hours per day Agreement: Yes Rehab Potential: Fair Time Start Time: 13:00 Stop Time: 13:30 DATE: Feb 11, 2023 Total Time Billed (hr/min): 30 Billed Treatment Time 1 visit-ADL 2 (30 min) RUEL MATTHEWS Feb 11, 2023 15:04
--- NOTE | 2023-02-11 15:12 | Occupational Ther Daily Note ---
OT Current Status-Daily Note Subjective Pt alert, sitting in recliner. Pt agrees to therapy. No c/o pain. Mental Status/Objective Patient Orientation: Person, Place, Time, Situation Attachments: Drains, IV ADL-Treatment Therapy Code Descriptions/Definitions Functional [place] Measure: 0=Not Assessed/NA 4=Minimal Assistance 1=Total Assistance 5=Supervision or Setup 2=Maximal Assistance 6=Modified [place] 3=Moderate Assistance 7=Complete IndependenceSCALE: Activities may be completed with or without assistive devices. 7-Phimhvyrtm-yrgflhs completes the activity by him/herself with no assistance from a helper. 5-Set-up or Clean-up Assistance-helper sets up or cleans up; patient completes activity. [place] assists only prior to or following the activity. 4-Supervision or Touching Assistance-helper provides verbal cues and/or touching/steadying and/or contact guard assistance as patient completes activity. Assistance may be provided throughout the activity or intermittently. 3-Partial/Moderate Assistance-helper does LESS THAN HALF the effort. [place] lifts, holds or supports trunk or limbs, but provides less than half the effort. 2-Substantial/Maximal Assistance-helper does MORE THAN HALF the effort. [place] lifts or holds trunk or limbs and provides more than half the effort. 4-Iyccdzuzk-vkqxly does ALL the effort. Patient does none of the effort to complete the activity. Or, the assistance of 2 or more helpers is required for the patient to complete the activity. If activity was not attempted, code reason: 7-Patient Refused. 9-Not Applicable-not attempted and the patient did not perform the activity before the current illness, exacerbation or injury. 10-Not Attempted due to Environmental Limitations-(lack of equipment, weather restraints, etc.). 88-Not Attempted due to Medical Conditions or Safety Concerns. Other Treatment Mod A for SPT. Pt propelled to therapy gym via w/c. Pt completed a variety of PROM/AROM of L shldr stretches and no resistance. Pt demonstrated ability for ~150* flexion with PROM, ~90* flex with AROM and compensatory techniques. OT/PT co-treat [id number], skills of 2 clinicians required to decrease fall risk and work on functional ambulation in parallel bars. See PT notes for progress. OT to assist with L LE positioning, decrease fall risk and manipulate w/c for quick sitting. After session, pt sitting in recliner with call light/phone in reach. All needs met in room. OT Short Term Goals Short Term Goals Lower body dressin Putting on/taking off footwear: 2 OT Vaccinator Goals Snf Goals Time Frame: Mar 05, 2023 Acute change in mental status: 0 Inattention: 0 Disorganized thinkin Altered level of consciousness: 0 Eating (QC): 5 Oral Hygiene (QC): 5 Toileting Hygiene (QC): 3 Shower/Bathe Self (QC): 3 Upper Body Dressing (QC): 3 Lower Body Dressing (QC): 3 On/Off Footwear (QC): 3 Additional Goals: 1-Demonstrate ADL Tasks, 2-Verbalize Understanding, 3-ImproveStrength/Josep 1=Demonstrate adherence to instructed precautions during ADL tasks. 2=Patient will verbalize/demonstrate understanding of assistive devices/modifications for ADL. 3=Patient will improve strength/tolerance for activity to enable patient to perform ADL's. OT Education/Plan Problem List/Assessment Assessment: Decreased Activ Tolerance, Decreased Safety Aware, Impaired Coordination, Impaired Funct Balance, Impaired Self-Care Skills, Restricted Funct UE ROM Discharge Recommendations Plan/Recommendations: Continue POC Treatment Plan/Plan of Care Patient would benefit from OT for education, treatment and training to promote independence in ADL's, mobility, safety and/or upper extremity function for ADL's. Plan of Care: ADL Retraining, Functional Mobility, Group Exercise/Act as Ind, UE Funct Exercise/Act, UE Neuromus Re-Ed/Coord Treatment Duration: Mar 05, 2023 Frequency: At least 5 of 7 days/Wk (IRF) Estimated Hrs Per Day: 1.5 hours per day Agreement: Yes Rehab Potential: Fair Time Start Time: 13:50 Stop Time: 15:00 DATE: Feb 11, 2023 Total Time Billed (hr/min): 70 Billed Treatment Time 1 visit-EX 5(70 min) co-treat with PT [id number], individual [id number] RUEL MATTHEWS Feb 11, 2023 15:12
--- NOTE | 2023-02-11 15:20 | Physical Therapy Daily Note ---
PT Daily Note-Current Subjective Pt. seen for co Rx with OT for TRFs sit to stand, SPTs and gait in //bars. Pt. has no c/o pain Pain Location: No Pain Reported Section J - Health Conditions 1. Rarely or not at all 2. Occasionally 3. Frequently 4. Almost constantly 8. Unable to answer Pain Effect on Sleep: 1 Pain Interference with Therapy: 1 Pain Interference w/Day-to-Day: 1 Mental Status Patient Orientation: Normal For Age Attachments: Chest Tube, Other-See Comments (AFO, knee cage) Transfers SCALE: Activities may be completed with or without assistive devices. 0-Zhihfvdsbg-fyusmxr completes the activity by him/herself with no assistance from a helper. 5-Set-up or Clean-up Assistance-helper sets up or cleans up; patient completes activity. [place] assists only prior to or following the activity. 4-Supervision or Touching Assistance-helper provides verbal cues and/or touching/steadying and/or contact guard assistance as patient completes activity. Assistance may be provided throughout the activity or intermittently. 3-Partial/Moderate Assistance-helper does LESS THAN HALF the effort. [place] lifts, holds or supports trunk or limbs, but provides less than half the effort. 2-Substantial/Maximal Assistance-helper does MORE THAN HALF the effort. [place] lifts or holds trunk or limbs and provides more than half the effort. 2-Ppxaecyve-cbjngc does ALL the effort. Patient does none of the effort to com plete the activity. Or, the assistance of 2 or more helpers is required for the patient to complete the activity. If activity was not attempted, code reason: 7-Patient Refused. 9-Not Applicable-not attempted and the patient did not perform the activity before the current illness, exacerbation or injury. 10-Not Attempted due to Environmental Limitations-(lack of equipment, weather restraints, etc.). 88-Not Attempted due to Medical Conditions or Safety Concerns. Sit to Stand (QC): 4 Chair/Bzk-lk-Bkayg Xfer(QC): 3 sit to stands in // bars with OT and PT directing trunk, LLE advancement and wt shift as well as broadening ROBERTH. pt. ambulated 9 ft x 3 with mod assist 1and min assist 1 and w/c f/u. SPT w/c to recliner mod asst 1. Weight Bearing Left Lower Extremity: Left Partial Weight Bearing Gait Training Walk 10 feet (QC): 3 Gait Assistive Device: Parallel Bars Treatments TRFs, gait, Assessment Current Status: Good Progress pt. gives full effort, no pain c/o PT Nursing Home Goals Nursing Home Goals PT Aircraft Electrician Goals Time Frame: Feb 23, 2023 Roll Left & Right (QC): 4 (SBA) Sit to Lying (QC): 4 (SBA) Lying-Sitting on Side/Bed(QC): 4 (SBA) Sit to Stand (QC): 4 (CGA) Chair/Sre-qv-Zwvrg Xfer(QC): 4 (CGA) Toilet Transfer (QC): 4 (CGA) Car Transfer (QC): 4 (CGA) Does the Patient Walk: Yes Walk 10 feet (QC): 4 (CGA) Walk 50ft with 2 Turns (QC): 4 (CGA) Walk 150 ft (QC): 88 Walking 10ft on Uneven Surface: 4 (CGA) 1 Step (curb) (QC): 4 (CGA) 4 Steps (QC): 88 12 Steps (QC): 88 Picking up an Object (QC): 4 (CGA using a drug enforcement administration agent) Wheel 50 feet with 2 turns (QC: 4 (SBA) Wheel 150 feet: 4 (SBA) PT Plan Treatment/Plan Treatment Plan: Continue Plan of Care Treatment Plan: Bed Mobility, Education, Functional Activity Josep, Functional Strength, Group Therapy, Gait, Safety, Therapeutic Exercise, Transfers Treatment Duration: Feb 23, 2023 Frequency: At least 5 of 7 days/Wk (IRF) Estimated Hrs Per Day: 1.5 hours per day Patient and/or Family Agrees t: Yes Safety Risks/Education Patient Education: Gait Training, Transfer Techniques, Correct Positioning, Disease Process, Safety Issues Teaching Recipient: Patient Teaching Methods: Demonstration, Discussion Response to Teaching: Verbalize Understanding, Return Demonstration, Reinforcement Needed Time Time In: 1445 Time Out: 1500 DATE: Feb 11, 2023 Total Billed Treatment Time: 15 Total Billed Treatment 1,GT15m co Rx PT OT LLOYD TRUONG EMISSIONS ENGINEER Feb 11, 2023 15:20
--- NOTE | 2023-02-11 18:47 | Progress Note ---
Subjective Date Seen by a Provider: Feb 11, 2023 Time Seen by a Provider: 18:00 Subjective/Events-last exam doing well. no SOB. no new cough. no ptx for 3 straight days and no airleak. Objective Exam Vital Signs Date Time Temp Pulse Resp B/P (MAP) Pulse Ox O2 Delivery O2 Flow Rate FiO2 02/11/23 08:44 Room Air 02/11/23 07:48 37.4 87 16 127/73 (91) 95 Room Air 02/10/23 20:30 97 Room Air 02/10/23 20:28 37.6 94 18 133/64 (87) 97 Room Air I & O 02/11/23 07:00 Intake Total 1100 ml Output Total 2305 ml Balance -1205 ml Capillary Refill : General Appearance: No Apparent Distress HEENT: PERRL/EOMI Neck: Full Range of Motion Respiratory: Chest Non Tender Cardiovascular: Regular Rate, Rhythm Gastrointestinal: normal bowel sounds, non tender, soft Extremity: Normal Capillary Refill Neurologic/Psychiatric: Alert, Oriented x3 Skin: Normal Color Lymphatic: No Adenopathy Assessment/Plan Assessment/Plan Assess & Plan/Chief Complaint s/p 2nd CT for recurrent left ptx. no airleak on water seal. will get serial cxr's. once completely inflated and no air leak on water seal then will remove tube. CT removed today(). will get cxr tonight and in am. SAMMI WELLS MD Feb 11, 2023 18:47
--- NOTE | 2023-02-11 19:08 | Diagnostic Imaging Report ---
INDICATION: Left chest tube removal. EXAMINATION: Chest 02/11/2023 Comparison made to the same date at 4:06 a.m. FINDINGS: Again noted is diffuse subcutaneous edema along the left hemithorax and neck. Previously noted chest tube has been removed. There is no significant pneumothorax. Lungs clear. No effusions. Heart and pulmonary vasculature normal. IMPRESSION: 1. Subcutaneous air noted with no pneumothorax status post chest tube removal. Dictated by: Dictated on workstation # [id number]
[2023-02-11 20:45] VITALS: BP 122/61
[2023-02-11] MEDS: MELATONIN 3 MG TABLET PO PRN (20:58)
[2023-02-11] MEDS: NYSTATIN CREAM (MYCOSTATIN) 30 GM TUBE TP SCH (20:59)
[2023-02-12] MEDS: CATHETER FLUSH 10 ML SYR IVP SCH ×3 (06:20→21:23)
[2023-02-12] MEDS: MULTIVIT W/MINERALS TAB (THERAGRAN M) PO SCH (06:20)
[2023-02-12] MEDS: CYANOCOBALAMIN 1,000 MCG (VITAMIN B-12) TABLET PO SCH (06:20)
[2023-02-12] MEDS: LEVOTHYROXINE 125 MCG (LEVOTHROID) TABLET PO SCH (06:20)
--- NOTE | 2023-02-12 06:29 | PM&R Progress Note ---
Subjective HPI/CC On Admission Date Seen by Provider: Feb 12, 2023 Time Seen by Provider: 12:00 Subjective/Events-last exam 02/12/2023: Much improved Increased PO fluids No pain at bedside No concerns 02/11/2023: No major issues Working with therapy Pain controlled Voiding well Increasing PO fluids successfully 02/10/2023: Much improved status Chest tube to water seal No pain reported DC catheter today No falls Venofer 2 more doses needed BM+ Review of Systems General: Fatigue, Malaise Objective Exam Vital Signs Vital Signs Date Time Temp Pulse Resp B/P (MAP) Pulse Ox O2 Delivery O2 Flow Rate FiO2 02/12/23 09:00 Room Air 02/12/23 07:50 36.5 77 16 123/59 (80) 95 02/10/23 07:17 21 Capillary Refill : General Appearance: No Apparent Distress, WD/WN, Chronically ill, Thin, Other (frail) HEENT: PERRL/EOMI, Normal ENT Inspection, Pharynx Normal Neck: Full Range of Motion, Normal Inspection, Non Tender, Supple, Carotid Bruit Respiratory: Chest Non Tender, Lungs Clear, Normal Breath Sounds, No Accessory Muscle Use, No Respiratory Distress Cardiovascular: Regular Rate, Rhythm, No Edema, No Gallop, No JVD, No Murmur, Normal Peripheral Pulses Gastrointestinal: Normal Bowel Sounds, No Organomegaly, No Pulsatile Mass, Non Tender, Soft Back: Normal Inspection, No CVA Tenderness, No Vertebral Tenderness Extremity: Normal Capillary Refill, Normal Inspection, Normal Range of Motion ([place] left side), Non Tender, No Calf Tenderness, No Pedal Edema Neurologic/Psychiatric: Alert, Oriented x3, Normal 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 FIM Transfers Therapy Code Descriptions/Definitions Functional [place] Measure: 0=Not Assessed/NA 4=Minimal Assistance 1=Total Assistance 5=Supervision or Setup 2=Maximal Assistance 6=Modified [place] 3=Moderate Assistance 7=Complete IndependenceSCALE: Activities may be completed with or without assistive devices. 1-Iipnkeatyd-dwkrxqd completes the activity by him/herself with no assistance from a helper. 5-Set-up or Clean-up Assistance-helper sets up or cleans up; patient completes activity. [place] assists only prior to or following the activity. 4-Supervision or Touching Assistance-helper provides verbal cues and/or touching/steadying and/or contact guard assistance as patient completes activity. Assistance may be provided throughout the activity or intermittently. 3-Partial/Moderate Assistance-helper does LESS THAN HALF the effort. [place] lifts, holds or supports trunk or limbs, but provides less than half the effort. 2-Substantial/Maximal Assistance-helper does MORE THAN HALF the effort. [place] lifts or holds trunk or limbs and provides more than half the effort. 3-Mfyxmjebk-gggxrh does ALL the effort. Patient does none of the effort to complete the activity. Or, the assistance of 2 or more helpers is required for the patient to complete the activity. If activity was not attempted, code reason: 7-Patient Refused. 9-Not Applicable-not attempted and the patient did not perform the activity before the current illness, exacerbation or injury. 10-Not Attempted due to Environmental Limitations-(lack of equipment, weather restraints, etc.). 88-Not Attempted due to Medical Conditions or Safety Concerns. Roll Left to Right (QC): 3 Sit to Lying (QC): 3 Sit to Stand (QC): 4 Chair/Mzs-ln-Nvfhr Xfer(QC): 3 Car Transfer (QC): 88 Gait Training Does the Patient Walk?: Yes Walk 10 feet (QC): 3 Walk 50 ft with 2 Turns(QC): 88 Walk 150 ft (QC): 88 Walking 10ft/uneven surface-QC: 88 Gait Persons Needed: 1 (and requires w/c follow up) Gait Assistive Device: Parallel Bars Wheelchair Training Does the Pt Use a Wheelchair?: Yes Distance: 150' Wheel 50 ft with 2 turns (QC): 3 (needs assist to brake and to steer at times) Wheel 150 ft (QC): 3 Type of Wheelchair: Manual Stair Training 1 Step (curb) (QC): 88 4 Steps (QC): 88 12 Steps (QC): 88 Balance Picking up an Object (QC): 88 ADL-Treatment Eating (QC): 5 (Per pt/spouse report) Oral Hygiene (QC): 5 Shower/Bathe Self (QC): 3 Upper Body Dressing (QC): 3 Lower Body Dressing (QC): 2 On/Off Footwear (QC): 2 Toileting Hygiene (QC): 1 Toilet Transfer (QC): 2 Assessment/Plan Assessment and Plan Assess & Plan/Chief Complaint Assess & Plan/Chief Complaint Left femoral neck fracture Acute blood loss anemia causing hypovolumic shock Pneumothorax, left sided requiring chest tube placement Falls/debility 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 HLD Hypothyroidism Iron deficiency Plan: PT OT Pain control Chest tube management Monitor closely 02/10/2023: Improved overall No pain reported Restart and finish Venofer 02/11/2023: Monitor closely Aggressive rehab 02/12/2023: Increase fluids Monitor closely (1) Closed left hip fracture Status: Acute (2) Postoperative anemia due to acute blood loss Status: Acute (3) Debility Status: Acute (4) History of cerebrovascular accident (CVA) with residual deficit Status: Chronic (5) Pneumothorax on left Status: Acute (6) Central line complication Status: Acute (7) Recurrent pneumothorax after chest tube removed Status: Acute VIIK BOOTH DO Feb 12, 2023 06:29
[2023-02-12 07:50] VITALS: BP 123/59
--- NOTE | 2023-02-12 09:01 | Diagnostic Imaging Report ---
Indication: Chest tube removal. Time of Exam: 8:06 AM Correlation is made with prior chest from one day earlier. Heart size normal. There continues to be extensive subcutaneous emphysema along the left chest wall and soft tissues of the lower left neck. No definite pneumothorax identified. Lungs are clear. Heart size normal. No effusion is seen. IMPRESSION: Subcutaneous emphysema, similar to yesterday. No definite pneumothorax is detected. Dictated by: Dictated on workstation # [id number]
[2023-02-12] MEDS: DOCUSATE SODIUM 100 MG (COLACE) CAP PO SCH ×2 (09:23→21:00)
[2023-02-12] MEDS: IRON SUCROSE 200 MG/10 ML (VENOFER) VIAL IV SCH (09:23)
[2023-02-12] MEDS: ENOXAPARIN 40 MG/0.4 ML (LOVENOX) SYR SC SCH (09:23)
[2023-02-12] MEDS: polyethylene glycoL POWDER 17 GM (MIRALAX) PACK PO SCH ×2 (09:23→21:00)
[2023-02-12] MEDS: SENNA W/DOCUSATE (SENOKOT S) TABLET PO SCH ×2 (09:23→21:00)
[2023-02-12] MEDS: SENNOSIDES 8.6 MG (SENOKOT) TAB PO SCH ×2 (09:23→21:00)
[2023-02-12] MEDS: NYSTATIN CREAM (MYCOSTATIN) 30 GM TUBE TP SCH ×3 (09:23→21:23)
--- NOTE | 2023-02-12 10:21 | Occupational Ther Daily Note ---
OT Current Status-Daily Note Subjective Pt alert, lying in bed. Pt agrees to therapy. No c/o pain at this time. asking about assisting therapy with transfer for education, JASSO will educate and allow to assist with transfers during sessions. Mental Status/Objective Patient Orientation: Person, Place, Time, Situation Attachments: IV, Other-See Comments (afo) ADL-Treatment Mod A for supine to EOB. Mod A for SPT from surface to surface. to bring quadcane to work on SPT. Set up for UBD. Education for lower body dressing using AE, max A at this time. Discussed with and pt that they are wanting to have complete lower body dressing and footwear at this time to have OT concentrate on functional mobility and increasing ROM and transfer of B UE's for functional tasks. Assist x1 to stand then 2nd person assist to hike pants and hygiene. After session, pt sitting in w/c with call light/phone in reach. All needs met in room. Therapy Code Descriptions/Definitions Functional [place] Measure: 0=Not Assessed/NA 4=Minimal Assistance 1=Total Assistance 5=Supervision or Setup 2=Maximal Assistance 6=Modified [place] 3=Moderate Assistance 7=Complete IndependenceSCALE: Activities may be completed with or without assistive devices. 7-Oofxebamfv-yquskon completes the activity by him/herself with no assistance from a helper. 5-Set-up or Clean-up Assistance-helper sets up or cleans up; patient completes activity. [place] assists only prior to or following the activity. 4-Supervision or Touching Assistance-helper provides verbal cues and/or touching/steadying and/or contact guard assistance as patient completes activity. Assistance may be provided throughout the activity or intermittently. 3-Partial/Moderate Assistance-helper does LESS THAN HALF the effort. [place] lifts, holds or supports trunk or limbs, but provides less than half the effort. 2-Substantial/Maximal Assistance-helper does MORE THAN HALF the effort. [place] lifts or holds trunk or limbs and provides more than half the effort. 1-Heymqbita-pmstfe does ALL the effort. Patient does none of the effort to complete the activity. Or, the assistance of 2 or more helpers is required for the patient to complete the activity. If activity was not attempted, code reason: 7-Patient Refused. 9-Not Applicable-not attempted and the patient did not perform the activity before the current illness, exacerbation or injury. 10-Not Attempted due to Environmental Limitations-(lack of equipment, weather restraints, etc.). 88-Not Attempted due to Medical Conditions or Safety Concerns. Upper Body Dressing (QC): 5 Lower Body Dressing (QC): 2 On/Off Footwear: 2 Toileting Hygiene (QC): 1 Toilet Transfer (QC): 3 OT Short Term Goals Short Term Goals Lower body dressin Putting on/taking off footwear: 2 OT Usp Goals Usp Goals Time Frame: Mar 05, 2023 Acute change in mental status: 0 Inattention: 0 Disorganized thinkin Altered level of consciousness: 0 Eating (QC): 5 Oral Hygiene (QC): 5 Toileting Hygiene (QC): 3 Shower/Bathe Self (QC): 3 Upper Body Dressing (QC): 3 Lower Body Dressing (QC): 3 On/Off Footwear (QC): 3 Additional Goals: 1-Demonstrate ADL Tasks, 2-Verbalize Understanding, 3- ImproveStrength/Josep 1=Demonstrate adherence to instructed precautions during ADL tasks. 2=Patient will verbalize/demonstrate understanding of assistive devices/modifi cations for ADL. 3=Patient will improve strength/tolerance for activity to enable patient to perform ADL's. OT Education/Plan Problem List/Assessment Assessment: Decreased Activ Tolerance, Decreased UE Strength, Impaired Bed Mobility, Impaired Coordination, Impaired Funct Balance, Impaired I ADL's, Impaired Self-Care Skills, Restricted Funct UE ROM Discharge Recommendations Plan/Recommendations: Continue POC Treatment Plan/Plan of Care Patient would benefit from OT for education, treatment and training to promote independence in ADL's, mobility, safety and/or upper extremity function for ADL's. Plan of Care: ADL Retraining, Functional Mobility, Group Exercise/Act as Ind, UE Funct Exercise/Act, UE Neuromus Re-Ed/Coord Treatment Duration: Mar 05, 2023 Frequency: At least 5 of 7 days/Wk (IRF) Estimated Hrs Per Day: 1.5 hours per day Agreement: Yes Rehab Potential: Fair Time Start Time: 09:00 Stop Time: 10:00 DATE: Feb 12, 2023 Total Time Billed (hr/min): 60 Billed Treatment Time 1 visit-ADL 4 (60 min) RUEL MATTHEWS Feb 12, 2023 10:21
--- NOTE | 2023-02-12 11:54 | Progress Note ---
Subjective Date Seen by a Provider: Feb 12, 2023 Time Seen by a Provider: 11:30 Subjective/Events-last exam doing well. no SOB. tolerating therapy well. no recurrent ptx on cxr. Objective Exam Vital Signs Date Time Temp Pulse Resp B/P (MAP) Pulse Ox O2 Delivery O2 Flow Rate FiO2 02/12/23 09:00 Room Air 02/12/23 07:50 36.5 77 16 123/59 (80) 95 Room Air 02/11/23 21:44 Room Air 02/11/23 20:45 96 Room Air 02/11/23 20:45 36.8 86 18 122/61 (81) 96 Room Air I & O 02/12/23 07:00 Intake Total 1950 ml Output Total 1200 ml Balance 750 ml Capillary Refill : General Appearance: No Apparent Distress HEENT: PERRL/EOMI Neck: Full Range of Motion Respiratory: Chest Non Tender, Normal Breath Sounds Cardiovascular: Regular Rate, Rhythm Gastrointestinal: normal bowel sounds, non tender, soft Extremity: Normal Capillary Refill Neurologic/Psychiatric: Alert, Oriented x3 Skin: Normal Color Lymphatic: No Adenopathy Assessment/Plan Assessment/Plan Assess & Plan/Chief Complaint s/p 2nd CT for recurrent left ptx. no airleak on water seal. will get serial cxr's. once completely inflated and no air leak on water seal then will remove tube. CT removed today() with f/u cxr immediately after and following day no ptx. cont therapy. SAMMI WELLS MD Feb 12, 2023 11:54
--- NOTE | 2023-02-12 14:26 | Occupational Ther Daily Note ---
OT Current Status-Daily Note Subjective Pt alert, sitting in recliner. Pt agrees to therapy. No c/o pain. Mental Status/Objective Patient Orientation: Person, Place, Time, Situation ADL-Treatment Therapy Code Descriptions/Definitions Functional [place] Measure: 0=Not Assessed/NA 4=Minimal Assistance 1=Total Assistance 5=Supervision or Setup 2=Maximal Assistance 6=Modified [place] 3=Moderate Assistance 7=Complete IndependenceSCALE: Activities may be completed with or without assistive devices. 7-Nhcxpwhrjs-vsdemns completes the activity by him/herself with no assistance f rom a helper. 5-Set-up or Clean-up Assistance-helper sets up or cleans up; patient completes activity. [place] assists only prior to or following the activity. 4-Supervision or Touching Assistance-helper provides verbal cues and/or touching/steadying and/or contact guard assistance as patient completes activity. Assistance may be provided throughout the activity or intermittently. 3-Partial/Moderate Assistance-helper does LESS THAN HALF the effort. [place] lifts, holds or supports trunk or limbs, but provides less than half the effort. 2-Substantial/Maximal Assistance-helper does MORE THAN HALF the effort. [place] lifts or holds trunk or limbs and provides more than half the effort. 4-Btmtpytsh-tyvkxm does ALL the effort. Patient does none of the effort to complete the activity. Or, the assistance of 2 or more helpers is required for the patient to complete the activity. If activity was not attempted, code reason: 7-Patient Refused. 9-Not Applicable-not attempted and the patient did not perform the activity before the current illness, exacerbation or injury. 10-Not Attempted due to Environmental Limitations-(lack of equipment, weather restraints, etc.). 88-Not Attempted due to Medical Conditions or Safety Concerns. Other Treatment Pt completed B UE AROM tasks to increase ROM and strength of L UE. Pt tolerated well and was able to demonstrate increase ROM and AROM with shldr flex and retraction. After therapy, pt in w/c with present, independently propelling w/c down bashir to call son. All needs met. OT Short Term Goals Short Term Goals Lower body dressin Putting on/taking off footwear: 2 OT Drainage Inspector Goals Detention Goals Time Frame: Mar 05, 2023 Acute change in mental status: 0 Inattention: 0 Disorganized thinkin Altered level of consciousness: 0 Eating (QC): 5 Oral Hygiene (QC): 5 Toileting Hygiene (QC): 3 Shower/Bathe Self (QC): 3 Upper Body Dressing (QC): 3 Lower Body Dressing (QC): 3 On/Off Footwear (QC): 3 Additional Goals: 1-Demonstrate ADL Tasks, 2-Verbalize Understanding, 3- ImproveStrength/Josep 1=Demonstrate adherence to instructed precautions during ADL tasks. 2=Patient will verbalize/demonstrate understanding of assistive devices/modifications for ADL. 3=Patient will improve strength/tolerance for activity to enable patient to perform ADL's. OT Education/Plan Problem List/Assessment Assessment: Decreased Activ Tolerance, Impaired Self-Care Skills, Restricted Funct UE ROM Discharge Recommendations Plan/Recommendations: Continue POC Treatment Plan/Plan of Care Patient would benefit from OT for education, treatment and training to promote independence in ADL's, mobility, safety and/or upper extremity function for ADL's. Plan of Care: ADL Retraining, Functional Mobility, Group Exercise/Act as Ind, UE Funct Exercise/Act, UE Neuromus Re-Ed/Coord Treatment Duration: Mar 05, 2023 Frequency: At least 5 of 7 days/Wk (IRF) Estimated Hrs Per Day: 1.5 hours per day Agreement: Yes Rehab Potential: Fair Time Start Time: 13:30 Stop Time: 14:00 DATE: Feb 12, 2023 Total Time Billed (hr/min): 30 Billed Treatment Time 1 visit-EX 2 (30 min) RUEL MATTHEWS Feb 12, 2023 14:26
--- NOTE | 2023-02-12 14:37 | Physical Therapy Daily Note ---
PT Daily Note-Current Subjective * Pt found seated in WC with spouse present. Agreed to PT. States that he only experiences slight hip soreness while ambulating. He states he would like to get back to the functional status he was at before his fall. Reports that he is not taking any pain medications at the moment. Pain Section J - Health Conditions 1. Rarely or not at all 2. Occasionally 3. Frequently 4. Almost constantly 8. Unable to answer Pain Effect on Sleep: 1 Pain Interference with Therapy: 1 Pain Interference w/Day-to-Day: 1 Mental Status Patient Orientation: Person, Place, Time Transfers SCALE: Activities may be completed with or without assistive devices. 8-Eldxlqhizt-jjfwhih completes the activity by him/herself with no assistance from a helper. 5-Set-up or Clean-up Assistance-helper sets up or cleans up; patient completes activity. [place] assists only prior to or following the activity. 4-Supervision or Touching Assistance-helper provides verbal cues and/or touching/steadying and/or contact guard assistance as patient completes activity. Assistance may be provided throughout the activity or intermittently. 3-Partial/Moderate Assistance-helper does LESS THAN HALF the effort. [place] lifts, holds or supports trunk or limbs, but provides less than half the effort. 2-Substantial/Maximal Assistance-helper does MORE THAN HALF the effort. [place] lifts or holds trunk or limbs and provides more than half the effort. 5-Ukxazsgid-tjoior does ALL the effort. Patient does none of the effort to complete the activity. Or, the assistance of 2 or more helpers is required for the patient to complete the activity. If activity was not attempted, code reason: 7-Patient Refused. 9-Not Applicable-not attempted and the patient did not perform the activity before the current illness, exacerbation or injury. 10-Not Attempted due to Environmental Limitations-(lack of equipment, weather restraints, etc.). 88-Not Attempted due to Medical Conditions or Safety Concerns. Sit to Lying (QC): 3 Lying to Sitting/Side of Bed(Q: 3 Sit to Stand (QC): 4 Chair/Uys-rb-Pjwrt Xfer(QC): 3 Pt CGA with sit to stand transfers for safety. MIN assist with all other completed transfers. VCs for proper hand placement and technique while completing transfers. Completes all transfers without breaking hip precautions. Weight Bearing Left Lower Extremity: Left Partial Weight Bearing Gait Training Does the Patient Walk?: Yes Distance: 32, 48 Walk 10 feet (QC): 3 Gait Persons Needed: 1 Gait Assistive Device: Parallel Bars Pt MOD assist with gait training while using parallel bars. Displays trunk flexion throughout ambulation. Required VCs to avoid breaking hip precautions. Able to maintain PWB status. Ambulated 80 feet total. Treatments Seated therapeutic exercise AAROM: hip abd/add, heel/toe raises, hamstring curls, modified quad set on AirX, modified hamstring set on AirX, glute sets x 10 each Assessment Current Status: Good Progress Pt displays improved tolerance to gait training. Displays poor muscle strength and endurance with LLE exercises. Able to complete all transfers and exercises while maintaining hip precautions. Minor hip soreness reported post-gait training. Continue to progress pt as tolerated per POC to increase strength, endurance, and functional ability. PT Chemical Laboratory Assistant Goals Chcf Goals PT Chcf Goals Time Frame: Feb 23, 2023 Roll Left & Right (QC): 4 (SBA) Sit to Lying (QC): 4 (SBA) Lying-Sitting on Side/Bed(QC): 4 (SBA) Sit to Stand (QC): 4 (CGA) Chair/Plp-eu-Adbpj Xfer(QC): 4 (CGA) Toilet Transfer (QC): 4 (CGA) Car Transfer (QC): 4 (CGA) Does the Patient Walk: Yes Walk 10 feet (QC): 4 (CGA) Walk 50ft with 2 Turns (QC): 4 (CGA) Walk 150 ft (QC): 88 Walking 10ft on Uneven Surface: 4 (CGA) 1 Step (curb) (QC): 4 (CGA) 4 Steps (QC): 88 12 Steps (QC): 88 Picking up an Object (QC): 4 (CGA using a denture processor) Wheel 50 feet with 2 turns (QC: 4 (SBA) Wheel 150 feet: 4 (SBA) PT Plan Treatment/Plan Treatment Plan: Continue Plan of Care Treatment Plan: Bed Mobility, Education, Functional Activity Josep, Functional Strength, Group Therapy, Gait, Safety, Therapeutic Exercise, Transfers Treatment Duration: Feb 23, 2023 Frequency: At least 5 of 7 days/Wk (IRF) Estimated Hrs Per Day: 1.5 hours per day Patient and/or Family Agrees t: Yes Time Time In: 1000 Time Out: 1130 DATE: Feb 12, 2023 Total Billed Treatment Time: 90 Total Billed Treatment 1 visit GT 2x FA 2x EX 2x ISABELA RAI STOCK MANAGER Feb 12, 2023 14:37
[2023-02-12 19:35] VITALS: BP 115/63
[2023-02-12] MEDS: MELATONIN 3 MG TABLET PO PRN (21:22)
--- NOTE | 2023-02-13 05:38 | PM&R Progress Note ---
Subjective HPI/CC On Admission Date Seen by Provider: Feb 13, 2023 Time Seen by Provider: 12:00 Subjective/Events-last exam 02/13/2023: Much improved Walking with assist Pain controlled No falls Voiding well 02/12/2023: Much improved Increased PO fluids No pain at bedside No concerns 02/11/2023: No major issues Working with therapy Pain controlled Voiding well Increasing PO fluids successfully 02/10/2023: Much improved status Chest tube to water seal No pain reported DC catheter today No falls Venofer 2 more doses needed BM+ Review of Systems General: Fatigue, Malaise Objective Exam Vital Signs Vital Signs Date Time Temp Pulse Resp B/P (MAP) Pulse Ox O2 Delivery O2 Flow Rate FiO2 02/13/23 19:21 37.0 83 16 126/65 (85) 96 Room Air 02/13/23 09:40 21 Capillary Refill : General Appearance: No Apparent Distress, WD/WN, Chronically ill, Thin, Other (frail) HEENT: PERRL/EOMI, Normal ENT Inspection, Pharynx Normal Neck: Full Range of Motion, Normal Inspection, Non Tender, Supple, Carotid Bruit Respiratory: Chest Non Tender, Lungs Clear, Normal Breath Sounds, No Accessory Muscle Use, No Respiratory Distress Cardiovascular: Regular Rate, Rhythm, No Edema, No Gallop, No JVD, No Murmur, Normal Peripheral Pulses Gastrointestinal: Normal Bowel Sounds, No Organomegaly, No Pulsatile Mass, Non Tender, Soft Back: Normal Inspection, No CVA Tenderness, No Vertebral Tenderness Extremity: Normal Capillary Refill, Normal Inspection, Normal Range of Motion ([place] left side), Non Tender, No Calf Tenderness, No Pedal Edema Neurologic/Psychiatric: Alert, Oriented x3, Normal Mood/Affect, machine folder II-XII Norm as Tested, Abnormal Gait, Motor Weakness (left sided) Skin: Normal Color, Warm/Dry Lymphatic: No Adenopathy Results/Procedures Lab Laboratory Tests 02/13/23 06:00 Patient resulted labs reviewed. FIM Transfers Therapy Code Descriptions/Definitions Functional [place] Measure: 0=Not Assessed/NA 4=Minimal Assistance 1=Total Assistance 5=Supervision or Setup 2=Maximal Assistance 6=Modified [place] 3=Moderate Assistance 7=Complete IndependenceSCALE: Activities may be completed with or without assistive devices. 5-Grigbiwltb-ce[place]agra completes the activity by him/herself with no assistance from a helper. 5-Set-up or Clean-up Assistance-helper sets up or cleans up; patient completes activity. [place] assists only prior to or following the activity. 4-Supervision or Touching Assistance-helper provides verbal cues and/or touching/steadying and/or contact guard assistance as patient completes activity. Assistance may be provided throughout the activity or intermittently. 3-Partial/Moderate Assistance-helper does LESS THAN HALF the effort. [place] lifts, holds or supports trunk or limbs, but provides less than half the effort. 2-Substantial/Maximal Assistance-helper does MORE THAN HALF the effort. [place] lifts or holds trunk or limbs and provides more than half the effort. 6-Lqhpjyvac-pringi does ALL the effort. Patient does none of the effort to comp lete the activity. Or, the assistance of 2 or more helpers is required for the patient to complete the activity. If activity was not attempted, code reason: 7-Patient Refused. 9-Not Applicable-not attempted and the patient did not perform the activity before the current illness, exacerbation or injury. 10-Not Attempted due to Environmental Limitations-(lack of equipment, weather restraints, etc.). 88-Not Attempted due to Medical Conditions or Safety Concerns. Roll Left to Right (QC): 3 Sit to Lying (QC): 3 Sit to Stand (QC): 4 Chair/Qpm-nc-Mnlzz Xfer(QC): 3 Car Transfer (QC): 88 Gait Training Does the Patient Walk?: Yes Distance: 32, 48 Walk 10 feet (QC): 3 Walk 50 ft with 2 Turns(QC): 88 Walk 150 ft (QC): 88 Walking 10ft/uneven surface-QC: 88 Gait Persons Needed: 1 Gait Assistive Device: Parallel Bars Wheelchair Training Does the Pt Use a Wheelchair?: Yes Distance: 150' Wheel 50 ft with 2 turns (QC): 3 (needs assist to brake and to steer at times) Wheel 150 ft (QC): 3 Type of Wheelchair: Manual Stair Training 1 Step (curb) (QC): 88 4 Steps (QC): 88 12 Steps (QC): 88 Balance Picking up an Object (QC): 88 ADL-Treatment Eating (QC): 5 (Per pt/spouse report) Oral Hygiene (QC): 5 Shower/Bathe Self (QC): 3 Upper Body Dressing (QC): 5 Lower Body Dressing (QC): 2 On/Off Footwear (QC): 2 Toileting Hygiene (QC): 1 Toilet Transfer (QC): 3 Assessment/Plan Assessment and Plan Assess & Plan/Chief Complaint Assess & Plan/Chief Complaint Left femoral neck fracture Acute blood loss anemia causing hypovolumic shock Pneumothorax, left sided requiring chest tube placement Falls/debility 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 HLD Hypothyroidism Iron deficiency Plan: PT OT Pain control Chest tube management Monitor closely 02/10/2023: Improved overall No pain reported Restart and finish Venofer 02/11/2023: Monitor closely Aggressive rehab 02/12/2023: Increase fluids Monitor closely 02/13/2023: Improved No concerns (1) Closed left hip fracture Status: Acute (2) Postoperative anemia due to acute blood loss Status: Acute (3) Debility Status: Acute (4) History of cerebrovascular accident (CVA) with residual deficit Status: Chronic (5) Pneumothorax on left Status: Acute (6) Central line complication Status: Acute (7) Recurrent pneumothorax after chest tube removed Status: Acute VIKI BOOTH DO Feb 13, 2023 05:38
[2023-02-13 06:11] LABS: BASOPHILS % (AUTO) 0 % (0-10); EOSINOPHILS # (AUTO) 0.4 10^3/uL (0.0-0.3); EOSINOPHILS % (AUTO) 4 % (0-10); HEMATOCRIT 27 % (40-54); HEMOGLOBIN 8.8 g/dL (13.3-17.7); LYMPHOCYTES % (AUTO) 22 % (12-44); MEAN CORPUSCULAR HEMOGLOBIN 30 pg (25-34); MEAN CORPUSCULAR HGB CONC 32 g/dL (32-36); MEAN CORPUSCULAR VOLUME 93 fL (80-99); MEAN PLATELET VOLUME 9.4 fL (9.0-12.2); MONOCYTES # (AUTO) 0.9 10^3/uL (0.0-1.0); MONOCYTES % (AUTO) 10 % (0-12); NEUTROPHILS # (AUTO) 5.3 10^3/uL (1.8-7.8); NEUTROPHILS % (AUTO) 59 % (42-75); PLATELET COUNT 326 10^3/uL (130-400)
[2023-02-13 06:20] LABS: ALBUMIN 2.7 GM/DL (3.2-4.5)
[2023-02-13 06:21] LABS: POTASSIUM 4.1 MMOL/L (3.6-5.0)
[2023-02-13 06:22] LABS: CALCIUM 8.4 MG/DL (8.5-10.1)
[2023-02-13 06:23] LABS: TOTAL PROTEIN 5.2 GM/DL (6.4-8.2)
[2023-02-13 06:25] LABS: BILIRUBIN,TOTAL 1.7 MG/DL (0.1-1.0)
[2023-02-13 06:27] LABS: CREATININE SERUM 0.76 MG/DL (0.60-1.30)
[2023-02-13] MEDS: LEVOTHYROXINE 125 MCG (LEVOTHROID) TABLET PO SCH (06:34)
[2023-02-13] MEDS: CYANOCOBALAMIN 1,000 MCG (VITAMIN B-12) TABLET PO SCH (06:34)
[2023-02-13] MEDS: CATHETER FLUSH 10 ML SYR IVP SCH ×3 (06:35→20:14)
[2023-02-13] MEDS: MULTIVIT W/MINERALS TAB (THERAGRAN M) PO SCH (06:35)
[2023-02-13 07:30] VITALS: BP 112/67
[2023-02-13] MEDS: DOCUSATE SODIUM 100 MG (COLACE) CAP PO SCH ×2 (10:07→20:13)
[2023-02-13] MEDS: polyethylene glycoL POWDER 17 GM (MIRALAX) PACK PO SCH ×2 (10:07→20:13)
[2023-02-13] MEDS: IRON SUCROSE 200 MG/10 ML (VENOFER) VIAL IV SCH (10:07)
[2023-02-13] MEDS: SENNA W/DOCUSATE (SENOKOT S) TABLET PO SCH ×2 (10:07→20:13)
[2023-02-13] MEDS: SENNOSIDES 8.6 MG (SENOKOT) TAB PO SCH ×2 (10:07→20:28)
[2023-02-13] MEDS: ENOXAPARIN 40 MG/0.4 ML (LOVENOX) SYR SC SCH (10:08)
[2023-02-13] MEDS: NYSTATIN CREAM (MYCOSTATIN) 30 GM TUBE TP SCH ×3 (10:10→20:14)
--- NOTE | 2023-02-13 14:26 | Physical Therapy Daily Note ---
PT Daily Note-Current Subjective Pt in recliner upon arrival and agrees to PT. Pain Section J - Health Conditions 1. Rarely or not at all 2. Occasionally 3. Frequently 4. Almost constantly 8. Unable to answer Pain Effect on Sleep: 1 Pain Interference with Therapy: 1 Pain Interference w/Day-to-Day: 1 Mental Status Patient Orientation: Person, Place, Time, Situation Transfers SCALE: Activities may be completed with or without assistive devices. 5-Ifwilccbdj-mhzzpar completes the activity by him/herself with no assistance from a helper. 5-Set-up or Clean-up Assistance-helper sets up or cleans up; patient completes activity. [place] assists only prior to or following the activity. 4-Supervision or Touching Assistance-helper provides verbal cues and/or touching/steadying and/or contact guard assistance as patient completes activity. Assistance may be provided throughout the activity or intermittently. 3-Partial/Moderate Assistance-helper does LESS THAN HALF the effort. [place] lifts, holds or supports trunk or limbs, but provides less than half the effort. 2-Substantial/Maximal Assistance-helper does MORE THAN HALF the effort. [place] lifts or holds trunk or limbs and provides more than half the effort. 8-Ylylycvmv-kjzarb does ALL the effort. Patient does none of the effort to complete the activity. Or, the assistance of 2 or more helpers is required for the patient to complete the activity. If activity was not attempted, code reason: 7-Patient Refused. 9-Not Applicable-not attempted and the patient did not perform the activity before the current illness, exacerbation or injury. 10-Not Attempted due to Environmental Limitations-(lack of equipment, weather restraints, etc.). 88-Not Attempted due to Medical Conditions or Safety Concerns. Sit to Stand (QC): 4 Weight Bearing Left Lower Extremity: Left Partial Weight Bearing Gait Training Does the Patient Walk?: Yes Distance: 50' Walk 10 feet (QC): 4 Walk 50 ft with 2 Turns(QC): 4 Gait Assistive Device: FWW Assessment Current Status: Good Progress Pt able to amb out into bashir w/ FWW and bearing majority of weight through RLE. Pt required verbal and tactile cues for hand and foot placement. Pt fatigued post treatment. PT Inseminator Goals Inseminator Goals PT Inseminator Goals Time Frame: Feb 23, 2023 Roll Left & Right (QC): 4 (SBA) Sit to Lying (QC): 4 (SBA) Lying-Sitting on Side/Bed(QC): 4 (SBA) Sit to Stand (QC): 4 (CGA) Chair/Nss-ny-Oaowh Xfer(QC): 4 (CGA) Toilet Transfer (QC): 4 (CGA) Car Transfer (QC): 4 (CGA) Does the Patient Walk: Yes Walk 10 feet (QC): 4 (CGA) Walk 50ft with 2 Turns (QC): 4 (CGA) Walk 150 ft (QC): 88 Walking 10ft on Uneven Surface: 4 (CGA) 1 Step (curb) (QC): 4 (CGA) 4 Steps (QC): 88 12 Steps (QC): 88 Picking up an Object (QC): 4 (CGA using a high energy forming equipment operator) Wheel 50 feet with 2 turns (QC: 4 (SBA) Wheel 150 feet: 4 (SBA) PT Plan Problem List Problem List: Activity Tolerance, Functional Strength, Safety Treatment/Plan Treatment Plan: Continue Plan of Care Treatment Plan: Bed Mobility, Education, Functional Activity Josep, Functional Strength, Group Therapy, Gait, Safety, Therapeutic Exercise, Transfers Treatment Duration: Feb 23, 2023 Frequency: At least 5 of 7 days/Wk (IRF) Estimated Hrs Per Day: 1.5 hours per day Patient and/or Family Agrees t: Yes Safety Risks/Education Patient Education: Gait Training, Transfer Techniques Teaching Recipient: Patient Teaching Methods: Discussion Response to Teaching: Return Demonstration Time Time In: 1130 Time Out: 1200 DATE: Feb 13, 2023 Total Billed Treatment Time: 30 Total Billed Treatment 1, GT x 2 RICK SWEET PTA Feb 13, 2023 14:26
[2023-02-13 19:21] VITALS: BP 126/65
[2023-02-13] MEDS: MELATONIN 3 MG TABLET PO PRN (23:48)
--- NOTE | 2023-02-14 05:43 | PM&R Progress Note ---
Subjective HPI/CC On Admission Date Seen by Provider: Feb 14, 2023 Time Seen by Provider: 08:30 Subjective/Events-last exam 02/14/2023: No major issues Resting today at bedside No falls 02/13/2023: Much improved Walking with assist Pain controlled No falls Voiding well 02/12/2023: Much improved Increased PO fluids No pain at bedside No concerns 02/11/2023: No major issues Working with therapy Pain controlled Voiding well Increasing PO fluids successfully 02/10/2023: Much improved status Chest tube to water seal No pain reported DC catheter today No falls Venofer 2 more doses needed BM+ Review of Systems General: Fatigue, Malaise Musculoskeletal: leg pain Objective Exam Vital Signs Vital Signs Date Time Temp Pulse Resp B/P (MAP) Pulse Ox O2 Delivery O2 Flow Rate FiO2 02/14/23 09:00 96 Room Air 02/14/23 07:04 37.3 80 20 113/62 (79) 02/13/23 09:40 21 Capillary Refill : General Appearance: No Apparent Distress, WD/WN, Chronically ill, Thin, Other (frail) HEENT: PERRL/EOMI, Normal ENT Inspection, Pharynx Normal Neck: Full Range of Motion, Normal Inspection, Non Tender, Supple, Carotid Bru it Respiratory: Chest Non Tender, Lungs Clear, Normal Breath Sounds, No Accessory Muscle Use, No Respiratory Distress Cardiovascular: Regular Rate, Rhythm, No Edema, No Gallop, No JVD, No Murmur, Normal Peripheral Pulses Gastrointestinal: Normal Bowel Sounds, No Organomegaly, No Pulsatile Mass, Non Tender, Soft Back: Normal Inspection, No CVA Tenderness, No Vertebral Tenderness Extremity: Normal Capillary Refill, Normal Inspection, Normal Range of Motion ([place] left side), Non Tender, No Calf Tenderness, No Pedal Edema Neurologic/Psychiatric: Alert, Oriented x3, Normal Mood/Affect, maintenance service supervisor II-XII Norm as Tested, Abnormal Gait, Motor Weakness (left sided) Skin: Normal Color, Warm/Dry Lymphatic: No Adenopathy Results/Procedures Lab Patient resulted labs reviewed. FIM Transfers Therapy Code Descriptions/Definitions Functional [place] Measure: 0=Not Assessed/NA 4=Minimal Assistance 1=Total Assistance 5=Supervision or Setup 2=Maximal Assistance 6=Modified [place] 3=Moderate Assistance 7=Complete IndependenceSCALE: Activities may be completed with or without assistive devices. 7-Xfhepuwnpz-ecmeigv completes the activity by him/herself with no assistance from a helper. 5-Set-up or Clean-up Assistance-helper sets up or cleans up; patient completes activity. [place] assists only prior to or following the activity. 4-Supervision or Touching Assistance-helper provides verbal cues and/or touching/steadying and/or contact guard assistance as patient completes activity. Assistance may be provided throughout the activity or intermittently. 3-Partial/Moderate Assistance-helper does LESS THAN HALF the effort. [place] lifts, holds or supports trunk or limbs, but provides less than half the effort. 2-Substantial/Maximal Assistance-helper does MORE THAN HALF the effort. [place] lifts or holds trunk or limbs and provides more than half the effort. 2-Cgqqfqlas-afmlfe does ALL the effort. Patient does none of the effort to complete the activity. Or, the assistance of 2 or more helpers is required for the patient to complete the activity. If activity was not attempted, code reason: 7-Patient Refused. 9-Not Applicable-not attempted and the patient did not perform the activity before the current illness, exacerbation or injury. 10-Not Attempted due to Environmental Limitations-(lack of equipment, weather restraints, etc.). 88-Not Attempted due to Medical Conditions or Safety Concerns. Roll Left to Right (QC): 3 Sit to Lying (QC): 3 Sit to Stand (QC): 4 Chair/Oqf-xo-Wapjr Xfer(QC): 3 Car Transfer (QC): 88 Gait Training Does the Patient Walk?: Yes Distance: 50' Walk 10 feet (QC): 4 Walk 50 ft with 2 Turns(QC): 4 Walk 150 ft (QC): 88 Walking 10ft/uneven surface-QC: 88 Gait Persons Needed: 1 Gait Assistive Device: FWW Wheelchair Training Does the Pt Use a Wheelchair?: Yes Distance: 150' Wheel 50 ft with 2 turns (QC): 3 (needs assist to brake and to steer at times) Wheel 150 ft (QC): 3 Type of Wheelchair: Manual Stair Training 1 Step (curb) (QC): 88 4 Steps (QC): 88 12 Steps (QC): 88 Balance Picking up an Object (QC): 88 ADL-Treatment Eating (QC): 5 (Per pt/spouse report) Oral Hygiene (QC): 5 Shower/Bathe Self (QC): 3 Upper Body Dressing (QC): 5 Lower Body Dressing (QC): 2 On/Off Footwear (QC): 2 Toileting Hygiene (QC): 1 Toilet Transfer (QC): 3 Assessment/Plan Assessment and Plan Assess & Plan/Chief Complaint Assess & Plan/Chief Complaint Left femoral neck fracture Acute blood loss anemia causing hypovolumic shock Pneumothorax, left sided requiring chest tube placement Falls/debility 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 HLD Hypothyroidism Iron deficiency Plan: PT OT Pain control Chest tube management Monitor closely 02/10/2023: Improved overall No pain reported Restart and finish Venofer 02/11/2023: Monitor closely Aggressive rehab 02/12/2023: Increase fluids Monitor closely 02/13/2023: Improved No concerns 02/14/2023: Monitor hgb (1) Closed left hip fracture Status: Acute (2) Postoperative anemia due to acute blood loss Status: Acute (3) Debility Status: Acute (4) History of cerebrovascular accident (CVA) with residual deficit Status: Chronic (5) Pneumothorax on left Status: Acute (6) Central line complication Status: Acute (7) Recurrent pneumothorax after chest tube removed Status: Acute VIKI BOOTH DO Feb 14, 2023 05:43
[2023-02-14] MEDS: MULTIVIT W/MINERALS TAB (THERAGRAN M) PO SCH (06:32)
[2023-02-14] MEDS: LEVOTHYROXINE 125 MCG (LEVOTHROID) TABLET PO SCH (06:32)
[2023-02-14] MEDS: CYANOCOBALAMIN 1,000 MCG (VITAMIN B-12) TABLET PO SCH (06:32)
[2023-02-14] MEDS: CATHETER FLUSH 10 ML SYR IVP SCH ×3 (06:32→20:02)
[2023-02-14 07:04] VITALS: BP 113/62
[2023-02-14] MEDS: polyethylene glycoL POWDER 17 GM (MIRALAX) PACK PO SCH ×2 (09:31→20:24)
[2023-02-14] MEDS: DOCUSATE SODIUM 100 MG (COLACE) CAP PO SCH ×2 (09:31→20:24)
[2023-02-14] MEDS: SENNA W/DOCUSATE (SENOKOT S) TABLET PO SCH ×2 (09:31→20:24)
[2023-02-14] MEDS: IRON SUCROSE 200 MG/10 ML (VENOFER) VIAL IV SCH ×2 (09:31→12:33)
[2023-02-14] MEDS: ENOXAPARIN 40 MG/0.4 ML (LOVENOX) SYR SC SCH (09:32)
[2023-02-14] MEDS: SENNOSIDES 8.6 MG (SENOKOT) TAB PO SCH ×2 (09:32→20:24)
[2023-02-14] MEDS: NYSTATIN CREAM (MYCOSTATIN) 30 GM TUBE TP SCH ×3 (09:33→20:03)
[2023-02-14 19:59] VITALS: BP 128/70
[2023-02-14] MEDS: MELATONIN 3 MG TABLET PO PRN (20:02)
--- NOTE | 2023-02-15 05:26 | PM&R Progress Note ---
Subjective HPI/CC On Admission Date Seen by Provider: Feb 15, 2023 Time Seen by Provider: 09:30 Subjective/Events-last exam 02/15/2023: No major concerns No pain reported Walking better Improved overall Labs reviewed 02/14/2023: No major issues Resting today at bedside No falls 02/13/2023: Much improved Walking with assist Pain controlled No falls Voiding well 02/12/2023: Much improved Increased PO fluids No pain at bedside No concerns 02/11/2023: No major issues Working with therapy Pain controlled Voiding well Increasing PO fluids successfully 02/10/2023: Much improved status Chest tube to water seal No pain reported DC catheter today No falls Venofer 2 more doses needed BM+ Review of Systems General: Fatigue, Malaise Objective Exam Vital Signs Vital Signs Date Time Temp Pulse Resp B/P (MAP) Pulse Ox O2 Delivery O2 Flow Rate FiO2 02/15/23 20:15 36.9 85 18 124/69 (87) 99 Room Air 02/13/23 09:40 21 Capillary Refill : General Appearance: No Apparent Distress, WD/WN, Chronically ill, Thin, Other (frail) HEENT: PERRL/EOMI, Normal ENT Inspection, Pharynx Normal Neck: Full Range of Motion, Normal Inspection, Non Tender, Supple, Carotid Bruit Respiratory: Chest Non Tender, Lungs Clear, Normal Breath Sounds, No Accessory Muscle Use, No Respiratory Distress Cardiovascular: Regular Rate, Rhythm, No Edema, No Gallop, No JVD, No Murmur, Normal Peripheral Pulses Gastrointestinal: Normal Bowel Sounds, No Organomegaly, No Pulsatile Mass, Non Tender, Soft Back: Normal Inspection, No CVA Tenderness, No Vertebral Tenderness Extremity: Normal Capillary Refill, Normal Inspection, Normal Range of Motion ([place] left side), Non Tender, No Calf Tenderness, No Pedal Edema Neurologic/Psychiatric: Alert, Oriented x3, Normal 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 FIM Transfers Therapy Code Descriptions/Definitions Functional [place] Measure: 0=Not Assessed/NA 4=Minimal Assistance 1=Total Assistance 5=Supervision or Setup 2=Maximal Assistance 6=Modified [place] 3=Moderate Assistance 7=Complete IndependenceSCALE: Activities may be completed with or without assistive devices. 1-Ojfyvmquyg-hfstoyo completes the activity by him/herself with no assistance from a helper. 5-Set-up or Clean-up Assistance-helper sets up or cleans up; patient completes activity. [place] assists only prior to or following the activity. 4-Supervision or Touching Assistance-helper provides verbal cues and/or touching/steadying and/or contact guard assistance as patient completes activity. Assistance may be provided throughout the activity or intermittently. 3-Partial/Moderate Assistance-helper does LESS THAN HALF the effort. [place] lifts, holds or supports trunk or limbs, but provides less than half the effort. 2-Substantial/Maximal Assistance-helper does MORE THAN HALF the effort. [place] lifts or holds trunk or limbs and provides more than half the effort. 3-Cfujlzevd-vllsvv does ALL the effort. Patient does none of the effort to complete the activity. Or, the assistance of 2 or more helpers is required for the patient to complete the activity. If activity was not attempted, code reason: 7-Patient Refused. 9-Not Applicable-not attempted and the patient did not perform the activity before the current illness, exacerbation or injury. 10-Not Attempted due to Environmental Limitations-(lack of equipment, weather restraints, etc.). 88-Not Attempted due to Medical Conditions or Safety Concerns. Roll Left to Right (QC): 3 Sit to Lying (QC): 3 Sit to Stand (QC): 4 Chair/Vrr-nh-Vcdrl Xfer(QC): 3 Car Transfer (QC): 88 Gait Training Does the Patient Walk?: Yes Distance: 50' Walk 10 feet (QC): 4 Walk 50 ft with 2 Turns(QC): 4 Walk 150 ft (QC): 88 Walking 10ft/uneven surface-QC: 88 Gait Persons Needed: 1 Gait Assistive Device: FWW Wheelchair Training Does the Pt Use a Wheelchair?: Yes Distance: 150' Wheel 50 ft with 2 turns (QC): 3 (needs assist to brake and to steer at times) Wheel 150 ft (QC): 3 Type of Wheelchair: Manual Stair Training 1 Step (curb) (QC): 88 4 Steps (QC): 88 12 Steps (QC): 88 Balance Picking up an Object (QC): 88 ADL-Treatment Eating (QC): 5 (Per pt/spouse report) Oral Hygiene (QC): 5 Shower/Bathe Self (QC): 3 Upper Body Dressing (QC): 5 Lower Body Dressing (QC): 2 On/Off Footwear (QC): 2 Toileting Hygiene (QC): 1 Toilet Transfer (QC): 3 Assessment/Plan Assessment and Plan Assess & Plan/Chief Complaint Assess & Plan/Chief Complaint Left femoral neck fracture Acute blood loss anemia causing hypovolumic shock Pneumothorax, left sided requiring chest tube placement Falls/debility 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 HLD Hypothyroidism Iron deficiency Plan: PT OT Pain control Chest tube management Monitor closely 02/10/2023: Improved overall No pain reported Restart and finish Venofer 02/11/2023: Monitor closely Aggressive rehab 02/12/2023: Increase fluids Monitor closely 02/13/2023: Improved No concerns 02/14/2023: Monitor hgb 02/15/2023: Completed Venofer (1) Closed left hip fracture Status: Acute (2) Postoperative anemia due to acute blood loss Status: Acute (3) Debility Status: Acute (4) History of cerebrovascular accident (CVA) with residual deficit Status: Chronic (5) Pneumothorax on left Status: Acute (6) Central line complication Status: Acute (7) Recurrent pneumothorax after chest tube removed Status: Acute VIKI BOOTH DO Feb 15, 2023 05:26
[2023-02-15 05:33] LABS: BASOPHILS # (AUTO) 0.1 10^3/uL (0.0-0.1); BASOPHILS % (AUTO) 1 % (0-10); EOSINOPHILS # (AUTO) 0.4 10^3/uL (0.0-0.3); EOSINOPHILS % (AUTO) 4 % (0-10); HEMATOCRIT 29 % (40-54); HEMOGLOBIN 9.1 g/dL (13.3-17.7); LYMPHOCYTES % (AUTO) 19 % (12-44); MEAN CORPUSCULAR HEMOGLOBIN 30 pg (25-34); MEAN CORPUSCULAR HGB CONC 32 g/dL (32-36); MEAN CORPUSCULAR VOLUME 95 fL (80-99); MEAN PLATELET VOLUME 9.4 fL (9.0-12.2); MONOCYTES % (AUTO) 9 % (0-12); NEUTROPHILS # (AUTO) 6.9 10^3/uL (1.8-7.8); NEUTROPHILS % (AUTO) 65 % (42-75); PLATELET COUNT 350 10^3/uL (130-400); WHITE BLOOD COUNT 10.7 10^3/uL (4.3-11.0)
[2023-02-15 05:59] LABS: ALBUMIN 2.5 GM/DL (3.2-4.5); BILIRUBIN,TOTAL 1.1 MG/DL (0.1-1.0); CALCIUM 8.5 MG/DL (8.5-10.1); CREATININE SERUM 0.81 MG/DL (0.60-1.30); POTASSIUM 4.2 MMOL/L (3.6-5.0); TOTAL PROTEIN 5.1 GM/DL (6.4-8.2)
[2023-02-15] MEDS: CYANOCOBALAMIN 1,000 MCG (VITAMIN B-12) TABLET PO SCH (06:31)
[2023-02-15] MEDS: MULTIVIT W/MINERALS TAB (THERAGRAN M) PO SCH (06:31)
[2023-02-15] MEDS: LEVOTHYROXINE 125 MCG (LEVOTHROID) TABLET PO SCH (06:31)
[2023-02-15] MEDS: CATHETER FLUSH 10 ML SYR IVP SCH ×3 (06:31→20:11)
[2023-02-15 08:00] VITALS: BP 147/81
[2023-02-15] MEDS: DOCUSATE SODIUM 100 MG (COLACE) CAP PO SCH ×2 (08:00→20:03)
[2023-02-15] MEDS: ENOXAPARIN 40 MG/0.4 ML (LOVENOX) SYR SC SCH (08:01)
[2023-02-15] MEDS: SENNA W/DOCUSATE (SENOKOT S) TABLET PO SCH ×2 (08:01→20:03)
[2023-02-15] MEDS: polyethylene glycoL POWDER 17 GM (MIRALAX) PACK PO SCH ×2 (08:01→20:03)
[2023-02-15] MEDS: SENNOSIDES 8.6 MG (SENOKOT) TAB PO SCH ×2 (08:01→20:03)
[2023-02-15] MEDS: NYSTATIN CREAM (MYCOSTATIN) 30 GM TUBE TP SCH ×3 (08:02→20:11)
--- NOTE | 2023-02-15 12:11 | Physical Therapy Daily Note ---
PT Daily Note-Current Subjective Pt sitting in [facility] upon arrival. Pt agrees to PT. Pt nervous about proposed d/c date. Pain Location: No Pain Reported Section J - Health Conditions 1. Rarely or not at all 2. Occasionally 3. Frequently 4. Almost constantly 8. Unable to answer Pain Effect on Sleep: 1 Pain Interference with Therapy: 1 Pain Interference w/Day-to-Day: 1 Mental Status Patient Orientation: Person, Place, Time, Situation Transfers SCALE: Activities may be completed with or without assistive devices. 1-Warhzxgkxn-vkkwzxe completes the activity by him/herself with no assistance from a helper. 5-Set-up or Clean-up Assistance-helper sets up or cleans up; patient completes activity. [place] assists only prior to or following the activity. 4-Supervision or Touching Assistance-helper provides verbal cues and/or touching/steadying and/or contact guard assistance as patient completes activity. Assistance may be provided throughout the activity or intermittently. 3-Partial/Moderate Assistance-helper does LESS THAN HALF the effort. [place] lifts, holds or supports trunk or limbs, but provides less than half the effort. 2-Substantial/Maximal Assistance-helper does MORE THAN HALF the effort. [place] lifts or holds trunk or limbs and provides more than half the effort. 4-Yewgvcotv-zckddc does ALL the effort. Patient does none of the effort to complete the activity. Or, the assistance of 2 or more helpers is required for the patient to complete the activity. If activity was not attempted, code reason: 7-Patient Refused. 9-Not Applicable-not attempted and the patient did not perform the activity before the current illness, exacerbation or injury. 10-Not Attempted due to Environmental Limitations-(lack of equipment, weather restraints, etc.). 88-Not Attempted due to Medical Conditions or Safety Concerns. Sit to Stand (QC): 3 Weight Bearing Left Lower Extremity: Left Partial Weight Bearing Exercises Seated Therapy Exercises: Sit to stand Treatments Pt and BUILDING OFFICIAL discussed pt's progress and pt is teary when he discusses fact that he feels he won't be able to complete tasks that was completing before hospital stay. Pt is teary about prognosis. Pt completes sit to stand TF. Pt resting in [facility] at end of tx. All needs met, call light in hands. Assessment Current Status: Good Progress Pt is gaining strength and mobility. PT Sound Technician Supervisor Goals Retirement Goals PT Retirement Goals Time Frame: Feb 23, 2023 Roll Left & Right (QC): 4 (SBA) Sit to Lying (QC): 4 (SBA) Lying-Sitting on Side/Bed(QC): 4 (SBA) Sit to Stand (QC): 4 (CGA) Chair/Qrc-dm-Eyoxd Xfer(QC): 4 (CGA) Toilet Transfer (QC): 4 (CGA) Car Transfer (QC): 4 (CGA) Does the Patient Walk: Yes Walk 10 feet (QC): 4 (CGA) Walk 50ft with 2 Turns (QC): 4 (CGA) Walk 150 ft (QC): 88 Walking 10ft on Uneven Surface: 4 (CGA) 1 Step (curb) (QC): 4 (CGA) 4 Steps (QC): 88 12 Steps (QC): 88 Picking up an Object (QC): 4 (CGA using a contact person) Wheel 50 feet with 2 turns (QC: 4 (SBA) Wheel 150 feet: 4 (SBA) PT Plan Problem List Problem List: Activity Tolerance Treatment/Plan Treatment Plan: Continue Plan of Care Treatment Plan: Bed Mobility, Education, Functional Activity Josep, Functional Strength, Group Therapy, Gait, Safety, Therapeutic Exercise, Transfers Treatment Duration: Feb 23, 2023 Frequency: At least 5 of 7 days/Wk (IRF) Estimated Hrs Per Day: 1.5 hours per day Patient and/or Family Agrees t: Yes Safety Risks/Education Patient Education: Transfer Techniques, Correct Positioning, Safety Issues Teaching Recipient: Patient Teaching Methods: Discussion Time Time In: 1030 Time Out: 1115 DATE: Feb 15, 2023 Total Billed Treatment Time: 45 Total Billed Treatment 1, FA x3 (45m) TERE AMBRIZ BUILDING OFF[employer] Feb 15, 2023 12:10
--- NOTE | 2023-02-15 12:29 | Occupational Ther Daily Note ---
OT Current Status-Daily Note Subjective Pt alert, lying in bed. Pt agrees to therapy. No c/o pain. Mental Status/Objective Patient Orientation: Person, Place, Time, Situation ADL-Treatment Pt agrees to shower. Set up for UBD, doffs independently. Min A for shower transfer. Sitting 100% of the time on BSC for shower, completes all areas except lower leg/feet. Assist to thread feet into lower body clothing/footwear then pt stands while assist to hike pants over hips. After session, pt sitting in w/c with call light/phone in reach. Nrsg present in room. Therapy Code Descriptions/Definitions Functional [place] Measure: 0=Not Assessed/NA 4=Minimal Assistance 1=Total Assistance 5=Supervision or Setup 2=Maximal Assistance 6=Modified [place] 3=Moderate Assistance 7=Complete IndependenceSCALE: Activities may be completed with or without assistive devices. 0-Fydggwlknp-akyseng completes the activity by him/herself with no assistance from a helper. 5-Set-up or Clean-up Assistance-helper sets up or cleans up; patient completes activity. [place] assists only prior to or following the activity. 4-Supervision or Touching Assistance-helper provides verbal cues and/or touching/steadying and/or contact guard assistance as patient completes activity. Assistance may be provided throughout the activity or intermittently. 3-Partial/Moderate Assistance-helper does LESS THAN HALF the effort. [place] lifts, holds or supports trunk or limbs, but provides less than half the effort. 2-Substantial/Maximal Assistance-helper does MORE THAN HALF the effort. [place] lifts or holds trunk or limbs and provides more than half the effort. 1-Wwtnpyrzo-usjlws does ALL the effort. Patient does none of the effort to complete the activity. Or, the assistance of 2 or more helpers is required for the patient to complete the activity. If activity was not attempted, code reason: 7-Patient Refused. 9-Not Applicable-not attempted and the patient did not perform the activity before the current illness, exacerbation or injury. 10-Not Attempted due to Environmental Limitations-(lack of equipment, weather restraints, etc.). 88-Not Attempted due to Medical Conditions or Safety Concerns. Shower/Bathe Self (QC): 3 Upper Body Dressing (QC): 5 Lower Body Dressing (QC): 2 On/Off Footwear: 2 OT Short Term Goals Short Term Goals Lower body dressin Putting on/taking off footwear: 2 OT Fdc Goals Fdc Goals Time Frame: Mar 05, 2023 Acute change in mental status: 0 Inattention: 0 Disorganized thinkin Altered level of consciousness: 0 Eating (QC): 5 Oral Hygiene (QC): 5 Toileting Hygiene (QC): 3 Shower/Bathe Self (QC): 3 Upper Body Dressing (QC): 3 Lower Body Dressing (QC): 3 On/Off Footwear (QC): 3 Additional Goals: 1-Demonstrate ADL Tasks, 2-Verbalize Understanding, 3- ImproveStrength/Josep 1=Demonstrate adherence to instructed precautions during ADL tasks. 2=Patient will verbalize/demonstrate understanding of assistive devices/modifications for ADL. 3=Patient will improve strength/tolerance for activity to enable patient to perform ADL's. OT Education/Plan Problem List/Assessment Assessment: Decreased Activ Tolerance, Impaired Self-Care Skills Discharge Recommendations Plan/Recommendations: Continue POC Treatment Plan/Plan of Care Patient would benefit from OT for education, treatment and training to promote independence in ADL's, mobility, safety and/or upper extremity function for ADL's. Plan of Care: ADL Retraining, Functional Mobility, Group Exercise/Act as Ind, UE Funct Exercise/Act, UE Neuromus Re-Ed/Coord Treatment Duration: Mar 05, 2023 Frequency: At least 5 of 7 days/Wk (IRF) Estimated Hrs Per Day: 1.5 hours per day Agreement: Yes Rehab Potential: Fair Time Start Time: 09:00 Stop Time: 10:00 DATE: Feb 15, 2023 Total Time Billed (hr/min): 60 Billed Treatment Time 1 visit-ADL 4 (60 min) RUEL MATTHEWS Feb 15, 2023 12:29
[2023-02-15 12:35] LABS: BILIRUBIN,URINE NEGATIVE (NEGATIVE); CLARITY,URINE CLEAR; COLOR,URINE YELLOW; GLUCOSE, URINE (UA) NEGATIVE (NEGATIVE); KETONES,URINE NEGATIVE (NEGATIVE); LEUKOCYTE ESTERASE ,URINE NEGATIVE (NEGATIVE); NITRITE,URINE NEGATIVE (NEGATIVE); PH,URINE 6.5 (5-9); PROTEIN,URINE NEGATIVE (NEGATIVE)
[2023-02-15 12:50] LABS: AMORPHOUS SEDIMENT,UR RARE AMOR URATES /LPF; BACTERIA,URINE TRACE /HPF; HYALINE CASTS, URINE RARE /LPF
--- NOTE | 2023-02-15 14:29 | Therapy Group Daily Note ---
Therapy Daily Group Note Patient Education Topic Exercises Exercises LE Seated Exercise, UE Exercise Session Ratio (pt:therapist): 4:1 Goal of Session: UE/LE Strengthing, Other (list) (Exercises) Goal Met for this Session: Yes Pt Benefit of Group: Contributions to Others, Increased Functional Strength, Improved Cognition, Recognition of Peers, Socialization Other/Notes Pt propelled w/c to [facility] to participate in OT group. Group consisted of introductions (name, place, favorite activity), socialization, B UE/LE seated exercises and education on benefits of exercise. Pt introduced self appropriately and actively listened to peers. Pt acknowledged understanding of educational topics by giving own personal activities and routines. Pt modified exercises due to limitations of UE/LE. After session, pt lying in bed with call light/phone in reach. All needs met in room. Start Time: 13:00 Stop Time: 14:15 Total Billed Treatment Time: 75 Total Billed Treatment 1-GRP RUEL MATTHEWS Feb 15, 2023 14:29
[2023-02-15] MEDS: MELATONIN 3 MG TABLET PO PRN (20:11)
[2023-02-15 20:15] VITALS: BP 124/69
[2023-02-16] MEDS: LEVOTHYROXINE 125 MCG (LEVOTHROID) TABLET PO SCH (06:15)
[2023-02-16] MEDS: CATHETER FLUSH 10 ML SYR IVP SCH (06:15)
[2023-02-16] MEDS: MULTIVIT W/MINERALS TAB (THERAGRAN M) PO SCH (06:15)
[2023-02-16] MEDS: CYANOCOBALAMIN 1,000 MCG (VITAMIN B-12) TABLET PO SCH (06:15)
--- NOTE | 2023-02-16 06:44 | PM&R Progress Note ---
Subjective HPI/CC On Admission Date Seen by Provider: Feb 16, 2023 Time Seen by Provider: 09:00 Subjective/Events-last exam 02/16/2023: Improved overall No pain reported BM+ Started Oxybutynin for night time nocturia since UA was normal 02/15/2023: No major concerns No pain reported Walking better Improved overall Labs reviewed 02/14/2023: No major issues Resting today at bedside No falls 02/13/2023: Much improved Walking with assist Pain controlled No falls Voiding well 02/12/2023: Much improved Increased PO fluids No pain at bedside No concerns 02/11/2023: No major issues Working with therapy Pain controlled Voiding well Increasing PO fluids successfully 02/10/2023: Much improved status Chest tube to water seal No pain reported DC catheter today No falls Venofer 2 more doses needed BM+ Review of Systems General: Fatigue, Malaise Objective Exam Vital Signs Vital Signs Date Time Temp Pulse Resp B/P (MAP) Pulse Ox O2 Delivery O2 Flow Rate FiO2 02/16/23 21:00 97 Room Air 02/16/23 19:33 37.1 84 20 111/69 (83) 02/13/23 09:40 21 Capillary Refill : General Appearance: No Apparent Distress, WD/WN, Chronically ill, Thin, Other (frail) HEENT: PERRL/EOMI, Normal ENT Inspection, Pharynx Normal Neck: Full Range of Motion, Normal Inspection, Non Tender, Supple, Carotid Bruit Respiratory: Chest Non Tender, Lungs Clear, Normal Breath Sounds, No Accessory Muscle Use, No Respiratory Distress Cardiovascular: Regular Rate, Rhythm, No Edema, No Gallop, No JVD, No Murmur, Normal Peripheral Pulses Gastrointestinal: Normal Bowel Sounds, No Organomegaly, No Pulsatile Mass, Non Tender, Soft Back: Normal Inspection, No CVA Tenderness, No Vertebral Tenderness Extremity: Normal Capillary Refill, Normal Inspection, Normal Range of Motion ([place] left side), Non Tender, No Calf Tenderness, No Pedal Edema Neurologic/Psychiatric: Alert, Oriented x3, Normal 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 FIM Transfers Therapy Code Descriptions/Definitions Functional [place] Measure: 0=Not Assessed/NA 4=Minimal Assistance 1=Total Assistance 5=Supervision or Setup 2=Maximal Assistance 6=Modified [place] 3=Moderate Assistance 7=Complete IndependenceSCALE: Activities may be completed with or without assistive devices. 9-Iihbrnakka-bzibchr completes the activity by him/herself with no assistance from a helper. 5-Set-up or Clean-up Assistance-helper sets up or cleans up; patient completes activity. [place] assists only prior to or following the activity. 4-Supervision or Touching Assistance-helper provides verbal cues and/or touching/steadying and/or contact guard assistance as patient completes activity. Assistance may be provided throughout the activity or intermittently. 3-Partial/Moderate Assistance-helper does LESS THAN HALF the effort. [place] lifts, holds or supports trunk or limbs, but provides less than half the effort. 2-Substantial/Maximal Assistance-helper does MORE THAN HALF the effort. [place] lifts or holds trunk or limbs and provides more than half the effort. 2-Csohbggni-vzcyjm does ALL the effort. Patient does none of the effort to complete the activity. Or, the assistance of 2 or more helpers is required for the patient to complete the activity. If activity was not attempted, code reason: 7-Patient Refused. 9-Not Applicable-not attempted and the patient did not perform the activity before the current illness, exacerbation or injury. 10-Not Attempted due to Environmental Limitations-(lack of equipment, weather restraints, etc.). 88-Not Attempted due to Medical Conditions or Safety Concerns. Roll Left to Right (QC): 3 Sit to Lying (QC): 3 Sit to Stand (QC): 3 Chair/Wsm-bf-Nwyne Xfer(QC): 3 Car Transfer (QC): 88 Gait Training Does the Patient Walk?: Yes Distance: 50' Walk 10 feet (QC): 4 Walk 50 ft with 2 Turns(QC): 4 Walk 150 ft (QC): 88 Walking 10ft/uneven surface-QC: 88 Gait Persons Needed: 1 Gait Assistive Device: FWW Wheelchair Training Does the Pt Use a Wheelchair?: Yes Distance: 150' Wheel 50 ft with 2 turns (QC): 3 (needs assist to brake and to steer at times) Wheel 150 ft (QC): 3 Type of Wheelchair: Manual Stair Training 1 Step (curb) (QC): 88 4 Steps (QC): 88 12 Steps (QC): 88 Balance Picking up an Object (QC): 88 ADL-Treatment Eating (QC): 5 (Per pt/spouse report) Oral Hygiene (QC): 5 Shower/Bathe Self (QC): 3 Upper Body Dressing (QC): 5 Lower Body Dressing (QC): 2 On/Off Footwear (QC): 2 Toileting Hygiene (QC): 1 Toilet Transfer (QC): 3 Assessment/Plan Assessment and Plan Assess & Plan/Chief Complaint Assess & Plan/Chief Complaint Left femoral neck fracture Acute blood loss anemia causing hypovolumic shock Pneumothorax, left sided requiring chest tube placement Falls/debility 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 HLD Hypothyroidism Iron deficiency Nocturia with normal UA started Oxybutnin Plan: PT OT Pain control Chest tube management Monitor closely 02/10/2023: Improved overall No pain reported Restart and finish Venofer 02/11/2023: Monitor closely Aggressive rehab 02/12/2023: Increase fluids Monitor closely 02/13/2023: Improved No concerns 02/14/2023: Monitor hgb 02/15/2023: Completed Venofer 02/16/2023: Oxybutynin (1) Closed left hip fracture Status: Acute (2) Postoperative anemia due to acute blood loss Status: Acute (3) Debility Status: Acute (4) History of cerebrovascular accident (CVA) with residual deficit Status: Chronic (5) Pneumothorax on left Status: Acute (6) Central line complication Status: Acute (7) Recurrent pneumothorax after chest tube removed Status: Acute VIKI BOOTH DO Feb 16, 2023 06:44
[2023-02-16 08:00] VITALS: BP 128/62
[2023-02-16] MEDS: DOCUSATE SODIUM 100 MG (COLACE) CAP PO SCH ×2 (08:54→21:00)
[2023-02-16] MEDS: SENNA W/DOCUSATE (SENOKOT S) TABLET PO SCH ×2 (08:54→21:00)
[2023-02-16] MEDS: polyethylene glycoL POWDER 17 GM (MIRALAX) PACK PO SCH ×2 (08:54→21:00)
[2023-02-16] MEDS: NYSTATIN CREAM (MYCOSTATIN) 30 GM TUBE TP SCH ×3 (08:55→21:00)
[2023-02-16] MEDS: ENOXAPARIN 40 MG/0.4 ML (LOVENOX) SYR SC SCH (08:55)
[2023-02-16] MEDS: SENNOSIDES 8.6 MG (SENOKOT) TAB PO SCH ×2 (08:55→21:00)
--- NOTE | 2023-02-16 12:04 | Physical Therapy Daily Note ---
PT Daily Note-Current Subjective Pt sitting in [facility] upon arrival. Pt agrees to PT. Pain Location: No Pain Reported Section J - Health Conditions 1. Rarely or not at all 2. Occasionally 3. Frequently 4. Almost constantly 8. Unable to answer Pain Effect on Sleep: 1 Pain Interference with Therapy: 1 Pain Interference w/Day-to-Day: 1 Mental Status Patient Orientation: Person, Place, Time, Situation Transfers SCALE: Activities may be completed with or without assistive devices. 4-Epcmmcgylu-uretjvl completes the activity by him/herself with no assistance from a helper. 5-Set-up or Clean-up Assistance-helper sets up or cleans up; patient completes activity. [place] assists only prior to or following the activity. 4-Supervision or Touching Assistance-helper provides verbal cues and/or touching/steadying and/or contact guard assistance as patient completes activity. Assistance may be provided throughout the activity or intermittently. 3-Partial/Moderate Assistance-helper does LESS THAN HALF the effort. [place] lifts, holds or supports trunk or limbs, but provides less than half the effort. 2-Substantial/Maximal Assistance-helper does MORE THAN HALF the effort. [place] lifts or holds trunk or limbs and provides more than half the effort. 8-Qfpqvkdak-ipdimd does ALL the effort. Patient does none of the effort to complete the activity. Or, the assistance of 2 or more helpers is required for the patient to complete the activity. If activity was not attempted, code reason: 7-Patient Refused. 9-Not Applicable-not attempted and the patient did not perform the activity before the current illness, exacerbation or injury. 10-Not Attempted due to Environmental Limitations-(lack of equipment, weather restraints, etc.). 88-Not Attempted due to Medical Conditions or Safety Concerns. Sit to Stand (QC): 4 Weight Bearing Left Lower Extremity: Left Weight Bearing/Tolerated Gait Training Does the Patient Walk?: Yes Distance: 125', 75' Walk 150 ft (QC): 3 (w/VC for scissoring, keeping WBOS) Gait Persons Needed: 1 Gait Assistive Device: FWW Wheelchair Training Does the Pt Use a Wheelchair?: Yes Type of Wheelchair: Manual Exercises Seated Therapy Exercises: Ankle pumps, Long arc quads, Hip flexion, Hip abd/add Seated Reps: 15 (2 sets of EX, 1 set w/2# ankle weights & 1 set w/o weight) Treatments TF to standing, amb in hallway w/WCH following. Seated EX completed (1 set w/2# ankle weights & 1 set w/o), amb again in hallway. WCH propelled in hallway, returning to room to rest in recliner at end of tx. All needs met, call light in hand. Assessment Current Status: Good Progress Pt has been upgraded to WBAT so amb is improving. Pt still fatigues and needs occasional RB to recover. PT Welder Production Line Arc Goals Welder Production Line Arc Goals PT Welder Production Line Arc Goals Time Frame: Feb 23, 2023 Roll Left & Right (QC): 4 (SBA) Sit to Lying (QC): 4 (SBA) Lying-Sitting on Side/Bed(QC): 4 (SBA) Sit to Stand (QC): 4 (CGA) Chair/Efa-rt-Klcfc Xfer(QC): 4 (CGA) Toilet Transfer (QC): 4 (CGA) Car Transfer (QC): 4 (CGA) Does the Patient Walk: Yes Walk 10 feet (QC): 4 (CGA) Walk 50ft with 2 Turns (QC): 4 (CGA) Walk 150 ft (QC): 88 Walking 10ft on Uneven Surface: 4 (CGA) 1 Step (curb) (QC): 4 (CGA) 4 Steps (QC): 88 12 Steps (QC): 88 Picking up an Object (QC): 4 (CGA using a sharepoint consultant) Wheel 50 feet with 2 turns (QC: 4 (SBA) Wheel 150 feet: 4 (SBA) PT Plan Problem List Problem List: Activity Tolerance, Balance, Gait Treatment/Plan Treatment Plan: Continue Plan of Care Treatment Plan: Bed Mobility, Education, Functional Activity Josep, Functional Strength, Group Therapy, Gait, Safety, Therapeutic Exercise, Transfers Treatment Duration: Feb 23, 2023 Frequency: At least 5 of 7 days/Wk (IRF) Estimated Hrs Per Day: 1.5 hours per day Patient and/or Family Agrees t: Yes Safety Risks/Education Patient Education: Gait Training, Correct Positioning, Safety Issues Teaching Recipient: Patient Teaching Methods: Demonstration, Discussion Response to Teaching: Verbalize Understanding, Return Demonstration Time Time In: 1100 Time Out: 1200 DATE: Feb 16, 2023 Total Billed Treatment Time: 60 Total Billed Treatment 1, EX x2 (30m) & GT x2 (30m) TERE AMBRIZ BARLEY STEEPER Feb 16, 2023 12:04
--- NOTE | 2023-02-16 12:32 | Progress Note ---
JULIANNA IVORY 02/16/23 1232: Progress Note I have reviewed all therapy notes of this patient who was admitted to the [facility] rehab unit on 02/09/23 S/P left hip fracture repair that required extended ICU stay. Since being admitted to the Rehab unit he has worked with PT/OT. ST was consulted initially and determined that there was not a need for ST. Per PT reports, on admission he was requiring moderate assistance with rolling left & right, Lying to sitting/side of bed, sit to stand, and chair/rdk-du-yckxw transfers. He was able to walk 10ft with substantial assistance from 1 person. He was able to use a wheelchair with moderate assistance to brake and steer. By 02/16 he was able to transfer with supervision/touching assistance with sit to stand. He was able to walk 150ft with FWW with moderate assistance from 1 person. He could use a wheelchair independently. Per OT reports, on admission patient required substantial/maximal assistance for showering/bathing, Upper & Lower body dressing including footwear, and toilet transfers. He was totally dependent for toilet hygeine. By 02/16 he was able to dress his upper body with assistance setting up, toilet transfer with supervision, dress his lower body and perform toileting hygiene with moderate assistance, and on/off footwear with substantial assistance. SERA BOOTH DO 02/17/23 0515: Supervisory-Addendum Brief Verification & Attestation Participated in pt care: history, MDM, physical Personally performed: exam, history, MDM, supervision of care Care discussed with: Medical Student Procedures: n/a Results interpretation: Verified all documentation Verification and Attestation of Medical Student E/M Service A medical student performed and documented this service in my presence. I reviewed and verified all information documented by the medical student and made modifications to such information, when appropriate. I personally performed the physical exam and medical decision making. Sera Booth Feb 17, 2023,05:15 JULIANNA IVORY Feb 16, 2023 12:32 SERA BOOTH DO Feb 17, 2023 05:15
--- NOTE | 2023-02-16 12:40 | Occupational Ther Daily Note ---
OT Current Status-Daily Note Subjective Pt alert, lying in bed. Nrsg reported that pt is WBAT with L LE, per physician. Pt agrees to therapy. Mental Status/Objective Patient Orientation: Person, Place, Time, Situation ADL-Treatment Set up for positioning clothing then pt is able to complete by self. Assist to thread clothing and footwear over feet then pt is able to stand to hike own pants with CGA for safety. Pt ambulates to bathroom with min A for toilet transfer. CGA to manipulate clothing. Therapy Code Descriptions/Definitions Functional [place] Measure: 0=Not Assessed/NA 4=Minimal Assistance 1=Total Assistance 5=Supervision or Setup 2=Maximal Assistance 6=Modified [place] 3=Moderate Assistance 7=Complete IndependenceSCALE: Activities may be completed with or without assistive devices. 3-Bcwowuhxbo-ocqzduo completes the activity by him/herself with no assistance from a helper. 5-Set-up or Clean-up Assistance-helper sets up or cleans up; patient completes activity. [place] assists only prior to or following the activity. 4-Supervision or Touching Assistance-helper provides verbal cues and/or touching/steadying and/or contact guard assistance as patient completes activity. Assistance may be provided throughout the activity or intermittently. 3-Partial/Moderate Assistance-helper does LESS THAN HALF the effort. [place] lifts, holds or supports trunk or limbs, but provides less than half the effort. 2-Substantial/Maximal Assistance-helper does MORE THAN HALF the effort. [place] lifts or holds trunk or limbs and provides more than half the effort. 2-Whtgggrcm-ymgtjy does ALL the effort. Patient does none of the effort to complete the activity. Or, the assistance of 2 or more helpers is required for the patient to complete the activity. If activity was not attempted, code reason: 7-Patient Refused. 9-Not Applicable-not attempted and the patient did not perform the activity before the current illness, exacerbation or injury. 10-Not Attempted due to Environmental Limitations-(lack of equipment, weather restraints, etc.). 88-Not Attempted due to Medical Conditions or Safety Concerns. Upper Body Dressing (QC): 5 Lower Body Dressing (QC): 3 On/Off Footwear: 2 Toileting Hygiene (QC): 3 Toilet Transfer (QC): 4 Other Treatment Pt ambulated using platform walker to therapy gym with 1 recovery break. Pt com pleted dynamic balance by leaning side to side with SBA for safety. With pt's wt bearing status change, pt will be able to stand and cleanse buttocks as normal routine. After therapy, pt sitting in recliner with call light/phone in reach. All needs, met in room. OT Short Term Goals Short Term Goals Lower body dressin Putting on/taking off footwear: 2 OT Director Surface Transportation Goals Mcfp Goals Time Frame: Mar 05, 2023 Acute change in mental status: 0 Inattention: 0 Disorganized thinkin Altered level of consciousness: 0 Eating (QC): 5 Oral Hygiene (QC): 5 Toileting Hygiene (QC): 3 Shower/Bathe Self (QC): 3 Upper Body Dressing (QC): 3 Lower Body Dressing (QC): 3 On/Off Footwear (QC): 3 Additional Goals: 1-Demonstrate ADL Tasks, 2-Verbalize Understanding, 3-Improve Strength/Josep 1=Demonstrate adherence to instructed precautions during ADL tasks. 2=Patient will verbalize/demonstrate understanding of assistive devices/modifications for ADL. 3=Patient will improve strength/tolerance for activity to enable patient to pe rform ADL's. OT Education/Plan Problem List/Assessment Assessment: Decreased Activ Tolerance, Impaired Self-Care Skills, Restricted Funct UE ROM Discharge Recommendations Plan/Recommendations: Continue POC Treatment Plan/Plan of Care Patient would benefit from OT for education, treatment and training to promote independence in ADL's, mobility, safety and/or upper extremity function for ADL's. Plan of Care: ADL Retraining, Functional Mobility, Group Exercise/Act as Ind, UE Funct Exercise/Act, UE Neuromus Re-Ed/Coord Treatment Duration: Mar 05, 2023 Frequency: At least 5 of 7 days/Wk (IRF) Estimated Hrs Per Day: 1.5 hours per day Agreement: Yes Rehab Potential: Fair Time Start Time: 10:00 Stop Time: 11:00 DATE: Feb 16, 2023 Total Time Billed (hr/min): 60 Billed Treatment Time 1 visit-ADL 4 (60 min) RUEL MATTHEWS Feb 16, 2023 12:40
--- NOTE | 2023-02-16 13:37 | Occupational Ther Daily Note ---
OT Current Status-Daily Note Subjective Pt alert, sitting in recliner. present in room. Pt agrees to therapy. Pt c/o fatigue. Mental Status/Objective Patient Orientation: Person, Place, Time, Situation Attachments: IV ADL-Treatment Therapy Code Descriptions/Definitions Functional [place] Measure: 0=Not Assessed/NA 4=Minimal Assistance 1=Total Assistance 5=Supervision or Setup 2=Maximal Assistance 6=Modified [place] 3=Moderate Assistance 7=Complete IndependenceSCALE: Activities may be completed with or without assistive devices. 3-Kzdkxtueir-qdmmztu completes the activity by him/herself with no assistance from a helper. 5-Set-up or Clean-up Assistance-helper sets up or cleans up; patient completes activity. [place] assists only prior to or following the activity. 4-Supervision or Touching Assistance-helper provides verbal cues and/or touching/steadying and/or contact guard assistance as patient completes activity. Assistance may be provided throughout the activity or intermittently. 3-Partial/Moderate Assistance-helper does LESS THAN HALF the effort. [place] lifts, holds or supports trunk or limbs, but provides less than half the effort. 2-Substantial/Maximal Assistance-helper does MORE THAN HALF the effort. [place] lifts or holds trunk or limbs and provides more than half the effort. 0-Pburnssti-vandxo does ALL the effort. Patient does none of the effort to complete the activity. Or, the assistance of 2 or more helpers is required for the patient to complete the activity. If activity was not attempted, code reason: 7-Patient Refused. 9-Not Applicable-not attempted and the patient did not perform the activity before the current illness, exacerbation or injury. 10-Not Attempted due to Environmental Limitations-(lack of equipment, weather restraints, etc.). 88-Not Attempted due to Medical Conditions or Safety Concerns. Other Treatment Discussed tub transfer, will work on tub transfers tomorrow with shower in [facility]. Discussed standing in shower to cleanse [place] area/buttocks. Discussed hip precautions with exercise and transportation. Pt then completed Dow[place] elizabeth exercises to increase L UE AROM and strength. After session, pt sit ting in recliner with call light/phone in reach. All needs met in room. OT Short Term Goals Short Term Goals Lower body dressin Putting on/taking off footwear: 2 OT [facility] Goals Concrete Bucket Hooker Goals Time Frame: Mar 05, 2023 Acute change in mental status: 0 Inattention: 0 Disorganized thinkin Altered level of consciousness: 0 Eating (QC): 5 Oral Hygiene (QC): 5 Toileting Hygiene (QC): 3 Shower/Bathe Self (QC): 3 Upper Body Dressing (QC): 3 Lower Body Dressing (QC): 3 On/Off Footwear (QC): 3 Additional Goals: 1-Demonstrate ADL Tasks, 2-Verbalize Understanding, 3- ImproveStrength/Josep 1=Demonstrate adherence to instructed precautions during ADL tasks. 2=Patient will verbalize/demonstrate understanding of assistive devices/modifications for ADL. 3=Patient will improve strength/tolerance for activity to enable patient to perform ADL's. OT Education/Plan Problem List/Assessment Assessment: Decreased Activ Tolerance, Decreased UE Strength, Impaired Self- Care Skills, Restricted Funct UE ROM Discharge Recommendations Plan/Recommendations: Continue POC Treatment Plan/Plan of Care Patient would benefit from OT for education, treatment and training to promote independence in ADL's, mobility, safety and/or upper extremity function for ADL's. Plan of Care: ADL Retraining, Functional Mobility, Group Exercise/Act as Ind, UE Funct Exercise/Act, UE Neuromus Re-Ed/Coord Treatment Duration: Mar 05, 2023 Frequency: At least 5 of 7 days/Wk (IRF) Estimated Hrs Per Day: 1.5 hours per day Agreement: Yes Rehab Potential: Fair Time Start Time: 13:00 Stop Time: 13:30 DATE: Feb 16, 2023 Total Time Billed (hr/min): 30 Billed Treatment Time 1 visit-FA 1 (20 min) EX 1 (10 min) RUEL MATTHEWS Feb 16, 2023 13:37
--- NOTE | 2023-02-16 16:12 | Physical Therapy Daily Note ---
PT Daily Note-Current Subjective Pt sitting in [facility] visiting w/Sp upon arrival. Pt agrees to PT. Pain Location: No Pain Reported Section J - Health Conditions 1. Rarely or not at all 2. Occasionally 3. Frequently 4. Almost constantly 8. Unable to answer Pain Effect on Sleep: 1 Pain Interference with Therapy: 1 Pain Interference w/Day-to-Day: 1 Mental Status Patient Orientation: Person, Place, Time, Situation Transfers SCALE: Activities may be completed with or without assistive devices. 5-Nbzomjvava-wpiegmv completes the activity by him/herself with no assistance from a helper. 5-Set-up or Clean-up Assistance-helper sets up or cleans up; patient completes activity. [place] assists only prior to or following the activity. 4-Supervision or Touching Assistance-helper provides verbal cues and/or t ouching/steadying and/or contact guard assistance as patient completes activity. Assistance may be provided throughout the activity or intermittently. 3-Partial/Moderate Assistance-helper does LESS THAN HALF the effort. [place] lifts, holds or supports trunk or limbs, but provides less than half the effort. 2-Substantial/Maximal Assistance-helper does MORE THAN HALF the effort. [place] lifts or holds trunk or limbs and provides more than half the effort. 1-Jnjdffngp-czkehv does ALL the effort. Patient does none of the effort to complete the activity. Or, the assistance of 2 or more helpers is required for the patient to complete the activity. If activity was not attempted, code reason: 7-Patient Refused. 9-Not Applicable-not attempted and the patient did not perform the activity before the current illness, exacerbation or injury. 10-Not Attempted due to Environmental Limitations-(lack of equipment, weather restraints, etc.). 88-Not Attempted due to Medical Conditions or Safety Concerns. Weight Bearing Left Lower Extremity: Left Weight Bearing/Tolerated Treatments Pt, Sp & SHAKE OUT WORKER discuss progress and focus of tx over the next days to improve prognosis and ease transition to home. Focus will be on Car TF as pt's truck has already been modified to assist as needed as well as focus on proper sequencing & safety while amb. Pt rests at end of tx w/all needs met, call light next to pt. Assessment Current Status: Good Progress Pt is gaining strength & mobility but needs reminder to know limits and practice safety for fall prevention. PT Care Home Goals Stretching Machine Tender Frame Goals PT Care Home Goals Time Frame: Feb 23, 2023 Roll Left & Right (QC): 4 (SBA) Sit to Lying (QC): 4 (SBA) Lying-Sitting on Side/Bed(QC): 4 (SBA) Sit to Stand (QC): 4 (CGA) Chair/Sos-fy-Nbxoz Xfer(QC): 4 (CGA) Toilet Transfer (QC): 4 (CGA) Car Transfer (QC): 4 (CGA) Does the Patient Walk: Yes Walk 10 feet (QC): 4 (CGA) Walk 50ft with 2 Turns (QC): 4 (CGA) Walk 150 ft (QC): 88 Walking 10ft on Uneven Surface: 4 (CGA) 1 Step (curb) (QC): 4 (CGA) 4 Steps (QC): 88 12 Steps (QC): 88 Picking up an Object (QC): 4 (CGA using a exhibit electrician) Wheel 50 feet with 2 turns (QC: 4 (SBA) Wheel 150 feet: 4 (SBA) PT Plan Problem List Problem List: Activity Tolerance, Safety, Gait Treatment/Plan Treatment Plan: Continue Plan of Care Treatment Plan: Bed Mobility, Education, Functional Activity Josep, Functional Strength, Group Therapy, Gait, Safety, Therapeutic Exercise, Transfers Treatment Duration: Feb 23, 2023 Frequency: At least 5 of 7 days/Wk (IRF) Estimated Hrs Per Day: 1.5 hours per day Patient and/or Family Agrees t: Yes Safety Risks/Education Patient Education: Gait Training, Correct Positioning, Safety Issues Teaching Recipient: Patient, Significant Other Teaching Methods: Discussion Response to Teaching: Verbalize Understanding Time Time In: 1330 Time Out: 1400 DATE: Feb 16, 2023 Total Billed Treatment Time: 30 Total Billed Treatment 1,FA x2 (30m) TERE AMBRIZ PTA Feb 16, 2023 16:12
[2023-02-16 19:33] VITALS: BP 111/69
[2023-02-16] MEDS: OXYBUTYNIN (DITROPAN) 5 MG TAB PO SCH (21:00)
[2023-02-16] MEDS: MELATONIN 3 MG TABLET PO PRN (21:00)
[2023-02-17] MEDS: CYANOCOBALAMIN 1,000 MCG (VITAMIN B-12) TABLET PO SCH (06:28)
[2023-02-17] MEDS: LEVOTHYROXINE 125 MCG (LEVOTHROID) TABLET PO SCH (06:28)
[2023-02-17] MEDS: MULTIVIT W/MINERALS TAB (THERAGRAN M) PO SCH (06:28)
--- NOTE | 2023-02-17 06:54 | PM&R Progress Note ---
Subjective HPI/CC On Admission Date Seen by Provider: Feb 17, 2023 Time Seen by Provider: 09:00 Subjective/Events-last exam 02/17/2023: Much improved status No pain reported No falls BM+ Oxybutnin improved urinary frequency 02/16/2023: Improved overall No pain reported BM+ Started Oxybutynin for night time nocturia since UA was normal 02/15/2023: No major concerns No pain reported Walking better Improved overall Labs reviewed 02/14/2023: No major issues Resting today at bedside No falls 02/13/2023: Much improved Walking with assist Pain controlled No falls Voiding well 02/12/2023: Much improved Increased PO fluids No pain at bedside No concerns 02/11/2023: No major issues Working with therapy Pain controlled Voiding well Increasing PO fluids successfully 02/10/2023: Much improved status Chest tube to water seal No pain reported DC catheter today No falls Venofer 2 more doses needed BM+ Review of Systems General: Fatigue, Malaise Genitourinary: Frequency Musculoskeletal: leg pain Neurological: Weakness, Incoordination Objective Exam Vital Signs Vital Signs Date Time Temp Pulse Resp B/P (MAP) Pulse Ox O2 Delivery O2 Flow Rate FiO2 02/17/23 20:50 98 Room Air 02/17/23 19:20 36.8 89 20 134/60 (84) 02/13/23 09:40 21 Capillary Refill : General Appearance: No Apparent Distress, WD/WN, Chronically ill, Thin, Other (frail) HEENT: PERRL/EOMI, Normal ENT Inspection, Pharynx Normal Neck: Full Range of Motion, Normal Inspection, Non Tender, Supple, Carotid Bruit Respiratory: Chest Non Tender, Lungs Clear, Normal Breath Sounds, No Accessory Muscle Use, No Respiratory Distress Cardiovascular: Regular Rate, Rhythm, No Edema, No Gallop, No JVD, No Murmur, Normal Peripheral Pulses Gastrointestinal: Normal Bowel Sounds, No Organomegaly, No Pulsatile Mass, Non Tender, Soft Back: Normal Inspection, No CVA Tenderness, No Vertebral Tenderness Extremity: Normal Capillary Refill, Normal Inspection, Normal Range of Motion ([place] left side), Non Tender, No Calf Tenderness, No Pedal Edema Neurologic/Psychiatric: Alert, Oriented x3, Normal Mood/Affect, kinesiology internship II-XII Norm as Tested, Abnormal Gait, Motor Weakness (left sided) Skin: Normal Color, Warm/Dry Lymphatic: No Adenopathy Results/Procedures Lab Patient resulted labs reviewed. FIM Transfers Therapy Code Descriptions/Definitions Functional [place] Measure: 0=Not Assessed/NA 4=Minimal Assistance 1=Total Assistance 5=Supervision or Setup 2=Maximal Assistance 6=Modified [place] 3=Moderate Assistance 7=Complete IndependenceSCALE: Activities may be completed with or without assistive devices. 5-Ukenrnrqzk-ubnkcav completes the activity by him/herself with no assistance from a helper. 5-Set-up or Clean-up Assistance-helper sets up or cleans up; patient completes activity. [place] assists only prior to or following the activity. 4-Supervision or Touching Assistance-helper provides verbal cues and/or touching/steadying and/or contact guard assistance as patient completes activity. Assistance may be provided throughout the activity or intermittently. 3-Partial/Moderate Assistance-helper does LESS THAN HALF the effort. [place] lifts, holds or supports trunk or limbs, but provides less than half the effort. 2-Substantial/Maximal Assistance-helper does MORE THAN HALF the effort. [place] lifts or holds trunk or limbs and provides more than half the effort. 7-Drqzvbtio-ahqxad does ALL the effort. Patient does none of the effort to complete the activity. Or, the assistance of 2 or more helpers is required for the patient to complete the activity. If activity was not attempted, code reason: 7-Patient Refused. 9-Not Applicable-not attempted and the patient did not perform the activity before the current illness, exacerbation or injury. 10-Not Attempted due to Environmental Limitations-(lack of equipment, weather restraints, etc.). 88-Not Attempted due to Medical Conditions or Safety Concerns. Roll Left to Right (QC): 3 Sit to Lying (QC): 3 Sit to Stand (QC): 4 Chair/Wwk-cz-Zumqg Xfer(QC): 3 Car Transfer (QC): 88 Gait Training Does the Patient Walk?: Yes Distance: 125', 75' Walk 10 feet (QC): 4 Walk 50 ft with 2 Turns(QC): 4 Walk 150 ft (QC): 3 (w/VC for scissoring, keeping WBOS) Walking 10ft/uneven surface-QC: 88 Gait Persons Needed: 1 Gait Assistive Device: FWW Wheelchair Training Does the Pt Use a Wheelchair?: Yes Distance: 150' Wheel 50 ft with 2 turns (QC): 3 (needs assist to brake and to steer at times) Wheel 150 ft (QC): 3 Type of Wheelchair: Manual Stair Training 1 Step (curb) (QC): 88 4 Steps (QC): 88 12 Steps (QC): 88 Balance Picking up an Object (QC): 88 ADL-Treatment Eating (QC): 5 (Per pt/spouse report) Oral Hygiene (QC): 5 Shower/Bathe Self (QC): 3 Upper Body Dressing (QC): 5 Lower Body Dressing (QC): 3 On/Off Footwear (QC): 2 Toileting Hygiene (QC): 3 Toilet Transfer (QC): 4 Assessment/Plan Assessment and Plan Assess & Plan/Chief Complaint Assess & Plan/Chief Complaint Left femoral neck fracture Acute blood loss anemia causing hypovolumic shock Pneumothorax, left sided requiring chest tube placement Falls/debility 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 HLD Hypothyroidism Iron deficiency Nocturia with normal UA started Oxybutnin with improvement so dx of OAB Plan: PT OT Pain control Chest tube management Monitor closely 02/10/2023: Improved overall No pain reported Restart and finish Venofer 02/11/2023: Monitor closely Aggressive rehab 02/12/2023: Increase fluids Monitor closely 02/13/2023: Improved No concerns 02/14/2023: Monitor hgb 02/15/2023: Completed Venofer 02/16/2023: Oxybutynin 02/17/2023: Monitor urination (1) Closed left hip fracture Status: Acute (2) Postoperative anemia due to acute blood loss Status: Acute (3) Debility Status: Acute (4) History of cerebrovascular accident (CVA) with residual deficit Status: Chronic (5) Pneumothorax on left Status: Acute (6) Central line complication Status: Acute (7) Recurrent pneumothorax after chest tube removed Status: Acute VIKI BOOTH DO Feb 17, 2023 06:54
[2023-02-17 07:27] VITALS: BP 123/59
[2023-02-17] MEDS: DOCUSATE SODIUM 100 MG (COLACE) CAP PO SCH ×2 (08:13→20:49)
[2023-02-17] MEDS: polyethylene glycoL POWDER 17 GM (MIRALAX) PACK PO SCH ×2 (08:15→20:49)
[2023-02-17] MEDS: ENOXAPARIN 40 MG/0.4 ML (LOVENOX) SYR SC SCH (08:15)
[2023-02-17] MEDS: SENNA W/DOCUSATE (SENOKOT S) TABLET PO SCH ×2 (08:16→20:50)
[2023-02-17] MEDS: SENNOSIDES 8.6 MG (SENOKOT) TAB PO SCH ×2 (08:16→20:50)
[2023-02-17] MEDS: NYSTATIN CREAM (MYCOSTATIN) 30 GM TUBE TP SCH ×3 (09:01→20:51)
--- NOTE | 2023-02-17 10:04 | Physical Therapy Daily Note ---
PT Daily Note-Current Subjective Pt found lying in bed upon entry. Agreed to PT. Reports that he is a little bit sore in his trunk after treatments yesterday. States that he is having no pain in his L hip. Pain Section J - Health Conditions 1. Rarely or not at all 2. Occasionally 3. Frequently 4. Almost constantly 8. Unable to answer Pain Effect on Sleep: 1 Pain Interference with Therapy: 1 Pain Interference w/Day-to-Day: 1 Mental Status Patient Orientation: Person, Place, Time Transfers SCALE: Activities may be completed with or without assistive devices. 9-Bfsiezzaxo-npgnhwr completes the activity by him/herself with no assistance from a helper. 5-Set-up or Clean-up Assistance-helper sets up or cleans up; patient completes activity. [place] assists only prior to or following the activity. 4-Supervision or Touching Assistance-helper provides verbal cues and/or touching/steadying and/or contact guard assistance as patient completes activity. Assistance may be provided throughout the activity or intermittently. 3-Partial/Moderate Assistance-helper does LESS THAN HALF the effort. [place] lifts, holds or supports trunk or limbs, but provides less than half the effort. 2-Substantial/Maximal Assistance-helper does MORE THAN HALF the effort. [place] lifts or holds trunk or limbs and provides more than half the effort. 5-Isrdjclmh-ygygrh does ALL the effort. Patient does none of the effort to complete the activity. Or, the assistance of 2 or more helpers is required for the patient to complete the activity. If activity was not attempted, code reason: 7-Patient Refused. 9-Not Applicable-not attempted and the patient did not perform the activity before the current illness, exacerbation or injury. 10-Not Attempted due to Environmental Limitations-(lack of equipment, weather restraints, etc.). 88-Not Attempted due to Medical Conditions or Safety Concerns. Roll Left & Right (QC): 3 Lying to Sitting/Side of Bed(Q: 3 Sit to Stand (QC): 4 Car Transfer (QC): 3 Pt MIIN assist with rolling. Completes ly to sit and car transfer with MIN assist to lift and lower affected LE. CGA with sit to stand transfer. Weight Bearing Left Lower Extremity: Left Weight Bearing/Tolerated Gait Training Does the Patient Walk?: Yes Distance: 50, 75, 50 Walk 10 feet (QC): 3 Walk 50 ft with 2 Turns(QC): 3 Walk 150 ft (QC): 3 Gait Persons Needed: 1 Gait Assistive Device: FWW Pt ambulates with FWW and MIN assist. Pt occasionally displays scissoring gait while ambulating. Required assistance to initiate LLE step. Demonstrates hip hike on L side. Ambulated 175 feet total. Exercises Sit to stands x 5 /c CGA Car transfer x 2 Seated exercises - 1# ankle weight: hip abd/add, heel slides, heel/toe raises, LAQ x 15 each - ball: hip add x 15 - AirX push downs to activate L quad x 15 AAROM with heel slides Assessment Current Status: Good Progress, Fair Progress Pt tolerated therapeutic exercises and activity well. Able to complete car transfer training with MIN assist and maintain hip precautions. Demonstrates LLE fatigue during gait training and required assistance to initiate movement on that side. Continue to progress pt as tolerated per POC to increase strength, endurance, and functional ability. PT Instructor Flying Goals Instructor Flying Goals PT Nursing Home Goals Time Frame: Feb 23, 2023 Roll Left & Right (QC): 4 (SBA) Sit to Lying (QC): 4 (SBA) Lying-Sitting on Side/Bed(QC): 4 (SBA) Sit to Stand (QC): 4 (CGA) Chair/Bhm-ol-Jjabi Xfer(QC): 4 (CGA) Toilet Transfer (QC): 4 (CGA) Car Transfer (QC): 4 (CGA) Does the Patient Walk: Yes Walk 10 feet (QC): 4 (CGA) Walk 50ft with 2 Turns (QC): 4 (CGA) Walk 150 ft (QC): 88 Walking 10ft on Uneven Surface: 4 (CGA) 1 Step (curb) (QC): 4 (CGA) 4 Steps (QC): 88 12 Steps (QC): 88 Picking up an Object (QC): 4 (CGA using a licensed real estate broker) Wheel 50 feet with 2 turns (QC: 4 (SBA) Wheel 150 feet: 4 (SBA) PT Plan Treatment/Plan Treatment Plan: Continue Plan of Care Treatment Plan: Bed Mobility, Education, Functional Activity Josep, Functional Strength, Group Therapy, Gait, Safety, Therapeutic Exercise, Transfers Treatment Duration: Feb 23, 2023 Frequency: At least 5 of 7 days/Wk (IRF) Estimated Hrs Per Day: 1.5 hours per day Patient and/or Family Agrees t: Yes Time Time In: 0800 Time Out: 0900 DATE: Feb 17, 2023 Total Billed Treatment Time: 60 Total Billed Treatment 1 visit GT 1x EX 1x FA 2x ISABELA RAI PTA Feb 17, 2023 10:04
--- NOTE | 2023-02-17 12:17 | Progress Note ---
Standard Progress Note Progress Notes/Assess & Plan Date Seen by a Provider: Feb 17, 2023 Time Seen by a Provider: 12:16 Progress/Assessment & Plan no complaints L hip incision echymotic no calf tenderness s/p L hip bipolar DC juan WBAT DANI BRANDON MD Feb 17, 2023 12:17
--- NOTE | 2023-02-17 13:04 | Occupational Ther Daily Note ---
OT Current Status-Daily Note Subjective Pt alert, lying in bed. Pt agrees to therapy. No c/o pain. Mental Status/Objective Patient Orientation: Person, Place, Time, Situation ADL-Treatment Independent with eating. Independent with bed mobility. Therapy Code Descriptions/Definitions Functional [place] Measure: 0=Not Assessed/NA 4=Minimal Assistance 1=Total Assistance 5=Supervision or Setup 2=Maximal Assistance 6=Modified [place] 3=Moderate Assistance 7=Complete IndependenceSCALE: Activities may be completed with or without assistive devices. 6-Wpjsvvjplv-rrotqtl completes the activity by him/herself with no assistance from a helper. 5-Set-up or Clean-up Assistance-helper sets up or cleans up; patient completes activity. [place] assists only prior to or following the activity. 4-Supervision or Touching Assistance-helper provides verbal cues and/or touching/steadying and/or contact guard assistance as patient completes activity. Assistance may be provided throughout the activity or intermittently. 3-Partial/Moderate Assistance-helper does LESS THAN HALF the effort. [place] lifts, holds or supports trunk or limbs, but provides less than half the effort. 2-Substantial/Maximal Assistance-helper does MORE THAN HALF the effort. [place] lifts or holds trunk or limbs and provides more than half the effort. 3-Orhnrtiex-sgkirr does ALL the effort. Patient does none of the effort to complete the activity. Or, the assistance of 2 or more helpers is required for the patient to complete the activity. If activity was not attempted, code reason: 7-Patient Refused. 9-Not Applicable-not attempted and the patient did not perform the activity before the current illness, exacerbation or injury. 10-Not Attempted due to Environmental Limitations-(lack of equipment, weather restraints, etc.). 88-Not Attempted due to Medical Conditions or Safety Concerns. Other Treatment L UE PROM/AAROM to increase ROM and decrease tone. Pt tolerated ~150* shldr flexion and all other areas WNL. After session, pt lying in bed eating breakfast. Call light/phone in reach. All needs met in room. OT Short Term Goals Short Term Goals Lower body dressin Putting on/taking off footwear: 2 OT Assisted Goals Resume Writer Goals Time Frame: Mar 05, 2023 Acute change in mental status: 0 Inattention: 0 Disorganized thinkin Altered level of consciousness: 0 Eating (QC): 5 Oral Hygiene (QC): 5 Toileting Hygiene (QC): 3 Shower/Bathe Self (QC): 3 Upper Body Dressing (QC): 3 Lower Body Dressing (QC): 3 On/Off Footwear (QC): 3 Additional Goals: 1-Demonstrate ADL Tasks, 2-Verbalize Understanding, 3- ImproveStrength/Josep 1=Demonstrate adherence to instructed precautions during ADL tasks. 2=Patient will verbalize/demonstrate understanding of assistive devices/modifications for ADL. 3=Patient will improve strength/tolerance for activity to enable patient to perform ADL's. OT Education/Plan Problem List/Assessment Assessment: Decreased Activ Tolerance, Impaired Self-Care Skills, Restricted Funct UE ROM Discharge Recommendations Plan/Recommendations: Continue POC Treatment Plan/Plan of Care Patient would benefit from OT for education, treatment and training to promote independence in ADL's, mobility, safety and/or upper extremity function for ADL's. Plan of Care: ADL Retraining, Functional Mobility, Group Exercise/Act as Ind, UE Funct Exercise/Act, UE Neuromus Re-Ed/Coord Treatment Duration: Mar 05, 2023 Frequency: At least 5 of 7 days/Wk (IRF) Estimated Hrs Per Day: 1.5 hours per day Agreement: Yes Rehab Potential: Fair Time Start Time: 07:30 Stop Time: 08:00 DATE: Feb 17, 2023 Total Time Billed (hr/min): 30 Billed Treatment Time 1 visit-ADL 1 (15 min) EX 1 (15 min) RUEL MATTHEWS Feb 17, 2023 13:04
--- NOTE | 2023-02-17 13:08 | Occupational Ther Daily Note ---
OT Current Status-Daily Note Subjective Pt alert, sitting in recliner. Pt agrees to therapy. No c/o pain. present for treatment. Mental Status/Objective Patient Orientation: Person, Place, Time, Situation ADL-Treatment present for family training during shower. Pt agrees to shower using tub/shower and transfer bench. Pt and demonstrated ability to complete transfer safely using tub transfer bench. Pt able to cleanse all areas except R UE, stabilizing assist to cleanse own buttocks. Set up for upper body dressing. Pt's assisted with footwear and to thread lower body clothing over feet then stabilizing assist while pt stood and hiked pants by self. After session, pt in recliner with call light/phone in reach. All needs met in room. Therapy Code Descriptions/Definitions Functional [place] Measure: 0=Not Assessed/NA 4=Minimal Assistance 1=Total Assistance 5=Supervision or Setup 2=Maximal Assistance 6=Modified [place] 3=Moderate Assistance 7=Complete IndependenceSCALE: Activities may be completed with or without assistive devices. 0-Smpydunctw-sijrzls completes the activity by him/herself with no assistance from a helper. 5-Set-up or Clean-up Assistance-helper sets up or cleans up; patient completes activity. [place] assists only prior to or following the activity. 4-Supervision or Touching Assistance-helper provides verbal cues and/or touching/steadying and/or contact guard assistance as patient completes activ ity. Assistance may be provided throughout the activity or intermittently. 3-Partial/Moderate Assistance-helper does LESS THAN HALF the effort. [place] lifts, holds or supports trunk or limbs, but provides less than half the effort. 2-Substantial/Maximal Assistance-helper does MORE THAN HALF the effort. [place] lifts or holds trunk or limbs and provides more than half the effort. 6-Lxmrmcwzf-holvie does ALL the effort. Patient does none of the effort to complete the activity. Or, the assistance of 2 or more helpers is required for the patient to complete the activity. If activity was not attempted, code reason: 7-Patient Refused. 9-Not Applicable-not attempted and the patient did not perform the activity before the current illness, exacerbation or injury. 10-Not Attempted due to Environmental Limitations-(lack of equipment, weather restraints, etc.). 88-Not Attempted due to Medical Conditions or Safety Concerns. Shower/Bathe Self (QC): 3 Upper Body Dressing (QC): 5 Lower Body Dressing (QC): 3 On/Off Footwear: 2 OT Short Term Goals Short Term Goals Lower body dressin Putting on/taking off footwear: 2 OT Residential Goals Cost Estimator Goals Time Frame: Mar 05, 2023 Acute change in mental status: 0 Inattention: 0 Disorganized thinkin Altered level of consciousness: 0 Eating (QC): 5 Oral Hygiene (QC): 5 Toileting Hygiene (QC): 3 Shower/Bathe Self (QC): 3 Upper Body Dressing (QC): 3 Lower Body Dressing (QC): 3 On/Off Footwear (QC): 3 Additional Goals: 1-Demonstrate ADL Tasks, 2-Verbalize Understanding, 3- ImproveStrength/Josep 1=Demonstrate adherence to instructed precautions during ADL tasks. 2=Patient will verbalize/demonstrate understanding of assistive devices/modifications for ADL. 3=Patient will improve strength/tolerance for activity to enable patient to perform ADL's. OT Education/Plan Problem List/Assessment Assessment: Decreased Activ Tolerance, Decreased UE Strength, Impaired Self- Care Skills, Restricted Funct UE ROM Discharge Recommendations Plan/Recommendations: Continue POC Treatment Plan/Plan of Care Patient would benefit from OT for education, treatment and training to promote independence in ADL's, mobility, safety and/or upper extremity function for ADL's. Plan of Care: ADL Retraining, Functional Mobility, Group Exercise/Act as Ind, UE Funct Exercise/Act, UE Neuromus Re-Ed/Coord Treatment Duration: Mar 05, 2023 Frequency: At least 5 of 7 days/Wk (IRF) Estimated Hrs Per Day: 1.5 hours per day Agreement: Yes Rehab Potential: Fair Time Start Time: 11:00 Stop Time: 12:00 DATE: Feb 17, 2023 Total Time Billed (hr/min): 60 Billed Treatment Time 1 visit-ADL 4 (60 min) RUEL MATTHEWS Feb 17, 2023 13:08
--- NOTE | 2023-02-17 14:18 | Physical Therapy Daily Note ---
PT Daily Note-Current Subjective Pt found seated in recliner upon entry. Agreed to PT. States that he had his juan removed today. Reports he is a little tired but besides that he is doing well. Pt reports no hip pain pre-treatment. Pain Section J - Health Conditions 1. Rarely or not at all 2. Occasionally 3. Frequently 4. Almost constantly 8. Unable to answer Pain Effect on Sleep: 1 Pain Interference with Therapy: 1 Pain Interference w/Day-to-Day: 1 Mental Status Patient Orientation: Person, Place, Time Transfers SCALE: Activities may be completed with or without assistive devices. 2-Hwflqxrtyh-cpaelbt completes the activity by him/herself with no assistance from a helper. 5-Set-up or Clean-up Assistance-helper sets up or cleans up; patient completes activity. [place] assists only prior to or following the activity. 4-Supervision or Touching Assistance-helper provides verbal cues and/or touching/steadying and/or contact guard assistance as patient completes activity. Assistance may be provided throughout the activity or intermittently. 3-Partial/Moderate Assistance-helper does LESS THAN HALF the effort. [place] lifts, holds or supports trunk or limbs, but provides less than half the effort. 2-Substantial/Maximal Assistance-helper does MORE THAN HALF the effort. [place] lifts or holds trunk or limbs and provides more than half the effort. 3-Eegzaeqob-elaeyf does ALL the effort. Patient does none of the effort to complete the activity. Or, the assistance of 2 or more helpers is required for the patient to complete the activity. If activity was not attempted, code reason: 7-Patient Refused. 9-Not Applicable-not attempted and the patient did not perform the activity before the current illness, exacerbation or injury. 10-Not Attempted due to Environmental Limitations-(lack of equipment, weather restraints, etc.). 88-Not Attempted due to Medical Conditions or Safety Concerns. Sit to Stand (QC): 4 Pt CGA with sit to stand transfers. Weight Bearing Left Lower Extremity: Left Weight Bearing/Tolerated Gait Training Does the Patient Walk?: Yes Distance: 80, 80 Walk 10 feet (QC): 3 Walk 50 ft with 2 Turns(QC): 3 Gait Persons Needed: 1 Gait Assistive Device: FWW Pt displays less toe drag on L side this visit during gait training. Ambulates with FWW and CGA for 160 feet total. Required MIN A to initiate stepping on L side. Exercises NuStep Minutes: 11 NuStep Workload: 2 Assessment Current Status: Good Progress Pt demonstrates good tolerance to gait training and therapeutic exercise. Gait cycle is improving with less toe drag occurring during swing phase. Pt displays hip external rotation on L side while completing nu step and required assistance to keep LLE at neutral hip rotation. Continue to progress pt as tolerated per POC to improve strength, endurance, and functional ability. PT Fdc Goals Fdc Goals PT Shale Planer Operator Goals Time Frame: Feb 23, 2023 Roll Left & Right (QC): 4 (SBA) Sit to Lying (QC): 4 (SBA) Lying-Sitting on Side/Bed(QC): 4 (SBA) Sit to Stand (QC): 4 (CGA) Chair/Fdt-ri-Wppzl Xfer(QC): 4 (CGA) Toilet Transfer (QC): 4 (CGA) Car Transfer (QC): 4 (CGA) Does the Patient Walk: Yes Walk 10 feet (QC): 4 (CGA) Walk 50ft with 2 Turns (QC): 4 (CGA) Walk 150 ft (QC): 88 Walking 10ft on Uneven Surface: 4 (CGA) 1 Step (curb) (QC): 4 (CGA) 4 Steps (QC): 88 12 Steps (QC): 88 Picking up an Object (QC): 4 (CGA using a escort patients) Wheel 50 feet with 2 turns (QC: 4 (SBA) Wheel 150 feet: 4 (SBA) PT Plan Treatment/Plan Treatment Plan: Continue Plan of Care Treatment Plan: Bed Mobility, Education, Functional Activity Josep, Functional Strength, Group Therapy, Gait, Safety, Therapeutic Exercise, Transfers Treatment Duration: Feb 23, 2023 Frequency: At least 5 of 7 days/Wk (IRF) Estimated Hrs Per Day: 1.5 hours per day Patient and/or Family Agrees t: Yes Time Time In: 1330 Time Out: 1400 DATE: Feb 17, 2023 Total Billed Treatment Time: 30 Total Billed Treatment 1 visit GT x 1 EX x 1 ISABELA RAI PTA Feb 17, 2023 14:18
[2023-02-17 19:20] VITALS: BP 134/60
[2023-02-17] MEDS: MELATONIN 3 MG TABLET PO PRN (20:51)
[2023-02-17] MEDS: OXYBUTYNIN (DITROPAN) 5 MG TAB PO SCH (20:51)
[2023-02-18] MEDS: LEVOTHYROXINE 125 MCG (LEVOTHROID) TABLET PO SCH (06:08)
[2023-02-18] MEDS: MULTIVIT W/MINERALS TAB (THERAGRAN M) PO SCH (06:08)
[2023-02-18] MEDS: CYANOCOBALAMIN 1,000 MCG (VITAMIN B-12) TABLET PO SCH (06:08)
[2023-02-18 07:30] VITALS: BP 129/68
--- NOTE | 2023-02-18 07:57 | Progress Note ---
Standard Progress Note Progress Notes/Assess & Plan Date Seen by a Provider: Feb 18, 2023 Time Seen by a Provider: 07:42 Progress/Assessment & Plan no complaints L hip incision echymotic no calf tenderness s/p L hip bipolar DC juan WBAT Final Diagnosis no complaints incision site clean and dry no calf tenderness s/p L hip bipolar continue PT/OT follow up with me in two weeks DANI BRANDON MD Feb 18, 2023 07:56
[2023-02-18] MEDS: NYSTATIN CREAM (MYCOSTATIN) 30 GM TUBE TP SCH ×3 (08:07→20:33)
[2023-02-18] MEDS: ENOXAPARIN 40 MG/0.4 ML (LOVENOX) SYR SC SCH (08:07)
[2023-02-18] MEDS: SENNOSIDES 8.6 MG (SENOKOT) TAB PO SCH ×2 (08:25→20:33)
[2023-02-18] MEDS: SENNA W/DOCUSATE (SENOKOT S) TABLET PO SCH ×2 (08:25→20:33)
[2023-02-18] MEDS: DOCUSATE SODIUM 100 MG (COLACE) CAP PO SCH ×2 (08:25→20:33)
[2023-02-18] MEDS: polyethylene glycoL POWDER 17 GM (MIRALAX) PACK PO SCH ×2 (08:25→20:33)
--- NOTE | 2023-02-18 10:35 | Physical Therapy Daily Note ---
PT Daily Note-Current Subjective Pt sitting in [facility] in Therapy Gym after finishing OT tx upon arrival. Pt agrees to PT. Pain Location: No Pain Reported Section J - Health Conditions 1. Rarely or not at all 2. Occasionally 3. Frequently 4. Almost constantly 8. Unable to answer Pain Effect on Sleep: 1 Pain Interference with Therapy: 1 Pain Interference w/Day-to-Day: 1 Mental Status Patient Orientation: Person, Place, Time, Situation Transfers SCALE: Activities may be completed with or without assistive devices. 2-Itjzrncomp-jkaorup completes the activity by him/herself with no assistance from a helper. 5-Set-up or Clean-up Assistance-helper sets up or cleans up; patient completes activity. [place] assists only prior to or following the activity. 4-Supervision or Touching Assistance-helper provides verbal cues and/or touching/steadying and/or contact guard assistance as patient completes activity. Assistance may be provided throughout the activity or intermittently. 3-Partial/Moderate Assistance-helper does LESS THAN HALF the effort. [place] lifts, holds or supports trunk or limbs, but provides less than half the effort. 2-Substantial/Maximal Assistance-helper does MORE THAN HALF the effort. [place] lifts or holds trunk or limbs and provides more than half the effort. 3-Rcxyakgll-hxuuqc does ALL the effort. Patient does none of the effort to complete the activity. Or, the assistance of 2 or more helpers is required for the patient to complete the activity. If activity was not attempted, code reason: 7-Patient Refused. 9-Not Applicable-not attempted and the patient did not perform the activity before the current illness, exacerbation or injury. 10-Not Attempted due to Environmental Limitations-(lack of equipment, weather restraints, etc.). 88-Not Attempted due to Medical Conditions or Safety Concerns. Sit to Stand (QC): 4 Car Transfer (QC): 3 Weight Bearing Left Lower Extremity: Left Weight Bearing/Tolerated Gait Training Does the Patient Walk?: Yes Gait Persons Needed: 1 Gait Assistive Device: FWW Wheelchair Training Does the Pt Use a Wheelchair?: Yes Type of Wheelchair: Manual Stair Training #of Steps: 5 1 Step (curb) (QC): 3 4 Steps (QC): 3 Stairs: Pattern: Step to Treatments Tx focused on steps in //bars as well as Car TF in pt's personal truck both with hands on assistance from Sp who regularly has worked with Sp on TF and mobility w/staff. Pt returns to room to rest in recliner. All needs met, call light in hand. Assessment Current Status: Good Progress Pt is highly motivated and Sp is very supportive with hands on assistance so pt has improved w/TF & mobility. PT Fpc Goals Data Entry Clerk Goals PT Fpc Goals Time Frame: Feb 23, 2023 Roll Left & Right (QC): 4 (SBA) Sit to Lying (QC): 4 (SBA) Lying-Sitting on Side/Bed(QC): 4 (SBA) Sit to Stand (QC): 4 (CGA) Chair/Qts-ib-Qyhjj Xfer(QC): 4 (CGA) Toilet Transfer (QC): 4 (CGA) Car Transfer (QC): 4 (CGA) Does the Patient Walk: Yes Walk 10 feet (QC): 4 (CGA) Walk 50ft with 2 Turns (QC): 4 (CGA) Walk 150 ft (QC): 88 Walking 10ft on Uneven Surface: 4 (CGA) 1 Step (curb) (QC): 4 (CGA) 4 Steps (QC): 88 12 Steps (QC): 88 Picking up an Object (QC): 4 (CGA using a reach truck operator) Wheel 50 feet with 2 turns (QC: 4 (SBA) Wheel 150 feet: 4 (SBA) PT Plan Problem List Problem List: Activity Tolerance, Functional Strength Treatment/Plan Treatment Plan: Continue Plan of Care Treatment Plan: Bed Mobility, Education, Functional Activity Josep, Functional Strength, Group Therapy, Gait, Safety, Therapeutic Exercise, Transfers Treatment Duration: Feb 23, 2023 Frequency: At least 5 of 7 days/Wk (IRF) Estimated Hrs Per Day: 1.5 hours per day Patient and/or Family Agrees t: Yes Safety Risks/Education Patient Education: Transfer Techniques, Correct Positioning, Safety Issues Teaching Recipient: Patient, Significant Other Teaching Methods: Discussion Response to Teaching: Verbalize Understanding Time Time In: 900 Time Out: 1030 DATE: Feb 18, 2023 Total Billed Treatment Time: 90 Total Billed Treatment 1, FA x6 (90m) PBDOETEREBONI HERNANDEZ Feb 18, 2023 10:35
--- NOTE | 2023-02-18 10:43 | PM&R Progress Note ---
Subjective HPI/CC On Admission Date Seen by Provider: Feb 18, 2023 Time Seen by Provider: 11:00 Subjective/Events-last exam 02/18/2023: Doing much better Walking well with walker and assist Near back to baseline per 02/17/2023: Much improved status No pain reported No falls BM+ Oxybutnin improved urinary frequency 02/16/2023: Improved overall No pain reported BM+ Started Oxybutynin for night time nocturia since UA was normal 02/15/2023: No major concerns No pain reported Walking better Improved overall Labs reviewed 02/14/2023: No major issues Resting today at bedside No falls 02/13/2023: Much improved Walking with assist Pain controlled No falls Voiding well 02/12/2023: Much improved Increased PO fluids No pain at bedside No concerns 02/11/2023: No major issues Working with therapy Pain controlled Voiding well Increasing PO fluids successfully 02/10/2023: Much improved status Chest tube to water seal No pain reported DC catheter today No falls Venofer 2 more doses needed BM+ Review of Systems General: Fatigue, Malaise Objective Exam Vital Signs Vital Signs Date Time Temp Pulse Resp B/P (MAP) Pulse Ox O2 Delivery O2 Flow Rate FiO2 02/18/23 20:40 Room Air 02/18/23 19:33 37.1 86 16 131/72 (91) 97 02/13/23 09:40 21 Capillary Refill : General Appearance: No Apparent Distress, WD/WN, Chronically ill, Thin, Other (frail) HEENT: PERRL/EOMI, Normal ENT Inspection, Pharynx Normal Neck: Full Range of Motion, Normal Inspection, Non Tender, Supple, Carotid Bruit Respiratory: Chest Non Tender, Lungs Clear, Normal Breath Sounds, No Accessory Muscle Use, No Respiratory Distress Cardiovascular: Regular Rate, Rhythm, No Edema, No Gallop, No JVD, No Murmur, Normal Peripheral Pulses Gastrointestinal: Normal Bowel Sounds, No Organomegaly, No Pulsatile Mass, Non Tender, Soft Back: Normal Inspection, No CVA Tenderness, No Vertebral Tenderness Extremity: Normal Capillary Refill, Normal Inspection, Normal Range of Motion ([place] left side), Non Tender, No Calf Tenderness, No Pedal Edema Neurologic/Psychiatric: Alert, Oriented x3, Normal Mood/Affect, roller painter II-XII Norm as Tested, Abnormal Gait, Motor Weakness (left sided) Skin: Normal Color, Warm/Dry Lymphatic: No Adenopathy Results/Procedures Lab Patient resulted labs reviewed. FIM Transfers Therapy Code Descriptions/Definitions Functional [place] Measure: 0=Not Assessed/NA 4=Minimal Assistance 1=Total Assistance 5=Supervision or Setup 2=Maximal Assistance 6=Modified [place] 3=Moderate Assistance 7=Complete IndependenceSCALE: Activities may be completed with or without assistive devices. 6-Vobuafragm-zrkmulg completes the activity by him/herself with no assistance from a helper. 5-Set-up or Clean-up Assistance-helper sets up or cleans up; patient completes activity. [place] assists only prior to or following the activity. 4-Supervision or Touching Assistance-helper provides verbal cues and/or touching/steadying and/or contact guard assistance as patient completes activity. Assistance may be provided throughout the activity or intermittently. 3-Partial/Moderate Assistance-helper does LESS THAN HALF the effort. [place] lifts, holds or supports trunk or limbs, but provides less than half the effort. 2-Substantial/Maximal Assistance-helper does MORE THAN HALF the effort. [place] lifts or holds trunk or limbs and provides more than half the effort. 3-Vgirexupg-lffhuu does ALL the effort. Patient does none of the effort to complete the activity. Or, the assistance of 2 or more helpers is required for the patient to complete the activity. If activity was not attempted, code reason: 7-Patient Refused. 9-Not Applicable-not attempted and the patient did not perform the activity before the current illness, exacerbation or injury. 10-Not Attempted due to Environmental Limitations-(lack of equipment, weather restraints, etc.). 88-Not Attempted due to Medical Conditions or Safety Concerns. Roll Left to Right (QC): 3 Sit to Lying (QC): 3 Sit to Stand (QC): 4 Chair/Bwu-uy-Hpjiy Xfer(QC): 3 Car Transfer (QC): 3 Gait Training Does the Patient Walk?: Yes Distance: 80, 80 Walk 10 feet (QC): 3 Walk 50 ft with 2 Turns(QC): 3 Walk 150 ft (QC): 3 Walking 10ft/uneven surface-QC: 88 Gait Persons Needed: 1 Gait Assistive Device: FWW Wheelchair Training Does the Pt Use a Wheelchair?: Yes Distance: 150' Wheel 50 ft with 2 turns (QC): 3 (needs assist to brake and to steer at times) Wheel 150 ft (QC): 3 Type of Wheelchair: Manual Stair Training 1 Step (curb) (QC): 88 4 Steps (QC): 88 12 Steps (QC): 88 Balance Picking up an Object (QC): 88 ADL-Treatment Eating (QC): 5 (Per pt/spouse report) Oral Hygiene (QC): 5 Shower/Bathe Self (QC): 3 Upper Body Dressing (QC): 5 Lower Body Dressing (QC): 3 On/Off Footwear (QC): 2 Toileting Hygiene (QC): 3 Toilet Transfer (QC): 4 Assessment/Plan Assessment and Plan Assess & Plan/Chief Complaint Assess & Plan/Chief Complaint Left femoral neck fracture Acute blood loss anemia causing hypovolumic shock Pneumothorax, left sided requiring chest tube placement Falls/debility 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 HLD Hypothyroidism Iron deficiency Nocturia with normal UA started Oxybutnin with improvement so dx of OAB Plan: PT OT Pain control Chest tube management Monitor closely 02/10/2023: Improved overall No pain reported Restart and finish Venofer 02/11/2023: Monitor closely Aggressive rehab 02/12/2023: Increase fluids Monitor closely 02/13/2023: Improved No concerns 02/14/2023: Monitor hgb 02/15/2023: Completed Venofer 02/16/2023: Oxybutynin 02/17/2023: Monitor urination 02/18/2023: Maintain Oxybutynin (1) Closed left hip fracture Status: Acute (2) Postoperative anemia due to acute blood loss Status: Acute (3) Debility Status: Acute (4) History of cerebrovascular accident (CVA) with residual deficit Status: Chronic (5) Pneumothorax on left Status: Acute (6) Central line complication Status: Acute (7) Recurrent pneumothorax after chest tube removed Status: Acute VIKI BOOTH DO Feb 18, 2023 10:43
--- NOTE | 2023-02-18 12:45 | Occupational Ther Daily Note ---
OT Current Status-Daily Note Subjective Pt alert, lying in bed. Pt agrees to therapy. No c/o pain. Mental Status/Objective Patient Orientation: Person, Place, Time, Situation ADL-Treatment Min A for supine to EOB. Ambulated to bathroom using FWW with CGA for safety. Assist given to don footwear, will complete at home. Set up for upper body dressing. Mod A for lower body dressing. Mod A for toileting. Therapy Code Descriptions/Definitions Functional [place] Measure: 0=Not Assessed/NA 4=Minimal Assistance 1=Total Assistance 5=Supervision or Setup 2=Maximal Assistance 6=Modified [place] 3=Moderate Assistance 7=Complete IndependenceSCALE: Activities may be completed with or without assistive devices. 5-Dylbnofdbe-uhlsgiu completes the activity by him/herself with no assistance from a helper. 5-Set-up or Clean-up Assistance-helper sets up or cleans up; patient completes activity. [place] assists only prior to or following the activity. 4-Supervision or Touching Assistance-helper provides verbal cues and/or touching/steadying and/or contact guard assistance as patient completes activity. Assistance may be provided throughout the activity or intermittently. 3-Partial/Moderate Assistance-helper does LESS THAN HALF the effort. [place] lifts, holds or supports trunk or limbs, but provides less than half the effort. 2-Substantial/Maximal Assistance-helper does MORE THAN HALF the effort. [place] lifts or holds trunk or limbs and provides more than half the effort. 6-Zmcrtwjyb-uoqgeh does ALL the effort. Patient does none of the effort to complete the activity. Or, the assistance of 2 or more helpers is required for the patient to complete the activity. If activity was not attempted, code reason: 7-Patient Refused. 9-Not Applicable-not attempted and the patient did not perform the activity before the current illness, exacerbation or injury. 10-Not Attempted due to Environmental Limitations-(lack of equipment, weather restraints, etc.). 88-Not Attempted due to Medical Conditions or Safety Concerns. Upper Body Dressing (QC): 5 Lower Body Dressing (QC): 3 On/Off Footwear: 2 Toileting Hygiene (QC): 3 Toilet Transfer (QC): 3 Other Treatment Pt completed B UE AROM for strength, stretch for neuromuscular retraining of L UE. Pt is demonstrating increased ROM of L shldr throughout each movement during exercises. Increase strength and movement of L shldr elevation. [place] elizabeth exercises gravity eliminated to concentrate on correct movements of L UE. After session, pt left in care of PT. All needs met. OT Short Term Goals Short Term Goals Lower body dressin Putting on/taking off footwear: 2 OT Manager [employer] Goals Halfway Goals Time Frame: Mar 05, 2023 Acute change in mental status: 0 Inattention: 0 Disorganized thinkin Altered level of consciousness: 0 Eating (QC): 5 Oral Hygiene (QC): 5 Toileting Hygiene (QC): 3 Shower/Bathe Self (QC): 3 Upper Body Dressing (QC): 3 Lower Body Dressing (QC): 3 On/Off Footwear (QC): 3 Additional Goals: 1-Demonstrate ADL Tasks, 2-Verbalize Understanding, 3- ImproveStrength/Josep 1=Demonstrate adherence to instructed precautions during ADL tasks. 2=Patient will verbalize/demonstrate understanding of assistive devices/modifications for ADL. 3=Patient will improve strength/tolerance for activity to enable patient to perform ADL's. OT Education/Plan Problem List/Assessment Assessment: Decreased Activ Tolerance, Impaired Self-Care Skills, Restricted Funct UE ROM Discharge Recommendations Plan/Recommendations: Continue POC Treatment Plan/Plan of Care Patient would benefit from OT for education, treatment and training to promote independence in ADL's, mobility, safety and/or upper extremity function for ADL's. Plan of Care: ADL Retraining, Functional Mobility, Group Exercise/Act as Ind, UE Funct Exercise/Act, UE Neuromus Re-Ed/Coord Treatment Duration: Mar 05, 2023 Frequency: At least 5 of 7 days/Wk (IRF) Estimated Hrs Per Day: 1.5 hours per day Agreement: Yes Rehab Potential: Fair Time Start Time: 08:00 Stop Time: 09:00 DATE: Feb 18, 2023 Total Time Billed (hr/min): 60 Billed Treatment Time 1 visit-ADL 2 (30 min) EX 2 (30 min) RUEL MATTHEWS Feb 18, 2023 12:45
--- NOTE | 2023-02-18 12:49 | Occupational Ther Daily Note ---
OT Current Status-Daily Note Subjective Pt alert, sitting in recliner. Pt agrees to therapy. No c/o pain. Mental Status/Objective Patient Orientation: Person, Place, Time, Situation ADL-Treatment Therapy Code Descriptions/Definitions Functional [place] Measure: 0=Not Assessed/NA 4=Minimal Assistance 1=Total Assistance 5=Supervision or Setup 2=Maximal Assistance 6=Modified [place] 3=Moderate Assistance 7=Complete IndependenceSCALE: Activities may be completed with or without assistive devices. 9-Juwwhzkivq-iowrxbo completes the activity by him/herself with no assistance f rom a helper. 5-Set-up or Clean-up Assistance-helper sets up or cleans up; patient completes activity. [place] assists only prior to or following the activity. 4-Supervision or Touching Assistance-helper provides verbal cues and/or touching/steadying and/or contact guard assistance as patient completes activity. Assistance may be provided throughout the activity or intermittently. 3-Partial/Moderate Assistance-helper does LESS THAN HALF the effort. [place] lifts, holds or supports trunk or limbs, but provides less than half the effort. 2-Substantial/Maximal Assistance-helper does MORE THAN HALF the effort. [place] lifts or holds trunk or limbs and provides more than half the effort. 0-Ymflvyfsi-dverlc does ALL the effort. Patient does none of the effort to complete the activity. Or, the assistance of 2 or more helpers is required for the patient to complete the activity. If activity was not attempted, code reason: 7-Patient Refused. 9-Not Applicable-not attempted and the patient did not perform the activity before the current illness, exacerbation or injury. 10-Not Attempted due to Environmental Limitations-(lack of equipment, weather restraints, etc.). 88-Not Attempted due to Medical Conditions or Safety Concerns. Other Treatment Pt ambulating using platform FWW with CGA. Pt demonstrating L LE fatigue during ambulation requiring multiple recovery breaks for safe ambulation. Pt then working on isolating shldr extension/retraction and shldr flexion/protraction with gravity eliminated and AAROM for correct alignment/movement. After session, pt sitting in recliner with call light/phone in reach. All needs met in room. OT Short Term Goals Short Term Goals Lower body dressin Putting on/taking off footwear: 2 OT Real Estate Assessor Goals [facility] Goals Time Frame: Mar 05, 2023 Acute change in mental status: 0 Inattention: 0 Disorganized thinkin Altered level of consciousness: 0 Eating (QC): 5 Oral Hygiene (QC): 5 Toileting Hygiene (QC): 3 Shower/Bathe Self (QC): 3 Upper Body Dressing (QC): 3 Lower Body Dressing (QC): 3 On/Off Footwear (QC): 3 Additional Goals: 1-Demonstrate ADL Tasks, 2-Verbalize Understanding, 3- ImproveStrength/Josep 1=Demonstrate adherence to instructed precautions during ADL tasks. 2=Patient will verbalize/demonstrate understanding of assistive devices/modifications for ADL. 3=Patient will improve strength/tolerance for activity to enable patient to perform ADL's. OT Education/Plan Problem List/Assessment Assessment: Decreased Activ Tolerance, Impaired Self-Care Skills, Restricted Funct UE ROM Discharge Recommendations Plan/Recommendations: Continue POC Treatment Plan/Plan of Care Patient would benefit from OT for education, treatment and training to promote independence in ADL's, mobility, safety and/or upper extremity function for ADL's. Plan of Care: ADL Retraining, Functional Mobility, Group Exercise/Act as Ind, UE Funct Exercise/Act, UE Neuromus Re-Ed/Coord Treatment Duration: Mar 05, 2023 Frequency: At least 5 of 7 days/Wk (IRF) Estimated Hrs Per Day: 1.5 hours per day Agreement: Yes Rehab Potential: Fair Time Start Time: 11:10 Stop Time: 11:50 DATE: Feb 18, 2023 Total Time Billed (hr/min): 40 Billed Treatment Time 1 visit-EX 3 (40 min) RUEL MATTHEWS Feb 18, 2023 12:49
[2023-02-18 19:33] VITALS: BP 131/72
[2023-02-18] MEDS: OXYBUTYNIN (DITROPAN) 5 MG TAB PO SCH (20:32)
[2023-02-18] MEDS: MELATONIN 3 MG TABLET PO PRN (20:32)
[2023-02-19] MEDS: CYANOCOBALAMIN 1,000 MCG (VITAMIN B-12) TABLET PO SCH (05:36)
[2023-02-19] MEDS: MULTIVIT W/MINERALS TAB (THERAGRAN M) PO SCH (05:36)
[2023-02-19] MEDS: LEVOTHYROXINE 125 MCG (LEVOTHROID) TABLET PO SCH (05:36)
[2023-02-19 07:26] VITALS: BP 117/63
--- NOTE | 2023-02-19 07:38 | Occupational Ther Daily Note ---
OT Current Status-Daily Note Subjective Pt alert, sitting in recliner. Pt agrees to therapy. No c/o pain. Mental Status/Objective Patient Orientation: Person, Place, Time, Situation ADL-Treatment Pt declines shower. Gathering info for shower from previous sessions and . Set up for UBD, doffs by self. Min A for shower transfer. Sitting on shower bench for shower, using grabbars, hand held shower and LH sponge pt completes with assist only to steady in standing while pt cleanses buttocks/chelita area. Assist to thread feet into lower body clothing/footwear then pt stands to hike pants over hips with steadying assist. Independent for oral care and eating. Mod A for toileting, steadying assist to manipulate pants then assist for hygiene. After session, pt sitting in w/c with call light/phone in reach. Therapy Code Descriptions/Definitions Functional [place] Measure: 0=Not Assessed/NA 4=Minimal Assistance 1=Total Assistance 5=Supervision or Setup 2=Maximal Assistance 6=Modified [place] 3=Moderate Assistance 7=Complete IndependenceSCALE: Activities may be completed with or without assistive devices. 9-Llpxrhmulc-jbavvkr completes the activity by him/herself with no assistance from a helper. 5-Set-up or Clean-up Assistance-helper sets up or cleans up; patient completes activity. [place] assists only prior to or following the activity. 4-Supervision or Touching Assistance-helper provides verbal cues and/or touching/steadying and/or contact guard assistance as patient completes activity. Assistance may be provided throughout the activity or intermittently. 3-Partial/Moderate Assistance-helper does LESS THAN HALF the effort. [place] lifts, holds or supports trunk or limbs, but provides less than half the effort. 2-Substantial/Maximal Assistance-helper does MORE THAN HALF the effort. [place] lifts or holds trunk or limbs and provides more than half the effort. 9-Tsmuxkryx-qlqdok does ALL the effort. Patient does none of the effort to complete the activity. Or, the assistance of 2 or more helpers is required for the patient to complete the activity. If activity was not attempted, code reason: 7-Patient Refused. 9-Not Applicable-not attempted and the patient did not perform the activity before the current illness, exacerbation or injury. 10-Not Attempted due to Environmental Limitations-(lack of equipment, weather restraints, etc.). 88-Not Attempted due to Medical Conditions or Safety Concerns. Eating (QC): 6 Oral Hygiene (QC): 6 Shower/Bathe Self (QC): 3 Upper Body Dressing (QC): 5 Lower Body Dressing (QC): 3 On/Off Footwear: 2 Toileting Hygiene (QC): 3 Toilet Transfer (QC): 4 BIMS CAM BIMS Expression of Ideas and Wants: Without Difficulty Understanding Verbal Content: Understands Brief Interview/Mental Status: Yes IRF GEN BIMS: IRF GEN BIMS Response (Comments) Value Repitition of Three Words Three 3 Recalls Socks Yes, No Cue Required 2 Recalls Blue Yes, No Cue Required 2 Recalls Bed Yes, No Cue Required 2 Year Correct 3 Month Accurate Within 5 Days 2 Day Correct 1 Total 15 Patient Normally Able to Recal: Current Session, Location of own room, Staff Names and faces, That he/she in a hsp Should Staff Asses. Mental St.: No CAM Mental Status Change/Baseline: 0 Inattention: 0 Disorganized thinkin Altered level of consciousness: 0 OT Short Term Goals Short Term Goals Lower body dressin Putting on/taking off footwear: 2 OT Lumber Sorter Goals Lumber Sorter Goals Time Frame: Mar 05, 2023 Acute change in mental status: 0 Inattention: 0 Disorganized thinkin Altered level of consciousness: 0 Eating (QC): 5 (mt) Oral Hygiene (QC): 5 (met) Toileting Hygiene (QC): 3 (met) Shower/Bathe Self (QC): 3 (met) Upper Body Dressing (QC): 3 (met) Lower Body Dressing (QC): 3 (mod A met) On/Off Footwear (QC): 3 (not met) Additional Goals: 1-Demonstrate ADL Tasks, 2-Verbalize Understanding, 3- ImproveStrength/Josep 1=Demonstrate adherence to instructed precautions during ADL tasks. 2=Patient will verbalize/demonstrate understanding of assistive devices/modifications for ADL. 3=Patient will improve strength/tolerance for activity to enable patient to perform ADL's. OT Education/Plan Problem List/Assessment Assessment: Decreased Activ Tolerance, Decreased UE Strength, Impaired Funct Balance, Impaired Self-Care Skills, Restricted Funct UE ROM Discharge Recommendations Plan/Recommendations: Continue POC Treatment Plan/Plan of Care Patient would benefit from OT for education, treatment and training to promote independence in ADL's, mobility, safety and/or upper extremity function for ADL's. Plan of Care: ADL Retraining, Functional Mobility, Group Exercise/Act as Ind, UE Funct Exercise/Act, UE Neuromus Re-Ed/Coord Treatment Duration: Mar 05, 2023 Frequency: At least 5 of 7 days/Wk (IRF) Estimated Hrs Per Day: 1.5 hours per day Agreement: Yes Rehab Potential: Fair Time Start Time: 11:00 Stop Time: 12:00 DATE: Feb 19, 2023 Total Time Billed (hr/min): 60 Billed Treatment Time 1 visit-ADL 4 (60 min) RUEL MATTHEWS Feb 19, 2023 07:38
--- NOTE | 2023-02-19 08:09 | PM&R Progress Note ---
Subjective HPI/CC On Admission Date Seen by Provider: Feb 19, 2023 Time Seen by Provider: 11:00 Subjective/Events-last exam 02/19/2023: Much improved Overall participation has been excellent No falls No pain Urinary frequency is improved 02/18/2023: Doing much better Walking well with walker and assist Near back to baseline per 02/17/2023: Much improved status No pain reported No falls BM+ Oxybutnin improved urinary frequency 02/16/2023: Improved overall No pain reported BM+ Started Oxybutynin for night time nocturia since UA was normal 02/15/2023: No major concerns No pain reported Walking better Improved overall Labs reviewed 02/14/2023: No major issues Resting today at bedside No falls 02/13/2023: Much improved Walking with assist Pain controlled No falls Voiding well 02/12/2023: Much improved Increased PO fluids No pain at bedside No concerns 02/11/2023: No major issues Working with therapy Pain controlled Voiding well Increasing PO fluids successfully 02/10/2023: Much improved status Chest tube to water seal No pain reported DC catheter today No falls Venofer 2 more doses needed BM+ Review of Systems General: Fatigue, Malaise Genitourinary: Frequency Objective Exam Vital Signs Vital Signs Date Time Temp Pulse Resp B/P (MAP) Pulse Ox O2 Delivery O2 Flow Rate FiO2 02/19/23 20:15 98 Room Air 02/19/23 19:40 37.0 81 16 126/72 (90) Capillary Refill : General Appearance: No Apparent Distress, WD/WN, Chronically ill, Thin, Other (frail) HEENT: PERRL/EOMI, Normal ENT Inspection, Pharynx Normal Neck: Full Range of Motion, Normal Inspection, Non Tender, Supple, Carotid Bruit Respiratory: Chest Non Tender, Lungs Clear, Normal Breath Sounds, No Accessory Muscle Use, No Respiratory Distress Cardiovascular: Regular Rate, Rhythm, No Edema, No Gallop, No JVD, No Murmur, Normal Peripheral Pulses Gastrointestinal: Normal Bowel Sounds, No Organomegaly, No Pulsatile Mass, Non Tender, Soft Back: Normal Inspection, No CVA Tenderness, No Vertebral Tenderness Extremity: Normal Capillary Refill, Normal Inspection, Normal Range of Motion ([place] left side), Non Tender, No Calf Tenderness, No Pedal Edema Neurologic/Psychiatric: Alert, Oriented x3, Normal Mood/Affect, systems support specialist II-XII Norm as Tested, Abnormal Gait, Motor Weakness (left sided) Skin: Normal Color, Warm/Dry Lymphatic: No Adenopathy Results/Procedures Lab Patient resulted labs reviewed. FIM Transfers Therapy Code Descriptions/Definitions Functional [place] Measure: 0=Not Assessed/NA 4=Minimal Assistance 1=Total Assistance 5=Supervision or Setup 2=Maximal Assistance 6=Modified [place] 3=Moderate Assistance 7=Complete IndependenceSCALE: Activities may be completed with or without assistive devices. 1-Ndsxuhyzgb-dsyurdh completes the activity by him/herself with no assistance from a helper. 5-Set-up or Clean-up Assistance-helper sets up or cleans up; patient completes activity. [place] assists only prior to or following the activity. 4-Supervision or Touching Assistance-helper provides verbal cues and/or touching/steadying and/or contact guard assistance as patient completes activity. Assistance may be provided throughout the activity or intermittently. 3-Partial/Moderate Assistance-helper does LESS THAN HALF the effort. [place] lifts, holds or supports trunk or limbs, but provides less than half the effort. 2-Substantial/Maximal Assistance-helper does MORE THAN HALF the effort. [place] lifts or holds trunk or limbs and provides more than half the effort. 3-Wrsdncbxq-clraio does ALL the effort. Patient does none of the effort to complete the activity. Or, the assistance of 2 or more helpers is required for the patient to complete the activity. If activity was not attempted, code reason: 7-Patient Refused. 9-Not Applicable-not attempted and the patient did not perform the activity before the current illness, exacerbation or injury. 10-Not Attempted due to Environmental Limitations-(lack of equipment, weather restraints, etc.). 88-Not Attempted due to Medical Conditions or Safety Concerns. Roll Left to Right (QC): 3 Sit to Lying (QC): 3 Sit to Stand (QC): 4 Chair/Oxo-dn-Prqri Xfer(QC): 3 Car Transfer (QC): 3 Gait Training Does the Patient Walk?: Yes Distance: 80, 80 Walk 10 feet (QC): 3 Walk 50 ft with 2 Turns(QC): 3 Walk 150 ft (QC): 3 Walking 10ft/uneven surface-QC: 88 Gait Persons Needed: 1 Gait Assistive Device: FWW Wheelchair Training Does the Pt Use a Wheelchair?: Yes Distance: 150' Wheel 50 ft with 2 turns (QC): 3 (needs assist to brake and to steer at times) Wheel 150 ft (QC): 3 Type of Wheelchair: Manual Stair Training #of Steps: 5 1 Step (curb) (QC): 3 4 Steps (QC): 3 12 Steps (QC): 88 Stairs: Pattern: Step to Balance Picking up an Object (QC): 88 ADL-Treatment Eating (QC): 6 Oral Hygiene (QC): 6 Shower/Bathe Self (QC): 3 Upper Body Dressing (QC): 5 Lower Body Dressing (QC): 3 On/Off Footwear (QC): 2 Toileting Hygiene (QC): 3 Toilet Transfer (QC): 4 Assessment/Plan Assessment and Plan Assess & Plan/Chief Complaint Assess & Plan/Chief Complaint Left femoral neck fracture Acute blood loss anemia causing hypovolumic shock Pneumothorax, left sided requiring chest tube placement Falls/debility 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 HLD Hypothyroidism Iron deficiency Nocturia with normal UA started Oxybutnin with improvement so dx of OAB Plan: PT OT Pain control Chest tube management Monitor closely 02/10/2023: Improved overall No pain reported Restart and finish Venofer 02/11/2023: Monitor closely Aggressive rehab 02/12/2023: Increase fluids Monitor closely 02/13/2023: Improved No concerns 02/14/2023: Monitor hgb 02/15/2023: Completed Venofer 02/16/2023: Oxybutynin 02/17/2023: Monitor urination 02/18/2023: Maintain Oxybutynin 02/19/2023: Monitor closely Check labs Sat since DC Wednesday (1) Closed left hip fracture Status: Acute (2) Postoperative anemia due to acute blood loss Status: Acute (3) Debility Status: Acute (4) History of cerebrovascular accident (CVA) with residual deficit Status: Chronic (5) Pneumothorax on left Status: Acute (6) Central line complication Status: Acute (7) Recurrent pneumothorax after chest tube removed Status: Acute VIKI BOOTH DO Feb 19, 2023 08:09
[2023-02-19] MEDS: NYSTATIN CREAM (MYCOSTATIN) 30 GM TUBE TP SCH ×3 (08:34→20:28)
[2023-02-19] MEDS: ENOXAPARIN 40 MG/0.4 ML (LOVENOX) SYR SC SCH (08:34)
[2023-02-19] MEDS: DOCUSATE SODIUM 100 MG (COLACE) CAP PO SCH ×2 (08:53→20:15)
[2023-02-19] MEDS: SENNOSIDES 8.6 MG (SENOKOT) TAB PO SCH ×2 (08:54→20:15)
[2023-02-19] MEDS: SENNA W/DOCUSATE (SENOKOT S) TABLET PO SCH ×2 (08:54→20:15)
[2023-02-19] MEDS: polyethylene glycoL POWDER 17 GM (MIRALAX) PACK PO SCH ×2 (08:54→20:15)
--- NOTE | 2023-02-19 12:07 | Physical Therapy Daily Note ---
PT Daily Note-Current Subjective Pt sitting up in bed upon arrival. Pt agrees to PT. Sp arrives during tx. Pain Location: No Pain Reported Section J - Health Conditions 1. Rarely or not at all 2. Occasionally 3. Frequently 4. Almost constantly 8. Unable to answer Pain Effect on Sleep: 1 Pain Interference with Therapy: 1 Pain Interference w/Day-to-Day: 1 Mental Status Patient Orientation: Person, Place, Time, Situation Attachments: Other-See Comments (AFO for L LE) Transfers SCALE: Activities may be completed with or without assistive devices. 4-Brktqeduxr-auobpyj completes the activity by him/herself with no assistance from a helper. 5-Set-up or Clean-up Assistance-helper sets up or cleans up; patient completes activity. [place] assists only prior to or following the activity. 4-Supervision or Touching Assistance-helper provides verbal cues and/or touching/steadying and/or contact guard assistance as patient completes activity. Assistance may be provided throughout the activity or intermittently. 3-Partial/Moderate Assistance-helper does LESS THAN HALF the effort. [place] lifts, holds or supports trunk or limbs, but provides less than half the effort. 2-Substantial/Maximal Assistance-helper does MORE THAN HALF the effort. [place] lifts or holds trunk or limbs and provides more than half the effort. 1-Gnyiincud-fukvtr does ALL the effort. Patient does none of the effort to complete the activity. Or, the assistance of 2 or more helpers is required for the patient to complete the activity. If activity was not attempted, code reason: 7-Patient Refused. 9-Not Applicable-not attempted and the patient did not perform the activity before the current illness, exacerbation or injury. 10-Not Attempted due to Environmental Limitations-(lack of equipment, weather restraints, etc.). 88-Not Attempted due to Medical Conditions or Safety Concerns. Roll Left & Right (QC): 5 Sit to Lying (QC): 4 Lying to Sitting/Side of Bed(Q: 4 Sit to Stand (QC): 4 Chair/Gkg-xo-Qkhsr Xfer(QC): 4 Toilet Transfer (QC): 4 Car Transfer (QC): 4 Weight Bearing Left Lower Extremity: Left Weight Bearing/Tolerated Gait Training Does the Patient Walk?: Yes Distance: 50' x 3 Walk 10 feet (QC): 3 Walk 50 ft with 2 Turns(QC): 3 Walk 150 ft (QC): 3 Walking 10ft/uneven surface-QC: 3 Gait Persons Needed: 1 Gait Assistive Device: Walker Platform Pt leans upper torso to R side while L hip protrudes to L side. Wheelchair Training Does the Pt Use a Wheelchair?: Yes Wheel 50 ft with 2 turns (QC): 4 Type of Wheelchair: Manual Stair Training Stair Training: Handrails/: 2 handrails #of Steps: 6 1 Step (curb) (QC): 4 4 Steps (QC): 4 12 Steps (QC): 88 Stairs: Pattern: Step to Balance Picking up an Object (QC): 88 Treatments Pt focused on QC scoring items listed above. Pt returned to room to rest in recliner w/all needs met, call light in hand. Assessment Current Status: Good Progress Pt needs VC at times to widen ROBERTH while amb. to avoiding scissoring. PT [employer] Energy Systems Installer Goals Wind Energy Systems Installer Goals PT [employer] Energy Systems Installer Goals Time Frame: Feb 23, 2023 Roll Left & Right (QC): 4 (SBA) Sit to Lying (QC): 4 (SBA) Lying-Sitting on Side/Bed(QC): 4 (SBA) Sit to Stand (QC): 4 (CGA) Chair/Upy-zx-Mzqjn Xfer(QC): 4 (CGA) Toilet Transfer (QC): 4 (CGA) Car Transfer (QC): 4 (CGA) Does the Patient Walk: Yes Walk 10 feet (QC): 4 (CGA) Walk 50ft with 2 Turns (QC): 4 (CGA) Walk 150 ft (QC): 88 Walking 10ft on Uneven Surface: 4 (CGA) 1 Step (curb) (QC): 4 (CGA) 4 Steps (QC): 88 12 Steps (QC): 88 Picking up an Object (QC): 4 (CGA using a polysomnographic technologist) Wheel 50 feet with 2 turns (QC: 4 (SBA) Wheel 150 feet: 4 (SBA) PT Plan Problem List Problem List: Activity Tolerance Treatment/Plan Treatment Plan: Continue Plan of Care Treatment Plan: Bed Mobility, Education, Functional Activity Josep, Functional Strength, Group Therapy, Gait, Safety, Therapeutic Exercise, Transfers Treatment Duration: Feb 23, 2023 Frequency: At least 5 of 7 days/Wk (IRF) Estimated Hrs Per Day: 1.5 hours per day Patient and/or Family Agrees t: Yes Safety Risks/Education Patient Education: Gait Training, Transfer Techniques, Correct Positioning, Safety Issues Teaching Recipient: Patient, Significant Other Teaching Methods: Demonstration, Discussion Response to Teaching: Verbalize Understanding, Return Demonstration Time Time In: 800 Time Out: 930 DATE: Feb 19, 2023 Total Billed Treatment Time: 90 Total Billed Treatment 1, GT x2 (30m) & FA x4 (60m) TERE AMBRIZ COAL EQUIPMENT OPERATOR Feb 19, 2023 12:07
--- NOTE | 2023-02-19 13:57 | Occupational Ther Daily Note ---
OT Current Status-Daily Note Subjective Pt alert, sitting in recliner. Pt agrees to therapy. No c/o pain. Mental Status/Objective Patient Orientation: Person, Place, Time, Situation ADL-Treatment Eating independently. Therapy Code Descriptions/Definitions Functional [place] Measure: 0=Not Assessed/NA 4=Minimal Assistance 1=Total Assistance 5=Supervision or Setup 2=Maximal Assistance 6=Modified [place] 3=Moderate Assistance 7=Complete IndependenceSCALE: Activities may be completed with or without assistive devices. 2-Iipdbalqbu-unktwqv completes the activity by him/herself with no assistance from a helper. 5-Set-up or Clean-up Assistance-helper sets up or cleans up; patient completes activity. [place] assists only prior to or following the activity. 4-Supervision or Touching Assistance-helper provides verbal cues and/or touching/steadying and/or contact guard assistance as patient completes activity. Assistance may be provided throughout the activity or intermittently. 3-Partial/Moderate Assistance-helper does LESS THAN HALF the effort. [place] lifts, holds or supports trunk or limbs, but provides less than half the effort. 2-Substantial/Maximal Assistance-helper does MORE THAN HALF the effort. [place] lifts or holds trunk or limbs and provides more than half the effort. 5-Nuelcowrx-qlrisj does ALL the effort. Patient does none of the effort to complete the activity. Or, the assistance of 2 or more helpers is required for the patient to complete the activity. If activity was not attempted, code reason: 7-Patient Refused. 9-Not Applicable-not attempted and the patient did not perform the activity before the current illness, exacerbation or injury. 10-Not Attempted due to Environmental Limitations-(lack of equipment, weather restraints, etc.). 88-Not Attempted due to Medical Conditions or Safety Concerns. Eating (QC): 6 Other Treatment Pt ambulated using FWW with CGA for safety due to fatigue of L LE. Pt completed B UE exercises to increase strength for daily functional tasks. Pt tolerated well and is demonstrating good ROM throughout L shldr girdle and increasing strength. Pt continues to have limited AROM of L UE though the limited movement is becoming more fluid. After session, pt sitting in recliner with call light/phone in reach. Call light/phone in reach. All need met in room. OT Short Term Goals Short Term Goals Lower body dressin Putting on/taking off footwear: 2 OT [employer]asting Goals Shelter Goals Time Frame: Mar 05, 2023 Acute change in mental status: 0 Inattention: 0 Disorganized thinkin Altered level of consciousness: 0 Eating (QC): 5 (mt) Oral Hygiene (QC): 5 (met) Toileting Hygiene (QC): 3 (met) Shower/Bathe Self (QC): 3 (met) Upper Body Dressing (QC): 3 (met) Lower Body Dressing (QC): 3 (mod A met) On/Off Footwear (QC): 3 (not met) Additional Goals: 1-Demonstrate ADL Tasks, 2-Verbalize Understanding, 3- ImproveStrength/Josep 1=Demonstrate adherence to instructed precautions during ADL tasks. 2=Patient will verbalize/demonstrate understanding of assistive devices/modifications for ADL. 3=Patient will improve strength/tolerance for activity to enable patient to perform ADL's. OT Education/Plan Problem List/Assessment Assessment: Decreased Activ Tolerance, Decreased UE Strength, Impaired Self- Care Skills, Restricted Funct UE ROM Discharge Recommendations Plan/Recommendations: Continue POC Treatment Plan/Plan of Care Patient would benefit from OT for education, treatment and training to promote independence in ADL's, mobility, safety and/or upper extremity function for ADL's. Plan of Care: ADL Retraining, Functional Mobility, Group Exercise/Act as Ind, UE Funct Exercise/Act, UE Neuromus Re-Ed/Coord Treatment Duration: Mar 05, 2023 Frequency: At least 5 of 7 days/Wk (IRF) Estimated Hrs Per Day: 1.5 hours per day Agreement: Yes Rehab Potential: Fair Time Start Time: 12:45 Stop Time: 13:25 DATE: Feb 19, 2023 Total Time Billed (hr/min): 40 Billed Treatment Time 1 visit-EX 3 (40 min) RUEL MATTHEWS Feb 19, 2023 13:57
[2023-02-19 19:40] VITALS: BP 126/72
[2023-02-19] MEDS: OXYBUTYNIN (DITROPAN) 5 MG TAB PO SCH (20:15)
[2023-02-19] MEDS: MELATONIN 3 MG TABLET PO PRN (20:27)
[2023-02-20] MEDS: MULTIVIT W/MINERALS TAB (THERAGRAN M) PO SCH (05:55)
[2023-02-20] MEDS: LEVOTHYROXINE 125 MCG (LEVOTHROID) TABLET PO SCH (05:55)
[2023-02-20] MEDS: CYANOCOBALAMIN 1,000 MCG (VITAMIN B-12) TABLET PO SCH (05:55)
[2023-02-20 07:10] LABS: BASOPHILS # (AUTO) 0.1 10^3/uL (0.0-0.1); BASOPHILS % (AUTO) 1 % (0-10); EOSINOPHILS # (AUTO) 0.2 10^3/uL (0.0-0.3); EOSINOPHILS % (AUTO) 4 % (0-10); HEMATOCRIT 30 % (40-54); HEMOGLOBIN 9.7 g/dL (13.3-17.7); LYMPHOCYTES # (AUTO) 1.5 10^3/uL (1.0-4.0); LYMPHOCYTES % (AUTO) 26 % (12-44); MEAN CORPUSCULAR HEMOGLOBIN 30 pg (25-34); MEAN CORPUSCULAR HGB CONC 32 g/dL (32-36); MEAN CORPUSCULAR VOLUME 95 fL (80-99); MEAN PLATELET VOLUME 9.3 fL (9.0-12.2); MONOCYTES # (AUTO) 0.7 10^3/uL (0.0-1.0); MONOCYTES % (AUTO) 13 % (0-12); NEUTROPHILS # (AUTO) 3.1 10^3/uL (1.8-7.8); NEUTROPHILS % (AUTO) 55 % (42-75); PLATELET COUNT 356 10^3/uL (130-400); WHITE BLOOD COUNT 5.6 10^3/uL (4.3-11.0)
[2023-02-20] MEDS ORDERED: OXYB5TAB13 PO (07:17)
[2023-02-20] MEDS ORDERED: OXC5T PO (07:17)
[2023-02-20] MEDS ORDERED: CYAN-41 PO (07:17)
--- NOTE | 2023-02-20 07:27 | PM&R Progress Note ---
Subjective HPI/CC On Admission Date Seen by Provider: Feb 20, 2023 Time Seen by Provider: 12:00 Subjective/Events-last exam 02/20/2023: No major issues DC tomorrow planned No pain reported Does not want Oxycodone or Oxybutynin so I deleted those off DC meds 02/19/2023: Much improved Overall participation has been excellent No falls No pain Urinary frequency is improved 02/18/2023: Doing much better Walking well with walker and assist Near back to baseline per 02/17/2023: Much improved status No pain reported No falls BM+ Oxybutnin improved urinary frequency 02/16/2023: Improved overall No pain reported BM+ Started Oxybutynin for night time nocturia since UA was normal 02/15/2023: No major concerns No pain reported Walking better Improved overall Labs reviewed 02/14/2023: No major issues Resting today at bedside No falls 02/13/2023: Much improved Walking with assist Pain controlled No falls Voiding well 02/12/2023: Much improved Increased PO fluids No pain at bedside No concerns 02/11/2023: No major issues Working with therapy Pain controlled Voiding well Increasing PO fluids successfully 02/10/2023: Much improved status Chest tube to water seal No pain reported DC catheter today No falls Venofer 2 more doses needed BM+ Review of Systems General: Fatigue, Malaise Objective Exam Vital Signs Vital Signs Date Time Temp Pulse Resp B/P (MAP) Pulse Ox O2 Delivery O2 Flow Rate FiO2 02/20/23 09:57 Room Air 02/20/23 07:30 36.6 77 20 120/69 (86) 97 Capillary Refill : General Appearance: No Apparent Distress, WD/WN, Chronically ill, Thin, Other (frail) HEENT: PERRL/EOMI, Normal ENT Inspection, Pharynx Normal Neck: Full Range of Motion, Normal Inspection, Non Tender, Supple, Carotid Bruit Respiratory: Chest Non Tender, Lungs Clear, Normal Breath Sounds, No Accessory Muscle Use, No Respiratory Distress Cardiovascular: Regular Rate, Rhythm, No Edema, No Gallop, No JVD, No Murmur, Normal Peripheral Pulses Gastrointestinal: Normal Bowel Sounds, No Organomegaly, No Pulsatile Mass, Non Tender, Soft Back: Normal Inspection, No CVA Tenderness, No Vertebral Tenderness Extremity: Normal Capillary Refill, Normal Inspection, Normal Range of Motion ([place] left side), Non Tender, No Calf Tenderness, No Pedal Edema Neurologic/Psychiatric: Alert, Oriented x3, Normal Mood/Affect, smasher hand II-XII Norm as Tested, Abnormal Gait, Motor Weakness (left sided) Skin: Normal Color, Warm/Dry Lymphatic: No Adenopathy Results/Procedures Lab Laboratory Tests 02/20/23 06:42 Patient resulted labs reviewed. FIM Transfers Therapy Code Descriptions/Definitions Functional [place] Measure: 0=Not Assessed/NA 4=Minimal Assistance 1=Total Assistance 5=Supervision or Setup 2=Maximal Assistance 6=Modified [place] 3=Moderate Assistance 7=Complete IndependenceSCALE: Activities may be completed with or without assistive devices. 0-Cmrkqrzaeq-jdzvmis completes the activity by him/herself with no assistance from a helper. 5-Set-up or Clean-up Assistance-helper sets up or cleans up; patient completes activity. [place] assists only prior to or following the activity. 4-Supervision or Touching Assistance-helper provides verbal cues and/or touching/steadying and/or contact guard assistance as patient completes activity. Assistance may be provided throughout the activity or intermittently. 3-Partial/Moderate Assistance-helper does LESS THAN HALF the effort. [place] lifts, holds or supports trunk or limbs, but provides less than half the effort. 2-Substantial/Maximal Assistance-helper does MORE THAN HALF the effort. [place] lifts or holds trunk or limbs and provides more than half the effort. 0-Irvnjwnkz-bqncuq does ALL the effort. Patient does none of the effort to complete the activity. Or, the assistance of 2 or more helpers is required for the patient to complete the activity. If activity was not attempted, code reason: 7-Patient Refused. 9-Not Applicable-not attempted and the patient did not perform the activity before the current illness, exacerbation or injury. 10-Not Attempted due to Environmental Limitations-(lack of equipment, weather restraints, etc.). 88-Not Attempted due to Medical Conditions or Safety Concerns. Roll Left to Right (QC): 5 Sit to Lying (QC): 4 Sit to Stand (QC): 4 Chair/Vhr-dw-Wkegq Xfer(QC): 4 Car Transfer (QC): 4 Gait Training Does the Patient Walk?: Yes Distance: 50' x 3 Walk 10 feet (QC): 3 Walk 50 ft with 2 Turns(QC): 3 Walk 150 ft (QC): 3 Walking 10ft/uneven surface-QC: 3 Gait Persons Needed: 1 Gait Assistive Device: Walker Platform Wheelchair Training Does the Pt Use a Wheelchair?: Yes Distance: 150' Wheel 50 ft with 2 turns (QC): 4 Wheel 150 ft (QC): 3 Type of Wheelchair: Manual Stair Training Stair Training: Handrails/: 2 handrails #of Steps: 6 1 Step (curb) (QC): 4 4 Steps (QC): 4 12 Steps (QC): 88 Stairs: Pattern: Step to Balance Picking up an Object (QC): 88 ADL-Treatment Eating (QC): 6 Oral Hygiene (QC): 6 Shower/Bathe Self (QC): 3 Upper Body Dressing (QC): 5 Lower Body Dressing (QC): 3 On/Off Footwear (QC): 2 Toileting Hygiene (QC): 3 Toilet Transfer (QC): 4 Assessment/Plan Assessment and Plan Assess & Plan/Chief Complaint Assess & Plan/Chief Complaint Left femoral neck fracture Acute blood loss anemia causing hypovolumic shock Pneumothorax, left sided requiring chest tube placement Falls/debility 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 HLD Hypothyroidism Iron deficiency Nocturia with normal UA started Oxybutnin with improvement so dx of OAB Plan: PT OT Pain control Chest tube management Monitor closely 02/10/2023: Improved overall No pain reported Restart and finish Venofer 02/11/2023: Monitor closely Aggressive rehab 02/12/2023: Increase fluids Monitor closely 02/13/2023: Improved No concerns 02/14/2023: Monitor hgb 02/15/2023: Completed Venofer 02/16/2023: Oxybutynin 02/17/2023: Monitor urination 02/18/2023: Maintain Oxybutynin 02/19/2023: Monitor closely Check labs Sat since DC Wednesday02/20/2023: DC tomorrow (1) Closed left hip fracture Status: Acute (2) Postoperative anemia due to acute blood loss Status: Acute (3) Debility Status: Acute (4) History of cerebrovascular accident (CVA) with residual deficit Status: Chronic (5) Pneumothorax on left Status: Acute (6) Central line complication Status: Acute (7) Recurrent pneumothorax after chest tube removed Status: Acute VIKI BOOTH DO Feb 20, 2023 07:27
[2023-02-20 07:30] VITALS: BP 120/69
[2023-02-20 07:34] LABS: ALBUMIN 2.8 GM/DL (3.2-4.5); POTASSIUM 4.1 MMOL/L (3.6-5.0)
[2023-02-20 07:35] LABS: CALCIUM 8.9 MG/DL (8.5-10.1)
[2023-02-20 07:37] LABS: TOTAL PROTEIN 5.3 GM/DL (6.4-8.2)
[2023-02-20 07:40] LABS: CREATININE SERUM 0.8 MG/DL (0.60-1.30)
[2023-02-20] MEDS: polyethylene glycoL POWDER 17 GM (MIRALAX) PACK PO SCH ×2 (08:27→20:33)
[2023-02-20] MEDS: DOCUSATE SODIUM 100 MG (COLACE) CAP PO SCH ×3 (08:27→20:32)
[2023-02-20] MEDS: SENNA W/DOCUSATE (SENOKOT S) TABLET PO SCH ×3 (08:27→20:33)
[2023-02-20] MEDS: ENOXAPARIN 40 MG/0.4 ML (LOVENOX) SYR SC SCH (08:27)
[2023-02-20] MEDS: SENNOSIDES 8.6 MG (SENOKOT) TAB PO SCH ×2 (08:27→20:33)
[2023-02-20] MEDS: NYSTATIN CREAM (MYCOSTATIN) 30 GM TUBE TP SCH ×3 (08:28→20:36)
--- NOTE | 2023-02-20 10:56 | Physical Therapy Daily Note ---
PT Daily Note-Current Subjective Pt found lying in bed upon entry. Agreed to PT. States that he has not had any pain since he was admitted to the hospital. Reports that he is ready to go home tomorrow. Pain Section J - Health Conditions 1. Rarely or not at all 2. Occasionally 3. Frequently 4. Almost constantly 8. Unable to answer Pain Effect on Sleep: 1 Pain Interference with Therapy: 1 Pain Interference w/Day-to-Day: 1 Mental Status Patient Orientation: Person Transfers SCALE: Activities may be completed with or without assistive devices. 3-Gpvmvhbjkh-iuqybpu completes the activity by him/herself with no assistance from a helper. 5-Set-up or Clean-up Assistance-helper sets up or cleans up; patient completes activity. [place] assists only prior to or following the activity. 4-Supervision or Touching Assistance-helper provides verbal cues and/or touching/steadying and/or contact guard assistance as patient completes activity. Assistance may be provided throughout the activity or intermittently. 3-Partial/Moderate Assistance-helper does LESS THAN HALF the effort. [place] lifts, holds or supports trunk or limbs, but provides less than half the effort. 2-Substantial/Maximal Assistance-helper does MORE THAN HALF the effort. [place] lifts or holds trunk or limbs and provides more than half the effort. 1-Eyfkzdcgt-oqrlle does ALL the effort. Patient does none of the effort to complete the activity. Or, the assistance of 2 or more helpers is required for the patient to complete the activity. If activity was not attempted, code reason: 7-Patient Refused. 9-Not Applicable-not attempted and the patient did not perform the activity before the current illness, exacerbation or injury. 10-Not Attempted due to Environmental Limitations-(lack of equipment, weather restraints, etc.). 88-Not Attempted due to Medical Conditions or Safety Concerns. Sit to Stand (QC): 4 Pt CGA with sit to stand transfer at W. Weight Bearing Left Lower Extremity: Left Weight Bearing/Tolerated Gait Training Does the Patient Walk?: Yes Distance: 100, 50 Walk 10 feet (QC): 4 Walk 50 ft with 2 Turns(QC): 4 Walk 150 ft (QC): 4 Gait Persons Needed: 1 Gait Assistive Device: FWW Pt ambulates with use of FWW and required CGA. Displays decreased scissoring during gait cycle. Required short seated rest break after 100 feet of ambulation before ambulating another 50 feet. Assessment Current Status: Good Progress Pt tolerates gait training well with no report of increased pain. No loss of balance displayed with ambulation. Pt demonstrating improved endurance and strength. Continue to progress pt as tolerated per POC to increase strength, endurance, and functional ability. PT Hydraulic Chair Assembler Goals Hydraulic Chair Assembler Goals PT Shelter Goals Time Frame: Feb 23, 2023 Roll Left & Right (QC): 4 (SBA) Sit to Lying (QC): 4 (SBA) Lying-Sitting on Side/Bed(QC): 4 (SBA) Sit to Stand (QC): 4 (CGA) Chair/Vrk-nq-Lrjrp Xfer(QC): 4 (CGA) Toilet Transfer (QC): 4 (CGA) Car Transfer (QC): 4 (CGA) Does the Patient Walk: Yes Walk 10 feet (QC): 4 (CGA) Walk 50ft with 2 Turns (QC): 4 (CGA) Walk 150 ft (QC): 88 Walking 10ft on Uneven Surface: 4 (CGA) 1 Step (curb) (QC): 4 (CGA) 4 Steps (QC): 88 12 Steps (QC): 88 Picking up an Object (QC): 4 (CGA using a tailer off) Wheel 50 feet with 2 turns (QC: 4 (SBA) Wheel 150 feet: 4 (SBA) PT Plan Treatment/Plan Treatment Plan: Continue Plan of Care Treatment Plan: Bed Mobility, Education, Functional Activity Josep, Functional Strength, Group Therapy, Gait, Safety, Therapeutic Exercise, Transfers Treatment Duration: Feb 23, 2023 Frequency: At least 5 of 7 days/Wk (IRF) Estimated Hrs Per Day: 1.5 hours per day Patient and/or Family Agrees t: Yes Time Time In: 1020 Time Out: 1038 DATE: Feb 20, 2023 Total Billed Treatment Time: 18 Total Billed Treatment 1 visit GT x 1 ISABELA RAI WARP DRAWER Feb 20, 2023 10:56
[2023-02-20 20:36] VITALS: BP 125/75
[2023-02-21] MEDS: MELATONIN 3 MG TABLET PO PRN (00:53)
[2023-02-21] MEDS: MULTIVIT W/MINERALS TAB (THERAGRAN M) PO SCH (06:26)
[2023-02-21] MEDS: CYANOCOBALAMIN 1,000 MCG (VITAMIN B-12) TABLET PO SCH (06:26)
[2023-02-21] MEDS: LEVOTHYROXINE 125 MCG (LEVOTHROID) TABLET PO SCH (06:26)
--- NOTE | 2023-02-21 06:29 | Discharge Summary ---
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 HLD Hypothyroidism Iron deficiency Nocturia with normal UA started Oxybutnin with improvement so dx of OAB Plan: PT OT Pain control Chest tube management Monitor closely 02/10/2023: Improved overall No pain reported Restart and finish Venofer 02/11/2023: Monitor closely Aggressive rehab 02/12/2023: Increase fluids Monitor closely 02/13/2023: Improved No concerns 02/14/2023: Monitor hgb 02/15/2023: Completed Venofer 02/16/2023: Oxybutynin 02/17/2023: Monitor urination 02/18/2023: Maintain Oxybutynin 02/19/2023: Monitor closely Check labs Sat since DC Wednesday02/20/2023: DC tomorrow (1) Closed left hip fracture Status: Acute (2) Postoperative anemia due to acute blood loss Status: Acute (3) Debility Status: Acute (4) History of cerebrovascular accident (CVA) with residual deficit Status: Chronic (5) Pneumothorax on left Status: Acute (6) Central line complication Status: Acute (7) Recurrent pneumothorax after chest tube removed Status: Acute Discharge Summary Discharge Physical Examination Allergies: Coded Allergies: Influenza Virus Vaccines (Verified Allergy, Severe, 02/03/23) Penicillins (Verified Allergy, Severe, 02/03/23) Vitals & I&Os Vital Signs Date Time Temp Pulse Resp B/P (MAP) Pulse Ox O2 Delivery O2 Flow Rate FiO2 02/21/23 11:28 36.8 77 20 136/65 96 Room Air General Appearance: Alert, Oriented X3, Cooperative Respiratory: Clear to Auscultation Cardiovascular: Regular Rate Psych/Mental Status: Mental Status NL Hospital Course Was the Problem List Reviewed?: Yes Lengthy course after admitted from ICU and 4th floor due to left hip fracture and the need for aggressive therapy. Left sided PTX ultimately required chest tube then removal. Iron deficiency required iron infusions to complete supplement due to severe anemia requiring transfusions in ICU for hypovolumic shock. Patient participated in all therapies and was able to regain prior baseline function. No major events occurred during his stay and was DC in improved condition. Labs (last 24 hrs) Laboratory Tests 02/10/23 05:19: White Blood Count 10.5, Red Blood Count 2.79L, Hemoglobin 8.4L, Hematocrit 25L, Mean Corpuscular Volume 91, Mean Corpuscular Hemoglobin 30, Mean Corpuscular Hemoglobin Concent 33, Red Cell Distribution Width 15.3H, Platelet Count 230, Mean Platelet Volume 10.3, Immature Granulocyte % (Auto) 5, Neutrophils (%) (Auto) 61, Lymphocytes (%) (Auto) 18, Monocytes (%) (Auto) 14H, Eosinophils (%) (Auto) 3, Basophils (%) (Auto) 0, Neutrophils # (Auto) 6.4, Lymphocytes # (Auto) 1.9, Monocytes # (Auto) 1.5H, Eosinophils # (Auto) 0.3, Basophils # (Auto) 0.0, Immature Granulocyte # (Auto) 0.5H, Percent Immature Platelet Fraction 2.3, Sodium Level 137, Potassium Level 3.8, Chloride Level 105, Carbon Dioxide Level 24, Anion Gap 8, Blood Urea Nitrogen 25H, Creatinine 0.82, Estimat Glomerular Filtration Rate 87, BUN/Creatinine Ratio 30, Glucose Level 92, Calcium Level 8.2L, Corrected Calcium 9.6, Total Bilirubin 1.3H, Aspartate Amino Transf (AST/SGOT) 44H, Alanine Aminotransferase (ALT/SGPT) 42, Alkaline Phosphatase 71, Total Protein 4.6L, Albumin 2.3L 02/13/23 06:00: White Blood Count 9.0, Red Blood Count 2.94L, Hemoglobin 8.8L, Hematocrit 27L, Mean Corpuscular Volume 93, Mean Corpuscular Hemoglobin 30, Mean Corpuscular Hemoglobin Concent 32, Red Cell Distribution Width 16.3H, Platelet Count 326, Mean Platelet Volume 9.4, Immature Granulocyte % (Auto) 4, Neutrophils (%) (Auto) 59, Lymphocytes (%) (Auto) 22, Monocytes (%) (Auto) 10, Eosinophils (%) (Auto) 4, Basophils (%) (Auto) 0, Neutrophils # (Auto) 5.3, Lymphocytes # (Auto) 2.0, Monocytes # (Auto) 0.9, Eosinophils # (Auto) 0.4H, Basophils # (Auto) 0.0, Immature Granulocyte # (Auto) 0.4H, Sodium Level 136, Potassium Level 4.1, Chloride Level 105, Carbon Dioxide Level 22, Anion Gap 9, Blood Urea Nitrogen 23H, Creatinine 0.76, Estimat Glomerular Filtration Rate 89, BUN/Creatinine Ratio 30, Glucose Level 90, Calcium Level 8.4L, Corrected Calcium 9.4, Total Bilirubin 1.7H, Aspartate Amino Transf (AST/SGOT) 48H, Alanine Aminotransferase (ALT/SGPT) 54, Alkaline Phosphatase 84, Total Protein 5.2L, Albumin 2.7L 02/15/23 05:07: White Blood Count 10.7, Red Blood Count 3.05L, Hemoglobin 9.1L, Hematocrit 29L, Mean Corpuscular Volume 95, Mean Corpuscular Hemoglobin 30, Mean Corpuscular Hemoglobin Concent 32, Red Cell Distribution Width 17.2H, Platelet Count 350, Mean Platelet Volume 9.4, Immature Granulocyte % (Auto) 3, Neutrophils (%) (Auto) 65, Lymphocytes (%) (Auto) 19, Monocytes (%) (Auto) 9, Eosinophils (%) (Auto) 4, Basophils (%) (Auto) 1, Neutrophils # (Auto) 6.9, Lymphocytes # (Auto) 2.0, Monocytes # (Auto) 1.0, Eosinophils # (Auto) 0.4H, Basophils # (Auto) 0.1, Immature Granulocyte # (Auto) 0.3H, Sodium Level 137, Potassium Level 4.2, Chloride Level 106, Carbon Dioxide Level 22, Anion Gap 9, Blood Urea Nitrogen 20H, Creatinine 0.81, Estimat Glomerular Filtration Rate 87, BUN/Creatinine Ratio 25, Glucose Level 88, Calcium Level 8.5, Corrected Calcium 9.7, Total Bilirubin 1.1H, Aspartate Amino Transf (AST/SGOT) 50H, Alanine Aminotransferase (ALT/SGPT) 50, Alkaline Phosphatase 97, Total Protein 5.1L, Albumin 2.5L 02/15/23 11:42: Urine Color YELLOW, Urine Clarity CLEAR, Urine pH 6.5, Urine Specific [place] 1.015L, Urine Protein NEGATIVE, Urine Glucose (UA) NEGATIVE, Urine Ketones NEGATIVE, Urine Nitrite NEGATIVE, Urine Bilirubin NEGATIVE, Urine Urobilinogen 0.2, Urine Leukocyte Esterase NEGATIVE, Urine RBC (Auto) NEGATIVE, Urine RBC NON E, Urine WBC NONE, Urine Crystals PRESENTH, Urine Amorphous Sediment RARE OZZIE URATESH, Urine Bacteria TRACE, Urine Casts PRESENT, Urine Hyaline Casts RARE, Urine Mucus NEGATIVE, Urine Culture Indicated NO 02/20/23 06:42: White Blood Count 5.6, Red Blood Count 3.19L, Hemoglobin 9.7L, Hematocrit 30L, Mean Corpuscular Volume 95, Mean Corpuscular Hemoglobin 30, Mean Corpuscular Hemoglobin Concent 32, Red Cell Distribution Width 17.3H, Platelet Count 356, Mean Platelet Volume 9.3, Immature Granulocyte % (Auto) 1, Neutrophils (%) (Auto) 55, Lymphocytes (%) (Auto) 26, Monocytes (%) (Auto) 13H, Eosinophils (%) (Auto) 4, Basophils (%) (Auto) 1, Neutrophils # (Auto) 3.1, Lymphocytes # (Auto) 1.5, Monocytes # (Auto) 0.7, Eosinophils # (Auto) 0.2, Basophils # (Auto) 0.1, Immature Granulocyte # (Auto) 0.0, Sodium Level 137, Potassium Level 4.1, Chloride Level 104, Carbon Dioxide Level 26, Anion Gap 7, Blood Urea Nitrogen 24H, Creatinine 0.80, Estimat Glomerular Filtration Rate 87, BUN/Creatinine Ratio 30, Glucose Level 84, Calcium Level 8.9, Corrected Calcium 9.9, Total Bilirubin 1.0, Aspartate Amino Transf (AST/SGOT) 34, Alanine Aminotransferase (ALT/SGPT) 43, Alkaline Phosphatase 110, Total Protein 5.3L, Albumin 2.8L Pending Labs Laboratory Tests 02/10/23 05:19: White Blood Count 10.5, Red Blood Count 2.79, Hemoglobin 8.4, Hematocrit 25, Mean Corpuscular Volume 91, Mean Corpuscular Hemoglobin 30, Mean Corpuscular Hemoglobin Concent 33, Red Cell Distribution Width 15.3, Platelet Count 230, Mean Platelet Volume 10.3, Immature Granulocyte % (Auto) 5, Neutrophils (%) (Auto) 61, Lymphocytes (%) (Auto) 18, Monocytes (%) (Auto) 14, Eosinophils (%) (Auto) 3, Basophils (%) (Auto) 0, Neutrophils # (Auto) 6.4, Lymphocytes # (Auto) 1.9, Monocytes # (Auto) 1.5, Eosinophils # (Auto) 0.3, Basophils # (Auto) 0.0, Immature Granulocyte # (Auto) 0.5, Percent Immature Platelet Fraction 2.3, Sodium Level 137, Potassium Level 3.8, Chloride Level 105, Carbon Dioxide Level 24, Anion Gap 8, Blood Urea Nitrogen 25, Creatinine 0.82, Estimat Glomerular Filtration Rate 87, BUN/Creatinine Ratio 30, Glucose Level 92, Calcium Level 8.2, Corrected Calcium 9.6, Total Bilirubin 1.3, Aspartate Amino Transf (AST/SGOT) 44, Alanine Aminotransferase (ALT/SGPT) 42, Alkaline Phosphatase 71, Total Protein 4.6, Albumin 2.3 02/13/23 06:00: White Blood Count 9.0, Red Blood Count 2.94, Hemoglobin 8.8, Hematocrit 27, Mean Corpuscular Volume 93, Mean Corpuscular Hemoglobin 30, Mean Corpuscular Hemoglobin Concent 32, Red Cell Distribution Width 16.3, Platelet Count 326, Mean Platelet Volume 9.4, Immature Granulocyte % (Auto) 4, Neutrophils (%) (Auto) 59, Lymphocytes (%) (Auto) 22, Monocytes (%) (Auto) 10, Eosinophils (%) (Auto) 4, Basophils (%) (Auto) 0, Neutrophils # (Auto) 5.3, Lymphocytes # (Auto) 2.0, Monocytes # (Auto) 0.9, Eosinophils # (Auto) 0.4, Basophils # (Auto) 0.0, Immature Granulocyte # (Auto) 0.4, Sodium Level 136, Potassium Level 4.1, Chloride Level 105, Carbon Dioxide Level 22, Anion Gap 9, Blood Urea Nitrogen 23, Creatinine 0.76, Estimat Glomerular Filtration Rate 89, BUN/Creatinine Ratio 30, Glucose Level 90, Calcium Level 8.4, Corrected Calcium 9.4, Total Bilirubin 1.7, Aspartate Amino Transf (AST/SGOT) 48, Alanine Aminotransferase (ALT/SGPT) 54, Alkaline Phosphatase 84, Total Protein 5.2, Albumin 2.7 02/15/23 05:07: White Blood Count 10.7, Red Blood Count 3.05, Hemoglobin 9.1, Hematocrit 29, Mean Corpuscular Volume 95, Mean Corpuscular Hemoglobin 30, Mean Corpuscular Hemoglobin Concent 32, Red Cell Distribution Width 17.2, Platelet Count 350, Mean Platelet Volume 9.4, Immature Granulocyte % (Auto) 3, Neutrophils (%) (Auto) 65, Lymphocytes (%) (Auto) 19, Monocytes (%) (Auto) 9, Eosinophils (%) (Auto) 4, Basophils (%) (Auto) 1, Neutrophils # (Auto) 6.9, Lymphocytes # (Auto) 2.0, Monocytes # (Auto) 1.0, Eosinophils # (Auto) 0.4, Basophils # (Auto) 0.1, Immature Granulocyte # (Auto) 0.3, Sodium Level 137, Potassium Level 4.2, Chloride Level 106, Carbon Dioxide Level 22, Anion Gap 9, Blood Urea Nitrogen 20 , Creatinine 0.81, Estimat Glomerular Filtration Rate 87, BUN/Creatinine Ratio 25, Glucose Level 88, Calcium Level 8.5, Corrected Calcium 9.7, Total Bilirubin 1.1, Aspartate Amino Transf (AST/SGOT) 50, Alanine Aminotransferase (ALT/SGPT) 50, Alkaline Phosphatase 97, Total Protein 5.1, Albumin 2.5 02/15/23 11:42: Urine Color YELLOW, Urine Clarity CLEAR, Urine pH 6.5, Urine Specific [place] 1.015, Urine Protein NEGATIVE, Urine Glucose (UA) NEGATIVE, Urine Ketones NEGATIVE, Urine Nitrite NEGATIVE, Urine Bilirubin NEGATIVE, Urine Urobilinogen 0.2, Urine Leukocyte Esterase NEGATIVE, Urine RBC (Auto) NEGATIVE, Urine RBC NONE, Urine WBC NONE, Urine Crystals PRESENT, Urine Amorphous Sediment RARE OZZIE URATES, Urine Bacteria TRACE, Urine Casts PRESENT, Urine Hyaline Casts RARE, Urine Mucus NEGATIVE, Urine Culture Indicated NO 02/20/23 06:42: White Blood Count 5.6, Red Blood Count 3.19, Hemoglobin 9.7, Hematocrit 30, Mean Corpuscular Volume 95, Mean Corpuscular Hemoglobin 30, Mean Corpuscular Hemoglobin Concent 32, Red Cell Distribution Width 17.3, Platelet Count 356, Mean Platelet Volume 9.3, Immature Granulocyte % (Auto) 1, Neutrophils (%) (Auto) 55, Lymphocytes (%) (Auto) 26, Monocytes (%) (Auto) 13, Eosinophils (%) (Auto) 4, Basophils (%) (Auto) 1, Neutrophils # (Auto) 3.1, Lymphocytes # (Auto) 1.5, Monocytes # (Auto) 0.7, Eosinophils # (Auto) 0.2, Basophils # (Auto) 0.1, Immature Granulocyte # (Auto) 0.0, Sodium Level 137, Potassium Level 4.1, Chloride Level 104, Carbon Dioxide Level 26, Anion Gap 7, Blood Urea Nitrogen 24, Creatinine 0.80, Estimat Glomerular Filtration Rate 87, BUN/Creatinine Ratio 30, Glucose Level 84, Calcium Level 8.9, Corrected Calcium 9.9, Total Bilirubin 1.0, Aspartate Amino Transf (AST/SGOT) 34, Alanine Aminotransferase (ALT/SGPT) 43, Alkaline Phosphatase 110, Total Protein 5.3, Albumin 2.8 Discharge Home Medications: Active Scripts Active Vitamin B-12 (Cyanocobalamin (Vitamin B-12)) 1,000 Mcg Tablet 1,000 Mcg PO DAILY@0700 Reported Levothyroxine Sodium 125 Mcg Tablet 125 Mcg PO DAILY Atorvastatin Calcium 40 Mg Tablet 40 Mg PO HS One Daily For Men Tablet (Multivits-Minerals/FA/Lycopene) 0.4 Mg-600 Mcg Tablet 1 Each PO DAILY Aspirin EC (Aspirin) 81 Mg Tablet.dr 81 Mg PO 1200 Instructions to patient/family Please see electronic discharge instructions given to patient. Diagnosis/Problems Diagnosis/Problems (1) Closed left hip fracture Status: Acute (2) Postoperative anemia due to acute blood loss Status: Acute (3) Debility Status: Acute (4) History of cerebrovascular accident (CVA) with residual deficit Status: Chronic (5) Pneumothorax on left Status: Acute (6) Central line complication Status: Acute (7) Recurrent pneumothorax after chest tube removed Status: Acute VIKI BOOTH DO Feb 21, 2023 06:29
[2023-02-21 07:03] VITALS: BP 136/65
[2023-02-21] MEDS: SENNOSIDES 8.6 MG (SENOKOT) TAB PO SCH (08:39)
[2023-02-21] MEDS: ENOXAPARIN 40 MG/0.4 ML (LOVENOX) SYR SC SCH (08:39)
[2023-02-21] MEDS: DOCUSATE SODIUM 100 MG (COLACE) CAP PO SCH (08:48)
[2023-02-21] MEDS: polyethylene glycoL POWDER 17 GM (MIRALAX) PACK PO SCH (08:48)
[2023-02-21] MEDS: SENNA W/DOCUSATE (SENOKOT S) TABLET PO SCH (08:48)
[2023-02-21] MEDS: NYSTATIN CREAM (MYCOSTATIN) 30 GM TUBE TP SCH (08:49)
[2023-02-21 11:28] VITALS: BP 136/65
--- NOTE | 2023-02-22 13:28 | Therapy Team Discharge Summary ---
Therapy Discharge Summary Discharge Recommendations Date of Discharge Feb 21, 2023 at 09:50 Physical Therapy Roll Left to Right (QC): 5 Sit to Lying (QC): 4 Lying to Sitting/Side of Bed(Q: 4 Sit to Stand (QC): 4 Chair/Xzt-ht-Szsmu Xfer(QC): 4 Toilet Transfer (QC): 4 Car Transfer (QC): 4 Does the Patient Walk: Yes Mode of Locomotion: Walk Anticipated Mode of Locomotion: Walk Walk 10 feet (QC): 4 Walk 50 ft with 2 Turns(QC): 4 Walk 150 ft (QC): 4 Walking 10ft on uneven surface: 3 Distance: 15' Gait Assistive Device: FWW Does the Pt Use a Wheelchair: Yes Wheelchair Distance: 150' Wheel 50 ft with 2 turns (QC): 4 Wheel 150 ft (QC): 3 Type of Wheelchair: Manual #of Steps: 6 1 Step (curb) (QC): 4 4 Steps (QC): 4 12 Steps (QC): 88 Balance Sitting Static: Normal Balance Sitting Dynamic: Normal Balance-Standing Static: Poor Picking up an Object (QC): 88 Occupational Therapy Pt admitted to [facility] s/o L hip bipolar replacement. At [facility], pt required assistance with ADLS. upon initial evaluation, pt required set up with eating and oral care, mod A showering and UE dressing and total assist with LE Dressing, footwear and toileting. OT tx focused on increasing BUE Strength and activity tolerance, and increasing safety and independence with ADLS and functional mobility. Pt made functional progress towards goals, meeting all LTGs except footwear. Pt discharged home with spouse support, d/c from OT. Decreased Activ Tolerance, Decreased UE Strength, Impaired Self-Care Skills, Restricted Funct UE ROM Eating (QC): 6 Oral Hygiene (QC): 6 Shower/Bathe Self (QC): 3 Upper Body Dressing (QC): 5 Lower Body Dressing (QC): 3 On/Off Footwear (QC): 2 Toileting Hygiene (QC): 3 PT Residential Goals Systems Protection Technician Goals PT Systems Protection Technician Goals Time Frame: Feb 23, 2023 Roll Left to Right (QC): 4 (SBA) Sit to Lying (QC): 4 (SBA) Lying-Sitting on Side/Bed(QC): 4 (SBA) Sit to Stand (QC): 4 (CGA) Chair/Jxq-hu-Qcbwv Xfer(QC): 4 (CGA) Toilet/Commode Transfer (QC): 4 (CGA) Car Transfer (QC): 4 (CGA) Does the Patient Walk: Yes Walk 10 feet (QC): 4 (CGA) Walk 10ft-Uneven Surface(QC): 4 (CGA) Walk 50ft with 2 Turns (QC): 4 (CGA) Walk 150 ft (QC): 88 Wheel 50 feet with 2 turns (QC: 4 (SBA) Wheel 150 feet: 4 (SBA) 1 Step (curb) (QC): 4 (CGA) 4 Steps (QC): 88 12 Steps (QC): 88 Picking up an Object (QC): 4 (CGA using a automotive internet sales manager) OT Residential Goals Residential Goals Time Frame: Mar 05, 2023 Acute change in mental status: 0 Inattention: 0 Disorganized thinkin Altered level of consciousness: 0 Eating (QC): 5 (mt) Oral Hygiene (QC): 5 (met) Toileting Hygiene (QC): 3 (met) Shower/Bathe Self (QC): 3 (met) Upper Body Dressing (QC): 3 (met) Lower Body Dressing (QC): 3 (mod A met) On/Off Footwear (QC): 3 (not met) Additional Goals: 1-Demonstrate ADL Tasks, 2-Verbalize Understanding, 3- ImproveStrength/Josep 1=Demonstrate adherence to instructed precautions during ADL tasks. 2=Patient will verbalize/demonstrate understanding of assistive devices/modifications for ADL. 3=Patient will improve strength/tolerance for activity to enable patient to perform ADL's. KEANU PANDYA OT Feb 22, 2023 13:28
--- NOTE | 2023-02-22 15:39 | Therapy Team Discharge Summary ---
Therapy Discharge Summary Discharge Recommendations Date of Discharge Feb 21, 2023 at 09:50 Physical Therapy Patient seen on ARU s/p (L) hip fracture surgery. Patient with previous CVA with (L) hemiparesis. At time of D/C, patient was walking 100' with CGA, (B) platform FWW, (L) AFO and (L) moroccan knee cage. Patient was CGA for sit<>stand and all transfers using walker, including car transfers. Patient was SBA with rolling, min (A) with sit<>supine and was able to propel a w/c with prn v.c. and assist. Patient was CGA with device on a curb step and up/down 4 steps with railing. Roll Left to Right (QC): 5 Sit to Lying (QC): 4 Lying to Sitting/Side of Bed(Q: 4 Sit to Stand (QC): 4 Chair/Yuq-fk-Iblse Xfer(QC): 4 Toilet Transfer (QC): 4 Car Transfer (QC): 4 Does the Patient Walk: Yes Mode of Locomotion: Walk Anticipated Mode of Locomotion: Walk Walk 10 feet (QC): 4 Walk 50 ft with 2 Turns(QC): 4 Walk 150 ft (QC): 4 Walking 10ft on uneven surface: 4 Distance: 100' Gait Assistive Device: FWW Does the Pt Use a Wheelchair: Yes Wheelchair Distance: 150' Wheel 50 ft with 2 turns (QC): 4 Wheel 150 ft (QC): 4 Type of Wheelchair: Manual #of Steps: 6 1 Step (curb) (QC): 4 4 Steps (QC): 4 12 Steps (QC): 88 Walking Assistive Device: Walker Balance Sitting Static: Normal Balance Sitting Dynamic: Normal Balance-Standing Static: Fair Picking up an Object (QC): 88 Occupational Therapy Decreased Activ Tolerance, Decreased UE Strength, Impaired Self-Care Skills, Restricted Funct UE ROM Eating (QC): 6 Oral Hygiene (QC): 6 Shower/Bathe Self (QC): 3 Upper Body Dressing (QC): 5 Lower Body Dressing (QC): 3 On/Off Footwear (QC): 2 Toileting Hygiene (QC): 3 PT Medical Office Clerk Goals Medical Office Clerk Goals PT Senior Living Goals Time Frame: Feb 23, 2023 Roll Left to Right (QC): 4 (SBA) Sit to Lying (QC): 4 (SBA) Lying-Sitting on Side/Bed(QC): 4 (SBA) Sit to Stand (QC): 4 (CGA) Chair/Hpj-wi-Ixrtf Xfer(QC): 4 (CGA) Toilet/Commode Transfer (QC): 4 (CGA) Car Transfer (QC): 4 (CGA) Does the Patient Walk: Yes Walk 10 feet (QC): 4 (CGA) Walk 10ft-Uneven Surface(QC): 4 (CGA) Walk 50ft with 2 Turns (QC): 4 (CGA) Walk 150 ft (QC): 88 Wheel 50 feet with 2 turns (QC: 4 (SBA) Wheel 150 feet: 4 (SBA) 1 Step (curb) (QC): 4 (CGA) 4 Steps (QC): 88 12 Steps (QC): 88 Picking up an Object (QC): 4 (CGA using a optometrist) OT Senior Living Goals Senior Living Goals Time Frame: Mar 05, 2023 Acute change in mental status: 0 Inattention: 0 Disorganized thinkin Altered level of consciousness: 0 Eating (QC): 5 (mt) Oral Hygiene (QC): 5 (met) Toileting Hygiene (QC): 3 (met) Shower/Bathe Self (QC): 3 (met) Upper Body Dressing (QC): 3 (met) Lower Body Dressing (QC): 3 (mod A met) On/Off Footwear (QC): 3 (not met) Additional Goals: 1-Demonstrate ADL Tasks, 2-Verbalize Understanding, 3- ImproveStrength/Josep 1=Demonstrate adherence to instructed precautions during ADL tasks. 2=Patient will verbalize/demonstrate understanding of assistive devices/modifications for ADL. 3=Patient will improve strength/tolerance for activity to enable patient to perform ADL's. Florina Marino PT Feb 22, 2023 15:39
== END 2023-02-21 09:50 | disposition home or self-care (01) | DRG 560 ==
PROVIDERS: ADMIT Internal Medicine; ATTEND Internal Medicine
DX: S72.002D Fracture of unspecified part of neck of left femur, subsequent encounter for closed fracture with routine healing (principal); D62 Acute posthemorrhagic anemia; I69.354 Hemiplegia and hemiparesis following cerebral infarction affecting left non-dominant side; J95.811 Postprocedural pneumothorax; N32.81 Overactive bladder; M19.90 Unspecified osteoarthritis, unspecified site; E78.00 Pure hypercholesterolemia, unspecified; E03.9 Hypothyroidism, unspecified; F41.9 Anxiety disorder, unspecified; F32.A Depression, unspecified; H91.90 Unspecified hearing loss, unspecified ear; Z91.81 History of falling; W19.XXXD Unspecified fall, subsequent encounter
CPT/HCPCS: 36415; 71045; 80053; 81000; 85025; 94760